=== PATIENT | male | born 1965 | race Caucasian/White ===

== ENCOUNTER 2023-11-19 07:23 | Outpatient (OUT) | payer OTHER, SELFPAY ==
[2023-11-19 07:52] LABS: Bilirubin Urine NEGATIVE (NEGATIVE); Blood Urine NEGATIVE (NEGATIVE); Clarity Urine CLEAR (CLEAR); Color Urine LT. YELLOW (YELLOW); Glucose Urine UA NEGATIVE (NEGATIVE); Ketones Urine NEGATIVE (NEGATIVE); Leukocyte Esterase Urine NEGATIVE (NEGATIVE); Nitrite Urine NEGATIVE (NEGATIVE); Protein Urine 100 mg/dL (NEG/TRACE); Urobilinogen Urine 0.2 EU/dL (0.2-1.0); pH Urine 7.5 (5.0-9.0)
[2023-11-19 07:58] LABS: Anion Gap 12.5; Calcium 8.5 mg/dL (8.5-10.1); Carbon Dioxide 28.6 mmol/L (21.0-32.0); Chloride 104 mmol/L (98-107); Estimated GFR (African America >60 (>=60); Estimated GFR (Non-African Ame 54 (>=60); Glucose 140 mg/dL (74-106); Potassium 3.1 mmol/L (3.5-5.1); Sodium 142 mmol/L (136-145)
[2023-11-19 07:58] LABS: Creatinine Urine Random 72.95 mg/dL (20.00-300.00); Protein Creatinine Ratio Urine 1.28; Total Protein Urine Random 93.3 mg/dL (<=11.9)
[2023-11-19 08:12] LABS: Bacteria Urine NONE SEEN #/HPF (NONE SEEN); Cast Seen? NONE SEEN #/LPF (NONE SEEN); Crystals Seen? None Seen #/HPF (None Seen); Mucus Urine NONE SEEN (NONE SEEN); RBC Urine NONE SEEN #/HPF (0-2); Squamous Epithelial Cell Urine RARE #/LPF (NONE/RARE); WBC Urine NONE SEEN #/HPF (NONE SEEN)
[2023-11-20 15:08] LABS: Cortisol - AM 13.3 ug/dL (6.2-19.4)
== END 2023-11-19 07:24 | disposition home or self-care (01) ==
LOC: LAB 07:27
PROVIDERS: PCP Internal Medicine; Visit Provider Internal Medicine
DX: I87.2 Venous insufficiency (chronic) (peripheral) (principal); I1A.0 Resistant hypertension
CPT/HCPCS: 36415; 80048; 81001; 82088; 82533; 82570; 84156; 84244

== ENCOUNTER 2023-12-12 15:31 | Outpatient (OUT) | payer OTHER, SELFPAY ==
[2023-12-12 16:17] LABS: Anion Gap 10.9; BUN Creatinine Ratio 15.2; Calcium 9.3 mg/dL (8.5-10.1); Chloride 105 mmol/L (98-107); Estimated GFR (African America 58 (>=60); Estimated GFR (Non-African Ame 48 (>=60); Glucose 130 mg/dL (74-106); Potassium 3.9 mmol/L (3.5-5.1); Sodium 140 mmol/L (136-145)
== END 2023-12-12 15:32 | disposition home or self-care (01) ==
LOC: LAB 15:33
PROVIDERS: PCP Internal Medicine; Visit Provider Internal Medicine
DX: I10 Essential (primary) hypertension (principal)
CPT/HCPCS: 36415; 80048

== ENCOUNTER 2024-03-08 15:20 | Outpatient (OUT) | payer OTHER, SELFPAY ==
--- NOTE | 2024-03-08 15:27 | US_ITS ---
The [address] [address] Patient Name: YANNI MAR MRN: [id number] date: 1965 Sex: M Assigned Patient Location: US Current Patient Location: Accession/Order Number: [id number] Exam Date: 03/08/2024 16:06 Report Date: 03/09/2024 07:46 At the request of: CARITO GRIMALDO Procedure: US renal BI EXAMINATION: US renal BI HISTORY: Chronic kidney disease N18.9, wellness exam Z00.00 COMPARISON: No relevant comparison available. TECHNIQUE: Ultrasound examination was performed of the kidneys and urinary bladder. FINDINGS: RIGHT KIDNEY: Contains several anechoic areas suspected represent benign cysts, largest is 3.2 cm. Several nonobstructing calcifications/stones, largest is 1.2 x 0.5 x 0.9 cm. No significant cortical thinning. Kidney: 12.2 x 6.3 x 8.0 cm LEFT KIDNEY: Contains a 1.5 cm benign-appearing cyst and several nonobstructing stones, largest is 0.4 cm. No significant cortical thinning. Kidney: 11.8 x 5.8 x 7.0 cm BLADDER: Lobular soft tissue structure within base of bladder 2.0 x 1.6 x 2.4 cm. US/US renal BI IMPRESSION: 1. Within base of urinary bladder is a 2.4 cm mass versus lobular protrusion of prostate into bladder. Consider CT abdomen pelvis without and with IV contrast for further evaluation or direct visualization via cystoscopy. 2. Bilateral nonobstructing nephrolithiasis. 3. Multiple renal cysts bilaterally; nonspecific but favoring benign etiology. 4. No significant cortical thinning of the kidneys bilaterally. Electronically authenticated by: MEGAN MCCOY Date: 03/09/2024 07:46
== END 2024-03-08 15:21 | disposition home or self-care (01) ==
LOC: US 15:21
PROVIDERS: PCP Internal Medicine; Visit Provider Internal Medicine
DX: Z00.00 Encounter for general adult medical examination without abnormal findings (principal); N18.9 Chronic kidney disease, unspecified; N20.0 Calculus of kidney; N28.1 Cyst of kidney, acquired
CPT/HCPCS: 76775

== ENCOUNTER 2024-03-16 10:17 | Outpatient (OUT) | payer OTHER, SELFPAY ==
--- OUTSIDE RECORDS SUMMARY | 2024-03-16 10:39 | XMS_ITS | CCD ---
Author Organization [facility] Care Team Providers Care Information Systems Security Manager Name Role Phone Albaro John Unavailable MARKER ., DR DODGE Admitting Unavailable MARKER ., DR DODGE Consulting Unavailable MARKER ., DR DODGE Attending Unavailable BALL, DR ARZATE Primary Care Unavailable IRIS, MARCELINA Consulting Unavailable BALL, DR ARZATE Consulting Unavailable ALVARO, DR ARZATE Attending Unavailable BALL, DR ARZATE Admitting Unavailable BALL, DR ARZATE Primary Care Unavailable BALL, DR ARZATE Consulting Unavailable BALL, DR ARZATE Attending Unavailable BALL, DR ARZATE Admitting Unavailable BALL, DR ARZATE Primary Care Unavailable NADINE, DR MEGAN Mendoza Consulting Unavailable MAYNOR CHENG Attending Unavailable Allergies Allergy Classification Reported Allergen(s) Allergy Type Date of Onset Reaction(s) Facility (15 sources) Penicillin Drug Allergy Unknown [facility] Other (10 sources) Penicillin V Drug Allergy 4 Unknown, Unknown Reaction [facility] (1 source) Penicillins Allergy to substance 4 Unknown Reaction [facility] Medications Current Medications Medication Drug Class(es) Dates Sig (Normalized) Sig (Original) amLODIPine 10 mg oral tablet (18 sources) Dihydropyridine Calcium Channel Alejandro Start: 12-28-2023 take 5 mg by mouth once daily Amlodipine Active 5 MG PO Daily December 28, 2023 9:08pm Start: 12-28-2023 End: 12-28-2023 take 10 mg by mouth once daily Amlodipine Discontinued 10 MG PO Daily December 28, 2023 1:00am December 28, 2023 9:09pm Start: 12-23-2023 End: 12-28-2023 take 5 mg by mouth once daily Amlodipine Discontinued 5 MG PO Daily December 23, 2023 1:00am December 28, 2023 5:00pm take 1 tablet by vivian th every twenty-four hours amLODIPine Besylate 5 MG 1 tablet Oral Once a day Active take 1 tablet by vivian th every twenty-four hours amLODIPine Besylate 10 MG 1 tablet Oral Once a day Active benazepril hydrochloride 40 mg oral tablet (16 sources) Angiotensin Converting Enzyme Inhibitor Start: 12-23-2023 take 40 mg by mouth once daily Benazepril Active 40 MG PO Daily December 23, 2023 1:00am take 1 tablet by vivian th every twenty-four hours Benazepril HCl 40 MG 1 tablet Orally Onc e a day Active carvedilol 12.5 mg oral tablet (9 sources) alpha-Adrenergic Alejandro, beta-Adrenergic Alejandro Start: 11-16-2023 take 1 tablet by mouth every twelve hours Carvedilol 12.5 MG 1 tablet with food Orally Twice a day for 90 days Oct, Active Start: 11-16-2023 take 1 tablet by vivian th every twelve hours Carvedilol 6.25 MG 1 tablet with food Orally Twice a day for 30 days Oct, Active take 1 tablet by vivian th twice daily at mealtime Carvedilol 6.25 TAKE 1 TABLET BY MOUTH TWICE DAILY WITH FOOD for 90 Active citalopram 20 mg oral tablet (16 sources) Serotonin Reuptake Inhibitor Start: 12-23-2023 take 20 mg by mouth once daily at bedtime Citalopram Active 20 MG PO Daily at bedtime December 23, 2023 1:00am take 1 tablet by mouth at bedtim e Citalopram Hydrobromide 20 MG TAKE 1 TABLET BY MOUTH AT BEDTIME Active cloNIDine hydrochloride 0.1 mg oral tablet (15 sources) Central alpha-2 Adrenergic Agonist Start: 12-23-2023 End: 12-28-2023 take 0.1 mg by mouth twice daily Clonidine Hcl Active 0.1 MG PO Twice daily 60 December 28, 2023 9:07pm take 0.5 tablet by m outh every twelve hours cloNIDine HCl 0.1 MG 1/2 tablet Orally every 12 hours for 30 days Active take 1 tablet by mouth twice marybeth ly cloNIDine HCl 0.1 MG TAKE 1 TABLET BY MOUTH TWICE DAILY Active halobetasol propionate 0.0005 mg/mg topical ointment (7 sources) Corticosteroid Halobetasol Propionate 0.05 % APPLY TO AFFECTED RASH AREA(S) TWO TIMES A DAY NEEDED for 30 Active hyoscyamine sulfate 0.125 mg sublingual tablet (16 sources) Start: 12-23-2023 take 0.125 mg under the tongue three times daily Hyoscyamine Sulfate Active 0.125 MG SUBLINGUAL Three times daily December 23, 2023 1:00am Hyoscyamine Sulf ate 0.125 MG DISSOLVE 1 TABLET UNDER THE TONGUE THREE TIMES DAILY NEEDED for 90 Active meloxicam 15 mg oral tablet (2 sources) Nonsteroidal Anti-inflammatory Drug Start: 01-31-2023 take 1 tablet by mouth every twenty-four hours Meloxicam 15 MG 1 tablet Orally Once a day for 15 days Jan, Active spironolactone 25 mg oral tablet (5 sources) Aldosterone Antagonist Start: 12-28-2023 take 25 mg by mouth once daily Spironolactone Active 25 MG PO Daily December 28, 2023 1:00am Start: 11-29-2023 take 1 tablet by vivian th every twenty-four hours Spironolactone 25 MG 1 tablet Orally Once a day for 30 days Oct, Active tadalafil 10 mg oral tablet (16 sources) Phosphodiesterase 5 Inhibitor Start: 12-23-2023 take 10 mg by mouth once daily Tadalafil Active 10 MG PO Daily December 23, 2023 1:00am Tadalafil 10 MG TAKE ONE TABLET BY MOUTH NEEDED FOR ERECTILE DYSFUNCTION. TO LAST 90-DAYS for 90 Active Tadalafil 20 MG TAKE 1 TABLET BY MOUTH EVERY DAY NEEDED Orally Once a day as needed for ED for 90 days Active Completed/Discontinued Medications Medication Drug Class(es) Dates Sig (Normalized) Sig (Original) citric acid 75 mg/ml / magnesium oxide 21.9 mg/ml / picosulfate sodium 0.0625 mg/ml oral solution (15 sources) Calculi Dissolution Agent, Anti-coagulant Start: 1 take 160 mL by mouth in the evening, then take 160 mL by mouth twice daily in the evening Clenpiq 10-3.5-12 MG-GM -GM/160ML 160 ML AT 3:00 PM AND 160 ML AT 9:00 PM Orally TWICE A DAY for 1 days PLEASE CHECK ALLERGIES Dec, Not-Taking/PRN hydrALAZINE hydrochloride 10 mg oral tablet (2 sources) Arteriolar Vasodilator Start: 4 End: 4 take 10 mg by mouth three times daily Hydralazine Discontinued 10 MG PO Three times daily 90 December 14, 2023 2:24pm December 23, 2023 3:46pm hydroCHLOROthiazide 25 mg oral tablet (12 sources) Thiazide Diuretic Start: End: 4 take 25 mg by mouth once daily Hydrochlorothiazide Discontinued 25 MG PO Daily December 23, 2023 1:00am December 28, 2023 9:09pm take 1 tablet by mouth once carri y hydroCHLOROthiazide 25 MG TAKE 1 TABLET BY MOUTH DAILY Active Problems Active Problems Problem Classification Problem Date Documented Da te Episodic/Chronic Chronic kidney disease (3 sources) Chronic kidney disease; Translations: [Chronic kidney disease, unspecified] 12-24-2023 Chronic Disorders of lipid metabolism (20 sources) Hypercholesterolemi a; Translations: [Pure hypercholesterolemi a, unspecified] Chronic Essential hypertension (20 sources) Hypertensive disorder; Translations: [Essential (primary) hypertension] Onset: 05-17-2022 Chronic Genitourinary symptoms and ill-defined conditions (3 sources) Proteinuria; Translations: [Proteinuria, unspecified] 12-28-2023 Episodic Joint disorders and dislocations; trauma-related (10 sources) Derangement of right knee; Translations: [Unspecified internal derangement of right knee] Chronic Miscellaneous mental health disorders (2 sources) Psychogenic headache; 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] Chronic Mood disorders (20 sources) Recurrent major depression in full remission; Translations: [Major depressive disorder, recurrent, in full remission] Chronic Other acquired deformities (15 sources) Acquired spondylolisthesis; Translations: [Spondylolysis, lumbar region] Episodic Other acquired deformities (1 source) Spondylolysis, lumbar region Episodic Other bone disease and musculoskeletal deformities (1 source) Chondromalacia, unspecified site Episodic Other diseases of veins and lymphatics (16 sources) Peripheral venous insufficiency; Translations: [Venous insufficiency (chronic) (peripheral)] 12-23-2023 Episodic Other diseases of veins and lymphatics (5 sources) Venous insufficiency (chronic) (peripheral); Translations: [Venous (peripheral) insufficiency, unspecified] Episodic Other gastrointestinal disorders (15 sources) Irritable bowel syndrome with diarrhea; Translations: [Irritable bowel syndrome with diarrhea] Chronic Other gastrointestinal disorders (1 source) Irritable bowel syndrome with diarrhea Chronic Other inflammatory condition of skin (15 sources) Plaque psoriasis; Translations: [Psoriasis vulgaris] Chronic Other male genital disorders (15 sources) Impotence of organic origin; Translations: [Erectile dysfunction due to arterial insufficiency] Chronic Other male genital disorders (1 source) Erectile dysfunction due to arterial insufficiency Chronic Other nervous system disorders (2 sources) Chronic pain; Translations: [Other chronic pain] Chronic Other nervous system disorders (1 source) Other chronic pain Chronic Other non-traumatic joint disorders (15 sources) Arthralgia of the lower leg; Translations: [Pain in right knee] Episodic Other nutritional; endocrine; and metabolic disorders (13 sources) Obesity; Translations: [Other obesity due to excess calories] Chronic Other nutritional; endocrine; and metabolic disorders (14 sources) Body mass index 30+ - obesity; Translations: [Body mass index (BMI) 34.0-34.9, adult] 12-23-2023 Chronic Other nutritional; endocrine; and metabolic disorders (3 sources) Other obesity due to excess calories Chronic Other nutritional; endocrine; and metabolic disorders (3 sources) Body mass index (BMI) 34.0-34.9, adult Chronic Other nutritional; endocrine; and metabolic disorders (1 source) Obesity caused by energy imbalance; Translations: [Other obesity due to excess calories] 12-23-2023 Chronic Other screening for suspected conditions (not mental disorders or infectious disease) (1 source) Encounter for screening for malignant neoplasm of prostate; Translations: [Screening for malignant neoplasms of prostate] 03-02-2024 Episodic Residual codes; unclassified (16 sources) Obstructive sleep apnea syndrome; Translations: [Obstructive sleep apnea (adult) (pediatric)] 12-23-2023 Chronic Residual codes; unclassified (3 sources) Obstructive sleep apnea (adult) (pediatric) Chronic Past or Other Problems Problem Classification Problem Date Documented Da te Episodic/Chronic Other aftercare (1 source) Other buttermaker continuous churn (current) drug therapy; Translations: [OTH REFERRAL AGENT CURRENT DRUG THERAPY] Onset: 05-17-2022 Episodic Other non-traumatic joint disorders (5 sources) Pain in right knee; Translations: [PAIN IN RIGHT KNEE] Onset: 10-12-2022 Episodic Spondylosis; intervertebral disc disorders; other back problems (6 sources) Low back pain; Translations: [Low back pain] Onset: 05-14-2022 Episodic Unclassified (1 source) Resistant hypertension 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 Decreased range of motion. Technique: Multiplanar multisequence MRI of the knee was performed without contrast. Comparison: Radiographs of the knee 02/10/2023 Findings: Quadriceps and patellar tendons are intact. Small joint effusion. Anterior and posterior cruciate ligaments are intact. The medial collateral ligament, lateral collateral ligament, and popliteus are intact. Complex tear of the body through posterior horn of the medial meniscus including near complete radial tear of the posterior horn. The lateral meniscus is intact 4 mm high-grade partial thickness if not full-thickness cartilage defect of the weightbearing lateral femoral condyle. Tiny partial thickness cartilage defect of the inner weightbearing medial femoral condyle. Small focus of subcortical bone marrow edema of the outer weightbearing medial femoral condyle likely secondary to full-thickness cartilage fissures. 6 mm full-thickness cartilage defect of the lateral femoral trochlea and several full-thickness cartilage fissures of the lateral femoral trochlea and femoral trochlear groove with tiny foci of subcortical bone marrow edema. There are a few tiny foci of subcortical bone marrow edema of the median patellar ridge secondary to full-thickness cartilage fissures. Popliteal fossa structures are intact. No Turk cyst. IMPRESSION: Context tear of the body through posterior horn of the medial meniscus. Mild osteoarthritis. Report reported and signed by Angelo Landeros on 03/01/2023 1125 Normal [facility] [employer] Rep[employer] Technician CBC AUTO DIFFon 02-09-2023 BASO # 0.1 103/ul Normal 0.0-0.1 [facility] Comment on above: Performed By: #### C BC #### [facility] [address], [place] [address] Dr. Ziyad Landry Basophils/100 WBC (Bld) 0.7 % Normal 0.2-2.0 [facility] Comment on above: Performed By: #### C BC #### [facility] [address], [place] [address] Dr. Ziyad Landry EO # 0.2 103/ul Normal 0.0-0.7 [facility] Comment on above: Performed By: #### C BC #### [facility] [address] [place] [address] [address] Ziyad Landry Eosinophils/100 WBC (Bld) 2.7 % Normal 0.9-7.0 [facility] Comment on above: Performed By: #### C BC #### [facility] [address] [place] [address] Dr. Ziyad Landry Erythrocyte distribution width (RBC) [Ratio] 12.7 % Normal 11.0-15.0 [facility] Comment on above: Performed By: #### C BC #### [facility] [address] [place] [address] Dr. Ziyad Landry Hematocrit (Bld) [Volume fraction] 39.7 % Critically low 42.0-54.0 [facility] Comment on above: Performed By: #### C BC #### [facility] [address] [place] [address] Dr. Ziyad Landry Hemoglobin (Bld) [Mass/Vol] 14.6 g/dL Normal 14.0-18.0 [facility] Comment on above: Performed By: #### C BC #### [facility] [address] [place] [address] Dr. Ziyad Landry IG # 0.04 10e3/ul Critically high 0.00-0.03 [facility] Comment on above: Performed By: #### C BC #### [facility] [address] [place] [address] Dr. Ziyad Landry IG % 0.5 % Normal 0.0-0.5 [facility] Comment on above: Performed By: #### C BC #### [facility] [address] [place] [address] Dr. Ziyad Landry LYMPH # 1.7 103/ul Normal 1.2-3.8 [facility] Comment on above: Performed By: #### C BC #### [facility] [address] [place] [address] Dr. Ziyad Landry Lymphocytes/100 WBC (Bld) 22.4 % Normal 20.5-60.0 [facility] Comment on above: Performed By: #### C BC #### [facility] [address] [place] [address] Dr. Ziyad Landry MANUAL DIFF REQ NO Normal [facility] Comment on above: Performed By: #### C BC #### [facility] [address] [place] [address] Dr. Ziyad Landry MCH (RBC) [Entitic mass] 30.7 pg Normal 25.9-34.0 [facility] Comment on above: Performed By: #### C BC #### [facility] [address] [place] [address] Dr. Ziyad Landry MCHC (RBC) [Mass/Vol] 36.8 g/dL Critically high 29.9-35.2 [facility] Comment on above: Performed By: #### C BC #### [facility] [address] [place] [address] Dr. Ziyad Landry MCV (RBC) [Entitic vol] 83.6 fL Normal 80.0-94.0 [facility] Comment on above: Performed By: #### C BC #### [facility] [address] [place] [address] Dr. Ziyad Landry MONO # 0.6 103/ul Normal 0.3-0.8 [facility] Comment on above: Performed By: #### C BC #### [facility] [address] [place] [address] Dr. Ziyad Landry Monocytes/100 WBC (Bld) 8.2 % Normal 1.7-12.0 [facility] Comment on above: Performed By: #### C BC #### [facility] [address] [place] [address] Dr. Ziyad Landry NEUT # 5.0 103/ul Normal 1.4-6.5 [facility] Comment on above: Performed By: #### C BC #### [facility] [address] [place] [address] Dr. Ziyad Landry Neutrophils/100 WBC (Bld) 65.5 % Normal 43.0-75.0 [facility] Comment on above: Performed By: #### C BC #### [facility] [address] [place] [address] Dr. Ziyad Landry Platelet mean volume (Bld) [Entitic vol] 8.6 fL Critically low 9.5-13.5 [facility] Comment on above: Performed By: #### C BC #### [facility] [address] [place] [address] Dr. Ziyad Landry PLT 224 103/ul Normal 150-450 [facility] Comment on above: Performed By: #### C BC #### [facility] [address] [place] [address] [address] Ziyad Landry RBC 4.75 106/ul Normal 4.70-6.10 [facility] Comment on above: Performed By: #### C BC #### [facility] [address] [place] [address] Dr. Ziyad Landry WBC 7.7 103/ul Normal 4.0-11.0 [facility] Comment on above: Performed By: #### C BC #### [facility] [address] [place] [address] Dr. Ziyad Landry DIRECT LDLon 02-09-2023 Cholesterol in LDL [Mass/Vol] 87 mg/dL Normal [facility] Comment on above: Performed By: #### C MP, LIPID, DLDL #### [facility] [address] [place] [address] Dr. Ziyad Landry DLDL NORMAL SEE BELOW Normal [facility] Comment on above: Result Comment: <100 mg/dl OPTIMAL 100 - 129 mg/dl NEAR OR ABOVE OPTIMAL 130 - 159 mg/dl BORDERLINE HIGH 160 - 189 mg/dl HIGH >190 mg/dl VERY HIGH Performed By: #### C MP, LIPID, DLDL #### [facility] [address] [place] [address] Dr. Ziyad Landry LIPID PROFILEon 02-09-2023 CHOL-HDL RATIO NORM SEE BELOW Normal [facility] Comment on above: Result Comment: 3.3 - 4.4 LOW RISK 4.4 - 7.1 AVERAGE RISK 7.1 - 11.0 MODERATE RISK >11.0 HIGH RISK Performed By: #### C MP, LIPID, DLDL #### [facility] [address] [place] [address] Dr. Ziyad Landry Cholesterol [Mass/Vol] 198 mg/dL Normal <=200 [facility] Comment on above: Performed By: #### C MP, LIPID, DLDL #### [facility] [address] [place] [address] [address] Ziyad Landry Cholesterol in HDL [Mass/Vol] 36 mg/dL Critically low 40-60 [facility] Comment on above: Performed By: #### C MP, LIPID, DLDL #### [facility] [address] [place] [address] [address] Ziyad Landry Cholesterol.total/ Cholesterol in HDL [Mass ratio] 5.5 {ratio} Normal [facility] Comment on above: Performed By: #### C MP, LIPID, DLDL #### [facility] [address] [place] [address] Dr. Ziyad Landry HDL NORMAL > or = 60 mg/dl - LOW CARDIOVASCULAR RISK <40 mg/dl - HIGH CARDIOVASCULAR RISK Normal [facility] Comment on above: Performed By: #### C MP, LIPID, DLDL #### [facility] [address] [place] [address] Dr. Ziyad Landry LDL CALC NORMAL SEE BELOW Normal [facility] Comment on above: Result Comment: <100 mg/dl OPTIMAL 100 - 129 mg/dl NEAR OR ABOVE OPTIMAL 130 - 159 mg/dl BORDERLINE HIGH 160 - 189 mg/dl HIGH >190 mg/dl VERY HIGH Performed By: #### C MP, LIPID, DLDL #### [facility] [address] [place] [address] Dr. Ziyad Landry Triglyceride [Mass/Vol] 401 mg/dL Critically high <=150 [facility] Comment on above: Performed By: #### C MP, LIPID, DLDL #### [facility] [address] [place] [address] Dr. Ziyad Landry VLDL CALC 80.2 mg/dL Normal [facility] Comment on above: Performed By: #### C MP, LIPID, DLDL #### [facility] [address] [place] [address] Dr. Ziyad Landry PROF 14(COMP METB)on 023 Albumin [Mass/Vol] 4.1 g/dL Normal 3.4-5.0 [facility] Comment on above: Performed By: #### C MP, LIPID, DLDL #### [facility] [address] [place] [address] [address] Ziyad Landry Albumin/Globulin [Mass ratio] 1.1 {ratio} Normal [facility] Comment on above: Performed By: #### C MP, LIPID, DLDL #### [facility] [address] [address] [address] Ziyad Landry ALP [Catalytic activity/Vol] 77 U/L Normal 46-116 [facility] Comment on above: Performed By: #### C MP, LIPID, DLDL #### [facility] [address] [place] [address] Dr. Ziyad Landry ALT [Catalytic activity/Vol] 52 U/L Normal 16-63 [facility] Comment on above: Performed By: #### C MP, LIPID, DLDL #### [facility] [address] [place] [address] Dr. Ziyad Landry Anion gap [Moles/Vol] 11.4 mmol/L Normal [facility] Comment on above: Performed By: #### C MP, LIPID, DLDL #### [facility] [address] [place] [address] Dr. Ziyad Landry AST [Catalytic activity/Vol] 25 U/L Normal 15-37 [facility] Comment on above: Performed By: #### C MP, LIPID, DLDL #### [facility] [address] [place] [address] Dr. Ziyad Landry Bilirubin [Mass/Vol] 0.6 mg/dL Normal 0.2-1.0 [facility] Comment on above: Performed By: #### C MP, LIPID, DLDL #### [facility] [address] [place] [address] Dr. Ziyad Landry Calcium [Mass/Vol] 9.4 mg/dL Normal 8.5-10.1 [facility] Comment on above: Performed By: #### C MP, LIPID, DLDL #### [facility] [address] [address] [address] Ziyad Landry Chloride [Moles/Vol] 104 mmol/L Normal 98-107 [facility] Comment on above: Performed By: #### C MP, LIPID, DLDL #### [facility] [address] [address] [address] Ziyad Landry CO2 [Moles/Vol] 27.9 mmol/L Normal 21.0-32.0 [facility] Comment on above: Performed By: #### C MP, LIPID, DLDL #### [facility] [address] [address] [address] Ziyad Landry Creatinine [Mass/Vol] 1.58 mg/dL Critically high 0.70-1.30 [facility] Comment on above: Performed By: #### C MP, LIPID, DLDL #### [facility] [address] [address] [address] Ziyad Landry EGFR-AF IRISH 55 mL/min/1.73m2 Critically low >=60 [facility] Comment on above: Performed By: #### C MP, LIPID, DLDL #### [facility] [address] [address] [address] Ziyad Landry EGFR-NON AF IRISH 46 mL/min/1.73m2 Critically low >=60 [facility] Comment on above: Performed By: #### C MP, LIPID, DLDL #### [facility] [address] [place] [address] [address] Ziyad Landry Globulin (S) [Mass/Vol] 3.8 g/dL Normal [facility] Comment on above: Performed By: #### C MP, LIPID, DLDL #### [facility] [address] [address] [address] Ziyad Landry Glucose [Mass/Vol] 116 mg/dL Critically high 74-106 [facility] Comment on above: Performed By: #### C MP, LIPID, DLDL #### [facility] [address] [address] [address] Ziyad Landry Potassium [Moles/Vol] 3.3 mmol/L Critically low 3.5-5.1 [facility] Comment on above: Performed By: #### C MP, LIPID, DLDL #### [facility] [address] [place] [address] Dr. Ziyad Landry Protein [Mass/Vol] 7.9 g/dL Normal 6.4-8.2 [facility] Comment on above: Performed By: #### C MP, LIPID, DLDL #### [facility] [address] [place] [address] Dr. Ziyad Landry Sodium [Moles/Vol] 140 mmol/L Normal 136-145 [facility] Comment on above: Performed By: #### C MP, LIPID, DLDL #### [facility] [address] [place] [address] Dr. Ziyad Landry Urea nitrogen [Mass/Vol] 28.0 mg/dL Critically high 7.0-18.0 [facility] Comment on above: Performed By: #### C MP, LIPID, DLDL #### [facility] [address] [place] [address] Dr. Ziyad Landry Urea nitrogen/Creatinin e [Mass ratio] 17.7 mg/mg Normal [facility] Comment on above: Performed By: #### C MP, LIPID, DLDL #### [facility] [address] [place] [address] LSPINE WO CONon 2 CT LSPINE WO CON EXAM: CT LSPINE WO CON HISTORY: DORSALGIA, UNSPECIFIED COMPARISON: None. TECHNIQUE: Contiguous axial CT images of the lumbar spine were acquired without IV contrast. Sagittal and coronal reformatted images were then obtained and submitted for interpretation. Automated dose lowering techniques and/or adjustment made according to patient size. FINDINGS: There is mild straightening of the normal lumbar lordotic curvature. The vertebral body heights are preserved. There is no evidence for an acute fracture. The posterior elements are intact. The lumbar spine alignment is maintained without evidence for significant spondylolisthesis. There is a chronic bilateral pars defect visualized at L5-S1. Moderate to severe disc height loss visualized at T12-L1. Mild disc height loss visualized at L5-S1. No significant disc herniations/bulges visualized from T12 through L2. L3-L4: Mild disc bulge visualized, the central canal is patent. Mild ligamentum flavum thickening visualized with mild left neuroforaminal narrowing. L4-L5: Small central disc protrusion with superimposed disc bulge visualized, the central canal is patent. There is mild left neuroforaminal narrowing visualized.. L5-S1: Mild disc bulge visualized, the central canal is patent. Mild facet arthropathy visualized with mild right and left neuroforaminal narrowing. 1.6 cm right simple renal cortical cyst visualized along the lower pole. IMPRESSION: 1. No acute fracture or traumatic malalignment of the lumbar spine. 2. Mild disc bulges visualized from L3-L4 through L5-S1 without evidence for central canal narrowing. 3. 1.6 cm simple renal cortical cyst along the lower pole of the right kidney. 4. Chronic bilateral pars defect at L5-S1 with no significant anterolisthesis. Electronically authenticated by: MARCELINA SIMMONS Date: 2022-05-14 03:38 Normal [facility] Vital Signs Date Time Vital Sign Value Performing Clinician Facility 03-02-2024 15:19-0400 Body height 177.8 cm [facility] 03-02-2024 15:19-0400 Body mass index (BMI) [Ratio] 34.6 kg/m2 [facility] 03-02-2024 15:19-0400 Body weight 109.54 kg [facility] 03-02-2024 15:19-0400 Diastolic blood pressure 99 mm[Hg] [facility] 03-02-2024 15:19-0400 Heart rate 74 /min [facility] 03-02-2024 15:19-0400 Respiratory rate 12 /min [facility] 03-02-2024 15:19-0400 Systolic blood pressure 157 mm[Hg] [facility] 12-26-2023 14:53-0500 Body height 177.8 cm [facility] 12-26-2023 14:53-0500 Body mass index (BMI) [Ratio] 34.7 kg/m2 [facility] 12-26-2023 14:53-0500 Body weight 109.93 kg [facility] 12-26-2023 14:53-0500 Diastolic blood pressure 95 mm[Hg] [facility] 12-26-2023 14:53-0500 Heart rate 78 /min [facility] 12-26-2023 14:53-0500 Respiratory rate 12 /min [facility] 12-26-2023 14:53-0500 Systolic blood pressure 150 mm[Hg] [facility] 11-16-2023 15:00-0500 Body height 177.8 cm Albaro Ball Other [facility] Other 11-16-2023 15:00-0500 Body mass index (BMI) [Ratio] 34.63 kg/m2 Albaro Ball Other [facility] Other 11-16-2023 15:00-0500 Body weight 109.5 kg Albaro Ball Other [facility] Other 11-16-2023 15:00-0500 Diastolic blood pressure 119 mm[Hg] Albaro Ball Other [facility] Other 11-16-2023 15:00-0500 Respiratory rate 12 /min Albaro Ball Other [facility] Other 11-16-2023 15:00-0500 Systolic blood pressure 186 mm[Hg] Albaro Ball Other [facility] Other 06-20-2023 15:30-0400 Body height 177.8 cm Albaro Ball Other [facility] Other 06-20-2023 15:30-0400 Body mass index (BMI) [Ratio] 34.89 kg/m2 Albaro Ball Other [facility] Other 06-20-2023 15:30-0400 Body weight 110.32 kg Albaro Ball Other [facility] Other 06-20-2023 15:30-0400 Diastolic blood pressure 110 mm[Hg] Albaro Ball Other [facility] Other 06-20-2023 15:30-0400 Respiratory rate 12 /min Albaro Ball Other [facility] Other 06-20-2023 15:30-0400 Systolic blood pressure 165 mm[Hg] Albaro Ball Other [facility] Other 03-14-2023 16:00-0400 Body height 177.8 cm Albaro Ball Other [facility] Other 03-14-2023 16:00-0400 Body mass index (BMI) [Ratio] 34.49 kg/m2 Albaro Ball Other [facility] Other 03-14-2023 16:00-0400 Body weight 109.05 kg Albaro Ball Other [facility] Other 03-14-2023 16:00-0400 Diastolic blood pressure 104 mm[Hg] Albaro Ball Other [facility] Other 03-14-2023 16:00-0400 Respiratory rate 12 /min Albaro Ball Other [facility] Other 03-14-2023 16:00-0400 Systolic blood pressure 174 mm[Hg] Albaro Ball Other [facility] Other 01-31-2023 16:00-0400 Body height 177.8 cm Albaro Ball Other [facility] Other 01-31-2023 16:00-0400 Body mass index (BMI) [Ratio] 34.29 kg/m2 Albaro Ball Other [facility] Other 01-31-2023 16:00-0400 Body weight 108.41 kg Albaro John Other [facility] Other 01-31-2023 16:00-0400 Diastolic blood pressure 88 mm[Hg] Albaro John Other [facility] Other 01-31-2023 16:00-0400 Respiratory rate 12 /min Albaro John Other [facility] Other 01-31-2023 16:00-0400 Systolic blood pressure 162 mm[Hg] Albaro John Other [facility] Other Encounters Encounter Date Encounter Type Care Provider Facility Start: 03-02-2024 End: 03-02-2024 ambulatory [facility] Work Phone: Start: 03-02-2024 End: 03-02-2024 Encounter for general adult medical examination without abnormal findings [facility] Start: 03-02-2024 End: 03-02-2024 Patient encounter procedure [facility] Physician [facility] Work Phone: Start: 12-28-2023 Non-patient / Non-visit [facility] Physician [facility] [employer] Work Phone: Start: 12-26-2023 End: 12-26-2023 Patient encounter procedure [facility] Physician [facility] Work Phone: Start: 12-09-2023 End: 12-09-2023 ambulatory Albaro John Other [facility] Other Start: 12-09-2023 Telephone encounter Albaro Alvaro [facility] Start: 11-30-2023 End: 11-30-2023 ambulatory Albaro John Other [facility] Other Start: 11-30-2023 Telephone encounter Albaro John [facility] Start: 11-29-2023 End: 11-29-2023 ambulatory Albaro Ball Other [facility] Other Start: 11-29-2023 Telephone encounter Albaro Ball [facility] Start: 11-28-2023 End: 11-28-2023 ambulatory Albaro Ball Other [facility] Other Start: 11-28-2023 Telephone encounter Albaro Ball [facility] Start: 11-22-2023 End: 11-22-2023 ambulatory Albaro Ball Other [facility] Other Start: 11-22-2023 Telephone encounter Albaro Ball [facility] Start: 11-16-2023 End: 11-16-2023 ambulatory Albaro Ball Other [facility] Other Start: 11-16-2023 Office outpatient vi sit 25 minutes Albaro Ball [facility] Start: 11-16-2023 Telephone encounter Albaro Ball [facility] Start: 11-03-2023 End: 11-03-2023 ambulatory MAYNOR CHENG Not Available Start: 07-13-2023 End: 07-13-2023 ambulatory Albaro Ball Other [facility] Other Start: 07-13-2023 Telephone encounter Albaro Ball [facility] Start: 06-20-2023 End: 06-20-2023 ambulatory Albaro Ball Other [facility] Other Start: 06-20-2023 Office outpatient vi sit 25 minutes Albaro Ball [facility] Start: 04-22-2023 End: 04-22-2023 ambulatory Albaro Ball Other [facility] Other Start: 04-22-2023 Telephone encounter Albaro Ball [facility] Start: 04-08-2023 End: 04-08-2023 ambulatory Albaro Ball Other [facility] Other Start: 04-08-2023 Telephone encounter Albaro John [facility] Start: 04-04-2023 End: 04-04-2023 ambulatory Albaro John Other [facility] Other Start: 04-04-2023 Telephone encounter Albaro CYR [facility] Start: 03-14-2023 End: 03-14-2023 ambulatory Albaro John Other [facility] Other Start: 03-14-2023 Office outpatient vi sit 15 minutes Albaro John [facility] Start: 02-09-2023 End: 02-10-[address] ALBARO JOHN Facility:[facility] Start: 02-01-2023 End: 02-01-2023 ambulatory Albaro John Other [facility] Other Start: 02-01-2023 Telephone encounter Albaro John [facility] Start: 01-31-2023 End: 01-31-2023 ambulatory Albaro John Other [facility] Other Start: 01-31-2023 Encounter for genera l adult medical examination without abnormal findings Albaro Alvaro [facility] Start: 01-31-2023 Periodic preventive med est patient 40-64yrs Albaro Alvaro [facility] Start: 10-12-2022 End: 10-13-[address] ALBARO JOHN Facility:[facility] Start: 05-14-2022 End: 05-14-[address] ECHO TRUJILLO . Facility:[facility] Procedures Date Procedure Procedure Detail Performing Clinician Start: 02-09-[address] SLOAN TRUJILLO . Comment on above: Performed By: #### [facility] #### [facility] [address] [place] [address] Dr. Ziyad Landry Plan of Treatment Date Care Activity Detail Author [facility] Immunizations Immunization Date Immunization Notes Care Provider Fa ciligraciela 10-21-2021 COVID-19 Vaccine Pfi zer - Documentation Purposes Only Albaro John Other [facility] 10-20-2015 diphtheria, tetanus toxoids and acellular pertussis vaccine, unspecified formulation Albaro John Other [facility] Payers Date Payer Category Payer Unknown [id number] [id number] [id number] 1965 Unknown [id number] [id number] [id number] 1965 Unknown [id number] [id number] [id number] 1967 Unknown [id number] 1959 Unknown [id number] 1957 Unknown [id number] Unknown [id number] Social History Date Type Detail Facility Unknown if ever smoked [facility] Other Sex Assigned At Sex Assigned At Bir th [facility] Other Start: 12-23-2023 Tobacco smoking status NHIS Unknown if ever smoked [facility] Start: 1965 Sex Assigned At Male F [facility] Clinical Notes 10-12-2022 to 12-09-2023 Note Date & Type Note Facility 12-09-2023 Evaluation note Encounter Date Diagnosis Assessment Notes Dec, Primary hypertension (ICD-10 - I10) [facility] Other 01-31-2024 Evaluation note* Encounter Date Diagnosis Assessment Notes Treatment Notes Treatment Clinical Notes Oct, Primary hypertension (ICD-10 - I10) [facility] Other 01-30-2024 Evaluation note* Encounter Date Diagnosis Assessment Notes Treatment Notes Treatment Clinical Notes Oct, Primary hypertension (ICD-10 - I10) [facility] Other 01-17-2024 Evaluation note* Encounter Date Diagnosis Assessment Notes Treatment Notes Treatment Clinical Notes Oct, Primary hypertension (ICD-10 - I10) Rechecked BP w/o much change He denies headache, pounding heartbeat, blurred vision, loss of vision, flank pain or hematuria. Family hx positive for HTN CKD noted on previous labs. Discussed causes of elevated BP - hx of mild CHERYL and never treated - occasional beer consumption - denies use of sudafed or NSAIDs Instructed to decrease alcohol use and weight. Suggest r/o secondary causes of HTN - r/o primary hyperaldosteronism - pheochromocytoma Oct, Elevated cholesterol (ICD-10 - E78.00) Instructed on diet and exercise with continued statin therapy.Discussed the beneficial effects of lowering cholesterol in reducing the risk for cerebrovascular and cardiovascular disease. Oct, Obstructive sleep apnea (ICD-10 - G47.33) Patient states no treatment recommended Results mild per the patient and he was never initiated on CPAP. Instructed to lose weight. Oct, Chronic venous insufficiency (ICD-10 - I87.2) Avoid salt and elevate lower extremities, support stockings, inspect legs and feet daily for blisters and ulcerations. Oct, Resistant hypertension (ICD-10 - I1A.0) Instructed to lower salt intake, d/c alcohol consumption, consider retitrate sleep study. Exercise w/ weight loss. r/o excessive aldosterone, cortisol r/o glomerulonephrosis Oct, Other obesity due to excess calories (ICD-10 - E66.09) This patient has been instructed on a low-fat, high-fiber diet. They are instructed to reduce calories, portion sizes and snacks. It is recommended that they exercise for 30 minutes, 3-5 times weekly. Oct, Body mass index [BMI] 34.0-34.9, adult (ICD-10 - Z68.34) Oct, Recurrent major depressive disorder, in full remission (ICD-10 - F33.42) Stable mood, instructed to follow a healthy diet and exercise w/ weight loss. [facility] Other 08-21-2023 Evaluation note* Encounter Date Diagnosis Assessment Notes Treatment Notes Treatment Clinical Notes May, Primary hypertension (ICD-10 - I10) This patient is instructed to consume a healthy, low-fat, low-salt diet. They are also encouraged to continue exercise to achieve/maintain a normal BMI. Patient is instructed on home BP measurements: - rest for 5 minutes w/o talking- positioned w/ feet on floor and arm supported- average best 2/3 readings w/ goal < 135-85 May, Elevated cholesterol (ICD-10 - E78.00) Instructed on diet and exercise with continued statin therapy.Discussed the beneficial effects of lowering cholesterol in reducing the risk for cerebrovascular and cardiovascular disease. May, Obstructive sleep apnea (ICD-10 - G47.33) Patient states no treatment recommended This patient is aware of the benefits associated with CHERYL: With continued use, the patient reduces the risk for MN, CVA, HTN, cardiac dysrhythmias and sudden cardiac deaths.The patient is also aware of the association between CHERYL and morning headaches, daytime somnolence, fatigue and obesity May insist on retitration study May, Chronic venous insufficiency (ICD-10 - I87.2) Avoid salt and elevate lower extremities, support stockings, inspect legs and feet daily for blisters and ulcerations. Decreased Amlodipine to 5mg qd May, Other obesity due to excess calories (ICD-10 - E66.09) This patient has been instructed on a low-fat, high-fiber diet. They are instructed to reduce calories, portion sizes and snacks. It is recommended that they exercise for 30 minutes, 3-5 times weekly. May, Body mass index [BMI] 34.0-34.9, adult (ICD-10 - Z68.34) May, Recurrent major depressive disorder, in full remission (ICD-10 - F33.42) May, Internal derangement of right knee (ICD-10 - M23.91) Avoid squatting or kneeling Quad exercises, ice and rest. f/u Orthopedics [facility] Other 05-15-2023 Evaluation note* Encounter Date Diagnosis Assessment Notes Treatment Notes Treatment Clinical Notes February, Primary hypertension (ICD-10 - I10) This patient is instructed to consume a healthy, low-fat, low-salt diet. They are also encouraged to continue exercise to achieve/maintain a normal BMI. February, Other obesity due to excess calories (ICD-10 - E66.09) This patient has been instructed on a low-fat, high-fiber diet. They are instructed to reduce calories, portion sizes and snacks. It is recommended that they exercise for 30 minutes, 3-5 times weekly. February, Body mass index [BMI] 34.0-34.9, adult (ICD-10 - Z68.34) [facility] Other 04-04-2023 Evaluation note* Encounter Date Diagnosis Assessment Notes Treatment Notes Treatment Clinical Notes Jan, Erectile dysfunction due to arterial insufficiency (ICD-10 - N52.01) [facility] Other 04-03-2023 Evaluation note* Encounter Date Diagnosis Assessment Notes Treatment Notes Treatment Clinical Notes Jan, Wellness examination (ICD-10 - Z00.00) Healthy diet and exercise. Reviewed age-appropriate preventive testing recommended. Jan, HTN (hypertension) (ICD-10 - I10) This patient is instructed to consume a healthy, low-fat, low-salt diet. They are also encouraged to continue exercise to achieve/maintain a normal BMI. Jan, Obstructive sleep apnea (ICD-10 - G47.33) This patient is aware of the benefits associated with CHERYL: With continued use, the patient reduces the risk for MN, CVA, HTN, cardiac dysrhythmias and sudden cardiac deaths.The patient is also aware of the association between CHERYL and morning headaches, daytime somnolence, fatigue and obesity, which also has been improved with continued use.The patient is compliant with treatment, wearing the equipment every night for greater than 4 hours.The patient is instructed to continue use of the CPAP for CHERYL treatment. Jan, Chronic venous insufficiency (ICD-10 - I87.2) Avoid salt and elevate lower extremities, support stockings, inspect legs and feet daily for blisters and ulcerations. 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 They are to use intermittent heat and ice as needed. They may schedule a massage or gentle manipulation. They may safely use Tylenol as needed. Jan, Elevated cholesterol (ICD-10 - E78.00) Diet and exercise with continued statin therapy. Jan, Pain in right knee (ICD-10 - M25.561) Quad exercises, ice and short trial of Mobic. Discussed IA injection w/ cortisone, PT and referral to Orthopedics. Weight loss 03 Apr, 2023 Chondromalacia (ICD-10 - M94.20) Jan, Recurrent major depressive disorder, in full remission (ICD-10 - F33.42) Healthy diet, exercise and continue medication. Jan, Irritable bowel syndrome with diarrhea (ICD-10 - K58.0) Jan, Other chronic pain (ICD-10 - G89.29) [facility] Other [id number] NotePROCEDURE: XR KNEE RT 4V or > HISTORY: Pain of right knee joint , acute COMPARISON: None. FINDINGS: BONES:Small degenerative osteophytes along the articular margins of the patella and medial compartment. No fracture, dislocation, bone lesion. SOFT TISSUES:No visible soft tissue swelling. EFFUSION:Small joint effusion. OTHER: Negative. IMPRESSION: 1. Small joint effusion and minimal degenerative joint disease. Electronically authenticated by: MEGAN MCCOY Date: 2022-10-12 15:38[facility] noteNo InformationNort [employer] [facility] Other Evaluation note* Diagnosis Onset Date Resolution Status Chronic kidney disease acute Chronic venous insufficiency acute Elevated cholesterol acute Primary hypertension acute Proteinuria acute Chronic kidney disease acute Chronic venous insufficiency acute Elevated cholesterol acute Primary hypertension acute Proteinuria acute Screening PSA (prostate specific antigen) noneactive Wellness examination noneact [facility] Work Phone: [facility] Narrative - Reported* Type Description Date Medical History HTN (hypertension) Medical History Depression Medical History Acute pain of right knee Medical History Spondylolysis of lumbar region Medical History Stress headache Medical History Major depressive dis order, recurrent, in partial remission Medical History Chronic venous insufficiency Medical History Hyperlipidemia type II Medical History Obstructive sleep apnea Medical History Erectile dysfunction due to lisa rial insufficiency Medical History Low back pain Medical History Plaque psoriasis Surgical History cholecystectomy 2003 Surgical History kidney stone Surgical History COLONOSCOPY 2020 Hospitalization History SEE SURGICAL HX [facility] Other [facility] Narrative - Reported* Type Description Date Medical History HTN (hypertension) Medical History Depression Medical History Acute pain of right knee Medical History Spondylolysis of lumbar region Medical History Stress headache Medical History Major depressive dis order, recurrent, in partial remission Medical History Chronic venous insufficiency Medical History Hyperlipidemia type II Medical History Obstructive sleep apnea Medical History Erectile dysfunction due to lisa rial insufficiency Medical History Low back pain Medical History Plaque psoriasis Surgical History cholecystectomy 2003 Surgical History kidney stone Surgical History COLONOSCOPY 2020 Surgical History Right knee arthroscopy 03/2023 Hospitalization History SEE SURGICAL HX [facility] Other Reason for referral (narrative)* Reason *FU 02/08 Referral for persistent right knee pain w/o swelling, locking or giving out., Right knee strain, medial meniscus injury Chondromalacia Diagnosis 1 Pain in right knee ( M25.561) Referral Organization [facility] Alvaro owen Referring Provider First Name Albaro Referring Provider Last Name Alvaro Referring Provider Specialty Internal Wy dicine Referred Organization [facility] Referred Provider Iris Mandujano Jr Referred Address ,[place], [place],[address] Referred Provider Specialty Orthopedic S urgery Referral Priority Routine General Notes Sudha Hercules 02:06:53 PM >received today Sudha Hercules 02/01/2023 02:07:54 PM >attachments made, notes locked, faxed P2P [facility] Other Summary Purpose Family History Relationship Condition Age at Onset Recorded Date/T enrique father Diabetes mellitus Unknown Hypertension Unknown Not Specified Unknown Advance Directives Advance Directive Response Recorded Date/ Time Advance Directives No November 23, 2023 12:54pm Chief Complaint and Reason for Visit Chief Complaint 1 month Amb Documentation wellness Reason for Visit Chronic kidney disea se Chronic venous insufficiency Elevated cholesterol Primary hypertension Proteinuria Chronic kidney disease Chronic venous insufficiency Elevated cholesterol Primary hypertension Proteinuria Screening PSA (prostate specific antigen) Wellness examination Additional Source Comments REASON FOR VISIT (unrecogniz ed section and content) WELLNESSNo Information6 week follow upBP readingsRefillNo Information3 month Follow upNo Information4 month Follow upNo InformationLabsNo InformationERRORLab resultsRepeat labs (unrecognized sect ion and content) No Status Records FoundNo Status Records FoundNo Status Records Found INFORMATION SOURCE (unrecogn ized section and content) DATE CREATED AUTHOR 02/10/2023 [facility] DATE CREATED AUTHOR AUTHOR'S ORGANIZ ATION 03/02/2023 [facility] dical Specialist DATE CREATED AUTHOR AUTHOR'S ORGANIZ ATION 11/05/2023 [facility] dical Specialists EPIC Care Teams (unrecognized sec tion and content) Team Status: Active Member Role Status Dates Albaro Ball , DO Primary Care Provider Active Team Status: Inactive Member Role Status Dates Albaro John , Primary Care Provide r, Attending Provider Active Start: December 26, 2023 End: December 26, 2023 Team Status: Active Member Role Status Dates Albaro John , Primary Care Provider Active Start: December 28, 2023 CHRISTO Graham Attending Provider Active St art: December 28, 2023 Team Status: Inactive Member Role Status Dates Albaro John , Primary Care Provide r, Attending Provider Active Start: March 02, 2024 End: March 02, 2024 Goals (unrecognized section and content) Goals may be documented in a n alternate section FOR RECORDS PERTAINING TO PATIENTS WHO ARE OR HAVE BEEN ENROLLED IN A CHEMICAL DEPENDENCY/SUBSTANCEABUSE PROGRAM, SOME INFORMATION MAY BE OMITTED. This clinical summary was aggregated from multiple sources. Caution should be exercised in using it in the provision of clinical care. This summary normalizes information from multiple sources, and as a consequence, information in this document may materially change the coding, format and clinical context of patient data. In addition, data may be omitted in some cases. CLINICAL DECISIONS SHOULD BE BASED ON THE PRIMARY CLINICAL RECORDS. [facility]. provides no warranty or guarantee of the accuracy or completeness of information in this document.
[2024-03-16 10:45] LABS: Basophils Percent Auto 0.5 % (0.2-2.0); Eosinophils Absolute Auto 0.1 10^3/uL (0.0-0.7); Eosinophils Percent Auto 1.5 % (0.9-7.0); Hematocrit 41.3 % (42.0-54.0); Hemoglobin 14.4 g/dL (14.0-18.0); Immature Granulocytes Abs Auto 0.03 10^3/uL (0.00-0.03); Immature Granulocytes Pct Auto 0.4 % (0.0-0.5); Lymphocytes Absolute Auto 1.2 10^3/uL (1.2-3.8); Lymphocytes Percent Auto 15.5 % (20.5-60.0); Mean Corpuscular HGB Conc 34.9 g/dL (29.9-35.2); Mean Corpuscular Hemoglobin 30.3 pg (25.9-34.0); Mean Corpuscular Volume 86.9 fL (80.0-94.0); Mean Platelet Volume 9.3 fL (9.5-13.5); Monocytes Absolute Auto 0.6 10^3/uL (0.3-0.8); Monocytes Percent Auto 7.2 % (1.7-12.0); Neutrophils Absolute Auto 5.8 10^3/uL (1.4-6.5); Neutrophils Percent Auto 74.9 % (43.0-75.0); Platelet Count 240 10^3/uL (150-450); Red Blood Count 4.75 10^6/uL (4.70-6.10); Red Cell Distribution Width 12.3 % (11.0-15.0); White Blood Count 7.8 10^3/uL (4.0-11.0)
[2024-03-16 12:18] LABS: Alanine Aminotransferase 38 U/L (16-63); Albumin Globulin Ratio 1.2; Albumin Level 3.9 g/dL (3.4-5.0); Alkaline Phosphatase 91 U/L (46-116); Anion Gap 11.7; Aspartate Amino Transferase 20 U/L (15-37); Bilirubin Total 0.6 mg/dL (0.2-1.0); Calcium 8.4 mg/dL (8.5-10.1); Carbon Dioxide 25.9 mmol/L (21.0-32.0); Chloride 101 mmol/L (98-107); Chol HDL Ratio 4.3; Cholesterol 174 mg/dL (<=200); Estimated GFR (African America >60 (>=60); Estimated GFR (Non-African Ame 58 (>=60); Globulin 3.3 g/dL; Glucose 115 mg/dL (74-106); HDL Cholesterol 40 mg/dL (40-60); Potassium 3.6 mmol/L (3.5-5.1); Sodium 135 mmol/L (136-145); Total Protein 7.2 g/dL (6.4-8.2); Triglycerides 159 mg/dL (<=150); VLDL CHOLESTEROL 31.8 mg/dL
[2024-03-16 13:34] LABS: Prostate Specific Antigen Scrn 1.81 ng/mL (<=4.00)
[2024-03-19 17:02] LABS: Alpha-1-Globulin 0.2 g/dL (0.0-0.4); Alpha-2-Globulin 0.6 g/dL (0.4-1.0); Free Kappa Lt Chains,S 21.2 mg/L (3.3-19.4); Free Lambda Lt Chains,S 19.8 mg/L (5.7-26.3); Immunoglobulin A, Qn, Serum 201 mg/dL (90-386); Immunoglobulin G, Qn, Serum 1036 mg/dL (603-1613); Immunoglobulin M, Qn, Serum 62 mg/dL (20-172); Kappa/Lambda Ratio,S 1.07 (0.26-1.65); Protein, Total 6.7 g/dL (6.0-8.5)
== END 2024-03-16 10:18 | disposition home or self-care (01) ==
LOC: LAB 10:17
PROVIDERS: PCP Internal Medicine; Visit Provider Internal Medicine
DX: Z00.00 Encounter for general adult medical examination without abnormal findings (principal); R80.9 Proteinuria, unspecified; N18.9 Chronic kidney disease, unspecified
CPT/HCPCS: 36415; 80053; 80061; 82784; 83521; 84155; 84165; 85025; G0103

== ENCOUNTER 2024-06-25 15:16 | Emergency (ER) | payer OTHER, SELFPAY ==
[2024-06-25 15:20] VITALS: BP 174/94; PULSE 78; TEMP 36.9; O2SAT 97; BMI 34.4
--- NOTE | 2024-06-25 15:31 | ED_ITS ---
HPI - Skin/Abscess/Foreign Bdy General Chief complaint: Skin/Abscess/Foreign Body Stated complaint: cyst removal Time Seen by Provider: 06/25/24 15:29 Source: patient Mode of arrival: walk-in Limitations: no limitations History of Present Illness HPI narrative: 59 year old male presents to the ED for an erythematous, raised area to his groin. Onset was 2-3 days ago. Denies fever, chills, injury. He attempted to d rain the area at home with a needle. Denies drainage. The pain is worse with palpation, ambulation. Pt requesting I and D. Related Data Home Medications ?Medication ?Instructions ?Recorded ?Confirmed amlodipine 10 mg tablet 10 mg PO DAILY 06/25/24 06/25/24 benazepril 40 mg tablet 40 mg PO DAILY 06/25/24 06/25/24 citalopram 20 mg tablet 20 mg PO BEDTIME 06/25/24 06/25/24 clonidine HCl 0.1 mg tablet 0.1 mg PO BID 06/25/24 06/25/24 Previous Rx's ?Medication ?Instructions ?Recorded cephalexin 500 mg capsule 500 mg PO Q6H 10 days #40 caps 06/25/24 doxycycline monohydrate 100 mg 100 mg PO BID 10 days #20 caps 06/25/24 capsule Allergies Allergy/AdvReac Type Severity Reaction Status Date / Time No Known Drug Allergies Allergy Verified 06/25/24 15:20 Review of Systems ROS Constitutional Denies: fever or chills Gastrointestinal Denies: abdominal pain Musculoskeletal Denies: back pain Integumentary/Breast Reports: redness and skin swelling; Denies: rash Neurological Denies: numbness in extremities or weakness in extremities Exam Constitutional Vital Signs, click to edit/add: Last Vital Signs Temp 98.4 F 06/25/24 15:20 Pulse 78 06/25/24 15:20 Resp 20 06/25/24 15:20 BP 174/94 H 06/25/24 15:20 Pulse Ox 97 06/25/24 15:20 O2 Del Method Room Air 06/25/24 15:20 Common normals: no apparent distress and oriented x3 General appearance: cooperative Eye Common normals: conjunctivae normal and no scleral icterus Neck & C-Spine Common normals: supple Chest Chest: symmetrical chest wall rise Respiratory Common normals: normal respiratory effort Effort & inspection: able to speak in complete sentences Cardio Common normals: regular rate GI Other: Erythematous, raised, tender area to right suprapubic region. There is a firm center. No drainage. Scabbed area noted to center. Course Vital Signs Vital signs: Vital Signs Temperature 98.4 F 06/25/24 15:20 Pulse Rate 78 06/25/24 15:20 Respiratory Rate 20 06/25/24 15:20 Blood Pressure 174/94 H 06/25/24 15:20 Pulse Oximetry 97 06/25/24 15:20 Oxygen Delivery Method Room Air 06/25/24 15:20 Temperature 98.4 F 06/25/24 15:20 Pulse Rate 78 06/25/24 15:20 Respiratory Rate 20 06/25/24 15:20 Blood Pressure 174/94 H 06/25/24 15:20 Pulse Oximetry 97 06/25/24 15:20 Oxygen Delivery Method Room Air 06/25/24 15:20 MDM - Skin/Abscess/Foreign Bdy MDM Narrative Medical decision making narrative: I and D was completed. Pt tolerated the procedure well. A dressing was applied. Prescriptions were provided for doxycycline and keflex. Follow up with pcp for a recheck, further evaluation and treatment. Medical Records Attestation: I reviewed the patient's medical records. Discharge Plan Discharge Stand Alone Forms: Work/School Release, Portal Instructions Chief Complaint: Skin/Abscess/Foreign Body Clinical Impression: Abscess of skin or subcutaneous tissue Patient Disposition: Home, Self-Care Time of Disposition Decision: 15:48 Condition: Good Mode of Transportation: Private Vehicle Prescriptions / Home Meds: New doxycycline monohydrate 100 mg capsule 100 mg PO BID 10 Days Qty: 20 0RF cephalexin 500 mg capsule 500 mg PO Q6H 10 Days Qty: 40 0RF No Action amlodipine 10 mg tablet 10 mg PO DAILY benazepril 40 mg tablet 40 mg PO DAILY citalopram 20 mg tablet 20 mg PO BEDTIME clonidine HCl 0.1 mg tablet 0.1 mg PO BID Print Language: Vincentian Instructions: Abscess (ED) Additional Instructions: Return to the ED for worsening symptoms. Referrals: Albaro John DO [Primary Care Provider] - 1 week Procedures ED ID Incision & Drainage I&D Type: abcess Site: other (Groin/suprapubic region) Side (if applicable): right Sedation/analgesia: none Anesthetic used: lidocaine 1% Technique: incised with #11 blade Amount of fluid (mL): 2 Irrigation: Yes Packing used: none
--- NOTE | 2024-06-25 15:31 | PC.NURSE ---
area red and round, firm area in middle, small scab to center, pt reports trying to use pin to poke this to drain it yesterday but states no draiange. Pt request this area opened to rain if possible.
[2024-06-25] MEDS: LIDOCAINE HCL 1% 100 MG/10 ML MDV INJ (15:38)
== END 2024-06-25 16:14 | disposition home or self-care (01) ==
PROVIDERS: Emergency Provider Emergency Medicine; PCP Internal Medicine
DX: L02.214 Cutaneous abscess of groin (principal)
CPT/HCPCS: 10060; 99284

== ENCOUNTER 2025-03-09 08:34 | Outpatient (OUT) | payer OTHER, SELFPAY ==
--- OUTSIDE RECORDS SUMMARY | 2025-03-09 08:38 | XMS_ITS | CCD ---
Author Organization [facility]Sym[facility] Care Team Providers Care Bed Setter Name Role Phone Albaro John Unavailable MARKER ., DR DODGE Admitting Unavailable MARKER ., DR DODGE Consulting Unavailable MARKER ., DR DODGE Attending Unavailable BALL, DR ARZATE Primary Care Unavailable IRISMARCELINA Consulting Unavailable BALL, DR ARZATE Consulting Unavailable BALL, DR ARZATE Attending Unavailable BALL, DR ARZATE Admitting Unavailable BALL, DR ARZATE Primary Care Unavailable BALL, DR ARZATE Consulting Unavailable BALL, DR ARZATE Attending Unavailable BALL, DR ARZATE Admitting Unavailable BALL, DR ARZATE Primary Care Unavailable ZIEBER, DR MEGAN Mendoza Consulting Unavailable MAYNOR CHENG Attending Unavailable ALBARO JOHN Primary Care Physician [phone] COOK, Dax P Attending Unavailable COOK, Dax P Referring Unavailable COOK, Dax P Admitting Unavailable COOK, Dax P Attending Unavailable BALL, ALBARO Referring Unavailable COOK, Dax P Attending Unavailable COOK, Dax P Referring Unavailable COOK, Dax P Admitting Unavailable COOK, Dax P Attending Unavailable COOK, Dax P Attending Unavailable COOK, Dax P Referring Unavailable COOK, Dax P Admitting Unavailable COOK, Dax P Attending Unavailable COOK, Dax P Attending Unavailable COOK, Dax P Referring Unavailable COOK, Dax P Admitting Unavailable COOK, Dax P Attending Unavailable Allergies Allergy Classification Reported Allergen(s) Allergy Type Date of Onset Reaction(s) Facility (15 sources) Penicillin Drug Allergy Unknown [employer] Other (15 sources) Penicillin V Drug Allergy 4 Unknown, Unknown Reaction [facility] (6 sources) Penicillins Allergy to substance 4 Unknown Reaction [facility] (2 sources) No Known Medication Allergies; Translations: [No Known Medication Allergies] Propensity to adverse reactions (disorder) [facility] Repository Medications Current Medications Medication Drug Class(es) Dates Sig (Normalized) Sig (Original) acetaminophen 325 mg / oxyCODONE hydrochloride 5 mg oral tablet (1 source) Opioid Agonist Start: 06-14-2024 End: 06-16-2024 Percocet 5 mg-325 mg oral tablet 1 tab(s), Oral, q6hr for 2 day(s), 7 tab(s), Refill(s) 0, [id number], 177, cm, 06/14/24 11:35:00 EDT, Height/Length Dosing, 112, kg, 06/14/24 11:35:00 EDT, Weight Dosing Start Date: 06/14/24 Stop Date: 06/16/24 Status: Ordered amLODIPine 5 mg oral tablet (20 sources) Dihydropyridine Calcium Channel Alejandro Start: 02-04-2025 take 1 tablet by mouth once daily Amlodipine 5 mg tablet Active 5 MG PO Daily 90 90 February 04, 2025 4:01pm Start: 03-28-2024 take 1 tablet by vivian th once daily amLODIPine 10 mg Tab 10 mg = 1 tab(s), Oral, Daily, High blood pressure Start Date: 03/28/24 Status: Ordered Start: 12-28-2023 End: 02-04-2025 take 5 mg by mouth once daily Amlodipine 10 mg tablet Discontinued 5 MG PO Daily December 28, 2023 9:08pm February 04, 2025 4:01pm Start: 12-28-2023 take 5 mg by mouth once daily Amlodipine Active 5 MG PO Daily December 28, 2023 9:08pm Start: 12-28-2023 End: 12-28-2023 take 1 tablet by mouth once daily Amlodipine 10 mg tablet Discontinued 10 MG PO Daily December 28, 2023 1:00am December 28, 2023 9:09pm Start: 12-23-2023 End: 12-28-2023 take 1 tablet by mouth once daily Amlodipine 5 mg tablet Discontinued 5 MG PO Daily December 23, 2023 1:00am December 28, 2023 5:00pm take 1 tablet by vivian th every twenty-four hours amLODIPine Besylate 5 MG 1 tablet Oral Once a day Active take 1 tablet by vivian th every twenty-four hours amLODIPine Besylate 10 MG 1 tablet Oral Once a day Active atenolol 50 mg / chlorthalidone 25 mg oral tablet (2 sources) Thiazide-like Diuretic, beta-Adrenergic Alejandro Start: 10-17-2024 take 0.5 tablet by mouth once daily Atenolol-Chlorthalidone 50-25 mg tablet Active 0 PO Daily 45 90 October 17, 2024 1:00am 1/2 orally daily; benazepril hydrochloride 40 mg oral tablet (20 sources) Angiotensin Converting Enzyme Inhibitor Start: 04-01-2024 take 1 tablet by mouth once daily Benazepril 40 mg tablet Active 0 .ROUTE .COMPLEX 90 April 01, 2024 4:06pm TAKE 1 TABLET BY MOUTH EVERY DAY Start: 12-23-2023 End: 04-01-2024 take 1 tablet by mouth once daily Benazepril 40 mg tablet Discontinued 40 MG PO Daily December 23, 2023 1:00am April 01, 2024 4:06pm take 1 tablet by vivian th every twenty-four hours Benazepril HCl 40 MG 1 tablet Orally Once a day Active Blood-Glucose Meter (Onetouc h Ultra2 Meter) mis (4 sources) Start: 01-24-2025 Blood-Glucose Meter (Onetouch Ultra2 Meter) [facility] Active 0 .ROUTE .MEDSUPPLY January 24, 2025 11:02am Use to test home BS Start: 01-24-2025 End: 01-24-2025 Blood-Glucose Meter (Onetouc h Ultra2 Meter) [facility] Discontinued 0 .ROUTE .MEDSUPPLY January 24, 2025 12:00am January 24, 2025 11:03am Use to test home BS carvedilol 12.5 mg oral tablet (14 sources) alpha-Adrenergic Alejandro, beta-Adrenergic Alejandro Start: 03-28-2024 take 1 tablet by mouth twice daily Coreg 12.5 mg Tab 12.5 mg = 1 tab(s), Oral, BID, High blood pressure Start Date: 03/28/24 Status: Ordered Start: 11-16-2023 take 1 tablet by vivian th every twelve hours Carvedilol 12.5 MG 1 [...] TWICE DAILY WITH FOOD for 90 Active ciprofloxacin 500 mg oral tablet (1 source) Quinolone Antimicrobial Start: 06-14-2024 End: 06-17-2024 take 1 tablet by mouth twice daily Cipro 500 mg Tab 500 mg = 1 tab(s), Oral, BID, X 3 day(s), # 6 tab(s), Refills(s) 0, Pharmacy: [id number], 177, cm, 06/14/24 11:35:00 EDT, Height/Length Dosing, 112, kg, 06/14/24 11:35:00 EDT, Weight Dosing Start Date: 06/14/24 Stop Date: 06/17/24 Status: Ordered citalopram 20 mg oral tablet (20 sources) Serotonin Reuptake Inhibitor Start: 03-28-2024 take 1 tablet by mouth once daily citalopram 20 mg Tab 20 mg = 1 tab(s), Oral, Daily, Depression Start Date: 03/28/24 Status: Ordered Start: 03-19-2024 End: 09-25-2024 take 1 tablet by mouth at bedtime Citalopram 20 mg tablet Active 0 .ROUTE .COMPLEX September 25, 2024 10:06pm TAKE 1 TABLET BY MOUTH AT BEDTIME Start: 03-19-2024 take 1 tablet by vivian th at bedtime Citalopram Active 0 .ROUTE .COMPLEX March 19, 2024 1:04pm TAKE 1 TABLET BY MOUTH AT BEDTIME Start: 12-23-2023 End: 03-19-2024 take 1 tablet by mouth once daily at bedtime Citalopram 20 mg tablet Discontinued 20 MG PO Daily at bedtime December 23, 2023 1:00am March 19, 2024 1:04pm take 1 tablet by vivian th at bedtime Citalopram Hydrobromide 20 MG TAKE 1 TABLET BY MOUTH AT BEDTIME Active cloNIDine hydrochloride 0.1 mg oral tablet (20 sources) Central alpha-2 Adrenergic Agonist Start: 06-25-2024 take 1 tablet by mouth twice daily Clonidine Hcl 0.1 mg tablet Active 0 .ROUTE .COMPLEX 60 June 25, 2024 9:26pm TAKE 1 TABLET BY MOUTH TWICE DAILY Start: 06-25-2024 take 1 tablet by vivian th twice daily Clonidine Hcl Active 0 .ROUTE .COMPLEX 60 June 25, 2024 9:26pm TAKE 1 TABLET BY MOUTH TWICE DAILY Start: 12-23-2023 End: 06-25-2024 take 1 tablet by mouth twice daily Clonidine Hcl 0.1 mg tablet Discontinued 0.1 MG PO Twice daily 60 December 28, 2023 9:07pm June 25, 2024 9:26pm take 0.5 tablet by [facility] every twelve hours cloNIDine HCl 0.1 MG 1/2 tablet Orally every 12 hours for 30 days Active take 1 tablet by vivian twice daily cloNIDine HCl 0.1 MG TAKE 1 TABLET BY MOUTH TWICE DAILY Active glyBURIDE 2.5 mg / metFORMIN hydrochloride 500 mg oral tablet (2 sources) Biguanide, Sulfonylurea Start: 01-25-2025 take 1 tablet by mouth once daily 30 minutes before breakfast Glyburide-Metformin 2.5-500 mg tablet Active 0 .ROUTE .COMPLEX 90 January 25, 2025 4:37pm TAKE 1 TABLET BY MOUTH DAILY 30 MINUTES BEFORE BREAKFAST Start: 01-25-2025 End: 01-25-2025 Glyburide-Metformin 2.5-500 mg tablet Discontinued 1 TAB PO Daily 30 January 25, 2025 12:00am January 25, 2025 4:37pm Take 30 minutes prior to bkfst halobetasol propionate 0.0005 mg/mg topical ointment (7 sources) Corticosteroid Halobetasol Prop ionate 0.05 % APPLY TO AFFECTED RASH AREA(S) TWO TIMES A DAY NEEDED for 30 Active hydroCHLOROthiazide 25 mg oral tablet (19 sources) Thiazide Diuretic Start: hydrochlorothiazide 25 mg Tab 25 mg = 1 tab(s) Start Date: 03/28/24 Status: Ordered Start: 12-23-2023 End: 12-28-2023 take 1 tablet by mouth once daily Hydrochlorothiazide 25 mg tablet Discontinued 25 MG PO Daily December 23, 2023 1:00am December 28, 2023 9:09pm take 1 tablet by vivian once daily hydroCHLOROthiazide 25 MG TAKE 1 TABLET BY MOUTH DAILY Active 3 ml insulin glargine 100 unt/ml pen injector (4 sources) Insulin Analog Start: 01-24-2025 End: 03-27-2025 inject 10 [IU] by subcutaneous injection once daily in the evening Insulin Glargine (Lantus Solostar U-100 Insulin) 100 unit/mL (3 mL) insulin pen Active 10 UNIT SUBCUT Every evening 01 27January 24, 2025 11:02am meloxicam 15 mg oral tablet (2 sources) Nonsteroidal Anti-inflammatory Drug Start: 01-31-2023 take 1 tablet by mouth every twenty-four hours Meloxicam 15 MG 1 tablet Orally Once a day for 15 days Jan, Active miconazole nitrate 0.02 mg/mg topical powder (4 sources) Azole Antifungal Start: 05-02-2024 Miconazole Nitrate (Lotrimin Af) 2 % powder Active 1 APPLIC TOPICAL Twice daily 85 May 02, 2024 12:00am sildenafil 100 mg oral tablet (4 sources) Phosphodiesterase 5 Inhibitor Start: 10-17-2024 End: 10-17-2024 Sildenafil 100 mg tablet Active 100 MG PO Daily as needed for sexual activity October 17, 2024 5:04pm administer 30 minutes to 4 hours before activity spironolactone 25 mg oral tablet (19 sources) Aldosterone Antagonist Start: 05-21-2024 take 1 tablet by mouth once daily Spironolactone 25 mg tablet Active 0 .ROUTE .COMPLEX May 21, 2024 7:23am TAKE 1 TABLET BY MOUTH EVERY DAY Start: 05-21-2024 take 1 tablet by vivian th once daily Spironolactone Active 0 .ROUTE .COMPLEX May 21, 2024 7:23am TAKE 1 TABLET BY MOUTH EVERY DAY Start: 12-28-2023 End: 05-21-2024 take 1 tablet by mouth once daily Spironolactone 25 mg tablet Discontinued 25 MG PO Daily December 28, 2023 1:00am May 21, 2024 7:23am Start: 11-29-2023 take 1 tablet by vivian th every twenty-four hours Spironolactone 25 MG 1 tablet Orally Once a day for 30 days Oct, Active tiZANidine 4 mg oral tablet (7 sources) Central alpha-2 Adrenergic Agonist Start: 03-06-2025 take 0.5-1 tablets by mouth twice daily as needed Tizanidine 4 mg tablet Active 0 PO Twice daily as needed for muscle spasticity March 06, 2025 12:00am 1/2 to 1 tablet orally twice daily PRN; Start: 08-07-2024 End: 03-06-2025 take 1 capsule by mouth once daily at bedtime as needed Tizanidine 4 mg capsule Discontinued 4 MG PO Daily at bedtime as needed for muscle spasticity 08 09February 26, 2025 1:12pm March 06, 2025 4:20pm Completed/Discontinued Medications Medication Drug Class(es) Dates Sig (Normalized) Sig (Original) betamethasone 0.5 mg/ml / clotrimazole 10 mg/ml topical cream (4 sources) Azole Antifungal, Corticosteroid Start: 05-02-2024 End: 03-06-2025 Clotrimazole-Beta methasone 1-0.05 % cream Discontinued 1 APPLIC TOPICAL Bedtime 45 May 02, 2024 12:00am March 06, 2025 3:29pm cephalexin 500 mg oral capsule (2 sources) Cephalosporin Antibacterial Start: 03-28-2024 Keflex 500 mg Cap 500 mg = 1 cap(s), Oral, As Directed, Pt to take 1 tab the day before procedure and the 2nd tab the day of procedure once completed., # 2 cap(s), Refills(s) 0, Pharmacy: [facility] #[id number], 179, cm, 03/28/24 15:13:00 EDT, Height/Length Dosing, 110, kg, 03/28/24 15:13:00 EDT, Weight Dosing Start Date: 03/28/24 Status: Ordered citric acid 75 mg/ml / magnesium oxide 21.9 mg/ml / picosulfate sodium 0.0625 mg/ml oral solution (15 sources) Calculi Dissolution Agent, Anti-coagulant Start: 12-18-2020 take 160 mL by mouth in the evening, then take 160 mL by mouth twice daily in the evening Clenpiq 10-3.5-12 MG-GM -GM/160ML 160 ML AT 3:00 PM AND 160 ML AT 9:00 PM Orally TWICE A DAY for 1 days PLEASE CHECK ALLERGIES Dec, Not-Taking/PRN hydrALAZINE hydrochloride 10 mg oral tablet (12 sources) Arteriolar Vasodilator Start: 12-13-2023 End: 12-23-2023 take 1 tablet by mouth three times daily Hydralazine 10 mg tablet Discontinued 10 MG PO Three times daily 90 December 14, 2023 2:24pm December 23, 2023 3:46pm hyoscyamine sulfate 0.125 mg sublingual tablet (20 sources) Start: 12-23-2023 End: 03-06-2025 take 1 tablet under the tongue three times daily Hyoscyamine Sulfate 0.125 mg tablet, sublingual Discontinued 0.125 MG SUBLINGUAL Three times daily December 23, 2023 1:00am March 06, 2025 3:35pm Hyoscyamine Sulf ate 0.125 MG DISSOLVE 1 TABLET UNDER THE TONGUE THREE TIMES DAILY NEEDED for 90 Active linagliptin 2.5 mg / metFORMIN hydrochloride 500 mg oral tablet (4 sources) Biguanide, Dipeptidyl Peptidase 4 Inhibitor Start: 01-24-2025 End: 01-25-2025 take 1 tablet by mouth twice daily Linagliptin-Metformin (Jentadueto) 2.5-500 mg tablet Discontinued 1 TAB PO Twice daily 60 January 24, 2025 11:03am January 25, 2025 3:52pm predniSONE 20 mg oral tablet (5 sources) Start: 08-16-2024 End: 03-06-2025 take 1 tablet by mouth twice daily Prednisone 20 mg tablet Discontinued 20 MG PO Twice daily 08 04August 16, 2024 8:22pm March 06, 2025 3:29pm Start: 08-07-2024 End: 08-16-2024 Prednisone 20 mg tablet Disc ontinued 20 MG PO As Directed 03 04August 07, 2024 12:00am August 16, 2024 8:22pm 1 tab tid w/ food x 3 days, then bid w/ food x 3 days, then qd w/ food x 3 days tadalafil 10 mg oral tablet (20 sources) Phosphodiesterase 5 Inhibitor Start: 12-23-2023 End: 10-17-2024 take 1 tablet by mouth once daily as needed Tadalafil 10 mg tablet Discontinued 10 MG PO Daily as needed December 23, 2023 1:00am October 17, 2024 5:02pm Tadalafil 10 MG TAKE ONE TABLET BY MOUTH NEEDED FOR ERECTILE DYSFUNCTION. TO LAST 90-DAYS for 90 Active Tadalafil 20 MG TAKE 1 TABLET BY MOUTH EVERY DAY NEEDED Orally Once a day as needed for ED for 90 days Active Problems Active Problems Problem Classification Problem Date Documented Da te Episodic/Chronic Calculus of urinary tract (14 sources) Kidney stone; Translations: [Calculus of kidney] Onset: 03-28-2024 Episodic Chronic kidney disease (19 sources) Chronic kidney disease; Translations: [Chronic kidney disease, unspecified] 12-24-2023 Chronic Diabetes mellitus with complications (4 sources) Hyperglycemia due to type 2 diabetes mellitus; Translations: [Type 2 diabetes mellitus with hyperglycemia] 01-24-2025 Chronic Diabetes mellitus without complication (3 sources) Hyperglycemia; Translations: [Hyperglycemia, unspecified] 01-24-2025 Episodic Disorders of lipid metabolism (20 sources) Hypercholesterolemi a; Translations: [Pure hypercholesterolemi a, unspecified] Chronic Essential hypertension (20 sources) Hypertensive disorder; Translations: [Essential (primary) hypertension] Onset: 05-17-2022 Chronic Genitourinary symptoms and ill-defined conditions (5 sources) Urge incontinence; Translations: [Urge incontinence of urine] Onset: 05-11-2024 Chronic Genitourinary symptoms and ill-defined conditions (19 sources) Proteinuria; Translations: [Proteinuria, unspecified] 12-28-2023 Episodic Hyperplasia of prostate (7 sources) Benign prostatic hypertrophy with outflow obstruction; Translations: [Benign prostatic hyperplasia with lower urinary tract symptoms] Onset: 03-28-2024 Chronic Joint disorders and dislocations; trauma-related (10 sources) Derangement of right knee; Translations: [Unspecified internal derangement of right knee] Chronic Miscellaneous mental health disorders (7 sources) Psychogenic headache; 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] 03-28-2024 Chronic Mood disorders (20 sources) Recurrent major depression in full remission; Translations: [Major depressive disorder, recurrent, in full remission] Chronic Mycoses (1 source) Tinea cruris; Translations: [Dermatophytosis of groin and perianal area] 05-02-2024 Episodic Other acquired deformities (15 sources) Acquired spondylolisthesis; Translations: [Spondylolysis, lumbar region] Episodic Other acquired deformities (1 source) Spondylolysis, lumbar region Episodic Other acquired deformities (5 sources) Spondylolysis 03-28-2024 Episodic Other bone disease and musculoskeletal deformities (1 source) Chondromalacia, unspecified site Episodic Other diseases of bladder and urethra (3 sources) Mass of urinary bladder; Translations: [Other specified disorders of bladder] 03-13-2024 Chronic Other diseases of bladder and urethra (1 source) Other specified disorders of bladder; Translations: [Other specified disorders of bladder] 07-09-2024 Chronic Other diseases of kidney and ureters (1 source) Acquired renal cyst without neoplastic change; Translations: [Cyst of kidney, acquired] Onset: 03-28-2024 Episodic Other diseases of kidney and ureters (5 sources) Cyst of kidney 03-28-2024 Episodic Other diseases of veins and lymphatics (20 sources) Peripheral venous insufficiency; Translations: [Venous insufficiency (chronic) (peripheral)] 12-23-2023 Episodic Other diseases of veins and lymphatics (11 sources) Venous insufficiency (chronic) (peripheral); Translations: [Venous [...] dysfunction due to arterial insufficiency Chronic Other male genital disorders (7 sources) Male erectile dysfunction, unspecified; Translations: [Erectile dysfunction] Onset: 03-28-2024 Chronic Other male genital disorders (5 sources) Erectile dysfunction co-occurrent and due to arterial insufficiency 03-28-2024 Chronic Other nervous system disorders (2 sources) Chronic pain; Translations: [Other chronic pain] Chronic Other nervous system disorders (1 source) Other chronic pain Chronic Other non-traumatic joint disorders (15 sources) Arthralgia of the lower leg; Translations: [Pain in right knee] Episodic Other nutritional; endocrine; and metabolic disorders (15 sources) Obesity; Translations: [Other obesity due to excess calories] 01-24-2025 Chronic Other nutritional; endocrine; and metabolic disorders (19 sources) Body mass index 30+ - obesity; Translations: [Body mass index (BMI) 34.0-34.9, adult] 12-23-2023 Chronic Other nutritional; endocrine; and metabolic disorders (3 sources) Other obesity due to excess calories Chronic Other nutritional; endocrine; and metabolic disorders (3 sources) Body mass index (BMI) 34.0-34.9, adult Chronic Other nutritional; endocrine; and metabolic disorders (9 sources) Obesity caused by energy imbalance; Translations: [Other obesity due to excess calories] 12-23-2023 Chronic Other nutritional; endocrine; and metabolic disorders (3 sources) Obesity, unspecified; Translations: [Obesity, unspecified] 01-24-2025 Chronic Other screening for suspected conditions (not mental disorders or infectious disease) (5 sources) Imaging result abnormal; Translations: [Abnormal findings on diagnostic imaging of other specified body structures] Onset: 05-08-2024 Chronic Other screening for suspected conditions (not mental disorders or infectious disease) (6 sources) Encounter for screening for malignant neoplasm of prostate; Translations: [Screening for malignant neoplasms of prostate] Onset: 03-28-2024 03-02-2024 Episodic Comment on above: PSA: 1.81 - 02/2024 Poisoning by nonmedicinal substances (1 source) Toxic effect of unspecified spider venom, accidental (unintentional), initial encounter; Translations: [Toxic effect of venom] 05-02-2024 Episodic Residual codes; unclassified (20 sources) Obstructive sleep apnea syndrome; Translations: [Obstructive sleep apnea (adult) (pediatric)] 12-23-2023 Chronic Residual codes; unclassified (6 sources) Obstructive sleep apnea (adult) (pediatric); Translations: [Obstructive sleep apnea (adult)(pediatric)] Chronic Spondylosis; intervertebral disc disorders; other back problems (2 sources) Lumbar spondylosis; Translations: [Spondylosis without myelopathy or radiculopathy, lumbar region] 08-09-2024 Chronic Spondylosis; intervertebral disc disorders; other back problems (8 sources) Low back pain; Translations: [Low back pain] Onset: 05-14-2022 Episodic Past or Other Problems Problem Classification Problem Date Documented Date Episodic/Chronic Other aftercare (1 source) Other ferry terminal agent (current) drug therapy; Translations: [OTH RESIDENTIAL CURRENT DRUG THERAPY] Onset: 05-17-2022 Episodic Other non-traumatic joint disorders (5 sources) Pain in right knee; Translations: [PAIN IN RIGHT KNEE] Onset: 10-12-2022 Episodic Residual codes; unclassified (3 sources) Past history of procedure; Translations: [Other specified postprocedural states] Onset: 10-31-2023 07-09-2024 Episodic Comment on above: ureteroscopy, ESWL Unclassified (1 source) Resistant hypertension I1A.0 Results Test Name Value Interpretation Reference Range Facility HbA1c HPLC (Bld) [Mass fract ion]on 01-24-2025 HbA1c (Bld) [Mass fraction] Hemoglobin A1c/Hemoglobin.total in Blood by HPLC [facility] CT Abdomen/Pelvis w/o Contra ston 07-17-2024 CT Abdomen/Pelvis w/o Contrast Exam Date/Time: 07/17/2024 07:14 EDT Reason for Exam: Kidney Stone;Other (please specify) Report IMPRESSION: ENLARGED PROSTATE EXTENDING INTO POSTERIOR BASE URINARY BLADDER. NO RENAL/URETERAL CALCULI. NO HYDRONEPHROSIS/HYDROUR ETER. PROBABLE BILATERAL CORTICAL RENAL CYSTS. IF CLINICAL CONCERN WARRANTS, CONFIRMATION MAY BE OBTAINED WITH RENAL SONOGRAPHY. CHOLECYSTECTOMY. CT OF THE ABDOMEN AND PELVIS WITHOUT INTRAVENOUS CONTRAST MEDIUM. History: Kidney Stone. Technical Factors: CT imaging of the abdomen and pelvis were obtained and formatted as 5 mm contiguous axial images from the domes of the diaphragm to the symphysis pubis. Sagittal and coronal reconstructions were also obtained. Oral contrast medium: None. Intravenous contrast medium: None. Comparison: None Findings: Lower chest: Lung bases clear. Heart not imaged. Liver: Normal in size, and shape. 3.2 x 2.3 cm cyst lateral segment left hepatic lobe Bile Ducts: Normal in caliber. Gallbladder: Surgically absent. Pancreas: Normal without masses, cysts, ductal dilatation or calcification. Spleen: Normal in size without masses or calcifications. No splenules. Kidneys: Normal in size. No hydronephrosis, or stones. Areas of low attenuation bilateral kidneys include a 2.3 cm cortical area in the midpole the right kidney and a similar size finding in the lower pole the right kidney. 1.6 cm area of rounded decreased attenuation is found within the lower pole the left kidney. Adrenals: Normal. Small bowel: Normal in caliber. Report Appendix: Normal. Colon: Normal in caliber. Peritoneum: No ascites, free air, or fluid collections. Vessels: Aorta normal in course and caliber. Lymph nodes: Retroperitoneal: No enlarged retroperitoneal lymph nodes. Mesenteric: No enlarged mesenteric lymph nodes. Pelvic: No enlarged pelvic lymph nodes. Ureters: Normal in course and caliber. No calcifications. Bladder: No wall thickening. Prostate: Enlarged with transverse diameter 5.2 cm. Prostate extends cephalad into posterior base of urinary bladder. Abdominal Wall: Fat identified bilateral inguinal canals. No diastasis of rectus musculature. No edema or masses. Bones: No bone lesions. No anterior osteophytes lower thoracic and lumbar spine. No post operative changes. All CT scans at this facility use dose modulation, iterative reconstruction, and/or weight based dosing when appropriate to reduce radiation dose to as low as reasonably achievable. Ordering Provider: Dax DAVIS FINAL REPORT Dictated: 07/17/2024 4:28 pm Albaro Dangelo MD Signed (Electronic Signature): 07/17/2024 4:28 pm Signed by: Albaro Dangelo MD Transcribed by: CATHI Technologist: INGRIS Technical Comments Rectal Contrast Given? No Oral contrast amount in ml's: 0 Normal [facility] XR Abdomen 1 Viewon 06-18-20 XR Abdomen 1 View Exam Date/Time: 06/14/2024 11:48 EDT Reason for Exam: Kidney stone Report IMPRESSION: NONSPECIFIC ABDOMEN. CLINICAL HISTORY: Kidney stone COMPARISON: NONE. FINDINGS: Gas and stool in colon. Gas in small bowel. No focal or diffuse small bowel dilatation. No mass effect. Surgical clips gallbladder fossa. No abnormal calcification. Probable phleboliths in pelvic inlet. Ordering Provider: Dax DAVIS FINAL REPORT Dictated: 06/18/2024 5:33 pm Albaro Dangelo MD Signed (Electronic Signature): 06/18/2024 5:33 pm Signed by: Albaro Dangelo MD Transcribed by: CATHI Technologist: TG Technical Comments Radiation Dose: Ka,r in mGy = na DAP = na [facility] Main OR Intraoperative Recor don 06-15-2024 Main OR Intraoperative Record Main OR Intraoperative Record IntraOp Document Type FT Summary Primary Physician: Dax DAVIS MD Finalized Date/Time: 06/15/24 13:14:31 Pt. Name: HUNG MAR/Sex: 1965 Male Med Rec #: [id number] Physician: Dax DAVIS MD Financial #: [id number] Pt. Type: A Room/Bed: [facility] Admit/Disch: 06/14/24 11:29:08 - 06/14/24 17:05:00 Institution: Case Times FT Entry 1 Patient Times In Room 06/14/24 14:57:00 Out Room 06/14/24 15:31:00 Procedure Times Start 06/14/24 15:07:00 Stop 06/14/24 15:28:00 Anesthesia Times Start 06/14/24 14:57:00 Stop 06/14/24 15:31:00 Last Modified By: Ana MCCLURE, Mayra Daniel 06/14/24 15:31:18 General Comments: CYSTOSCOPY ENDED AT 1522. -Jas CARMONA RN Case Attendance FT Entry 1 Entry 2 Entry 3 Case Attendee RYAN HORNER, Dax Carmona RN, Mayra Rangel CONSUMER LOAN PROCESSOR, Rody Daniel Role Performed Surgeon - Primary Care Administrative Tech - Primary CONSUMER LOAN PROCESSOR Time In 06/14/24 14:57:00 06/14/24 14:57:00 06/14/24 14:57:00 Time Out 06/14/24 15:31:00 06/14/24 15:31:00 06/14/24 15:11:00 Procedure EXTRACORPOREAL SHOCK EXTRACORPOREAL SHOCK EXTRACORPOREAL SHOCK WAVE WAVE WAVE LITHOTRIPSY(Right), LITHOTRIPSY(Right), LITHOTRIPSY(Right), CYSTOSCOPY STENT CYSTOSCOPY STENT CYSTOSCOPY STENT INSERTION(Right) INSERTION(Right) INSERTION(Right) Comments Last Modified By: Delmy MORTGAGE FIELD INSPECTOR, Erica Brock MORTGAGE FIELD INSPECTOR, Erica Brock MORTGAGE FIELD INSPECTOR, Erica Mittal 06/15/24 13:12:17 06/15/24 13:12:17 06/15/24 13:12:17 Entry 4 Entry 5 Entry 6 Case Attendee Lisa GARNETT, Leland Miller MORTGAGE FIELD INSPECTOR, Jaki Serna RN, CNOR, Prachi Role Performed Anesthesiologist Scrub - Primary Care Administrative Tech - Primary Sander And Buffer Time In 06/14/24 15:09:00 06/14/24 14:57:00 06/14/24 14:57:00 Time Out 06/14/24 15:31:00 06/14/24 15:31:00 06/14/24 15:05:00 Procedure EXTRACORPOREAL SHOCK EXTRACORPOREAL SHOCK EXTRACORPOREAL SHOCK WAVE LITHOTRIPSY(Right) WAVE WAVE LITHOTRIPSY(Right), LITHOTRIPSY(Right), CYSTOSCOPY STENT CYSTOSCOPY STENT INSERTION(Right) INSERTION(Right) Comments Last Modified By: Delmy STEWART, Erica Brock CST, Erica Brock CST, Erica Mittal 06/15/24 13:12:17 06/15/24 13:12:17 06/15/24 13:12:17 General Comments: Elda SILVA SCRUBBED IN FOR CASE; CELE ANTONIO PRESENT FOR CASE -V REN FONTANAmolded goods controls operator Protocols FT Pre-Care Text: Implements protective measures prior to operative or invasive procedure, confirms identity before the operative or invasive procedure, verifies operative procedure, surgical site, and laterality Entry 1 Procedure(s) EXTRACORPOREAL SHOCK Patient Identity Birthday, ID Band WAVE Verified (select at Check, Patient LITHOTRIPSY(Right), least 2): Participation CYSTOSCOPY STENT INSERTION(Right) Consents / H and P Anesthesia Consent, Operative Site Present Verified H&P, Surgery/Procedure Marking Verified Consent Surgical Site Yes Laterality Verified Yes Verified Procedure Verified Yes Correct Patient Yes Position Verified Availability Equipment, Implant, Prep Dry n/a Verified (If Medication, X-ray Applicable) PreOp Antibiotic Yes Time Out RYAN HORNER, Dax Daniel, Given Participants Rody Rangel CRNA, McClain CST, Ana Easton RN, Mayra Daniel Time Out Complete 06/14/24 15:07:00 Outcomes Met? Yes Last Modified By: Mayra Carmona RN 06/14/24 15:18:35 Post-Care Text: The patient is free from signs and symptoms of injury caused by extraneous objects Allergy Information FT Pre-Care Text: Verifies allergies Entry 1 Allergies Reviewed? Yes Allergies Reviewed Self/Patient With Outcomes Met? Yes Last Modified By: Mayra Carmona RN 06/14/24 15:18:41 Post-Care Text: The patient received appropriate medication(s) safely administered during the perioperative period Surgical Procedures FT Entry 1 Entry 2 Procedure Description Procedure EXTRACORPOREAL SHOCK CYSTOSCOPY STENT WAVE LITHOTRIPSY INSERTION Modifiers Right Right Surgeon Description CYSTOSCOPY WITH RIGHT CYSTOSCOPY WITH RIGHT ESWL, RIGHT STENT ESWL, RIGHT STENT INSERTION INSERTION Primary Procedure Yes No Primary Surgeon Dax DAVIS MD, MD, Dax Daniel Start 06/14/24 15:07:00 06/14/24 15:07:00 Stop 06/14/24 15:28:00 06/14/24 15:28:00 Anesthesia Type General General Surgical Service Urology Urology Wound Class 1 - Clean 2 - Clean-Contaminated Last Modified By: Ana MCCLURE, Mayra Carmona RN, Mayra Daniel 06/14/24 Dahlia Daniel 06/14/24 15:28:31 15:28:31 General Case Data FT Pre-Care Text: Classifies surgical wound, implements aseptic technique, initiates traffic control Entry 1 Case Information OR OR 5 FT Case Level Level 3 Wound Class 2 - Clean-Contaminated Specialty Urology ASA Class 3 Preop Diagnosis KIDNEY STONE Postop Same As Preop Yes Postop Diagnosis KIDNEY STONE Outcomes Met? Yes Last Modified By: Ana MCCLURE, Mayra Daniel 06/14/24 15:19:12 Post-Care Text: The tam (more content not included)... Normal [facility] Discharge Instructionson Discharge Instructions Discharge Instruc tions HUNG MAR :1965 Visit Date:06/14/2024 Inpatient Discharge Instructions Your Care Team Admitting Physician - Dax DAVIS MD Referring Physician - Dax DAVIS MD Reason for Your Visit KIDNEY STONE Tests Performed XR Abdomen 1 View -- Results Pending -- Please visit your patient portal for your results or contact your primary care physician. This Is Your Medications List acetaminophen-oxycodon e (Percocet 5 mg-325 mg oral tablet) amlodipine (amLODIPine 10 mg Tab) benazepril (benazepril 40 mg oral tablet) carvedilol (Coreg 12.5 mg Tab) ciprofloxacin (Cipro 500 mg Tab) citalopram (citalopram 20 mg Tab) clonidine (cloNIDine 0.1 mg tab) spironolactone (spironolactone 25 mg Tab) Procedure History Flexible cystoscopy (05/11/2024), Arthroscopy, Cholecystectomy, Colonoscope, ESWL (extracorporeal shockwave lithotripsy) of ureteric calculus, Vasectomy. What to do next Instructions From Your Doctor Event Name Event Result Discharge Activity Arrange for a responsible adult supervision for 24 hours, Expect mild pain, Expect minimal amount of drainage and/or bleeding Discharge Restrictions No driving, Do not operate machinery or tools, Do not make important decisions for 24 hours, Do not drink alcoholic beverages for 24 hours Discharge Diet(s) Regular Call Your Doctor For Persistent or heavy bleeding, Temperature above 101.5 degrees Discharge Instructions Discharge Instructions New Follow Up Appointments after Discharge Follow Up with Dax DAVIS When: Comments: Please call my office to make arrangements for a CT scan without contrast. Once the order is sent, the hospital contacts you for the CT appointment time. Depending on the results, this will determine the next step. I did provide some discharge instructions and I did send some pain medication and antibiotics to your pharmacy. Where: [facility] [address] [place] [address] [employer] [address] [place], [place] [id number] Business (1) Medications What How Much When Instructions Next Dose New acetaminophen-oxycodon e (Percocet 5 mg-325 mg oral tablet) 1 Tablets By Mouth Every 6 hours Duration: 2 Days Pickup at [facility] #[id number] New ciprofloxacin (Cipro 500 mg Tab) 1 Tablets By Mouth 2 times a day Duration: 3 Days Pickup at [facility] #[id number] Unchanged amlodipine (amLODIPine 10 mg Tab) 1 Tablets By Mouth Every day Unchanged benazepril (benazepril 40 mg oral tablet) 1 Tablets By Mouth Every day Unchanged carvedilol (Coreg 12.5 mg Tab) 1 Tablets By Mouth 2 times a day Unchanged citalopram (citalopram 20 mg Tab) 1 Tablets By Mouth Every day Unchanged clonidine (cloNIDine 0.1 mg tab) 1 Tablets By Mouth 2 times a day Unchanged spironolactone (spironolactone 25 mg Tab) 1 Tablets By Mouth Every day Pharmacy Information [facility] #[id number]: [address], [place] [phone] Allergies No Known Medication Allergies Problems Ongoing - Any problem that you are currently receiving treatment for. Abnormal ultrasound BPH with urinary obstruction Chronic kidney disease Erectile dysfunction Erectile dysfunction due to arterial insufficiency History of kidney stones Hyperlipemia Kidney stones Major depressive disorder, recurrent, in remission Obstructive sleep apnea Other obesity due to excess calories Primary hypertension Proteinuria Renal cyst Spondylolysis of lumbar region Stress headache Urge incontinence Devices Implanted/Removed This Visit Notice: You have devices implanted this visit that may not be MRI compatible. Implanted CYSTOSCOPY STENT INSERTION Ureter R RUBIO URETERAL STENT CASCADE 4.9FR VARIABLE 06/14/2024 Education Materials Lithotripsy, Care After This sheet gives you information about how to care for yourself after your procedure. Your health care provider may also give you more specific instructions. If you have problems or questions, contact your health care provider. What can I expect after the procedure? After the procedure, it is common to have: ? Some blood in your urine. This should only last for a few days. ? Soreness in your back, sides, or upper abdomen for a few days. ? Blotches or bruises on the area where the shock wave entered the skin. ? Pain, discomfort, or nausea when pieces (fragments) of the kidney stone move through the tube that carries urine from the kidney to the bladder (ureter). Stone fragments may pass soon after the procedure, but they may continue to pass for up to 4?8 weeks. ? If you have severe pain or nausea, contact your health care provider. This may be caused by a large stone that was not broken up, and this may mean that you need more treatment. ? Some pain or discomfort during urination. ? Some pain or discomfort in the lower abdomen or (in men) at the base of the penis. (more content not included)... [facility] Comment on above: Result Comment: Elec tronically Signed By: Yony MCCLURE, Cynthia Dawkins\.br\Date and Time Signed: 06/14/24 16:37 EDT Inpatient Patient Summaryon 06-14-2024 Inpatient Patient Summary Inpatient Patient Summary [address] [address] [facility] Clinical Discharge Instructions PERSON INFORMATION Name: HUNG MAR PHYSICIANS Admitting Physician: Dax DAVIS MD Attending Physician: Dax DVAIS MD PCP: ALBARO JOHN DO Discharge Diagnosis: Comment: PATIENT EDUCATION INFORMATION Instructions: Lithotripsy, Care After Medication Leaflets: Follow up: With: Address: When: Dax DAVIS [address] [place] [address], [address], [place] [phone] Business (1) Comments: Please call my office to make arrangements for a CT scan without contrast. Once the order is sent, the hospital contacts you for the CT appointment time. Depending on the results, this will determine the next step. I did provide some discharge instructions and I did send some pain medication and antibiotics to your pharmacy. MEDICATION LIST New Medications [facility] #[id number], [address] [place], [place] [id number], [phone] acetaminophen-oxycodon e (Percocet 5 mg-325 mg oral tablet) 1 Tablets By Mouth every 6 hours for 2 Days. Refills: 0. ciprofloxacin (Cipro 500 mg Tab) 1 Tablets By Mouth 2 times a day for 3 Days. Refills: 0. Medications to Continue with No Changes Other Medications amlodipine (amLODIPine 10 mg Tab) 1 Tablets By Mouth every day. benazepril (benazepril 40 mg oral tablet) 1 Tablets By Mouth every day. carvedilol (Coreg 12.5 mg Tab) 1 Tablets By Mouth 2 times a day. citalopram (citalopram 20 mg Tab) 1 Tablets By Mouth every day. clonidine (cloNIDine 0.1 mg tab) 1 Tablets By Mouth 2 times a day. spironolactone (spironolactone 25 mg Tab) 1 Tablets By Mouth every day. Comment: Normal [facility] Main OR PACU I Recordon 05-31 Main OR PACU I Record Main OR PACU I Rec ord PACU Phase I Document Type FT Summary Primary Physician: Dax DAVIS MD Finalized Date/Time: 06/14/24 16:07:29 Pt. Name: HUNG MAR/Sex: 1965 Male Med Rec #: [id number] Physician: Dax DAVIS MD Financial #: [id number] Pt. Type: A Room/Bed: Admit/Disch: 06/14/24 11:29:08 - Institution: Case Times PACU I FT Pre-Care Text: Identifies barriers to communication and implements measures to provide psychological support Develops individualized plan of care, and ensures continuity of care Maintains patient's dignity and privacy, and maintains patient confidentiality Identifies and reports philosophical, cultural, and spiritual beliefs and values Identifies individual values and wishes concerning care Implements aseptic technique, and administers prescribed antibiotic therapy and immunizing agents as ordered Evaluates postoperative tissue perfusion Implements thermoregulation measures, and monitors body temperature Evaluates postoperative respiratory status Evaluates postoperative cardiac status Evaluates postoperative neurological status Assesses pain control, collaborated in initiating patient-controlled analgesia and implements alternative methods of pain control Verifies allergies, administers prescribed medications and solutions, evaluates response to medications Entry 1 In PACU I 06/14/24 15:33:00 Discharge from PACU 06/14/24 16:03:00 I Outcomes Met? Yes Last Modified By: Lachelle Canada RN 06/14/24 16:07:14 Post-Care Text: The patient demonstrates knowledge of the expected response to the operative or invasive procedure The patient's care is consistent with the individualized perioperative plan of care The patient's right to privacy is maintained The patient's value system, lifestyle, ethnicity, and culture are considered, respected, and incorporated into the perioperative plan of care The patient participates in decisions affecting his or her perioperative plan of care The patient is free from signs and symptoms of infection The patient has wound/tissue perfusion consistent with or improved from baseline levels established preoperatively The patient is at or returning to normothermia at the conclusion of the immediate postoperative period The patient's respiratory function is consistent with or improved from baseline levels established preoperatively The patient's cardiovascular status is consistent with or improved from baseline levels established preoperatively The patient's cardiovascular status is consistent with or improved from baseline levels established preoperatively The patient demonstrates and/or reports adequate pain control throughout the perioperative period The patient received appropriate medication(s), safely administered during the perioperative period Acuity Level PACU I FT Entry 1 Start Time 06/14/24 15:33:00 Stop Time 06/14/24 16:03:00 Acuity Level Acuity Level I Last Modified By: Lachelle Canada RN 06/14/24 16:07:24 Finalized By: Lachelle Canada RN Document Signatures Signed By: Lachelle Canada RN 06/14/24 16:07 Normal [facility] Main OR PACU II Recordon Main OR PACU II Record Main OR PACU II R ecord PACU Phase II Document Type FT Summary Primary Physician: Dax DAVIS MD Finalized Date/Time: 06/14/24 17:41:52 Pt. Name: ZAIDHUNG/Sex: 1965 Male Med Rec #: [id number] Physician: Dax DAVIS MD Financial #: [id number] Pt. Type: A Room/Bed: Admit/Disch: 06/14/24 11:29:08 - Institution: Case Times PACU II FT Pre-Care Text: Identifies barriers to communication and implements measures to provide psychological support and determines knowledge level Develops individualized plan of care, and ensures continuity of care Maintains patient's dignity and privacy, and maintains patient confidentiality Identifies and reports philosophical, cultural, and spiritual beliefs and values Identifies individual values and wishes concerning care administers prescribed antibiotic therapy and immunizing agents as ordered, Evaluates postoperative tissue perfusion Implements thermoregulation measures, and monitors body temperature Evaluates postoperative respiratory status Evaluates postoperative cardiac status Evaluates postoperative neurological status Assesses pain control, collaborated in initiating patient-controlled analgesia and implements alternative methods of pain control Verifies allergies, administers prescribed medications and solutions, evaluates response to medications Entry 1 In PACU II 06/14/24 16:05:00 Discharge from PACU 06/14/24 17:05:00 II Outcomes Met? Yes Last Modified By: Cynthia Bhakta RN 06/14/24 17:41:50 Post-Care Text: The patient demonstrates knowledge of the expected response to the operative or invasive procedure The patient's care is consistent with the individualized perioperative plan of care The patient's right to privacy is maintained The patient's value system, lifestyle, ethnicity, and culture are considered, respected, and incorporated into the perioperative plan of care The patient participates in decisions affecting his or her perioperative plan of care. The patient is free from signs and symptoms of infection The patient has wound/tissue perfusion consistent with or improved from baseline levels established preoperatively The patient is at or returning to normothermia at the conclusion of the immediate postoperative period The patient's respiratory function is consistent with or improved from baseline levels established preoperatively The patient's cardiovascular status is consistent with or improved from baseline levels established preoperatively The patient's neurological status is consistent with or improved from baseline levels established preoperatively The patient demonstrates and/or reports adequate pain control throughout the perioperative period The patient received appropriate medication(s), safely administered during the perioperative period Finalized By: Cynthia Bhakta RN Document Signatures Signed By: Cynthia Bhakta RN 06/14/24 17:41 Normal [facility] Main OR Preoperative Recordo n 06-14-2024 Main OR Preoperative Record Main OR Preoperative Record PreOp Document Type FT Summary Primary Physician: Dax DAVIS MD Finalized Date/Time: 06/14/24 15:25:35 Pt. Name: HUNG MAR /Sex: 1965 Male Med Rec #: [id number] Physician: Dax DAVIS MD Financial #: [id number] Pt. Type: A Room/Bed: Admit/Disch: 06/14/24 11:29:08 - Institution: Case Times PreOp FT Pre-Care Text: Verifies consent for planned procedure, identifies individual values and wishes concerning care, includes family members in perioperative teaching Entry 1 Patient Times. In Pre Surgery 06/14/24 11:35:00 Out Pre Surgery 06/14/24 14:55:00 Outcomes Met? Yes Last Modified By: Mayra Carmona RN 06/14/24 15:25:34 Post-Care Text: The patient participates in decisions affecting his or her perioperative plan of care Finalized By: Mayra Carmona RN Document Signatures Signed By: Mayra Carmona RN 06/14/24 15:25 Normal [facility] Operative Reporton Operative Report Operative Report Patient: HUNG MAR Age: 59 years Sex: Male : 1965 Associated Diagnoses: None Author: Dax DAVIS MD Postoperative Information Date/ Time: 06/14/2024 15:56:00 Postoperative Diagnosis: Right renal calculi, up to 1.2 cm. Performed by: Dax Davis MD. Findings: Procedure: Cystoscopy Right retrograde pyelogram ESWL right renal calculus Anesthesia: General, LMA, 2% Xylocaine jelly per urethra Indications: This is a 59-year-old white male who was found to have by renal ultrasound a 1.2 cm calculus as well as perhaps smaller 4 mm calculi. He presents today for cystoscopy, ESWL, possible stent. He understands risk benefits and details of the procedure including risk of bleeding, infection, heart and lung problems under anesthesia, need for additional procedural intervention, irritation from the stent, bleeding around the kidney, among others. He wishes to proceed. He did receive preoperative antibiotics and does have sequential compression devices in place and functional bilateral lower extremities throughout the case. Procedure: The patient was brought back to the operating room and a timeout was performed. All are in agreement with the operative plan and he is identified appropriately. After the successful induction of general anesthesia he is placed in the modified dorsolithotomy position and prepped in usual fashion Betadine solution. He is draped appropriately. 2% Xylocaine jelly is placed per urethra and a well-lubricated 22 Burmese is urethroscope with 30 degree lens then passed into the bladder. Anterior urethra was within normal limits. Prostatic urethra demonstrates lateral lobe hypertrophy, positive median lobe extending into the bladder. He has moderate trabeculation. Minimal retained urine. Orifices are normal. Minimal difficulty finding these orifices secondary to the median lobe. I placed a 0.035 guidewire up the right orifice up into the kidney under fluoroscopic guidance. We felt that we saw a calcification overlying the proposed area of the right renal pelvis. This was unclear however I decided to proceed with a retrograde pyelogram given the previous findings on the renal ultrasound. 6 Burmese open-ended ureteral catheter was passed up over the wire into the ureter up to the level of the UPJ and a retrograde pyelogram was performed. No distinct filling defect was noted causing any obstruction. There was an area of haziness in the right midpole with a question of a 6 tiny infundibulum raising the possibility that this was a stone within this area. Lithotripsy was initiated per protocol. A total of 2000 shocks were given but there did not appear to be any change. I felt this raise a possibility that the stone may not be within the urinary collecting system and further shocks were aborted. Retrograde was repeated several times. At this point I decided no further lithotripsy was indicated. The ureteral catheter was removed. Bladder emptied scope removed and I decided not to place a stent. He tolerates it well. Transferred to the [facility] and then back to PACU in satisfactory condition, stable vital signs. Will be discharged home with prescription sent for some antibiotics consisting of Cipro and Percocet for pain on a as needed basis. Discussed all this with his postop. I feel that follow-up within the next couple weeks would be indicated and that a CT scan without contrast would be the best test. They can call my office to get this scheduled. She was in agreement with the plan.. Estimated Blood Loss: 2 ml. Complications: None. Anesthesia type: General. [facility] Comment on above: Result Comment: Elec tronically Signed By: Dax DAVIS MD\.br\Date and Time Signed: 06/14/24 16:00 EDT Outpatient Surgery Discharge Instructionon 06-14-2024 Outpatient Surgery Discharge Instruction Outpatient Surgery Discharge Instruction [place] [id number] Patient Discharge Instructions PERSON INFORMATION Name: HUNG MAR Date of : 1965 Current Date: 06/14/2024 15:55:22 PHYSICIANS Admitting Physician: Dax DAVIS MD Discharge Diagnosis: HUNG MAR has been given the following list of follow-up instructions, prescriptions, and patient education materials: PATIENT FOLLOW-UP INFORMATION Diet: Regular Discharge Activity: Arrange for a responsible adult supervision for 24 hours, Expect mild pain, Expect minimal amount of drainage and/or bleeding Discharge Restrictions: No driving, Do not operate machinery or tools, Do not make important decisions for 24 hours, Do not drink alcoholic beverages for 24 hours Call Your Doctor For: Persistent or heavy bleeding, Temperature above 101.5 degrees IF UNABLE TO CONTACT YOUR PHYSICIAN AND YOU FEEL IT IS AN EMERGENCY, GO TO THE NEAREST EMERGENCY ROOM OR CALL 911 IZAID SCOTT, have received the attached patient education materials/instructions and have verbalized understanding: May we do a follow up call? Yes No I was present when discharge instructions were given Patient Signature Date Clinican/Nurse Signature ___ Date Follow up: With: Address: When: Dax Patel IKE BAILEY, [address], [address] [address] Business (1) Comments: Please call my office to make arrangements for a CT scan without contrast. Once the order is sent, the hospital contacts you for the CT appointment time. Depending on the results, this will determine the next step. I did provide some discharge instructions and I did send some pain medication and antibiotics to your pharmacy. Pharmacy Information: You may receive a survey from [employer] asking you to rate your care experience. Your feedback is important and will help us understand what we do well and how we can improve the quality of care we provide to you, your loved ones and our community. It?s an honor to serve you. Thank you for choosing [facility] HERE ARE THE MEDICATION CHANGES THAT OCCURRED DURING YOUR HOSPITAL STAY New Medications [id number], [address], [place] [id number], [phone] acetaminophen-oxycodon e (Percocet 5 mg-325 mg oral tablet) 1 Tablets By Mouth every 6 hours for 2 Days. Refills: 0. ciprofloxacin (Cipro 500 mg Tab) 1 Tablets By Mouth 2 times a day for 3 Days. Refills: 0. Medications to Continue with No Changes Other Medications amlodipine (amLODIPine 10 mg Tab) 1 Tablets By Mouth every day. benazepril (benazepril 40 mg oral tablet) 1 Tablets By Mouth every day. carvedilol (Coreg 12.5 mg Tab) 1 Tablets By Mouth 2 times a day. citalopram (citalopram 20 mg Tab) 1 Tablets By Mouth every day. clonidine (cloNIDine 0.1 mg tab) 1 Tablets By Mouth 2 times a day. spironolactone (spironolactone 25 mg Tab) 1 Tablets By Mouth every day. PATIENT EDUCATION INFORMATION Instructions: Lithotripsy, Care After This sheet gives you information about how to care for yourself after your procedure. Your health care provider may also give you more specific instructions. If you have problems or questions, contact your health care provider. What can I expect after the procedure? After the procedure, it is common to have: ? Some blood in your urine. This should only last for a few days. ? Soreness in your back, sides, or upper abdomen for a few days. ? Blotches or bruises on the area where the shock wave entered the skin. ? Pain, discomfort, or nausea when pieces (fragments) of the kidney stone move through the tube that carries urine from the kidney to the bladder (ureter). Stone fragments may pass soon after the procedure, but they may continue to pass for up to 4?8 weeks. ? If you have severe pain or nausea, contact your health care provider. This may be caused by a large stone that was not broken up, and this may mean that you need more treatment. ? Some pain or discomfort during urination. ? Some pain or discomfort in the lower abdomen or (in men) at the base of the penis. Follow these instructions at home: Medicines ? Take lbzd-yok-yoishrl and prescription medicines only as told by your health care provider. ? If you were prescribed an antibiotic medicine, take it as told by your health care provider. Do not stop taking the antibiotic even if you start to feel better. ? Ask your health care provider if the medicine prescribed to you requires you to avoid driving or using machinery. Eating and drinking (more content not included)... Normal [facility] XR Chest 2 Viewson XR Chest 2 Views Exam Date/Time: 06/06/2024 10:15 EDT Reason for Exam: P.A.T. Report IMPRESSION: NO EVIDENCE OF ACTIVE CHEST DISEASE. CLINICAL HISTORY: P.A.T.. COMMENT: The heart is normal in size. The mediastinum is unremarkable. The lungs appear clear. No infiltration nor pleural effusion is evident. Of incidental note, there are hypertrophic arthritic changes at the left acromioclavicular joint. Ordering Provider: Edmundo Roth FINAL REPORT Dictated: 06/07/2024 3:53 pm Fidel Hammonds M.D. Signed (Electronic Signature): 06/07/2024 3:53 pm Signed by: Fidel Hammonds M.D. Transcribed by: CATHI Technologist: JEWELS Technical Comments Radiation Dose: Ka,r in mGy = na DAP = na Normal [facility] BMPon 06-06-2024 Anion gap [Moles/Vol] 11 mmol/L Normal 6-16 [facility] Comment on above: Performed By: #### 2 [id number] #### [facility] [address] [place] [address] Calcium [Mass/Vol] 9.3 mg/dL Normal 8.9-11.1 [facility] Comment on above: Performed By: #### 2 [id number] #### [facility] [address] [place] [address] Chloride [Moles/Vol] 105 mmol/L Normal 101-111 [facility] Comment on above: Performed By: #### 2 [id number] #### [facility] [address] [place] [address] CO2 [Moles/Vol] 24 mmol/L Normal 21-31 [facility] Comment on above: Performed By: #### 2 [id number] #### [facility] [address] [place] [address] Creatinine [Mass/Vol] 1.2 mg/dL Normal 0.5-1.3 [facility] Comment on above: Performed By: #### 2 [id number] #### [facility] [address] [place] [address] Glucose [Mass/Vol] 130 mg/dL Normal 55-199 [facility] Comment on above: Performed By: #### 2 [id number] #### [facility] [address] [place] [address] Potassium [Moles/Vol] 4.1 mmol/L Normal 3.5-5.3 [facility] Comment on above: Performed By: #### 2 [id number] #### [facility] [address] [place] [address] Sodium [Moles/Vol] 136 mmol/L Normal 135-145 [facility] Comment on above: Performed By: #### 2 [id number] #### [facility] [address] [place] [address] Urea nitrogen [Mass/Vol] 23 mg/dL High 5-21 [facility] Comment on above: Performed By: #### 2 [id number] #### [facility] [address] [place] [address] Urea nitrogen/Creatinine [Mass ratio] 19 No Units Normal 10-20 [facility] Comment on above: Performed By: #### 2 [id number] #### [facility] [address] [place] [address] CBC w/ Auto Diffon 4 Basophils/100 WBC (Bld) 0.6 % Normal 0.0-2.0 [facility] Comment on above: Performed By: #### 2 [id number] #### [facility] [address] [place] [address] Basophils/Leukocytes Auto (Bld) [Pure # fraction] 0.0 E9/L Normal 0.0-0.2 [facility] Comment on above: Performed By: #### 2 [id number] #### [facility] [address] [place] [address] Eosinophils (Bld) [#/Vol] 0.2 E9/L Normal 0.0-0.5 [facility] Comment on above: Performed By: #### 2 [id number] #### [facility] [address] [place] [address] Eosinophils/100 WBC (Bld) 2.6 % Normal 0.0-8.0 [facility] Comment on above: Performed By: #### 2 [id number] #### [facility] [address] [place] [address] Erythrocyte distribution width (RBC) [Ratio] 13.3 % Normal 10.9-14.2 [facility] Comment on above: Performed By: #### 2 [id number] #### [facility] [address] [place] [address] Hematocrit (Bld) [Volume fraction] 40.2 % Normal 37.7-49.0 [facility] Comment on above: Performed By: #### 2 [id number] #### [facility] [address] [place] [address] Hemoglobin (Bld) [Mass/Vol] 13.9 g/dL Normal 13.5-17.5 [facility] Comment on above: Performed By: #### 2 [id number] #### [facility] [address] [place] [address] Lymphocytes (Bld) [#/Vol] 1.1 E9/L Normal 1.0-4.0 [facility] Comment on above: Performed By: #### 2 [id number] #### [facility] [address] [place] [address] Lymphocytes/100 WBC (Bld) 15.9 % Normal 14.0-50.0 [facility] Comment on above: Performed By: #### 2 [id number] #### [facility] [address] [place] [address] MCH (RBC) [Entitic mass] 30.1 pg Normal 27.0-34.0 [facility] Comment on above: Performed By: #### 2 [id number] #### [facility] [address] [place] [address] MCHC (RBC) [Mass/Vol] 34.5 g/dL Normal 31.4-36.0 [facility] Comment on above: Performed By: #### 2 [id number] #### [facility] [address] [place] [address] MCV (RBC) [Entitic vol] 87.0 fL Normal 80.0-100.0 [facility] Comment on above: Performed By: #### 2 [id number] #### [facility] [address] [place] [address] Monocytes (Bld) [#/Vol] 0.6 E9/L Normal 0.2-1.0 [facility] Comment on above: Performed By: #### 2 [id number] #### [facility] [address] [place] [address] Neutrophils (Bld) [#/Vol] 5.2 E9/L Normal 2.0-7.5 [facility] Comment on above: Performed By: #### 2 [id number] #### [facility] [address] [place] [address] Neutrophils/100 WBC (Bld) 72.5 % Normal 36.0-75.0 [facility] Comment on above: Performed By: #### 2 [id number] #### [facility] [address] [place] [address] Platelet mean volume (Bld) [Entitic vol] 7.7 fL Normal 6.4-10.8 [facility] Comment on above: Performed By: #### 2 [id number] #### [facility] [address] [place] [address] Platelets (Bld) [#/Vol] 195.0 E9/L Normal 150.0-500.0 [facility] Comment on above: Performed By: #### 2 [id number] #### [facility] [address] [place] [address] RBC (Bld) [#/Vol] 4.6 E12/L Normal 4.3-5.9 [facility] Comment on above: Performed By: #### 2 [id number] #### [facility] [address] [place] [address] WBC corrected for nucl RBC Auto (Bld) [#/Vol] 7.1 E9/L Normal 4.0-11.0 [facility] Comment on above: Performed By: #### 2 [id number] #### [facility] [address] [place] [address] CHEMISTRYOrdered By: SYSTEM SYSTEM on 06-06-2024 Anion gap [Moles/Vol] 11 mmol/L Normal 6 - 16 mEq/L [facility] Calcium [Mass/Vol] 9.3 mg/dL Normal 8.9 - 11. 1 mg/dL [facility] Chloride [Moles/Vol] 105 mmol/L Normal 101 - 1 11 mmol/L [facility] CO2 [Moles/Vol] 24 mmol/L Normal 21 - 31 mmol/L [facility] Creatinine [Mass/Vol] 1.2 mg/dL Normal 0.5 - 1.3 mg/dL [facility] eGFR 70 mL/min/1.73 m2 Normal >=59mL/min / 1.73 m2 [facility] Glucose [Mass/Vol] 130 mg/dL Normal 55 - 199 mg/dL [facility] Potassium [Moles/Vol] 4.1 mmol/L Normal 3.5 - 5.3 mmol/L [facility] Sodium [Moles/Vol] 136 mmol/L Normal 135 - 145 mmol/L [facility] Urea nitrogen [Mass/Vol] 23 mg/dL High 5 - 21 mg/dL [facility] Urea nitrogen/Creatinine [Mass ratio] 19 mg/mg Normal 10 - 20 [facility] COAGULATIONOrdered By: Seble Wilburn on 06-06-2024 aPTT Coag (PPP) [Time] 34.3 s Normal 25.1 - 36.5 second(s) [facility] Auto Coag Comment on above: Interpretive Data: P arameter 15 days - 4 weeks 1 - 5 months 6 - 11 months 1 - 5 years 6 - 10 years 11 - 17 years PTT Mean: 35.4 (27.6-45.6) Mean: 33.5 (24.8-40.7) Mean: 32.4 (25.1-40.7) Mean: 31.6 (24.0-39.2) Mean: 31.6 (26.9-38.7) Mean: 31.0 (24.6-38.4) Pediatric Reference ranges were obtained from a study by Ki Lockett et al. prepared from 1437 samples obtained at 7 different centers using the same coagulation reagent and instrumentation as [facility]. Currently there are no coagulation studies available worldwide for children to 14 days, and no normal ranges. Heparin therapeutic range (represented by Anti-Factor Xa activity of 0.2 - 0.4 U/mL) corresponds to PTT of 56.6 - 109.0 sec. INR Coag (PPP) [Relative time] 0.96 {INR} Invalid Interpretation Code [facility] Comment on above: Interpretive Data: I NR results are specifically intended to assess patients stabilized on long-term Anticoagulation therapy suggested INR s Less Intensive Anticoagulation 2.0 3.0 Conventional Range 3.0 4.5 PT Coag (PPP) [Time] 10.8 s Normal 9.4 - 1 2.5 second(s) [facility] Coag Comment on above: Interpretive Data: 1 5 days - 4 weeks 1 - 5 months 6 -11 months 1-5 years 6-10 years 11 -17 years Mean: 11.2 (9.5-12.6) Mean: 11.0 (9.7-12.8) Mean: 11.0 (9.8-13.0) Mean: 11.3 (9.9-13.4) Mean: 11.7 (10.0-14.6) Mean: 11.8 (10.0 - 14.1) Pediatric Reference ranges were obtained from a study by Ki Lockett et al. prepared from 1437 samples obtained at 7 different centers using the same coagulation reagent and instrumentation as [facility]. Currently there are no coagulation studies available worldwide for children to 14 days, and no normal ranges. HEMATOLOGYOrdered By: SYSTEM SYSTEM on 06-06-2024 Basophils/100 WBC (Bld) 0.6 % Normal 0.0 - 2.0 % [facility] Basophils/Leukocytes Auto (Bld) [Pure # fraction] 0.0 E9/L Normal 0.0 - 0.2 E9/L [facility] Eosinophils (Bld) [#/Vol] 0.2 E9/L Normal 0.0 - 0.5 E9/L [facility] Eosinophils/100 WBC (Bld) 2.6 % Normal 0.0 - 8.0 % [facility] Erythrocyte distribution width (RBC) [Ratio] 13.3 % Normal 10.9 - 14.2 % [facility] Hematocrit (Bld) [Volume fraction] 40.2 % Normal 37.7 - 49.0 % [facility] Hemoglobin (Bld) [Mass/Vol] 13.9 g/dL Normal 13.5 - 17.5 gm/dL [facility] Lymphocytes (Bld) [#/Vol] 1.1 E9/L Normal 1.0 - 4.0 E9/L [facility] Lymphocytes/100 WBC (Bld) 15.9 % Normal 14.0 - 50.0 % [facility] MCH (RBC) [Entitic mass] 30.1 pg Normal 27. 0 - 34.0 pg [facility] MCHC (RBC) [Mass/Vol] 34.5 g/dL Normal 31.4 - 36.0 gm/dL [facility] MCV (RBC) [Entitic vol] 87.0 fL Normal 80.0 - 100.0 fL [facility] Monocytes (Bld) [#/Vol] 0.6 E9/L Normal 0.2 - 1.0 E9/L [facility] Monocytes/100 WBC (Bld) 8.4 % Normal 4.0 - 14.0 % [facility] Neutrophils (Bld) [#/Vol] 5.2 E9/L Normal 2.0 - 7.5 E9/L [facility] Neutrophils/100 WBC (Bld) 72.5 % Normal 36.0 - 75.0 % [facility] Platelet mean volume (Bld) [Entitic vol] 7.7 fL Normal 6.4 - 10.8 fL [facility] Platelets (Bld) [#/Vol] 195.0 E9/L Normal 150. 0 - 500.0 E9/L [facility] RBC (Bld) [#/Vol] 4.6 E12/L Normal 4.3 - 5.9 E12/L [facility] WBC corrected for nucl RBC Auto (Bld) [#/Vol] 7.1 E9/L Normal 4.0 - 11.0 E9/L [facility] PT & PTTon 06-06-2024 aPTT Coag (PPP) [Time] 34.3 second(s) Normal 25.1-36.5 [facility] Comment on above: Result Comment: Para meter 15 days - 4 weeks 1 - 5 months 6 - 11 months 1 - 5 years 6 - 10 years 11 - 17 years PTT Mean: 35.4 (27.6-45.6) Mean: 33.5 (24.8-40.7) Mean: 32.4 (25.1-40.7) Mean: 31.6 (24.0-39.2) Mean: 31.6 (26.9-38.7) Mean: 31.0 (24.6-38.4) Pediatric Reference ranges were obtained from a study by irwin Good prepared from 1437 samples obtained at 7 different centers using the same coagulation reagent and instrumentation as [facility]. Currently there are no coagulation studies available worldwide for children to 14 days, and no normal ranges. Heparin therapeutic range (represented by Anti-Factor Xa activity of 0.2 - 0.4 U/mL) corresponds to PTT of 56.6 - 109.0 sec. Performed By: #### 1 [id number] #### [facility] [address] [place] [address] INR Coag (PPP) [Relative time] 0.96 {INR} Invalid Interpretation Code [facility] Comment on above: Result Comment: INR results are specifically intended to assess patients stabilized on long-term Anticoagulation therapy suggested INR?s ?Less Intensive Anticoagulation? 2.0 ? 3.0 Conventional Range 3.0 ? 4.5 Performed By: #### 1 [id number] #### [facility] [address] [place] [address] PT Coag (PPP) [Time] 10.8 second(s) Normal 9.4-12.5 [facility] Comment on above: Result Comment: 15 d ays - 4 weeks 1 - 5 months 6 -11 months 1-5 years 6-10 years 11 -17 years Mean: 11.2 (9.5-12.6) Mean: 11.0 (9.7-12.8) Mean: 11.0 (9.8-13.0) Mean: 11.3 (9.9-13.4) Mean: 11.7 (10.0-14.6) Mean: 11.8 (10.0 - 14.1) Pediatric Reference ranges were obtained from a study by irwin Good prepared from 1437 samples obtained at 7 different centers using the same coagulation reagent and instrumentation as [facility]. Currently there are no coagulation studies available worldwide for children to 14 days, and no normal ranges. Performed By: #### 1 [id number] #### [facility] [address] [place] [address] UA with Cult Rflxon 06-06-20 24 Bilirubin Ql (U) Negative Normal Negative [facility] Comment on above: Performed By: #### 4 [id number] #### [facility] [address] [place] [address] Clarity (U) Clear Normal Clear [facility] Comment on above: Performed By: #### 4 [id number] #### [facility] [address] [place] [address] Color (U) Light-Yellow Normal Yellow [facility] Comment on above: Result Comment: Micr oscopic readings are only performed on those samples that meet specific criteria set forth by [facility]. Performed By: #### 4 [id number] #### [facility] [address] [place] [address] Glucose Ql (U) Negative Normal Negative [facility] Comment on above: Performed By: #### 4 [id number] #### [facility] [address] [place] [address] Hemoglobin Auto test strip (U) [Mass/Vol] Negative Normal Negative [facility] Comment on above: Performed By: #### 4 [id number] #### [facility] [address] [place] [address] Ketones Auto test strip Ql (U) Negative Normal Negative [facility] Comment on above: Performed By: #### 4 [id number] #### [facility] [address] [place] [address] Leukocyte esterase Auto test strip Ql (U) Negative Normal Negative [facility] Comment on above: Performed By: #### 4 [id number] #### [facility] [address] [place] [address] Mucus Auto Ql (U) Trace Normal Negative [facility] Comment on above: Performed By: #### 4 [id number] #### [facility] [address] [place] [address] Nitrite Auto test strip Ql (U) Negative Normal Negative [facility] Comment on above: Performed By: #### 4 [id number] #### [facility] [address] [place], [place] [id number] pH (U) 5.5 [pH] Invalid Interpretation Code 5.0-9.0 [facility] Comment on above: Performed By: #### 4 [id number] #### [facility] [address] [place], [place] [id number] Protein Ql (U) 1+ mg/dL Abnormal Negative [facility] Comment on above: Performed By: #### 4 [id number] #### [facility] [address] [place], [place] [address] RBC Ql (U) 0-3 Normal 0-3 [facility] Comment on above: Performed By: #### 4 [id number] #### [facility] [address] [place], [place] [address] Specific gravity (U) [Rel density] 1.020 Invalid Interpretation Code 1.005-1.030 [facility] Comment on above: Performed By: #### 4 [id number] #### [facility] [address] [place], [place] [address] Urobilinogen (U) [Mass/Vol] Negative Normal Negative [facility] Comment on above: Performed By: #### 4 [id number] #### [facility] [address] [place] [address] WBC Auto (Urine sed) [#/Area] 0-5 Normal 0-5 [facility] Comment on above: Performed By: #### 4 [id number] #### [facility] [address] [place] [address] Type of Urine collection method Clean Catch Normal [facility] Comment on above: Performed By: #### 4 [id number] #### [facility] [address] [place] [address] URINALYSISOrdered By: SYSTEM SYSTEM on 06-06-2024 Bilirubin Ql (U) Negative Normal Negativemg/ dL [facility] UA Auto SS Clarity (U) Clear (06/06/24 9:50 AM) Normal Clear [facility] UA Auto SS Color (U) Light-Yellow 1 (06/06/24 9:50 AM) Normal Yellow [facility]A Auto SS Comment on above: Interpretive Data: M icroscopic readings are only performed on those samples that meet specific criteria set forth by [facility]. Glucose Ql (U) Negative Normal Negativemg/ dL [facility] UA Auto SS Hemoglobin Auto test strip (U) [Mass/Vol] Negative Normal Negativemg/ dL [facility] UA Auto SS Ketones Auto test strip Ql (U) Negative Normal Negativemg/ dL [facility] UA Auto SS Leukocyte esterase Auto test strip Ql (U) Negative Normal NegativeLeu /uL [facility] UA Auto SS Mucus Auto Ql (U) Trace graded/LPF Normal Negati vegra ded/LPF [facility] UA Auto SS Nitrite Auto test strip Ql (U) Negative Normal Negativemg/ dL [facility] UA Auto SS pH (U) 5.5 *NA* (06/06/24 9:50 AM) Invalid Interpretation Code 5.0 - 9.0 [facility] UA Auto SS Protein Ql (U) 1+ mg/dL Invalid Interpretation Code Negativemg/ dL [facility] UA Auto SS RBC Ql (U) 0-3 graded/HPF Normal 0-3graded/H PF [facility] UA Auto SS Specific gravity (U) [Rel density] 1.020 *NA* (06/06/24 9:50 AM) Invalid Interpretation Code 1.005 - 1.030 [facility] UA Auto SS Urobilinogen (U) [Mass/Vol] Negative Normal Negativemg/ dL [facility]A Auto SS WBC Auto (Urine sed) [#/Area] 0-5 graded/HPF Normal 0-5graded/H PF [facility] UA Auto SS URINALYSISOrdered By: Sandy Anderson on 06-06-2024 UA Spec Desc Clean Catch (06/06/24 9:50 AM) Normal [facility] UA Auto SS eGFRon 06-06-2024 eGFR 70 mL/min/1.73 m2 Normal >=59 [facility] Comment on above: Order Comment: Order added by Discern Expert. Performed By: #### 1 [id number] #### [facility] [address] [place] [address] Ambulatory Visit Summaryon 0 05-11-2024 Ambulatory Visit Summary Ambulatory Visi t Summary HUNG MAR :1965 Visit Date:05/11/2024 Ambulatory Visit Instructions Your Diagnosis Abnormal ultrasound Kidney stones BPH with urinary obstruction Erectile dysfunction Urge incontinence Your Care Team Attending Physician - Dax DAVIS MD Primary Care Physician - ALBARO JOHN DO This Is Your Medications List cephalexin (Keflex 500 mg Cap) Contact prescribing physician if questions or concerns amlodipine (amLODIPine 10 mg Tab) benazepril (benazepril 40 mg oral tablet) carvedilol (Coreg 12.5 mg Tab) citalopram (citalopram 20 mg Tab) clonidine (cloNIDine 0.1 mg tab) hydrochlorothiazide (hydrochlorothiazide 25 mg Tab) spironolactone (spironolactone 25 mg Tab) tadalafil (tadalafil 10 mg Tab) Procedures Performed Flexible cystoscopy (05/11/2024), Arthroscopy, Cholecystectomy, Colonoscope, Vasectomy. Discharge Vitals Heart Rate (Peripheral) 70 Respiratory Rate 16 Blood Pressure 138/90 Height 179 cm Height 70 in Weight 110 kg Weight 242 lb BMI 34.33 What to do next You Need to Schedule the Following Appointments Follow Up with Dax DAVIS MD, VALENTINE When: [facility] [address] [facility] [address] [facility] [address] [place] [address]- Medications What How Much When Instructions Unchanged cephalexin (Keflex 500 mg Cap) 1 Capsules By Mouth As Directed Pt to take 1 tab the day before procedure and the 2nd tab the day of procedure once completed. Unchanged amlodipine (amLODIPine 10 mg Tab) 1 Tablets Every day Contact prescribing physician if questions or concerns Unchanged benazepril (benazepril 40 mg oral tablet) 1 Tablets Every day Contact prescribing physician if questions or concerns Unchanged carvedilol (Coreg 12.5 mg Tab) 1 Tablets By Mouth 2 times a day Contact prescribing physician if questions or concerns Unchanged citalopram (citalopram 20 mg Tab) 1 Tablets Contact prescribing physician if questions or concerns Unchanged clonidine (cloNIDine 0.1 mg tab) 1 Tablets 2 times a day Contact prescribing physician if questions or concerns Unchanged hydrochlorothiazide (hydrochlorothiazide 25 mg Tab) 1 Tablets Contact prescribing physician if questions or concerns Unchanged spironolactone (spironolactone 25 mg Tab) 1 Tablets Contact prescribing physician if questions or concerns Unchanged tadalafil (tadalafil 10 mg Tab) 1 Tablets Contact prescribing physician if questions or concerns Medications and Immunizations Administered Given lidocaine Top 2% Gel w/Appl 11 mL, 11 mL, Topical. For: Abnormal ultrasound, Kidney stones, BPH with urinary obstruction, Erectile dysfunction Allergies No Known Medication Allergies Problems Ongoing - Any problem that you are currently receiving treatment for. Abnormal ultrasound BPH with urinary obstruction Chronic kidney disease Erectile dysfunction Erectile dysfunction due to arterial insufficiency History of kidney stones Hyperlipemia Kidney stones Major depressive disorder, recurrent, in remission Obstructive sleep apnea Other obesity due to excess calories Primary hypertension Proteinuria Renal cyst Spondylolysis of lumbar region Stress headache Urge incontinence Patient Survey You may receive a survey via text or e-mail asking about your office visit. Please share your experience with us by completing your survey. We appreciate your feedback and thank you for choosing us for your care. Education Materials Lithotripsy, Care After This sheet gives you information about how to care for yourself after your procedure. Your health care provider may also give you more specific instructions. If you have problems or questions, contact your health care provider. What can I expect after the procedure? After the procedure, it is common to have: ? Some blood in your urine. This should only last for a few days. ? Soreness in your back, sides, or upper abdomen for a few days. ? Blotches or bruises on the area where the shock wave entered the skin. ? Pain, discomfort, or nausea when pieces (fragments) of the kidney stone move through the tube that carries urine from the kidney to the bladder (ureter). Stone fragments may pass soon after the procedure, but they may continue to pass for up to 4?8 weeks. ? If you have severe pain or nausea, contact your health care provider. This may be caused by a large stone that was not broken up, and this may mean that you need more treatment. ? Some pain or discomfort during urination. ? Some pain or discomfort in the lower abdomen or (in men) at the base of the penis. Follow these instructions at home: Medicines ? Take oico-uel-hrcxdcg and prescription medicines only as told by your health care provider. ? If you were prescribed an antibiotic medicine, take it as told by your health care provider. Do not stop taking the antibiotic even if you start to feel sarahi (more content not included)... Normal [facility] Urology Office/Clinic Noteon 05-11-2024 Urology Office/Clinic Note Urology Office/Clinic Note Chief Complaint Cysto HPI Staff Cystoscopy. Abx taken History of Present Illness Tests reviewed: reviewed US, UA I have reviewed the previous health record information and history for this patient from Dr. Davis. I have reviewed and verified the staff HPI to be accurate for this encounter. There have been no associated fever, chills, flank pain, or blood in the urine. Denies any urinary infections since last encounter. Review of Systems PHQ Score Initial Depression Screen Score: 0 SCORE ROS - Provider Constitutional: denies weight loss, denies hot flashes. Eyes: denies eye problems. Gastrointestinal: denies nausea, denies vomiting. Cardiovascular: denies chest pain or angina. Integumentary: no dryness Musculoskeletal: denies musculoskeletal symptoms. ENMT: denies otolaryngeal symptoms. Respiratory: no shortness of breath. Heme/Lymph: denies easy bleeding tendency, denies easy bruising tendency. Psychiatric: no confusion, no anxiety. Genitourinary: See HPI. Physical Exam Vitals & Measurements HR: 70(Peripheral) RR: 16 BP: 138/90 HT: 70 in HT: 179 cm WT: 110 kg WT: 242 lb BMI: 34.33 General Appearance: alert, no distress, well nourished, well developed male. Genitourinary: normal scrotum, normal testes, normal urethra, normal epididymis, normal vas deferens/spermatic cord. Flank Pain: none. Bladder: nonpalpable. Procedure Operative Information Anesthesia Type: Local Procedure: Local Cystoscopy Complications: None Surgical risks, benefits, details of the procedure have been explained to the patient. Full informed consent has been obtained. Intraoperative Information Prepped: Patient is brought back to the endoscopy suite. Patient is placed in supine position. Patient prepped in the usual fashion with Betadine solution. 2% Xylocaine Jelly is placed per Urethra. After waiting several minutes, the Cystoscope is introduced. The Urethra is: Normal The Prostatic Urethra is: _ 4 cm long, lobular structure seen on US was middle lobe. 2 cm middle lobe. The Bladder: _No tumors or stones, Trabeculated: Moderate (2) The Ureteral orifices: Show efflux of clear urine Specimens Removed: None Removal: Cystoscope is removed. The patient tolerated it well. Postoperative Information Patient is discharged home with antibiotic coverage. Follow up arranged. Assessment/Plan 1. Abnormal ultrasound (R93.89: Abnormal findings on diagnostic imaging of other specified body structures) [facility] 03/08/24 TBH - Lobular soft tissue structure within base of bladder 2.0 x 1.6 x 2.4 cm. Pt had IO cysto today due to abnormal US wo complications. Abnormal lobular structure seen on CT was pt's middle lobe of his prostate. 2. Kidney stones (N20.0: Calculus of kidney) Hx of lithotripsy [address] Jarvis. [1] [facility] 03/08/24 TB - right: several nonobstructing calcifications/stones, largest is 1.2 cm. Left: several nonobstructing stones, largest 0.4 cm. Discussed surgical intervention options including ESWL if visible on x-ray (less invasive, lower stone free rate) and ureteroscopy/laser litho with possible stent placement (more invasive, higher stone free rate). Risks and benefits of each discussed. -Will schedule R ESWL, possible stent. The procedure risks, benefits, details and treatment alternatives have been discussed with the patient. These include blood in the urine, infection, bleeding around the kidney, kidney bruising, inability to break up the stone, need for blood transfusion, blockage from stone fragments, and need for additional procedures, among others. Full informed consent has been obtained. Will order General anesthesia. 3. BPH with urinary obstruction (N40.1: Benign prostatic hyperplasia with lower urinary tract symptoms) PSA (PCP manages PSA [1]): 01/07/22 - 1.98 02/09/23 - 2.12 03/16/24 - 1.81 UA today negative for blood and infection. Not taking any BPH meds. No urinary complaints. -Cont PSA monitoring with PCP. 4. Erectile dysfunction (N52.9: Male erectile dysfunction, unspecified) Cialis 10 mg prn. Managed by PCP. 5. Urge incontinence (N39.41: Urge incontinence) Mild episode after cysto today. Overall the patient tolerates cystoscopy well. The abnormality demonstrated on ultrasound of the bladder was actually the middle lobe of his prostate. He does have moderate prostatic hypertrophy otherwise with lateral lobe intrusion but is not having many difficulties with voiding. We then extensively discussed the possibilities for his 1.2 cm renal calculus and he wants to proceed with the intervention before this has a chance to come down and block him up emergently. Due to the size of the calculus I recommended a cystoscopy and a stent. He has had this in the past and did not tolerate the stent well. The other option is to consider a percutaneous approach and/or endoscopic retrograde approach. He agrees with the former. He is aware of the heart and lung problem (more content not included)... [facility] Comment on above: Result Comment: Elec tronically Signed By: Dax DAVIS MD\.br\Date and Time Signed: 05/11/24 08:42 EDT\.br\Electronically Co-Signed By: Shari Hartman\.br\Date and Time Co-Signed: 05/11/24 08:39 EDT Lab Reportson 04-02-2024 Lab Reports [id number]#1. 00[facility] RAD - Ultrasound Reporton RAD - Ultrasound Report [id number]#1.00 [facility] Formson 03-29-2024 Forms [id number]#1.0 0[facility] Physician Referralon 024 Physician Referral [id number]#1.00 [facility] Screenson 03-29-2024 Screens [id number]#1. 00[facility] Screens [id number]#1. 00[facility] Ambulatory Visit Summaryon 0 03-28-2024 Ambulatory Visit Summary HUNG MAR :1965 Visit Date:03/28/2024 Ambulatory Visit Instructions Your Diagnosis Abnormal renal ultrasound Kidney stones BPH with urinary obstruction Renal cyst Erectile dysfunction Your Care Team Attending Physician - Dax ADVIS MD Primary Care Physician - ALBARO JOHN DO Referring Physician - ALBAOR JOHN DO This Is Your Medications List cephalexin (Keflex 500 mg Cap) Contact prescribing physician if questions or concerns amlodipine (amLODIPine 10 mg Tab) benazepril (benazepril 40 mg oral tablet) carvedilol (Coreg 12.5 mg Tab) citalopram (citalopram 20 mg Tab) clonidine (cloNIDine 0.1 mg tab) hydrochlorothiazide (hydrochlorothiazide 25 mg Tab) spironolactone (spironolactone 25 mg Tab) tadalafil (tadalafil 10 mg Tab) Procedures Performed Arthroscopy, Cholecystectomy, Colonoscope, Vasectomy. Discharge Vitals Heart Rate (Peripheral) 71 Respiratory Rate 19 Blood Pressure 173/104 Height 179 cm Height 70 in Weight 110 kg Weight 242 lb BMI 34.33 What to do next Scheduled Follow-Up Appointments Tuesday 7:45 AM EDT With: Dax DAVIS MD Where: [facility] Ambulatory Visit Summary HUNG MAR :1965 Visit Date:03/28/2024 Ambulatory Visit Instructions Your Diagnosis Abnormal renal ultrasound Kidney stones BPH with urinary obstruction Renal cyst Erectile dysfunction Your Care Team Attending Physician - Dax DAVIS MD Primary Care Physician - ALBARO JOHN DO Referring Physician - ALBARO JOHN DO This Is Your Medications List cephalexin (Keflex 500 mg Cap) Contact prescribing physician if questions or concerns amlodipine (amLODIPine 10 mg Tab) benazepril (benazepril 40 mg oral tablet) carvedilol (Coreg 12.5 mg Tab) citalopram (citalopram 20 mg Tab) clonidine (cloNIDine 0.1 mg tab) hydrochlorothiazide (hydrochlorothiazide 25 mg Tab) spironolactone (spironolactone 25 mg Tab) tadalafil (tadalafil 10 mg Tab) Procedures Performed Arthroscopy, Cholecystectomy, Colonoscope, Vasectomy. Discharge Vitals Heart Rate (Peripheral) 71 Respiratory Rate 19 Blood Pressure 173/104 Height 179 cm Height 70 in Weight 110 kg Weight 242 lb BMI 34.33 What to do next Scheduled Follow-Up Appointments Tuesday 7:45 AM EDT With: RYAN HORNER, Dax Daniel Where: [facility] [place] Normal [facility] Albumin [Mass/volume] in Ser um or Plasmaon 03-16-2024 Albumin [Mass/Vol] 4.0 g/dL 2.9-4.4 [facility] Basophils Auto (Bld) [#/Vol] on 03-16-2024 Basophils (Bld) [#/Vol] 0.0 10 3/uL 0.0-0.1 [facility] Basophils/100 WBC Auto (Bld) on 03-16-2024 Basophils/100 WBC (Bld) 0.5 % 0.2-2.0 [facility] Cholesterol in LDL Calc [Mas s/Vol]on 03-16-2024 Cholesterol in LDL [Mass/Vol] 103.0 mg/dL [facility] Comment on above: <100 mg/dl [id number] 0-129 mg/dl NEAR OR ABOVE [id number] mg/dl BORDERLINE [id number] mg/dl HIGH>190 mg/dl VERY HIGH Cholesterol in VLDL Calc [Ma ss/Vol]on 03-16-2024 Cholesterol in VLDL [Mass/Vol] 31.8 mg/dL [facility] Eosinophils/100 WBC Auto (Bl d)on 03-16-2024 Eosinophils/100 WBC (Bld) 1.5 % 0.9-7.0 [facility] Erythrocyte distribution wid th Auto (RBC) [Ratio]on 03-16-2024 Erythrocyte distribution width (RBC) [Ratio] 12.3 % 11.0-15.0 [facility] Estimated glomerular filtrat ion rate (GFR) non- Americanon 03-16-2024 GFR/1.73 sq M.predicted among non-blacks MDRD (S/P/Bld) [Vol rate/Area] 58 mL/min/{1.73_m2} Low >=60 [facility] Globulin Calc (S) [Mass/Vol] on 03-16-2024 Globulin (S) [Mass/Vol] 3.3 g/dL [facility] Hematocrit Auto (Bld) [Volum e fraction]on 03-16-2024 Hematocrit (Bld) [Volume fraction] 41.3 % Low 42.0-54.0 [facility] Hemoglobin [Mass/volume] in Bloodon 03-16-2024 Hemoglobin (Bld) [Mass/Vol] 14.4 g/dL 14.0-18.0 [facility] IgA [Mass/volume] in Serum o r Plasmaon 03-16-2024 IgA [Mass/Vol] 201 mg/dL 90-386 [facility] IgG [Mass/volume] in Serum o r Plasmaon 03-16-2024 IgG [Mass/Vol] 1036 mg/dL 603-1613 [facility] IgM [Mass/volume] in Serum o r Plasmaon 03-16-2024 IgM [Mass/Vol] 62 mg/dL 20-172 [facility] Immunoglobulin light chains. kappa.free [Mass/volume] in Serumon 03-16-2024 Immunoglobulin light chains.kappa.free (S) [Mass/Vol] 21.2 mg/L Abnormal 3.3-19.4 [facility] Immunoglobulin light chains. kappa.free/Immunoglobulin light chains.lambda.free [Teodoro 03-16-2024 Immunoglobulin light chains.kappa.free/Immuno globulin light chains.lambda.free (S) [Mass ratio] 1.07 0.26-1.65 [facility] Comment on above: Performed at: [place] [id number] Director: Joselo Maya PhD, Phone: [phone] Immunoglobulin light chains. lambda.free [Mass/volume] in Serum or Plasmaon 03-16-2024 Immunoglobulin light chains.lambda.free [Mass/Vol] 19.8 mg/L 5.7-26.3 [facility] Laboratory - Chemistry and C hemistry - challengeon 03-16-2024 Albumin [Mass/Vol] 3.9 g/dL 3.4-5.0 [facility] ALP [Catalytic activity/Vol] 91 U/L 46-116 [facility] ALT [Catalytic activity/Vol] 38 U/L 16-63 [facility] AST [Catalytic activity/Vol] 20 U/L 15-37 [facility] Bilirubin [Mass/Vol] 0.6 mg/dL 0.2-1.0 [facility] Calcium [Mass/Vol] 8.4 mg/dL Low 8.5-10.1 [facility] Chloride [Moles/Vol] 101 mmol/L 98-107 [facility] Cholesterol [Mass/Vol] 174 mg/dL <=200 [facility] Cholesterol in HDL [Mass/Vol] 40 mg/dL 40-60 [facility] Comment on above: > or =60 mg/dl - LOW CARDIOVASCULAR RISK<40 mg/dl - HIGH CARDIOVASCULAR RISK CO2 [Moles/Vol] 25.9 mmol/L 21.0-32.0 [facility] Creatinine [Mass/Vol] 1.29 mg/dL 0.70-1.[address] [facility] GFR/1.73 sq M.predicted MDRD (S/P/Bld) [Vol rate/Area] mL/min/{1.73_m2} >=60 [facility] Glucose [Mass/Vol] 115 mg/dL High 74-106 [facility] Potassium [Moles/Vol] 3.6 mmol/L 3.5-5.[address] [facility] Protein [Mass/Vol] 7.2 g/dL 6.4-8.2 [facility] Sodium [Moles/Vol] 135 mmol/L Low 136-145 [facility] Triglyceride [Mass/Vol] 159 mg/dL High <=150 [facility] Urea nitrogen [Mass/Vol] 18.0 mg/dL 7.0-18.0 [facility] Urea nitrogen/Creatinine [Mass ratio] 14.0 mg/mg [facility] Laboratory - Hematology and Cell countson 03-16-2024 Immature granulocytes/100 WBC (Bld) 0.4 % 0.0-0.5 [facility] Leukocytes [#/volume] correc mitch for nucleated erythrocytes in Blood by Automated counon 03-16-2024 WBC corrected for nucl RBC Auto (Bld) [#/Vol] 7.8 10 3/uL 4.0-11.0 [facility] Lymphocytes Auto (Bld) [#/Vo l]on 03-16-2024 Lymphocytes (Bld) [#/Vol] 1.2 10 3/uL 1.2-3.8 [facility] Lymphocytes/100 WBC Auto (Bl d)on 03-16-2024 Lymphocytes/100 WBC (Bld) 15.5 % Low 20.5-60.0 [facility] MCH Auto (RBC) [Entitic mass ]on 03-16-2024 MCH (RBC) [Entitic mass] 30.3 pg 25.9-34.0 [facility] MCHC Auto (RBC) [Mass/Vol]on 03-16-2024 MCHC (RBC) [Mass/Vol] 34.9 g/dL 29.9-35.[address] [facility] MCV Auto (RBC) [Entitic vol] on 03-16-2024 MCV (RBC) [Entitic vol] 86.9 fL 80.0-94.0 [facility] Monocytes Auto (Bld) [#/Vol] on 03-16-2024 Monocytes (Bld) [#/Vol] 0.6 10 3/uL 0.3-0.8 [facility] Monocytes/100 WBC Auto (Bld) on 03-16-2024 Monocytes/100 WBC (Bld) 7.2 % 1.7-12.0 [facility] Neutrophils Auto (Bld) [#/Vo l]on 03-16-2024 Neutrophils (Bld) [#/Vol] 5.8 10 3/uL 1.4-6.5 [facility] Neutrophils/100 WBC Auto (Bl d)on 03-16-2024 Neutrophils/100 WBC (Bld) 74.9 % 43.0-75.0 [facility] No Panel Informationon 03-16 Eosinophils # (Auto) 0.1 10 3/uL 0.0-0.[address] [facility] Immature Granulocyte # (Auto) 0.03 10 3/uL 0.00-0.03 [facility] Prostate Specific Antigen Screen 1.81 ng/mL <=4.00 [facility] Protein Electrophoresis M-Agustín Not Observed g/dL Not Observed [facility] Protein Electrophoresis Note Comment . [facility] Comment on above: Protein electrophore sis scan will follow via computer,mail, or power generation plant operator delivery. Platelet mean volume Auto (B ld) [Entitic vol]on 03-16-2024 Platelet mean volume (Bld) [Entitic vol] 9.3 fL Low 9.5-13.5 [facility] Platelets Auto (Bld) [#/Vol] on 03-16-2024 Platelets (Bld) [#/Vol] 240 10 3/uL 150-450 [facility] Protein [Mass/volume] in Ser um or Plasmaon 03-16-2024 Protein [Mass/Vol] 6.7 g/dL 6.0-8.5 [facility] RBC Auto (Bld) [#/Vol]on RBC (Bld) [#/Vol] 4.75 10 6/uL 4.70-6.10 [facility] Serum globulin measurement ( mass/volume)on 03-16-2024 Globulin (S) [Mass/Vol] 2.7 g/dL 2.2-3.9 [facility] Serum or plasma albumin/glob ulin mass ratioon 03-16-2024 Albumin/Globulin [Mass ratio] 1.2 {ratio} [facility] Albumin/Globulin [Mass ratio] 1.5 {ratio} 0.7-1.7 [facility] Serum or plasma alpha 1 glob ulin measurement by electrophoresis (mass/volume)on 03-16-2024 Alpha 1 globulin Elph [Mass/Vol] 0.2 g/dL 0.0-0.4 [facility] Serum or plasma alpha 2 glob ulin measurement by electrophoresis (mass/volume)on 03-16-2024 Alpha 2 globulin Elph [Mass/Vol] 0.6 g/dL 0.4-1.0 [facility] Serum or plasma anion gap de terminationon 03-16-2024 Anion gap [Moles/Vol] 11.7 mmol/L [facility] Serum or plasma beta globuli n measurement by electrophoresis (mass/volume)on 03-16-2024 Beta globulin Elph [Mass/Vol] 0.9 g/dL 0.7-1.3 [facility] Serum or plasma gamma globul in measurement by electrophoresis (mass/volume)on 03-16-2024 Gamma globulin Elph [Mass/Vol] 1.0 g/dL 0.4-1.8 [facility] Serum or plasma immunoelectr ophoresis interpretationon 03-16-2024 Interpretation IEP [Interp] Comment . [facility] Comment on above: No monoclonality det ected. Serum or plasma total choles terol/high density lipoprotein (HDL) cholesterol mass sabina 03-16-2024 Cholesterol.total/Choles terol in HDL [Mass ratio] 4.3 {ratio} [facility] Comment on above: 3.3 - 4.4 LOW RISK4. 4 - 7.1 AVERAGE RISK7.1 - 11.0 MODERATE RISK>11.0 HIGH RISK MRI Knee w/o Righton 023 MRI Knee [...] by Angelo Landeros on 03/01/2023 1125 Normal [facility] Specialist CBC AUTO DIFFon 02-09-2023 BASO # 0.1 103/ul Normal 0.0-0.1 [facility] Comment on above: Performed By: #### C BC #### [facility] [address] [place] [address] [address] Ziyad Landry Basophils/100 WBC (Bld) 0.7 % Normal 0.2-2.0 [facility] Comment on above: Performed By: #### C BC #### [facility] [address] [place] [address] [address] Ziyad Landry EO # 0.2 103/ul Normal 0.0-0.7 [facility] Comment on above: Performed By: #### C BC #### [facility] [address] [place] [address] [address] Ziyad Landry Eosinophils/100 WBC (Bld) 2.7 % Normal 0.9-7.0 [facility] Comment on above: Performed By: #### C BC #### [facility] [address] [place] [address] Dr. Ziyad Landry Erythrocyte distribution width (RBC) [Ratio] 12.7 % Normal 11.0-15.0 [facility] Comment on above: Performed By: #### C BC #### [facility] [address] [place] [address] Dr. Ziyad Landry Hematocrit (Bld) [Volume fraction] 39.7 % Critically low 42.0-54.0 [facility] Comment on above: Performed By: #### C BC #### [facility] [address] [place] [address] Dr. Ziyad Landry Hemoglobin (Bld) [Mass/Vol] 14.6 g/dL Normal 14.0-18.0 [facility] Comment on above: Performed By: #### C BC #### [facility] [address] [place] [address] Dr. Ziyad Landry IG # 0.04 10e3/ul Critically high 0.00-0.03 [facility] Comment on above: Performed By: #### C BC #### [facility] [address] [place] [address] [address] Ziyad Landry IG % 0.5 % Normal 0.0-0.5 [facility] Comment on above: Performed By: #### C BC #### [facility] [address] [place] [address] [address] Ziyad Landry LYMPH # 1.7 103/ul Normal 1.2-3.8 [facility] Comment on above: Performed By: #### C BC #### [facility] [address] [place] [address] Dr. Ziyad Landry Lymphocytes/100 WBC (Bld) 22.4 % Normal 20.5-60.0 [facility] Comment on above: Performed By: #### C BC #### [facility] [address] [place] [address] Dr. Ziyad Landry MANUAL DIFF REQ NO Normal [facility] Comment on above: Performed By: #### C BC #### [facility] [address] [place] [address] Dr. Ziyad Landry MCH (RBC) [Entitic mass] 30.7 pg Normal 25.9-34.0 [facility] Comment on above: Performed By: #### C BC #### [facility] [address] [place] [address] Dr. Ziyad Landry MCHC (RBC) [Mass/Vol] 36.8 g/dL Critically high 29.9-35.2 [facility] Comment on above: Performed By: #### C BC #### [facility] [address] [place] [address] Dr. Ziyad Landry MCV (RBC) [Entitic vol] 83.6 fL Normal 80.0-94.0 [facility] Comment on above: Performed By: #### C BC #### [facility] [address] [place] [address] Dr. Ziyad Landry MONO # 0.6 103/ul Normal 0.3-0.8 [facility] Comment on above: Performed By: #### C BC #### [facility] [address] [place] [address] Dr. Ziyad Landry Monocytes/100 WBC (Bld) 8.2 % Normal 1.7-12.0 [facility] Comment on above: Performed By: #### C BC #### [facility] [address] [place] [address] [address] Ziyad Landry NEUT # 5.0 103/ul Normal 1.4-6.5 [facility] Comment on above: Performed By: #### C BC #### [facility] [address] [place] [address] [address] Ziyad Landry Neutrophils/100 WBC (Bld) 65.5 % Normal 43.0-75.0 [facility] Comment on above: Performed By: #### C BC #### [facility] [address] [place] [address] [address] Ziyad Landry Platelet mean volume (Bld) [Entitic vol] 8.6 fL Critically low 9.5-13.5 [facility] Comment on above: Performed By: #### C BC #### [facility] [address] [place] [address] [address] Ziyad Landry PLT 224 103/ul Normal 150-450 [facility] Comment on above: Performed By: #### C BC #### [facility] [address] [place] [address] Dr. Ziyad Landry RBC 4.75 106/ul Normal 4.70-6.10 [facility] Comment on above: Performed By: #### C BC #### [facility] [address] [place] [address] [address] Ziyad Landry WBC 7.7 103/ul Normal 4.0-11.0 [facility] Comment on above: Performed By: #### C [place] #### [facility] [address] [place] [address] Dr. Ziyad Landry DIRECT LDLon 02-09-2023 Cholesterol in LDL [Mass/Vol] 87 mg/dL Normal [facility] Comment on above: Performed By: #### C MP, LIPID, DLDL #### [facility] [address] [address] [address] Ziyad Landry DLDL NORMAL SEE BELOW Normal [facility] Comment on above: Result Comment: <100 mg/dl OPTIMAL 100 - 129 mg/dl NEAR OR ABOVE OPTIMAL 130 - 159 mg/dl BORDERLINE HIGH 160 - 189 mg/dl HIGH >190 mg/dl VERY HIGH Performed By: #### C MP, LIPID, DLDL #### [facility] [address] [place] [address] Dr. Ziyad Landry LIPID PROFILEon 02-09-2023 CHOL-HDL RATIO NORM SEE BELOW Normal [facility] Comment on above: Result Comment: 3.3 - 4.4 LOW RISK 4.4 - 7.1 AVERAGE RISK 7.1 - 11.0 MODERATE RISK >11.0 HIGH RISK Performed By: #### C MP, LIPID, DLDL #### [facility] [address] [address] [address] Ziyad Landry Cholesterol [Mass/Vol] 198 mg/dL Normal <=200 [facility] Comment on above: Performed By: #### C MP, LIPID, DLDL #### [facility] [address] [place] [address] Dr. Ziyad Landry Cholesterol in HDL [Mass/Vol] 36 mg/dL Critically low 40-60 [facility] Comment on above: Performed By: #### C MP, LIPID, DLDL #### [facility] [address] [address] [address] Ziyad Landry Cholesterol.total/Choles terol in HDL [Mass ratio] 5.5 {ratio} Normal [facility] Comment on above: Performed By: #### C MP, LIPID, DLDL #### [facility] [address] [place] [address] Dr. Ziyad Landry HDL NORMAL > or = 60 mg/dl - LO W CARDIOVASCULAR RISK <40 mg/dl - HIGH CARDIOVASCULAR RISK Normal [facility] Comment on above: Performed By: #### C MP, LIPID, DLDL #### [facility] [address] [place], [place] [id number] Dr. Ziyad Landry LDL CALC NORMAL SEE BELOW Normal [facility] Comment on above: Result Comment: <100 mg/dl OPTIMAL 100 - 129 mg/dl NEAR OR ABOVE OPTIMAL 130 - 159 mg/dl BORDERLINE HIGH 160 - 189 mg/dl HIGH >190 mg/dl VERY HIGH Performed By: #### C MP, LIPID, DLDL #### [facility] [address] [address] [address] Ziyad Landry Triglyceride [Mass/Vol] 401 mg/dL Critically high <=150 [facility] Comment on above: Performed By: #### C MP, LIPID, DLDL #### [facility] [address] [address] [address] Ziyad Landry VLDL CALC 80.2 mg/dL Normal [facility] Comment on above: Performed By: #### C MP, LIPID, DLDL #### [facility] [address] [address] [address] Ziyad Landry PROF 14(COMP METB)on 023 Albumin [Mass/Vol] 4.1 g/dL Normal 3.4-5.0 [facility] Comment on above: Performed By: #### C MP, LIPID, DLDL #### [facility] [address] [address] [address] Ziyad Landry Albumin/Globulin [Mass ratio] 1.1 {ratio} Normal [facility] Comment on above: Performed By: #### C MP, LIPID, DLDL #### [facility] [address] [address] [address] Ziyad Landry ALP [Catalytic activity/Vol] 77 U/L Normal 46-116 [facility] Comment on above: Performed By: #### C MP, LIPID, DLDL #### [facility] [address] [address] [address] Ziyad Landry ALT [Catalytic activity/Vol] 52 U/L Normal 16-63 [facility] Comment on above: Performed By: #### C MP, LIPID, DLDL #### [facility] [address] [address] [address] Ziyad Landry Anion gap [Moles/Vol] 11.4 mmol/L Normal [facility] Comment on above: Performed By: #### C MP, LIPID, DLDL #### [facility] [address] [address] [address] Ziyad Landry AST [Catalytic activity/Vol] 25 U/L Normal 15-37 [facility] Comment on above: Performed By: #### C MP, LIPID, DLDL #### [facility] [address] [address] [address] Ziyad Landry Bilirubin [Mass/Vol] 0.6 mg/dL Normal 0.2-1.0 [facility] Comment on above: Performed By: #### C MP, LIPID, DLDL #### [facility] [address] [address] [address] Ziyad Landry Calcium [Mass/Vol] 9.4 mg/dL Normal 8.5-10.1 [facility] Comment on above: Performed By: #### C MP, LIPID, DLDL #### [facility] [address] [place] [address] Dr. Ziyad Landry Chloride [Moles/Vol] 104 mmol/L Normal 98-107 [facility] Comment on above: Performed By: #### C MP, LIPID, DLDL #### [facility] [address] [place] [address] Dr. Ziyad Landry CO2 [Moles/Vol] 27.9 mmol/L Normal 21.0-32.[address] [facility] Comment on above: Performed By: #### C MP, LIPID, DLDL #### [facility] [address] [place] [address] Dr. Ziyad Landry Creatinine [Mass/Vol] 1.58 mg/dL Critically high 0.70-1.30 [facility] Comment on above: Performed By: #### C MP, LIPID, DLDL #### [facility] [address] [place] [address] Dr. Ziyad Landry EGFR-AF GERMAN 55 mL/min/1.73m2 Critically low >=60 [facility] Comment on above: Performed By: #### C MP, LIPID, DLDL #### [facility] [address] [place] [address] Dr. Ziyad Landry EGFR-NON AF GERMAN 46 mL/min/1.73m2 Critically low >=60 [facility] Comment on above: Performed By: #### C MP, LIPID, DLDL #### [facility] [address] [address] [address] Ziyad Landry Globulin (S) [Mass/Vol] 3.8 g/dL Normal [facility] Comment on above: Performed By: #### C MP, LIPID, DLDL #### [facility] [address] [address] [address] Ziyad Landry Glucose [Mass/Vol] 116 mg/dL Critically high 74-106 [facility] Comment on above: Performed By: #### C MP, LIPID, DLDL #### [facility] [address] [address] [address] Ziyad Landry Potassium [Moles/Vol] 3.3 mmol/L Critically low 3.5-5.1 [facility] Comment on above: Performed By: #### C MP, LIPID, DLDL #### [facility] [address] [address] [address] Ziyad Landry Protein [Mass/Vol] 7.9 g/dL Normal 6.4-8.2 [facility] Comment on above: Performed By: #### C MP, LIPID, DLDL #### [facility] [address] [address] [address] Ziyad Landry Sodium [Moles/Vol] 140 mmol/L Normal 136-145 [facility] Comment on above: Performed By: #### C MP, LIPID, DLDL #### [facility] [address] [address] [address] Ziyad Landry Urea nitrogen [Mass/Vol] 28.0 mg/dL Critically high 7.0-18 .0 [facility] Comment on above: Performed By: #### C MP, LIPID, DLDL #### [facility] [address] [address] [address] Ziyad Landry Urea nitrogen/Creatinine [Mass ratio] 17.7 mg/mg Normal [facility] Comment on above: Performed By: #### C MP, LIPID, DLDL #### [facility] [address] [address] LSPINE WO CONon 2 CT LSPINE WO CON EXAM: CT LSPINE WO C ON HISTORY: DORSALGIA, UNSPECIFIED COMPARISON: None. TECHNIQUE: Contiguous [...] by: MARCELINA SIMMONS Date: 2022-05-14 03:38 Normal [facility] Vital Signs Date Time Vital Sign Value Performing Clinician Facility 03-06-2025 15:36040 Body height 177.8 cm [facility] 03-06-2025 15:36040 Body mass index (BMI) [Ratio] 33.5 kg/m2 [facility] 03-06-2025 15:36040 Body weight 106.14 kg [facility] 03-06-2025 15:36-0400 Diastolic blood pressure 95 mm[Hg] [facility] 03-06-2025 15:36-0400 Heart rate 83 /min [facility] 03-06-2025 15:36-0400 Respiratory rate 12 /min [facility] 03-06-2025 15:36-0400 Systolic blood pressure 163 mm[Hg] [facility] 01-24-2025 10:00-0400 Body height 177.8 cm [facility] 01-24-2025 10:00-0400 Body mass index (BMI) [Ratio] 33.5 kg/m2 [facility] 01-24-2025 10:00-0400 Body weight 105.85 kg [facility] 01-24-2025 10:00-0400 Diastolic blood pressure 96 mm[Hg] [facility] 01-24-2025 10:00-0400 Heart rate 71 /min [facility] 01-24-2025 10:00-0400 Respiratory rate 12 /min [facility] 01-24-2025 10:00-0400 Systolic blood pressure 166 mm[Hg] [facility] 08-09-2024 08:29-0400 Body height 177.8 cm [facility] 08-09-2024 08:29-0400 Body mass index (BMI) [Ratio] 35.3 kg/m2 [facility] 08-09-2024 08:29-0400 Body weight 111.64 kg [facility] 08-09-2024 08:29-0400 Diastolic blood pressure 120 mm[Hg] [facility] 08-09-2024 08:29-0400 Heart rate 80 /min [facility] 08-09-2024 08:29-0400 Respiratory rate 12 /min [facility] 08-09-2024 08:29-0400 Systolic blood pressure 186 mm[Hg] [facility] 07-09-2024 15:34-0400 Body height 177.8 cm [facility] 07-09-2024 15:34-0400 Body mass index (BMI) [Ratio] 35.2 kg/m2 [facility] 07-09-2024 15:34-0400 Body weight 111.3 kg [facility] 07-09-2024 15:34-0400 Diastolic blood pressure 113 mm[Hg] [facility] 07-09-2024 15:34-0400 Heart rate 89 /min [facility] 07-09-2024 15:34-0400 Respiratory rate 12 /min [facility] 07-09-2024 15:34-0400 Systolic blood pressure 171 mm[Hg] [facility] 06-14-2024 16:08-0400 Diastolic blood pressure 102 mm[Hg] Dax DAVIS [facility] 06-14-2024 16:08-0400 Heart rate 68 /min Dax DAVIS [facility] 06-14-2024 16:08-0400 SaO2% (BldA) [Mass fraction] 97 % Dax COOK [facility] 06-14-2024 16:08-0400 Systolic blood pressure 157 mm[Hg] Dax DAVIS [facility] 06-14-2024 16:03-0400 Heart rate 61 /min Dax COOK [facility] 06-14-2024 16:03-0400 SaO2% (BldA) [Mass fraction] 97 % Dax COOK [facility] 06-14-2024 16:03-0400 Respiratory rate 15 /min Dax DAVIS [facility] 06-14-2024 16:03-0400 Diastolic blood pressure 104 mm[Hg] Dax COOK [facility] 06-14-2024 16:03-0400 Mean blood pressure 124 mm[Hg] Dax COOK [facility] 06-14-2024 16:03-0400 Systolic blood pressure 164 mm[Hg] Dax COOK [facility] 06-14-2024 16:03-0400 Body temperature 97.52 [degF] Dax DAVIS [facility] 06-14-2024 16:03-0400 Mean blood pressure 124 mm[Hg] Dax COOK [facility] 06-14-2024 16:03-0400 Respiratory rate 10 /min Dax DAVIS [facility] 06-14-2024 15:45-0400 Diastolic blood pressure 111 mm[Hg] Dax DAVIS [facility] 06-14-2024 15:45-0400 Heart rate 65 /min Dax DAVIS [facility] 06-14-2024 15:45-0400 Mean blood pressure 123 mm[Hg] Dax DAVIS [facility] 06-14-2024 15:45-0400 Respiratory rate 16 /min Dax DAVIS [facility] 06-14-2024 15:45-0400 SaO2% (BldA) [Mass fraction] 98 % Dax DAVIS [facility] 06-14-2024 15:45-0400 Systolic blood pressure 147 mm[Hg] Dax DAVIS [facility] 06-14-2024 15:40-0400 Mean blood pressure 110 mm[Hg] Dax DAVIS [facility] 06-14-2024 15:40-0400 Respiratory rate 12 /min Dax DAVIS [facility] 06-14-2024 15:33-0400 Blood Pressure Location Dax DAVIS [facility] 06-14-2024 15:33-0400 Body temperature 97.88 [degF] Dax DAVIS [facility] 06-14-2024 15:25-0400 Respiratory rate 10 /min Dax COOK [facility] 06-14-2024 15:20-0400 Respiratory rate 16 /min Dax COOK [facility] 06-14-2024 11:58-0400 Blood Pressure Location Dax COOK [facility] 06-14-2024 11:58-0400 BP/Pulse Patient Position Dax COOK [facility] 06-14-2024 11:58-0400 Mean blood pressure 118 mm[Hg] Dax COOK [facility] 06-14-2024 11:57-0400 Blood Pressure Location Dax DAVIS [facility] 06-14-2024 11:57-0400 BP/Pulse Patient Position Dax COOK [facility] 06-14-2024 11:57-0400 Mean blood pressure 114 mm[Hg] Dax COOK [facility] 06-14-2024 11:56-0400 Body temperature 97.7 [degF] Dax COOK [facility] 06-06-2024 09:45-0400 Diastolic blood pressure 102 mm[Hg] Dax COOK [facility] 06-06-2024 09:45-0400 Heart rate 63 /min Dax COOK [facility] 06-06-2024 09:45-0400 Mean blood pressure 123 mm[Hg] Dax COOK [facility] 06-06-2024 09:45-0400 Systolic blood pressure 165 mm[Hg] Dax COOK [facility] 06-06-2024 09:44-0400 Heart rate 62 /min Dax COOK [facility] 06-06-2024 09:44-0400 SaO2% (BldA) [Mass fraction] 96 % Dax COOK [facility] 06-06-2024 09:43-0400 Diastolic blood pressure 107 mm[Hg] Dax COOK [facility] 06-06-2024 09:43-0400 Mean blood pressure 131 mm[Hg] Dax COOK [facility] 06-06-2024 09:43-0400 Systolic blood pressure 178 mm[Hg] Dax COOK [facility] 06-06-2024 09:42-0400 Respiratory rate 16 /min Dax COOK [facility] 05-11-2024 07:55-0400 Blood Pressure Location Dax COOK [facility] 05-11-2024 07:55-0400 Diastolic blood pressure 90 mm[Hg] Dax COOK [facility] 05-11-2024 07:55-0400 Heart rate 70 /min Dax COOK [facility] 05-11-2024 07:55-0400 Respiratory rate 16 /min Dax COOK [facility] 05-11-2024 07:55-0400 Systolic blood pressure 138 mm[Hg] Dax COOK [facility] 05-02-2024 09:32-0400 Body height 177.8 cm [facility] 05-02-2024 09:32-0400 Body mass index (BMI) [Ratio] 34 kg/m2 [facility] 05-02-2024 09:32-0400 Body weight 107.72 kg [facility] 05-02-2024 09:32-0400 Diastolic blood pressure 98 mm[Hg] [facility] 05-02-2024 09:32-0400 Heart rate 76 /min [facility] 05-02-2024 09:32-0400 Respiratory rate 12 /min [facility] 05-02-2024 09:32-0400 Systolic blood pressure 134 mm[Hg] [facility] 03-28-2024 14:55-0400 Blood Pressure Location [employer] [facility] 03-28-2024 14:55-0400 Diastolic blood pressure 104 mm[Hg] [employer] [facility] 03-28-2024 14:55-0400 Heart rate 71 /min [employer] [facility] 03-28-2024 14:55-0400 Respiratory rate 19 /min Dax [employer] [facility] 03-28-2024 14:55-0400 Systolic blood pressure 173 mm[Hg] Dax [employer]av[employer] [facility] 03-02-2024 15:19-0400 Body height 177.8 cm [facility] 03-02-2024 15:19-0400 Body mass index (BMI) [Ratio] 34.6 kg/m2 [facility] 03-02-2024 15:19-0400 Body weight 109.54 kg [facility] 03-02-2024 15:19-0400 Diastolic blood pressure 99 mm[Hg] [facility] 03-02-2024 15:19-0400 Heart rate 74 /min [facility] 03-02-2024 15:19-0400 Respiratory rate 12 /min [facility] 03-02-2024 15:19-0400 Systolic blood pressure 157 mm[Hg] [facility] 12-26-2023 14:53-0500 Body height 177.8 cm [facility] 12-26-2023 14:53-0500 Body mass index (BMI) [Ratio] 34.7 kg/m2 [facility] 12-26-2023 14:53-0500 Body weight 109.93 kg [facility] 12-26-2023 14:53-0500 Diastolic blood pressure 95 mm[Hg] [facility] 12-26-2023 14:53-0500 Heart rate 78 /min [facility] 12-26-2023 14:53-0500 Respiratory rate 12 /min [facility] 12-26-2023 14:53-0500 Systolic blood pressure 150 mm[Hg] [facility] 11-16-2023 15:00-0500 Body height 177.8 cm Albaro Ball Other [facility] [employer] Other 11-16-2023 15:00-0500 Body mass index (BMI) [Ratio] 34.63 kg/m2 Albaro Ball Other [facility] [employer] Other 11-16-2023 15:00-0500 Body weight 109.5 kg Albaro Ball Other [employer] [facility] [employer] Other 11-16-2023 15:00-0500 Diastolic blood pressure 119 mm[Hg] Albaro Ball Other [facility] [employer] Other 11-16-2023 15:00-0500 Respiratory rate 12 /min Albaro Ball Other [employer] [facility] [employer] Other 11-16-2023 15:00-0500 Systolic blood pressure 186 mm[Hg] Albaro Ball Other [employer] [facility] [employer] Other 06-20-2023 15:30-0400 Body height 177.8 cm Albaro Ball Other [employer] Other 06-20-2023 15:30-0400 Body mass index (BMI) [Ratio] 34.89 kg/m2 Albaro Ball Other [employer] Other 06-20-2023 15:30-0400 Body weight 110.32 kg Albaro Ball Other [employer] Other 06-20-2023 15:30-0400 Diastolic blood pressure 110 mm[Hg] Albaro Ball Other [employer] Other 06-20-2023 15:30-0400 Respiratory rate 12 /min Albaro Ball Other [employer] Other 06-20-2023 15:30-0400 Systolic blood pressure 165 mm[Hg] Albaro Ball Other [employer] Other 03-14-2023 16:00-0400 Body height 177.8 cm Albaro Ball Other [employer] Other 03-14-2023 16:00-0400 Body mass index (BMI) [Ratio] 34.49 kg/m2 Albaro Ball Other [employer] Other 03-14-2023 16:00-0400 Body weight 109.05 kg Albaro Ball Other [employer] Other 03-14-2023 16:00-0400 Diastolic blood pressure 104 mm[Hg] Albaro Ball Other [employer] Other 03-14-2023 16:00-0400 Respiratory rate 12 /min Albaro Ball Other [employer] Other 03-14-2023 16:00-0400 Systolic blood pressure 174 mm[Hg] Albaro Ball Other [employer] Other 01-31-2023 16:00-0400 Body height 177.8 cm Albaro Ball Other [employer] Other 01-31-2023 16:00-0400 Body mass index (BMI) [Ratio] 34.29 kg/m2 Albaro Ball Other [employer] Other 01-31-2023 16:00-0400 Body weight 108.41 kg Albaro John Other [employer] Other 01-31-2023 16:00-0400 Diastolic blood pressure 88 mm[Hg] [employer]bar[employer] Other [employer] Other 01-31-2023 16:00-0400 Respiratory rate 12 /min Albaro Alvaro Other [employer] Other 01-31-2023 16:00-0400 Systolic blood pressure 162 mm[Hg] [employer] Other [employer] Other Encounters Encounter Date Encounter Type Care Provider Facility Start: 04-16-2025 ambulatory Dax DAVIS Facility : [facility] Start: 03-06-2025 End: 03-06-2025 ambulatory [facility] Work Phone: Start: 03-06-2025 End: 03-06-2025 Encounter for general adult medical examination without abnormal findings [facility] Start: 03-06-2025 End: 03-06-2025 Patient encounter procedure [facility] Work Phone: Start: 01-24-2025 End: 01-24-2025 ambulatory [facility] Work Phone: Start: 01-24-2025 End: 01-24-2025 Patient encounter procedure [facility] Work Phone: Start: 01-09-2025 ambulatory Dax DAVIS Facility : [facility] Start: 08-09-2024 End: 08-09-2024 ambulatory [facility] Work Phone: Start: 08-09-2024 End: 08-09-2024 Patient encounter procedure [facility] Work Phone: Start: 07-17-2024 End: 07-17-2024 ambulatory Dax DAVIS Facility:[facility] Start: 07-17-2024 End: 07-17-2024 Patient encounter procedure Dax DAVIS [facility] Start: 07-09-2024 End: 07-09-2024 ambulatory [facility] Work Phone: Start: 07-09-2024 End: 07-09-2024 Patient encounter procedure [facility] Work Phone: Start: 06-14-2024 End: 06-14-2024 Admission to same day surgery center Dax DAVIS [facility] Start: 06-14-2024 End: 06-14-2024 ambulatory Dax DAVIS Facility:[facility] Start: 06-06-2024 End: 06-06-2024 ambulatory Dax DAVIS Facility:[facility] Start: 06-06-2024 End: 06-06-2024 Patient encounter procedure Dax DAVIS [facility] Start: 05-11-2024 End: 05-11-2024 ambulatory Dax DAVIS Facility:[facility] Start: 05-11-2024 End: 05-11-2024 Patient encounter procedure Dax DAVIS [facility] Start: 05-02-2024 End: 05-02-2024 ambulatory [facility] Work Phone: Start: 05-02-2024 End: 05-02-2024 Patient encounter procedure [facility] Work Phone: Start: 03-28-2024 End: 03-28-2024 ambulatory ALBARO JOHN Facility:[facility] Start: 03-28-2024 End: 03-28-2024 Patient encounter procedure Dax DAVIS [facility] Start: 03-16-2024 Non-patient / Non-visit [facility] Work Phone: Start: 03-15-2024 ambulatory Dax DAVIS Facility:[facility] Start: 03-02-2024 End: 03-02-2024 ambulatory [facility] Work Phone: Start: 03-02-2024 End: 03-02-2024 Encounter for general adult medical examination without abnormal findings [facility] Start: 03-02-2024 End: 03-02-2024 Patient encounter procedure [facility] Work Phone: Start: 12-28-2023 Non-patient / Non-visit [facility] Work Phone: Start: 12-26-2023 End: 12-26-2023 Patient encounter procedure [facility] Work Phone: Start: 12-09-2023 End: 12-09-2023 ambulatory Albaro John Other [employer] Other Start: 12-09-2023 Telephone encounter Albaro John [facility] Start: 11-30-2023 End: 11-30-2023 ambulatory Albaro John Other [employer] Other Start: 11-30-2023 Telephone encounter Albaro Ball [facility] Start: 11-29-2023 End: 11-29-2023 ambulatory Albaro Ball Other [employer] Other Start: 11-29-2023 Telephone encounter Albaro Ball [facility] Start: 11-28-2023 End: 11-28-2023 ambulatory Albaro Ball Other [employer] Other Start: 11-28-2023 Telephone encounter Albaro Ball [facility] Start: 11-22-2023 End: 11-22-2023 ambulatory Albaro Ball Other [employer] Other Start: 11-22-2023 Telephone encounter Albaro Ball [facility] Start: 11-16-2023 End: 11-16-2023 ambulatory Albaro Ball Other [employer] Other Start: 11-16-2023 Office outpatient vi sit 25 minutes Albaro Ball [facility] Start: 11-16-2023 Telephone encounter Albaro Ball [facility] Start: 11-03-2023 End: 11-03-2023 ambulatory MAYNOR Mitchel CHENG Not Available Start: 07-13-2023 End: 07-13-2023 ambulatory Albaro Ball Other [employer] Other Start: 07-13-2023 Telephone encounter Albaro Ball [facility] Start: 06-20-2023 End: 06-20-2023 ambulatory Albaro Ball Other [employer] Other Start: 06-20-2023 Office outpatient vi sit 25 minutes Albaro Ball [facility] Start: 04-22-2023 End: 04-22-2023 ambulatory Albaro Ball Other [employer] Other Start: 04-22-2023 Telephone encounter Albaro Ball [facility] Start: 04-08-2023 End: 04-08-2023 ambulatory Albaro Ball Other [employer] Other Start: 04-08-2023 Telephone encounter Albaro CYR Count Includes [facility] Start: 04-04-2023 End: 04-04-2023 ambulatory Albaro John Other [employer] Other Start: 04-04-2023 Telephone encounter Albaro CYR Count Includes [facility] Start: 03-14-2023 End: 03-14-2023 ambulatory Albaro John Other [employer] Other Start: 03-14-2023 Office outpatient vi sit 15 minutes Albaro Alvaro [facility] Start: 02-09-2023 End: 02-10-[address] ALBARO JOHN Facility:[facility] Start: 02-01-2023 End: 02-01-2023 ambulatory Albaro John Other [employer] Other Start: 02-01-2023 Telephone encounter Albaro CYR Count Includes [facility] Start: 01-31-2023 End: 01-31-2023 ambulatory Albaro John Other [employer] Other Start: 01-31-2023 Encounter for genera l adult medical examination without abnormal findings Albaro John [facility] Start: 01-31-2023 Periodic preventive med est patient 40-64yrs Albaro John [facility] Start: 10-12-2022 End: 10-13-[address] ALBARO JOHN Facility:[facility] Start: 05-14-2022 End: 05-14-[address] ECHO TRUJILLO . Facility:[facility] Procedures Date Procedure Procedure Detail Performing Clinician Start: 06-14-2024 Extracorporeal shock wave lithotripsy of calculus of kidney Dax DAVIS Start: 05-11-2024 Flexible cystoscopy Gre karishma DAVIS Start: 02-09-[address] SLOAN TRUJILLO . Comment on above: Performed By: #### P [facility] #### [facility] [address] [place] [address] Dr. Ziyad Landry Arthroscopy Dax DAVIS Cholecystectomy Dax DAVIS Colonoscope, device (physical object) Dax DAVIS Extracorporeal shock wave lithotripsy of ureter Dax DAVIS Vasectomy Dax DAVIS Plan of Treatment Date Care Activity Detail Author Comprehensive metabo lic 1999 panel - Serum or Plasma [facility] enter Comprehensive metabo lic 1999 panel - Serum or Plasma [facility] enter US Kidney - bilateral [facility] Immunizations Immunization Date Immunization Notes Care Provider Fa richard 10-21-2021 COVID-19 Vaccine Pfi zer - Documentation Purposes Only Albaro John Other [facility] 10-20-2015 diphtheria, tetanus toxoids and acellular pertussis vaccine, unspecified formulation Albaro John Other [facility] Payers Date Payer Category Payer Unknown [id number] 2.16.84 [id number] 1965 Unknown [id number] 2.16.84 [id number] 1965 Unknown [id number] 2.16.84 [id number] 1965 Unknown [id number] [id number] 1965 Unknown [id number] 2.16.8 [id number] 1965 Unknown [id number] 2.16.8 [id number] 1967 Unknown [id number] 2.16.8 [id number] 1967 Unknown [id number] 2.16.8 [id number] 1967 Unknown [id number] 2.16.8 [id number] 1967 Unknown [id number] 2.16.8 [id number] 1967 Unknown [id number] 2.16.8 [id number] 1967 Unknown [id number] 2.16.8 [id number] 1959 Unknown [id number] 1957 Unknown [id number] Unknown [id number] Social History Date Type Detail Facility Unknown if ever smoked [employer] Other Sex Assigned At [facility] Start: 12-23-2023 Tobacco smoking stat [facility] Unknown if ever smoked [facility] Start: 1965 Sex Assigned At Male F [facility] Tobacco smoking status No Smokin g Status Entered [facility] Start: 05-11-2024 End: 03-06-2025 Tobacco smoking status Never smoked tobacco (finding) [facility] Tobacco smoking status Never [facility] Start: 01-24-2025 End: 03-06-2025 Sex Male (finding) [facility] Medical Equipment Procedure Code Equipment Code Equipment Origin al Text Equipment Identifier Dates CYSTOSCOPY STENT INSERTION Dax DAVIS MD 06/14/24 Unknown Ureter R FDA Start: 06-14-2024 CYSTOSCOPY STENT INSERTION Dax DAVIS MD 06/14/24 Unknown Ureter R FDA Start: 06-14-2024 Blood Sugar Diagnostic (Onetouch Ultra Test) strip Start: 01-24-2025 Lancets (Onetouc h Ultrasoft 2 Lancet) 30 gauge misc Start: 01-24-2025 Pen Needle, Diab etic (Comfort Ez Pen [place]) 31 gauge x 1/4 needle Start: 01-24-2025 Blood Sugar Diagnostic ([employer]etouch Ultra Test) strip Start: 01-24-2025 End: 01-24-2025 Lancets (Onetouc h Ultrasoft 2 Lancet) 30 gauge misc Start: 01-24-2025 End: 01-24-2025 Pen Needle, Diab etic (Comfort Ez Pen [place]) 31 gauge x 1/4 needle Start: 01-24-2025 End: 01-24-2025 Blood Sugar Diagnostic (Onetouch Ultra Test) strip Start: 01-24-2025 Lancets (Onetouc h Ultrasoft 2 Lancet) 30 gauge misc Start: 01-24-2025 Pen Needle, Diab etic (Comfort Ez Pen [place]) 31 gauge x 1/4 needle Start: 01-29-2025 Blood Sugar Diagnostic (Onetouch Ultra Test) strip Start: 01-24-2025 End: 01-24-2025 Lancets (Onetouc h Ultrasoft 2 Lancet) 30 gauge misc Start: 01-24-2025 End: 01-24-2025 Pen Needle, Diab etic (Comfort Ez Pen [place]) 31 gauge x 1/4 needle Start: 01-29-2025 End: 01-29-2025 Pen Needle, Diab etic (Comfort Ez Pen [place]) 31 gauge x 1/4 needle Start: 01-24-2025 End: 01-24-2025 Pen Needle, Diab etic (Comfort Ez Pen [place]) 31 gauge x 1/4 needle Start: 01-24-2025 End: 01-29-2025 Functional Status Date Assessment Result Facility 06-06-2024 Functional Status No [facility] 05-11-2024 Functional Status N/A [facility] [place] 03-28-2024 Functional Status Yes [facility] [place] Clinical Notes 10-12-2022 to 01-24-2025 Note Date & Type Note Facility 01-24-2025 Evaluation note Diagnosis Onset Date Resolution Chronic kidney disease acute Ma rch 2024 9:33am Chronic venous insufficiency acute January 24, 2025 9:33am Elevated cholesterol acute Anirudh h 2024 9:33am Obesity acute January 24 9:33am Obstructive sleep apnea acute M arch 2024 9:33am Primary hypertension acute Anirudh h 2024 9:33am Proteinuria acute January 24, 025 9:33am Type 2 diabetes mellitus with hyperglycemia acute January 24, 2 025 9:33am Chronic kidney disease acute Ma y 2024 3:24pm Chronic venous insufficiency acute March 06, 2025 3: 24pm Elevated cholesterol acute March 06, 2025 3:24pm Obesity acute March 06, 2025 3:24pm Obstructive sleep apnea acute M ay 2024 3:24pm Primary hypertension acute March 06, 2025 3:24pm Proteinuria acute March 06, 2025 3:24pm Screening PSA (prostate specific antigen) acute March 06, 2025 3:24pm Type 2 diabetes mellitus with hyperglycemia acute March 06, 2025 3:24pm Wellness examination noneactive March 06, 2025 3:24pm [facility] Work Phone: 1(800) 241-901908-15-2024 Hospital Discharge instructions Patient Education 06/14/2024 16:36:36 Post Op Patient Instructions - FT (Custom) (CUSTOM) 06/14/2024 14:54:19 Lithotripsy, Care After Lithotripsy, Care After This sheet gives you information about how to care for yourself after your procedure. Your health care provider may also give you more specific instructions. If you have problems or questions, contact your health care provider. What can I expect after the procedure? After the procedure, it is common to have: Some blood in your urine. This should only last for a few days. Soreness in your back, sides, or upper abdomen for a few days. Blotches or bruises on the area where the shock wave entered the skin. Pain, discomfort, or nausea when pieces (fragments) of the kidney stone move through the tube that carries urine from the kidney to the bladder (ureter). Stone fragments may pass soon after the procedure, but they may continue to pass for up to 4 8 weeks. ?If you have severe pain or nausea, contact your health care provider. This may be caused by a large stone that was not broken up, and this may mean that you need more treatment. Some pain or discomfort during urination. Some pain or discomfort in the lower abdomen or (in men) at the base of the penis. Follow these instructions at home: Medicines Take yquo-ezx-tdwjwre and prescription medicines only as told by your health care provider. If you were prescribed an antibiotic medicine, take it as told by your health care provider. Do notstop taking the antibiotic even if you start to feel better. Ask your health care provider if the medicine prescribed to you requires you to avoid driving or using machinery. Eating and drinking Drink enough fluid to keep your urine pale yellow. This helps any remaining pieces of the stone to pass. It can also help prevent new stones from forming. Eat plenty of fresh fruits and vegetables. Follow instructions from your health care provider about eating or drinking restrictions. You may be instructed to: ?Reduce how much salt (sodium) you eat or drink. Check ingredients and nutrition facts on packaged foods and beverages to see how much sodium they contain. ?Reduce how much meat you eat. Eat the recommended amount of calcium for your age and gender. Ask your health care provider how much calcium you should have. General instructions Get plenty of rest. Return to your normal activities as told by your health care provider. Ask your health care provider what activities are safe for you. Most people can resume normal activities 1 2 days after the procedure. If you were given a sedative during the procedure, it can affect you for several hours. Do not drive or operate machinery until your health care provider says that it is safe. Your health care provider may direct you to lie in a certain position (postural drainage) and tap firmly (percuss) over your kidney area to help stone fragments pass. Follow instructions as told by your health care provider. If directed, strain all urine through the strainer that was provided by your health care provider. ?Keep all fragments for your health care provider to see. Any stones that are found may be sent to a medical lab for examination. The stone may be as small as a grain of salt. Keep all follow-up visits as told by your health care provider. This is important. Contact a health care provider if: You have a fever or chills. You have nausea that is severe or does not go away. You have any of these urinary symptoms: ?Blood in your urine for longer than your health care provider told you to expect. ?Urine that smells bad or unusual. ?Feeling a strong urge to urinate after emptying your bladder. ?Pain or burning with urination that does not go away. ?Urinating more often than usual and this does not go away. You have a stent and it comes out. Get help right away if: You have severe pain in your back, sides, or upper abdomen. You have any of these urinary symptoms: ?Severe pain while urinating. ?More blood in your urine or having blood in your urine when you did not before. ?Passing blood clots in your urine. ?Passing only a small amount of urine or being unable to pass any urine at all. You have severe nausea that leads to persistent vomiting. You faint. Summary After this procedure, it is common to have some pain, discomfort, or nausea when pieces (fragments)of the kidney stone move through the tube that carries urine from the kidney to the bladder (ureter). If this pain or nausea is severe, however, you should contact your health care provider. Return to your normal activities as told by your health care provider. Ask your health care provider what activities are safe for you. Drink enough fluid to keep your urine pale yellow. This helps any remaining pieces of the stone to pass, and it can help prevent new stones from forming. If directed, strain your urine and keep all fragments for your health care provider to see. Fragments or stones may be as small as a grain of salt. Get help right away if you have severe pain in your back, sides, or upper abdomen, or if you have severe pain while urinating. This information is not intended to replace advice given to you by your health care provider. Make sure you discuss any questions you have with your health care provider. Document Revised: 09/13/2022 Document Reviewed: 06/21/2022 [employer] Patient Education 2022 [place]. Follow Up Care 05/17/2024 13:04:04 With:Dax DAVIS Address: [address] [place], [place] [id number]- Business (1) When: Unknown Comments:Please call my office to make arrangements for a CT scan without contrast. Once the order is sent, the hospital contacts you for the CT appointment time. Depending on the results, this will determinethe next step.I did provide some discharge instructions and I did send some pain medication and antibiotics to your pharmacy. [facility] 08-15-2024 NoteProgress Note-Physician Patient: HUNG MAR Age: 59 years Sex: Male : 1965 Associated Diagnoses: None Author: Ike Vasques Jr., DO Postoperative Information Postoperative disposition: Postoperative disposition: Home. Optimetrix number: Optimetrix number [id number]. Anesthetic utilized: General. Physical Examination Vital Signs 06/14/2024 16:08 EDT Heart Rate Monitored 68 bpm Systolic Blood Pressure 157 mmHg HI Diastolic Blood Pressure 102 mmHg HI SpO2 97 % 06/14/2024 16:03 EDT Heart Rate Monitored 61 bpm SpO2 97 % 06/14/2024 16:03 EDT Respiratory Rate 15 br/min 06/14/2024 16:03 EDT Systolic Blood Pressure 164 mmHg HI (Modified) Diastolic Blood Pressure 104 mmHg HI (Modified) Mean Arterial Pressure, Monitered 124 mmHg 06/14/2024 16:03 EDT Temperature Temporal Artery 36.4 DegC Respiratory Rate Monitored 10 br/min Mean Arterial Pressure, Cuff 124 mmHg 06/14/2024 15:45 EDT Heart Rate Monitored 65 bpm Respiratory Rate Monitored 16 br/min Systolic Blood Pressure 147 mmHg HI Diastolic Blood Pressure 111 mmHg HI Mean Arterial Pressure, Cuff 123 mmHg SpO2 98 % 06/14/2024 15:40 EDT Heart Rate Monitored 61 bpm Respiratory Rate Monitored 12 br/min Systolic Blood Pressure 139 mmHg Diastolic Blood Pressure 95 mmHg HI Mean Arterial Pressure, Cuff 110 mmHg SpO2 98 % 06/14/2024 15:35 EDT Heart Rate Monitored 60 bpm Respiratory Rate Monitored 8 br/min Systolic Blood Pressure 143 mmHg HI Diastolic Blood Pressure 94 mmHg HI Mean Arterial Pressure, Cuff 110 mmHg SpO2 97 % 06/14/2024 15:33 EDT Temperature Temporal Artery 36.6 DegC Heart Rate Monitored 60 bpm Respiratory Rate Monitored 10 br/min Systolic Blood Pressure 143 mmHg HI Diastolic Blood Pressure 94 mmHg HI Blood Pressure Location Left arm Mean Arterial Pressure, Cuff 110 mmHg SpO2 96 % Pain Assessment: Controlled. General: Awake, Alert, Appropriate. Respiratory: Adequate air exchange, Non-labored. Cardiovascular: Stable, Normal peripheral perfusion. Neurological: Neurologic exam at baseline. No changes.. Assessment Anesthetic outcome No anesthetic complications noted. No nausea/vomiting. Review / Management Condition: Stable. Plan Transfer/Discharge: Transfer/Discharge Discharge when meets criteria ( From PACU to Ambulatory Surgery Unit, and To home ).[facility]Result Comment: Electronically Signed By: Ike Vasques Jr., DO.chun\Date and Time Signed: 06/14/24 17:05 [id number] NotePatient Education - Text Nephrology Lithotripsy, Care After This sheet gives you information about how to care for yourself after your procedure. Your health care provider may also give you more specific instructions. If you have problems or questions, contact your health care provider. What can I expect after the procedure? After the procedure, it is common to have: ? Some blood in your urine. This should only last for a few days. ? Soreness in your back, sides, or upper abdomen for a few days. ? Blotches or bruises on the area where the shock wave entered the skin. ? Pain, discomfort, or nausea when pieces (fragments) of the kidney stone move through the tube that carries urine from the kidney to the bladder (ureter). Stone fragments may pass soon after the procedure, but they may continue to pass for up to 4?8 weeks. ? If you have severe pain or nausea, contact your health care provider. This may be caused by a large stone that was not broken up, and this may mean that you need more treatment. ? Some pain or discomfort during urination. ? Some pain or discomfort in the lower abdomen or (in men) at the base of the penis. Follow these instructions at home: Medicines ? Take jgch-jyx-cnjsfhz and prescription medicines only as told by your health care provider. ? If you were prescribed an antibiotic medicine, take it as told by your health care provider. Do not stop taking the antibiotic even if you start to feel better. ? Ask your health care provider if the medicine prescribed to you requires you to avoid driving or using machinery. Eating and drinking ? Drink enough fluid to keep your urine pale yellow. This helps any remaining pieces of the stone to pass. It can also help prevent new stones from forming. ? Eat plenty of fresh fruits and vegetables. ? Follow instructions from your health care provider about eating or drinking restrictions. You maybe instructed to: ? Reduce how much salt (sodium) you eat or drink. Check ingredients and nutrition facts on packagedfoods and beverages to see how much sodium they contain. ? Reduce how much meat you eat. ? Eat the recommended amount of calcium for your age and gender. Ask your health care provider how much calcium you should have. General instructions ? Get plenty of rest. ? Return to your normal activities as told by your health care provider. Ask your health care provider what activities are safe for you. Most people can resume normal activities 1?2 days after the procedure. ? If you were given a sedative during the procedure, it can affect you for several hours. Do not drive or operate machinery until your health care provider says that it is safe. ? Your health care provider may direct you to lie in a certain position (postural drainage) and tapfirmly (percuss) over your kidney area to help stone fragments pass. Follow instructions as told byyour health care provider. ? If directed, strain all urine through the strainer that was provided by your health care provider. ? Keep all fragments for your health care provider to see. Any stones that are found may be sent toa medical lab for examination. The stone may be as small as a grain of salt. ? Keep all follow-up visits as told by your health care provider. This is important. Contact a health care provider if: ? You have a fever or chills. ? You have nausea that is severe or does not go away. ? You have any of these urinary symptoms: ? Blood in your urine for longer than your health care provider told you to expect. ? Urine that smells bad or unusual. ? Feeling a strong urge to urinate after emptying your bladder. ? Pain or burning with urination that does not go away. ? Urinating more often than usual and this does not go away. ? You have a stent and it comes out. Get help right away if: ? You have severe pain in your back, sides, or upper abdomen. ? You have any of these urinary symptoms: ? Severe pain while urinating. ? More blood in your urine or having blood in your urine when you did not before. ? Passing blood clots in your urine. ? Passing only a small amount of urine or being unable to pass any urine at all. ? You have severe nausea that leads to persistent vomiting. ? You faint. Summary ? After this procedure, it is common to have some pain, discomfort, or nausea when pieces (fragments) of the kidney stone move through the tube that carries urine from the kidney to the bladder (ureter). If this pain or nausea is severe, however, you should contact your health care provider. ? Return to your normal activities as told by your health care provider. Ask your health care provider what activities are safe for you. ? Drink enough fluid to keep your urine pale yellow. This helps any remaining pieces of the stone to pass, and it can help prevent ne (more content not included)...[facility] + Plan note Extracted from: Title:ANES Post-operative Note - General Author: Ike Vasques Jr., DO Date:06/14/24 Plan Transfer/Discharge: Transfer/Discharge Discharge when meets criteria ( From PACU to Ambulatory Surgery Unit, and To home ). Extracted from: Title:ANES Pre-operative Note - Adult Author:Ike Barth Jr., DO Date:06/14/24 Plan [place] [employer]esthesi[employer] (ASA) physical status classification: Class III. Anesthetic Preoperative Plan: Anesthesia General. [facility] [id number] NoteProgress Note-Physician Patient: HUNG MAR Age: 59 years Sex: Male : 1965 Associated Diagnoses: None Author: Ike Vasques Jr., DO Preoperative Information Anesthesia Preop Info NPO since midnight Anesthesia history: Patient history: No prior anesthetic problems. Informed consent: Signed by patient. Re-evaluation prior to induction: Initial evaluation reviewed: No significant change. Health Status Allergies: Allergic Reactions (Selected) No Known Medication Allergies, Allergies (1) Active Severity Reaction No Known Medication Allergies None Documented Current medications: (Selected) Inpatient Medications Ordered HYDROmorphone 1 mg/mL injectable solution: 0.4 mg = 0.4 mL, Injection, IV Push, q4min PRN Pain for 5 dose(s), Stop date Limited # of times, Routine, Start date 06/14/24 12:40:00 EDT, 06/14/24 12:40:00 EDT Lactated Ringers IV Chery 1000 mL 1,000 mL: 1,000 mL, IV, 100 mL/hr, Routine, Start date 06/14/24 12:40:00 EDT, 10 hour(s), Total volume (mL): 1,000, 112 kg, 2.35, m2 Lactated Ringers IV Chery 1000 mL 1,000 mL: 1,000 mL, IV, 150 mL/hr, Routine, Start date 06/14/24 11:45:00 EDT, 6.7 hour(s), Total volume (mL): 1,000, 112 kg, 2.35, m2 cefazolin additive + Sodium Chloride 0.9% intravenous solution 50 mL: 2 gram = 1 EA, Powder-Inj, IVPiggyback, PREOP, Routine, Start date 06/14/24 11:45:00 EDT, 100 mL/hr, Infuse over 30 minute(s) promethazine additive 12.5 mg + Sodium Chloride 0.9% IV Chery 50 mL (INT) 50 mL: IV Piggyback, Once PRN Nausea/Vomiting, Routine, Start date 06/14/24 12:40:00 EDT, 151.5 mL/hr, Infuse over 20 minute(s), 06/14/24 12:40:00 EDT Documented Medications Documented Coreg 12.5 mg Tab: 12.5 mg = 1 tab(s), Oral, BID, High blood pressure amLODIPine 10 mg Tab: 10 mg = 1 tab(s), Oral, Daily, High blood pressure benazepril 40 mg oral tablet: 40 mg = 1 tab(s), Oral, Daily, High blood pressure citalopram 20 mg Tab: 20 mg = 1 tab(s), Oral, Daily, Depression cloNIDine 0.1 mg tab: 0.1 mg = 1 tab(s), Oral, BID, High blood pressure spironolactone 25 mg Tab: 25 mg = 1 tab(s), Oral, Daily, High blood pressure, Home Medications (6) Active amLODIPine 10 mg Tab 10 mg = 1 tab(s), Oral, Daily benazepril 40 mg oral tablet 40 mg = 1 tab(s), Oral, Daily citalopram 20 mg Tab 20 mg = 1 tab(s), Oral, Daily cloNIDine 0.1 mg tab 0.1 mg = 1 tab(s), Oral, BID Coreg 12.5 mg Tab 12.5 mg = 1 tab(s), Oral, BID spironolactone 25 mg Tab 25 mg = 1 tab(s), Oral, Daily , Medications (5) Active Scheduled: (1) ceFAZolin + Sodium Chloride 0.9% Minibag 50 mL 2 gram 1 EA, IV Piggyback, PREOP Continuous: (2) Lactated Ringers 1,000 mL 1,000 mL, IV, 150 mL/hr Lactated Ringers 1,000 mL 1,000 mL, IV, 100 mL/hr PRN: (2) HYDROmorphone 1 mg/mL SOLN [F] 0.4 mg 0.4 mL, IV Push, q4min promethazine 12.5 mg + Sodium Chloride 0.9% 50 mL 12.5 mg 0.5 mL, IV Piggyback, Once Problem list: All Problems Abnormal ultrasound / SNOMED CT [id number] / Confirmed BPH with urinary obstruction / SNOMED CT 0736113521 / Confirmed Chronic kidney disease / SNOMED CT 1634306063 / Confirmed Erectile dysfunction / SNOMED CT 4883071077 / Confirmed Erectile dysfunction due to arterial insufficiency / SNOMED CT 0695082207 / Confirmed History of kidney stones / SNOMED CT 9796019339 / Confirmed Hyperlipemia / SNOMED CT 04466978 / Confirmed Kidney stones / SNOMED CT 105957414 / Confirmed Major depressive disorder, recurrent, in remission / SNOMED CT 408710126 / Confirmed Obstructive sleep apnea / SNOMED CT 643680185 / Confirmed Other obesity due to excess calories / SNOMED CT 4146371144 / Confirmed Primary hypertension / SNOMED CT 90851071 / Confirmed Proteinuria / SNOMED CT 71392129 / Confirmed Renal cyst / SNOMED CT 2657123976 / Confirmed Spondylolysis of lumbar region / SNOMED CT 180309750 / Confirmed Stress headache / SNOMED CT 579072793 / Confirmed Urge incontinence / SNOMED CT 303314410 / Confirmed Canceled: Abnormal renal ultrasound / SNOMED CT 9110298747 Histories Past Medical History: No active or resolved past medical history items have been selected or recorded. Procedure history: Flexible cystoscopy ([id number]) on 05/11/2024 at 59 Years. Arthroscopy (76326605). Cholecystectomy (17328499). Colonoscope (741773494). Vasectomy (88411307). ESWL (extracorporeal shockwave lithotripsy) of ureteric calculus (5322189198). Social History Social & Psychosocial Habits Alcohol 06/14/2024 Use: Current Type: Beer Frequency: Daily Comment: maybe 2/day - 06/06/2024 09:33 - Justin MCCLURE, Isaura Dawkins 06/14/2024 Risk Assessment: Medium Risk Substance Abuse 06/14/2024 Risk Assessment: Denies Substance Abuse Tobacco 06/14/2024 Tobacco Use: Never (less than 100 in l Smokeless tobacco use: Never 06/14/2024 Risk Assessment: Denies Tobacco Use . Physical Examination Vital Signs 06/14/2024 11:58 EDT Heart Rate Monitored 70 bpm Systolic Blood (more content not included)...[facility]Result Comment: Electronically Signed By: Ike Vasques Jr., DO.chun\Date and Time Signed: 06/14/24 12:41 [id number] Hospital Discharge instructions Patient Education 05/11/2024 08:38:21 Lithotripsy, Care After Lithotripsy, Care After This sheet gives you information about how to care for yourself after your procedure. Your health care provider may also give you more specific instructions. If you have problems or questions, contact your health care provider. What can I expect after the procedure? After the procedure, it is common to have: Some blood in your urine. This should only last for a few days. Soreness in your back, sides, or upper abdomen for a few days. Blotches or bruises on the area where the shock wave entered the skin. Pain, discomfort, or nausea when pieces (fragments) of the kidney stone move through the tube that carries urine from the kidney to the bladder (ureter). Stone fragments may pass soon after the procedure, but they may continue to pass for up to 4 8 weeks. ?If you have severe pain or nausea, contact your health care provider. This may be caused by a large stone that was not broken up, and this may mean that you need more treatment. Some pain or discomfort during urination. Some pain or discomfort in the lower abdomen or (in men) at the base of the penis. Follow these instructions at home: Medicines Take qngp-ual-fbktyga and prescription medicines only as told by your health care provider. If you were prescribed an antibiotic medicine, take it as told by your health care provider. Do notstop taking the antibiotic even if you start to feel better. Ask your health care provider if the medicine prescribed to you requires you to avoid driving or using machinery. Eating and drinking Drink enough fluid to keep your urine pale yellow. This helps any remaining pieces of the stone to pass. It can also help prevent new stones from forming. Eat plenty of fresh fruits and vegetables. Follow instructions from your health care provider about eating or drinking restrictions. You may be instructed to: ?Reduce how much salt (sodium) you eat or drink. Check ingredients and nutrition facts on packaged foods and beverages to see how much sodium they contain. ?Reduce how much meat you eat. Eat the recommended amount of calcium for your age and gender. Ask your health care provider how much calcium you should have. General instructions Get plenty of rest. Return to your normal activities as told by your health care provider. Ask your health care provider what activities are safe for you. Most people can resume normal activities 1 2 days after the procedure. If you were given a sedative during the procedure, it can affect you for several hours. Do not drive or operate machinery until your health care provider says that it is safe. Your health care provider may direct you to lie in a certain position (postural drainage) and tap firmly (percuss) over your kidney area to help stone fragments pass. Follow instructions as told by your health care provider. If directed, strain all urine through the strainer that was provided by your health care provider. ?Keep all fragments for your health care provider to see. Any stones that are found may be sent to a medical lab for examination. The stone may be as small as a grain of salt. Keep all follow-up visits as told by your health care provider. This is important. Contact a health care provider if: You have a fever or chills. You have nausea that is severe or does not go away. You have any of these urinary symptoms: ?Blood in your urine for longer than your health care provider told you to expect. ?Urine that smells bad or unusual. ?Feeling a strong urge to urinate after emptying your bladder. ?Pain or burning with urination that does not go away. ?Urinating more often than usual and this does not go away. You have a stent and it comes out. Get help right away if: You have severe pain in your back, sides, or upper abdomen. You have any of these urinary symptoms: ?Severe pain while urinating. ?More blood in your urine or having blood in your urine when you did not before. ?Passing blood clots in your urine. ?Passing only a small amount of urine or being unable to pass any urine at all. You have severe nausea that leads to persistent vomiting. You faint. Summary After this procedure, it is common to have some pain, discomfort, or nausea when pieces (fragments)of the kidney stone move through the tube that carries urine from the kidney to the bladder (ureter). If this pain or nausea is severe, however, you should contact your health care provider. Return to your normal activities as told by your health care provider. Ask your health care provider what activities are safe for you. Drink enough fluid to keep your urine pale yellow. This helps any remaining pieces of the stone to pass, and it can help prevent new stones from forming. If directed, strain your urine and keep all fragments for your health care provider to see. Fragments or stones may be as small as a grain of salt. Get help right away if you have severe pain in your back, sides, or upper abdomen, or if you have severe pain while urinating. This information is not intended to replace advice given to you by your health care provider. Make sure you discuss any questions you have with your health care provider. Document Revised: 09/13/2022 Document Reviewed: 06/21/2022 [employer] Patient Education 2022 [employer] 05/11/2024 08:38:21 Lithotripsy Lithotripsy Lithotripsy is a treatment that can help break up kidney stones that are too large to pass on theirown. This is a nonsurgical procedure that crushes a kidney stone with shock waves. These shock waves pass through your body and focus on the kidney stone. They cause the kidney stone to break up intosmaller pieces while it is still in the urinary tract. The smaller pieces of stone can pass more easily out of your body in the urine. Tell a health care provider about: Any allergies you have. All medicines you are taking, including vitamins, herbs, eye drops, creams, and mikz-wfo-igbbcvl medicines. Any problems you or family members have had with anesthetic medicines. Any blood disorders you have. Any surgeries you have had. Any medical conditions you have. Whether you are or may be . What are the risks? Generally, this is a safe procedure. However, problems may occur, including: Infection. Bleeding from the kidney. Bruising of the kidney or skin. Scarring of the kidney, which can lead to: ?Increased blood pressure. ?Poor kidney function. ?Return (recurrence) of kidney stones. Damage to other structures or organs, such as the liver, colon, spleen, or pancreas. Blockage (obstruction) of the tube that carries urine from the kidney to the bladder (ureter). Failure of the kidney stone to break into pieces (fragments). What happens before the procedure? Staying hydrated Follow instructions from your health care provider about hydration, which may include: Up to 2 hours before the procedure you may continue to drink clear liquids, such as water, clear fruit juice, black coffee, and plain tea. Eating and drinking restrictions Follow instructions from your health care provider about eating and drinking, which may include: 8 hours before the procedure stop eating heavy meals or foods, such as meat, fried foods, or fatty foods. 6 hours before the procedure stop eating light meals or foods, such as toast or cereal. 6 hours before the procedure stop drinking milk or drinks that contain milk. 2 hours before the procedure stop drinking clear liquids. Medicines Ask your health care provider about: Changing or stopping your regular medicines. This is especially important if you are taking diabetes medicines or blood thinners. Taking medicines such as aspirin and ibuprofen. These medicines can thin your blood. Do not take these medicines unless your health care provider tells you to take them. Taking sygy-gmb-twtmmin medicines, vitamins, herbs, and supplements. Tests You may have tests, such as: Blood tests. Urine tests. Imaging tests, such as a CT scan. General instructions Plan to have someone take you home from the hospital or clinic. If you will be going home right after the procedure, plan to have someone with you for 24 hours. Ask your health care provider what steps will be taken to help prevent infection. These may includewashing skin with a germ-killing soap. What happens during the procedure? An IV will be inserted into one of your veins. You will be given one or more of the following: ?A medicine to help you relax (sedative). ?A medicine to make you fall asleep (general anesthetic). A water-filled cushion may be placed behind your kidney or on your abdomen. In some cases, you may be placed in a tub of lukewarm water. Your body will be positioned in a way that makes it easy to target the kidney stone. An X-ray or ultrasound exam will be done to locate your stone. Shock waves will be aimed at the stone. If you are awake, you may feel a tapping sensation as the shock waves pass through your body. A flexible tube with holes in it (stent) may be placed in the ureter. This will help keep urine flowing from the kidney if the fragments of the stone have been blocking the ureter. The procedure may vary among health care providers and hospitals. What happens after the procedure? You may have an X-ray to see whether the procedure was able to break up the kidney stone and how much of the stone has passed. If large stone fragments remain after treatment, you may need to have a second procedure at a later time. Your blood pressure, heart rate, breathing rate, and blood oxygen level will be monitored until youleave the hospital or clinic. You may be given antibiotics or pain medicine as needed. If a stent was placed in your ureter during surgery, it may stay in place for a few weeks. You may need to strain your urine to collect pieces of the kidney stone for testing. You will need to drink plenty of water. If you were given a sedative during the procedure, it can affect you for several hours. Do not drive or operate machinery until your health care provider says that it is safe. Summary Lithotripsy is a treatment that can help break up kidney stones that are too large to pass on theirown. Lithotripsy is a nonsurgical procedure that crushes a kidney stone with shock waves. Generally, this is a safe procedure. However, problems may occur, including damage to the kidney orother organs, infection, or obstruction of the tube that carries urine from the kidney to the bladder (ureter). You may have a stent placed in your ureter to help drain your urine. This stent may stay in place for a few weeks. After the procedure, you will need to drink plenty of water. You may be asked to strain your urine to collect pieces of the kidney stone for testing. This information is not intended to replace advice given to you by your health care provider. Make sure you discuss any questions you have with your health care provider. Document Revised: 09/13/2022 Document Reviewed: 06/21/2022 [employer] Patient Education 2022 [employer]. Follow Up Care 03/28/2024 15:43:47 With:RYAN HORNER, Dax Daniel, URL Address: [facility] [address] [place], [place] [id number]- When: Unknown [facility] 07-12-2024 NotePatient Education Nephrology Lithotripsy, Care After This sheet gives you information about how to care for yourself after your procedure. Your health care provider may also give you more specific instructions. If you have problems or questions, contact your health care provider. What can I expect after the procedure? After the procedure, it is common to have: ? Some blood in your urine. This should only last for a few days. ? Soreness in your back, sides, or upper abdomen for a few days. ? Blotches or bruises on the area where the shock wave entered the skin. ? Pain, discomfort, or nausea when pieces (fragments) of the kidney stone move through the tube that carries urine from the kidney to the bladder (ureter). Stone fragments may pass soon after the procedure, but they may continue to pass for up to 4?8 weeks. ? If you have severe pain or nausea, contact your health care provider. This may be caused by a large stone that was not broken up, and this may mean that you need more treatment. ? Some pain or discomfort during urination. ? Some pain or discomfort in the lower abdomen or (in men) at the base of the penis. Follow these instructions at home: Medicines ? Take gbvm-vpo-msxihho and prescription medicines only as told by your health care provider. ? If you were prescribed an antibiotic medicine, take it as told by your health care provider. Do not stop taking the antibiotic even if you start to feel better. ? Ask your health care provider if the medicine prescribed to you requires you to avoid driving or using machinery. Eating and drinking ? Drink enough fluid to keep your urine pale yellow. This helps any remaining pieces of the stone to pass. It can also help prevent new stones from forming. ? Eat plenty of fresh fruits and vegetables. ? Follow instructions from your health care provider about eating or drinking restrictions. You maybe instructed to: ? Reduce how much salt (sodium) you eat or drink. Check ingredients and nutrition facts on packagedfoods and beverages to see how much sodium they contain. ? Reduce how much meat you eat. ? Eat the recommended amount of calcium for your age and gender. Ask your health care provider how much calcium you should have. General instructions ? Get plenty of rest. ? Return to your normal activities as told by your health care provider. Ask your health care provider what activities are safe for you. Most people can resume normal activities 1?2 days after the procedure. ? If you were given a sedative during the procedure, it can affect you for several hours. Do not drive or operate machinery until your health care provider says that it is safe. ? Your health care provider may direct you to lie in a certain position (postural drainage) and tapfirmly (percuss) over your kidney area to help stone fragments pass. Follow instructions as told byyour health care provider. ? If directed, strain all urine through the strainer that was provided by your health care provider. ? Keep all fragments for your health care provider to see. Any stones that are found may be sent toa medical lab for examination. The stone may be as small as a grain of salt. ? Keep all follow-up visits as told by your health care provider. This is important. Contact a health care provider if: ? You have a fever or chills. ? You have nausea that is severe or does not go away. ? You have any of these urinary symptoms: ? Blood in your urine for longer than your health care provider told you to expect. ? Urine that smells bad or unusual. ? Feeling a strong urge to urinate after emptying your bladder. ? Pain or burning with urination that does not go away. ? Urinating more often than usual and this does not go away. ? You have a stent and it comes out. Get help right away if: ? You have severe pain in your back, sides, or upper abdomen. ? You have any of these urinary symptoms: ? Severe pain while urinating. ? More blood in your urine or having blood in your urine when you did not before. ? Passing blood clots in your urine. ? Passing only a small amount of urine or being unable to pass any urine at all. ? You have severe nausea that leads to persistent vomiting. ? You faint. Summary ? After this procedure, it is common to have some pain, discomfort, or nausea when pieces (fragments) of the kidney stone move through the tube that carries urine from the kidney to the bladder (ureter). If this pain or nausea is severe, however, you should contact your health care provider. ? Return to your normal activities as told by your health care provider. Ask your health care provider what activities are safe for you. ? Drink enough fluid to keep your urine pale yellow. This helps any remaining pieces of the stone to pass, and it can help prevent new stones from forming. ? If directed, strain your urine and keep all fragments fo (more content not included)...[facility] Hospital Discharge instructions Patient Education 03/28/2024 15:24:30 Cystoscopy Cystoscopy Cystoscopy is a procedure that is used to help diagnose and sometimes treat conditions that affect the lower urinary tract. The lower urinary tract includes the bladder and the urethra. The urethra is the tube that drains urine from the bladder. Cystoscopy is done using a thin, tube-shaped instrument with a light and camera at the end (cystoscope). The cystoscope may be hard or flexible, depending on the goal of the procedure. The cystoscope is inserted through the urethra, into the bladder. Cystoscopy may be recommended if you have: Urinary tract infections that keep coming back. Blood in the urine (hematuria). An inability to control when you urinate (urinary incontinence) or an overactive bladder. Unusual cells found in a urine sample. A blockage in the urethra, such as a urinary stone. Painful urination. An abnormality in the bladder found during an intravenous pyelogram (IVP) or CT scan. Cystoscopy may also be done to remove a sample of tissue to be examined under a microscope (biopsy). Tell a health care provider about: Any allergies you have. All medicines you are taking, including vitamins, herbs, eye drops, creams, and ocpt-mwt-byqdouv medicines. Any problems you or family members have had with anesthetic medicines. Any blood disorders you have. Any surgeries you have had. Any medical conditions you have. Whether you are or may be . What are the risks? Generally, this is a safe procedure. However, problems may occur, including: Infection. Bleeding. Allergic reactions to medicines. Damage to other structures or organs. What happens before the procedure? Medicines Ask your health care provider about: Changing or stopping your regular medicines. This is especially important if you are taking diabetes medicines or blood thinners. Taking medicines such as aspirin and ibuprofen. These medicines can thin your blood. Do not take these medicines unless your health care provider tells you to take them. Taking crip-dqc-ygjrizm medicines, vitamins, herbs, and supplements. Tests You may have an exam or testing, such as: X-rays of the bladder, urethra, or kidneys. CT scan of the abdomen or pelvis. Urine tests to check for signs of infection. General instructions Follow instructions from your health care provider about eating or drinking restrictions. Ask your health care provider what steps will be taken to help prevent infection. These steps may include: ?Washing skin with a germ-killing soap. ?Taking antibiotic medicine. Plan to have a responsible adult take you home from the hospital or clinic. What happens during the procedure? You will be given one or more of the following: ?A medicine to help you relax (sedative). ?A medicine to numb the area (local anesthetic). The area around the opening of your urethra will be cleaned. The cystoscope will be passed through your urethra into your bladder. Germ-free (sterile) fluid will flow through the cystoscope to fill your bladder. The fluid will stretch your bladder so that your health care provider can clearly examine your bladder youngblood. Your doctor will look at the urethra and bladder. Your doctor may take a biopsy or remove stones. The cystoscope will be removed, and your bladder will be emptied. The procedure may vary among health care providers and hospitals. What can I expect after the procedure? After the procedure, it is common to have: Some soreness or pain in your abdomen and urethra. Urinary symptoms. These include: ?Mild pain or burning when you urinate. Pain should stop within a few minutes after you urinate. This may last for up to 1 week. ?A small amount of blood in your urine for several days. ?Feeling like you need to urinate but producing only a small amount of urine. Follow these instructions at home: Medicines Take jvyk-lqr-entqjfj and prescription medicines only as told by your health care provider. If you were prescribed an antibiotic medicine, take it as told by your health care provider. Do notstop taking the antibiotic even if you start to feel better. General instructions Return to your normal activities as told by your health care provider. Ask your health care provider what activities are safe for you. If you were given a sedative during the procedure, it can affect you for several hours. Do not drive or operate machinery until your health care provider says that it is safe. Watch for any blood in your urine. If the amount of blood in your urine increases, call your healthcare provider. Follow instructions from your health care provider about eating or drinking restrictions. If a tissue sample was removed for testing (biopsy) during your procedure, it is up to you to get your test results. Ask your health care provider, or the department that is doing the test, when yourresults will be ready. Drink enough fluid to keep your urine pale yellow. Keep all follow-up visits. This is important. Contact a health care provider if: You have pain that gets worse or does not get better with medicine, especially pain when you urinate. You have trouble urinating. You have more blood in your urine. Get help right away if: You have blood clots in your urine. You have abdominal pain. You have a fever or chills. You are unable to urinate. Summary Cystoscopy is a procedure that is used to help diagnose and sometimes treat conditions that affect the lower urinary tract. Cystoscopy is done using a thin, tube-shaped instrument with a light and camera at the end. After the procedure, it is common to have some soreness or pain in your abdomen and urethra. Watch for any blood in your urine. If the amount of blood in your urine increases, call your healthcare provider. If you were prescribed an antibiotic medicine, take it as told by your health care provider. Do notstop taking the antibiotic even if you start to feel better. This information is not intended to replace advice given to you by your health care provider. Make sure you discuss any questions you have with your health care provider. Document Revised: 06/30/2022 Document Reviewed: 05/29/2021 [employer] Patient [employer] 2022 [employer] Follow Up Care 03/16/2024 15:26:34 With:RYAN HORNER, Dax Daniel, URL Address: [facility] [employer] [address] [place] [id number] When: Unknown [facility] 05-29-[address] John referral HPI Staff 58 year old male referred by Dr. John for possible bladder mass. Renal US done 03/08/24. Pt. has a H/O kidney stones. Pt. seen Dr. Jarvis about 20 years ago. Pt. has had litho about 20 years ago. Dysuria: no Incomplete bladder emptying: no Hematuria: no Frequency: 4x's a day, maybe more when drinking beer or tea Urgency: yes Nocturia: 2-3x's Stream: good stream Post void dripping: mild Wearing pads/ Depends: no Urge incontinence: occasionally Stress incontinence: no Incontinence without Sensory Awareness: no Abdominal pain: no Flank pain: RT. flank pain, Pt. states if he drinks water pain will go away. History of Present Illness Tests reviewed: reviewed UA and external records. I have reviewed the previous health record information and history for this patient from external provider. I have reviewed and verified the staff HPI to be accurate for this encounter. There have been no associated fever, chills, flank pain, or blood in the urine. Denies any urinary infections since last encounter. Review of Systems PHQ Score Initial Depression Screen Score: 0 SCORE ROS - Provider Constitutional: denies weight loss, denies hot flashes. Eyes: denies eye problems. Gastrointestinal: denies nausea, denies vomiting. Cardiovascular: denies chest pain or angina. Integumentary: no dryness Musculoskeletal: denies musculoskeletal symptoms. ENMT: denies otolaryngeal symptoms. Respiratory: no shortness of breath. Heme/Lymph: denies easy bleeding tendency, denies easy bruising tendency. Psychiatric: no confusion, no anxiety. Genitourinary: See HPI. Physical Exam Vitals & Measurements HR: 71(Peripheral) RR: 19 BP: 173/104 HT: 70 in HT: 179 cm WT: 110 kg WT: 242 lb BMI: 34.33 General Appearance: alert, no distress, well nourished, well developed male. Genitourinary: normal scrotum, normal testes, normal urethra, normal epididymis, normal vas deferens/spermatic cord. Penis: normal shaft, normal glans. Assessment/Plan Hung is a 58 [address] male referred by Dr[address] John for possible bladder mass. Prior PRW pt >15 years ago. Portions of this record may have been created with voice recognition artificial intelligence software, specifically [employer], [employer] and or [employer]. Substitutions may have occurred due to the inherent limitations of voice recognition and artificial intelligence software. 1. Abnormal renal ultrasound (R93.429: Abnormal radiologic findings on diagnostic imaging of unspecified kidney) Renal US 03/08/24 [facility] - Lobular soft tissue structure within base of bladder 2.0 x 1.6 x 2.4 cm. UA today neg. Denies gross hematuria. Non-smoker. Given renal US findings, will schedule cysto. Prophy abx sent. The risks and benefits for cystoscopy have been discussed. The risks include bleeding, infection, and irritation of the bladder and urinary channel, among others. The patient, after being informed of procedural details and after questions have been answered, wishes to proceed. Full informed consent has been obtained. Will order Local anesthesia. 2. Kidney stones (N20.0: Calculus of kidney) Hx of lithotripsy [address] Jarvis. Renal US 03/08/24 [facility] - right: several nonobstructing calcifications/stones, largest is 1.2 cm. Left: several nonobstructing stones, largest 0.4 cm. Discussed stone measurements with pt. Likely will require surgical intervention. Discussed metabolic workup. Briefly discussed dietary modifications. 3. BPH with urinary obstruction (N40.1: Benign prostatic hyperplasia with lower urinary tract symptoms) PSA: 01/07/22 - 1.98 02/09/23 - 2.12 03/16/24 - 1.81 PCP manages PSA. Levels WNL to my interpretation. UA today neg. IPSS 9. No urinary concerns. 4. Renal cyst (N28.1: Cyst of kidney, acquired) Renal US 03/08/24 [facility] - Contains several right anechoic areas suspected represent benign cysts, largest is 3.2 cm. Left kidney reveals a 1.5 cm benign- appearing cyst. -Simple cysts do not require follow up 5. Erectile dysfunction (N52.9: Male erectile dysfunction, unspecified) ROVERTO 13. Taking Cialis 10mg prn. Managed by PCP. Patient is here with his today. He had a renal ultrasound secondary to some kidney issues. He does have a known history of kidney stones and this demonstrates a 1.2 cm stone and also the largest4 mm stone in the contralateral kidney. He does have a history of kidney stones about 20 years ago treated with lithotripsy and he did have a stent at that time. I did let him know that the 1.2 cm stone most likely will need lithotripsy at some point. Currently however we will need to rule out the presence of either prostatic hypertrophy with a possible median lobe versus a bladder neoplasm. He agrees to proceed with cystoscopic evaluation under local anesthesia. Antibiotic prophylaxis sent. They agree with the plan. Follow-up With When Contact Information Dax DAVIS MD, URL [address] (more content not included)...[facility] HospitalComment on above:Result Comment: Electronically Signed By: Dax DAVIS MD\.br\Date and Time Signed: 03/28/24 15:36 EDT\.br\Electronically Co-Signed By: Soco Ruano\.br\Date and Time Co-Signed: 03/28/24 15:25 [id number] NoteUrology Cystoscopy Cystoscopy is a procedure that is used to help diagnose and sometimes treat conditions that affect the lower urinary tract. The lower urinary tract includes the bladder and the urethra. The urethra is the tube that drains urine from the bladder. Cystoscopy is done using a thin, tube-shaped instrument with a light and camera at the end (cystoscope). The cystoscope may be hard or flexible, depending on the goal of the procedure. The cystoscope is inserted through the urethra, into the bladder. Cystoscopy may be recommended if you have: ? Urinary tract infections that keep coming back. ? Blood in the urine (hematuria). ? An inability to control when you urinate (urinary incontinence) or an overactive bladder. ? Unusual cells found in a urine sample. ? A blockage in the urethra, such as a urinary stone. ? Painful urination. ? An abnormality in the bladder found during an intravenous pyelogram (IVP) or CT scan. Cystoscopy may also be done to remove a sample of tissue to be examined under a microscope (biopsy). Tell a health care provider about: ? Any allergies you have. ? All medicines you are taking, including vitamins, herbs, eye drops, creams, and kpbk-bds-saekktc medicines. ? Any problems you or family members have had with anesthetic medicines. ? Any blood disorders you have. ? Any surgeries you have had. ? Any medical conditions you have. ? Whether you are or may be . What are the risks? Generally, this is a safe procedure. However, problems may occur, including: ? Infection. ? Bleeding. ? Allergic reactions to medicines. ? Damage to other structures or organs. What happens before the procedure? Medicines Ask your health care provider about: ? Changing or stopping your regular medicines. This is especially important if you are taking diabetes medicines or blood thinners. ? Taking medicines such as aspirin and ibuprofen. These medicines can thin your blood. Do not take these medicines unless your health care provider tells you to take them. ? Taking ohhc-alz-gfunmsq medicines, vitamins, herbs, and supplements. Tests You may have an exam or testing, such as: ? X-rays of the bladder, urethra, or kidneys. ? CT scan of the abdomen or pelvis. ? Urine tests to check for signs of infection. General instructions ? Follow instructions from your health care provider about eating or drinking restrictions. ? Ask your health care provider what steps will be taken to help prevent infection. These steps mayinclude: ? Washing skin with a germ-killing soap. ? Taking antibiotic medicine. ? Plan to have a responsible adult take you home from the hospital or clinic. What happens during the procedure? ? You will be given one or more of the following: ? A medicine to help you relax (sedative). ? A medicine to numb the area (local anesthetic). ? The area around the opening of your urethra will be cleaned. ? The cystoscope will be passed through your urethra into your bladder. ? Germ-free (sterile) fluid will flow through the cystoscope to fill your bladder. The fluid will stretch your bladder so that your health care provider can clearly examine your bladder youngblood. ? Your doctor will look at the urethra and bladder. Your doctor may take a biopsy or remove stones. ? The cystoscope will be removed, and your bladder will be emptied. The procedure may vary among health care providers and hospitals. What can I expect after the procedure? After the procedure, it is common to have: ? Some soreness or pain in your abdomen and urethra. ? Urinary symptoms. These include: ? Mild pain or burning when you urinate. Pain should stop within a few minutes after you urinate. This may last for up to 1 week. ? A small amount of blood in your urine for several days. ? Feeling like you need to urinate but producing only a small amount of urine. Follow these instructions at home: Medicines ? Take szqq-xvq-mwpaimy and prescription medicines only as told by your health care provider. ? If you were prescribed an antibiotic medicine, take it as told by your health care provider. Do not stop taking the antibiotic even if you start to feel better. General instructions ? Return to your normal activities as told by your health care provider. Ask your health care provider what activities are safe for you. ? If you were given a sedative during the procedure, it can affect you for several hours. Do not drive or operate machinery until your health care provider says that it is safe. ? Watch for any blood in your urine. If the amount of blood in your urine increases, call your health care provider. ? Follow instructions from your health care provider about eating or drinking restrictions. ? If a tissue sample was removed for testing (biopsy) during your procedure, it is up to you to getyour test results. Ask your health care provider, or the department th (more content not included)...[facility] 12-09-[facility] Evaluation note* Encounter Date Diagnosis Assessment Notes Treatment Notes Treatment Clinical Notes Dec, Primary hypertension (ICD-10 - I10) [employer] Other 01-31-2024 Evaluation note* Encounter Date Diagnosis Assessment Notes Treatment Notes Treatment Clinical Notes Oct, Primary hypertension (ICD-10 - I10) [employer] Other 01-30-2024 Evaluation note* Encounter Date Diagnosis Assessment Notes Treatment Notes Treatment Clinical Notes Oct, Primary hypertension (ICD-10 - I10) [employer] Other 01-17-2024 Evaluation note* Encounter Date Diagnosis [...] healthy diet and exercise w/ weight loss. [employer] Other 08-21-2023 Evaluation note* Encounter Date Diagnosis [...] use, the patient reduces the risk for SD, CVA, HTN, cardiac dysrhythmias and sudden cardiac [...] Quad exercises, ice and rest. f/u Orthopedics [employer] Other 05-15-2023 Evaluation note* Encounter Date Diagnosis [...] index [BMI] 34.0-34.9, adult (ICD-10 - Z68.34) [employer] Other 04-04-2023 Evaluation note* Encounter Date Diagnosis Assessment Notes Treatment Notes Treatment Clinical Notes Jan, Erectile dysfunction due to arterial insufficiency (ICD-10 - N52.01) [employer] Other 04-03-2023 Evaluation note* Encounter Date Diagnosis [...] use, the patient reduces the risk for SD, CVA, HTN, cardiac dysrhythmias and sudden cardiac [...] PT and referral to Orthopedics. Weight loss Jan, Chondromalacia (ICD-10 - M94.20) Jan, Recurrent major depressive disorder, in full remission (ICD-10 - F33.42) Healthy diet, exercise and continue medication. Jan, Irritable bowel syndrome with diarrhea (ICD-10 - K58.0) Jan, Other chronic pain (ICD-10 - G89.29) [employer] Other [id number] NotePROCEDURE: XR KNEE RT 4V or > [...] Electronically authenticated by: MEGAN MCCOY Date: 2022-10-12 15:38[facility] Future Appointments Appointment Date:05/11/2024 07:45:00 AM Scheduled Provider:RYAN HORNER, Dax Daniel Location:[facility] Appointment Type:URO Procedure 15 min [facility] Evaluation + Plan note Future Appointments Appointment Date:06/14/2024 01:45:00 PM Scheduled Provider: Location:[facility] Appointment Type:Surgery FT [facility] Evalugygsd noteNo InformationNocit[facility] [employer] Other Evaluation note* Diagnosis Onset Date Resolution Status Chronic kidney disease acute Chronic venous insufficiency acute Elevated cholesterol acute Primary hypertension acute Proteinuria acute Chronic kidney disease acute Chronic venous insufficiency acute Elevated cholesterol acute Primary hypertension acute Proteinuria acute Screening PSA (prostate specific antigen) noneactive Wellness examination noneact [facility] Work Phone: Evaluation note* Diagnosis Onset Date Resolution Status Chronic kidney disease acute Chronic venous insufficiency acute Elevated cholesterol acute Primary hypertension acute Proteinuria acute Screening PSA (prostate specific antigen) noneactive Wellness examination noneact [facility] Work Phone: Evaluation note* Diagnosis Onset Date Resolution Status Primary hypertension acute Spider bite allergy, current reaction noneactive Tinea cruris noneactive Chronic kidney disease acute Chronic venous insufficiency acute Elevated cholesterol acute Primary hypertension acute Proteinuria acute [facility] Work Phone: Evaluation note* Diagnosis Onset Date Resolution Status Bladder mass acute Chronic kidney disease acute Chronic venous insufficiency acute Elevated cholesterol acute Primary hypertension acute Proteinuria acute Ureteral stone acute [facility] Work Phone: Evaluation note* Diagnosis Onset Date Resolution Status Admit Date Chronic kidney disease acute Ma rch 2024 9:33am Chronic venous insufficiency acute January 24, 2025 9:33am Elevated cholesterol acute Anirudh h 2024 9:33am Hyperglycemia acute January 24, 2025 9:33am Obesity acute January 24, 20 25 9:33am Obstructive sleep apnea acute M arch 2024 9:33am Primary hypertension acute Anirudh h 2024 9:33am Proteinuria acute January 24, 2 025 9:33am [facility] Work Phone: History general Narrative - Reported* Type Description Date [...] COLONOSCOPY 2020 Hospitalization History SEE SURGICAL HX [employer] Other [facility] general Narrative - Reported* Type Description Date [...] arthroscopy 03/2023 Hospitalization History SEE SURGICAL HX [employer] Other Hospital course Narrative No data available for this section [facility] Hospital Discharge instructions No data available for this section [facility] Progress note No data available for this section [facility] Reason for referral (narrative)* Reason *FU 02/08 Referral for persistent right knee pain w/o swelling, locking or giving out., Right knee strain, medial meniscus injury Chondromalacia Diagnosis 1 Pain in right knee ( M25.561) Referral Organization [facility] Jose Alberto owen Referring Provider First Name Albaro Referring Provider Last Name Alvaro Referring Provider Specialty Internal Me vipul Referred Organization [facility] Referred Provider Iris Mandujano Jr Referred Address ,[place], [place],[address] Referred Provider Specialty Orthopedic S urgery Referral Priority Routine General Notes Sudha Hercules 02:06:53 PM >received today Sudha Hercules 02/01/2023 02:07:54 PM >attachments made, notes locked, faxed [employer] Other Summary Purpose Family History Relationship Condition Age at Onset Recorded Date/T enrique father Diabetes mellitus Unknown Hypertension Unknown Not Specified Unknown Relationship Condition Age at Onset Recorded Date/T enrique father Diabetes mellitus Unknown Hypertension Unknown mother Unknown Advance Directives Advance Directive Response Recorded Date/ Time Advance Directives No November 23, 2023 12:54pm Chief Complaint and Reason for Visit Chief Complaint 1 month Amb Documentation wellness Reason for Visit Chronic kidney disea se Chronic venous insufficiency Elevated cholesterol Primary hypertension Proteinuria Chronic kidney disease Chronic venous insufficiency Elevated cholesterol Primary hypertension Proteinuria Screening PSA (prostate specific antigen) Wellness examination Chief Complaint wellness bug bites infected Reason for Visit Chronic kidney disea se Chronic venous insufficiency Elevated cholesterol Primary hypertension Proteinuria Screening PSA (prostate specific antigen) Wellness examination Chief Complaint bug bites infected 4 MONTH FOLLOW UP Reason for Visit Primary hypertension Spider bite allergy, current reaction Tinea cruris Chronic kidney disease Chronic venous insufficiency Elevated cholesterol Primary hypertension Proteinuria Chief Complaint 4 MONTH FOLLOW UP back pain Reason for Visit Bladder mass Chronic kidney disease Chronic venous insufficiency Elevated cholesterol Primary hypertension Proteinuria Ureteral stone Chief Complaint Admit Date 3 month f/u January 24, 2025 9:3 3am Reason for Visit Admit Date Chronic kidney disease January 24, 2025 9:33am Chronic venous insufficiency January 24, 2025 9:33am Elevated cholesterol January 24, 2025 9: 33am Hyperglycemia January 24, 2025 9:3 3am Obesity January 24, 2025 9:3 3am Obstructive sleep apnea January 24, 2025 9:33am Primary hypertension January 24, 2025 9: 33am Proteinuria January 24, 2025 9:3 3am Chief Complaint Admit Date 3 month f/u January 24, 2025 9:3 3am wellness March 06, 2025 3:24pm Reason for Visit Admit Date Chronic kidney disease January 24, 2025 9:33am Chronic venous insufficiency January 24, 2025 9:33am Elevated cholesterol January 24, 2025 9: 33am Obesity January 24, 2025 9:3 3am Obstructive sleep apnea January 24, 2025 9:33am Primary hypertension January 24, 2025 9: 33am Proteinuria January 24, 2025 9:3 3am Type 2 diabetes mellitus with hyperglyce kimo January 24, 2025 9:33am Chronic kidney disease March 06, 2025 3:2 4pm Chronic venous insufficiency March 06 3:24pm Elevated cholesterol March 06, 2025 3:24p m Obesity March 06, 2025 3:24pm Obstructive sleep apnea March 06, 2025 3: 24pm Primary hypertension March 06, 2025 3:24p m Proteinuria March 06, 2025 3:24pm Screening PSA (prostate specific antigen ) March 06, 2025 3:24pm Type 2 diabetes mellitus with hyperglyce kimo March 06, 2025 3:24pm Wellness examination March 06, 2025 3:24p m Additional Source Comments REASON FOR VISIT (unrecogniz ed section and content) WELLNESSNo Information6 week follow upBP readingsRefillNo Information3 month Follow upNo Information4 month Follow upNo InformationLabsNo InformationERRORLab resultsRepeat labs (unrecognized sect ion and content) No Status Records FoundNo Status Records FoundNo Status Records FoundNo Status Records FoundNo Status Records FoundNo Status Records FoundNo Status Records FoundNo Status Records FoundNo Status Records Found INFORMATION SOURCE (unrecogn ized section and content) DATE CREATED AUTHOR 02/10/2023 [facility] DATE CREATED AUTHOR AUTHOR'S ORGANIZ ATION 03/02/2023 [facility] DATE CREATED AUTHOR AUTHOR'S ORGANIZ ATION 11/05/2023 [facility] EPIC DATE CREATED AUTHOR AUTHOR'S ORGANIZ ATION 06/08/2024 [facility] DATE CREATED AUTHOR AUTHOR'S ORGANIZ ATION 01/11/2025 [facility] Care Teams (unrecognized sec tion and content) Team Status: Active Member Role Status Dates Albaro John , DO Primary Care Provider Active Team Status: Inactive Member Role Status Dates Albaro John , DO Primary Care Provide r, Attending Provider Active Start: December 26, 2023 End: December 26, 2023 Team Status: Active Member Role Status Dates Albaro John , DO Primary Care Provider Active Start: December 28, 2023 CHRISTO Graham Attending Provider Active St art: December 28, 2023 Team Status: Inactive Member Role Status Dates Albaro John , DO Primary Care Provide r, Attending Provider Active Start: March 02, 2024 End: March 02, 2024 Team Status: Active Member Role Status Dates Albaro John , DO Primary Care Provide r, Attending Provider Active Start: March 16, 2024 Team Status: Inactive Member Role Status Dates Albaro John , DO Primary Care Provide r, Attending Provider Active Start: May 02, 2024 End: May 02, 2024 Team Status: Inactive Member Role Status Dates Albaro John , DO Primary Care Provide r, Attending Provider Active Start: July 09, 2024 End: July 09, 2024 Team Status: Inactive Member Role Status Dates Albaro John , DO Primary Care Provide r, Attending Provider Active Start: August 09, 2024 End: August 09, 2024 Team Status: Inactive Member Role Status Dates Albaro John , DO Primary Care Provide r, Attending Provider Active Start: January 24, 2025 End: January 24, 2025 Team Status: Inactive Member Role Status Dates Albaro John , DO Primary Care Provide r, Attending Provider Active Start: March 06, 2025 End: March 06, 2025 Goals (unrecognized section and content) Goals may [...] BE BASED ON THE PRIMARY CLINICAL RECORDS. [facility]. provides no warranty or guarantee of the accuracy or completeness of information in this document.
[2025-03-09 08:51] LABS: Basophils Percent Auto 0.5 % (0.2-2.0); Eosinophils Absolute Auto 0.2 10^3/uL (0.0-0.7); Eosinophils Percent Auto 2.3 % (0.9-7.0); Hematocrit 41.5 % (42.0-54.0); Hemoglobin 14.6 g/dL (14.0-18.0); Immature Granulocytes Abs Auto 0.01 10^3/uL (0.00-0.03); Immature Granulocytes Pct Auto 0.2 % (0.0-0.5); Lymphocytes Absolute Auto 1.2 10^3/uL (1.2-3.8); Lymphocytes Percent Auto 19.1 % (20.5-60.0); Mean Corpuscular HGB Conc 35.2 g/dL (29.9-35.2); Mean Corpuscular Hemoglobin 30.3 pg (25.9-34.0); Mean Corpuscular Volume 86.1 fL (80.0-94.0); Mean Platelet Volume 8.7 fL (9.5-13.5); Monocytes Absolute Auto 0.6 10^3/uL (0.3-0.8); Monocytes Percent Auto 8.7 % (1.7-12.0); Neutrophils Absolute Auto 4.5 10^3/uL (1.4-6.5); Neutrophils Percent Auto 69.2 % (43.0-75.0); Platelet Count 230 10^3/uL (150-450); Red Blood Count 4.82 10^6/uL (4.70-6.10); Red Cell Distribution Width 12.8 % (11.0-15.0); White Blood Count 6.4 10^3/uL (4.0-11.0)
[2025-03-09 09:00] LABS: Creatinine Urine Random 36.82 mg/dL (20.00-300.00); Microalbum Creatinine Ratio Ur 1023.9 mg/g (0.0-29.9); Microalbumin Urine Random 37.7 mg/dL (<=30.0)
[2025-03-09 09:02] LABS: Estimated Average Glucose 186 mg/dL; Glycohemoglobin A1C 8.1 % (4.5-6.2)
[2025-03-09 09:21] LABS: Alanine Aminotransferase 36 U/L (16-63); Albumin Globulin Ratio 1.1; Albumin Level 3.9 g/dL (3.4-5.0); Alkaline Phosphatase 90 U/L (46-116); Anion Gap 11.7; Aspartate Amino Transferase 18 U/L (15-37); BUN Creatinine Ratio 14.8; Bilirubin Total 0.4 mg/dL (0.2-1.0); Calcium 8.7 mg/dL (8.5-10.1); Carbon Dioxide 27.9 mmol/L (21.0-32.0); Chloride 103 mmol/L (98-107); Chol HDL Ratio 4.7; Cholesterol 169 mg/dL (<=200); Estimated GFR (African America >60 (>=60 mL/min/1.73m^2); Estimated GFR (Non-African Ame >60 (>=60 mL/min/1.73m^2); Globulin 3.5 g/dL; Glucose 133 mg/dL (74-106); HDL Cholesterol 36 mg/dL (40-60); Potassium 3.6 mmol/L (3.5-5.1); Sodium 139 mmol/L (136-145); Total Protein 7.4 g/dL (6.4-8.2); Triglycerides 214 mg/dL (<=150); VLDL CHOLESTEROL 42.8 mg/dL
[2025-03-09 09:48] LABS: Prostate Specific Antigen Scrn 2.12 ng/mL (<=4.00)
== END 2025-03-09 08:35 | disposition home or self-care (01) ==
LOC: LAB 08:36
PROVIDERS: PCP Internal Medicine; Visit Provider Internal Medicine
DX: Z00.00 Encounter for general adult medical examination without abnormal findings (principal); Z12.5 Encounter for screening for malignant neoplasm of prostate
CPT/HCPCS: 36415; 80053; 80061; 82043; 82570; 83036; 85025; G0103

== ENCOUNTER 2025-09-17 07:04 | Inpatient (IN) | payer OTHER, SELFPAY ==
[2025-09-17] VITALS (49 sets, daily range): BP systolic 159–215; BP diastolic 97–134; PULSE 59–85; TEMP 36.5–36.8; O2SAT 94–98; BMI 34.4; BMI 34.8
--- OUTSIDE RECORDS SUMMARY | 2025-09-17 07:20 | XMS_ITS | CCD ---
Author Organization [facility] [employer] Care Team Providers Care Counselor Supervisor Name Role Phone Albaro Grimaldo Unavailable MARKER ., DR DODGE Admitting Unavailable [...] Consulting Unavailable MAYNOR CHENG Attending Unavailable ALBARO GRIMALDO Primary Care Physician Dax MCCORD Attending Unavailable COOK, Dax P Referring Unavailable [...] Admitting Unavailable COOK, Dax P Attending Unavailable Ball Albaro PRICE Primary Care Provider Albaro Grimaldo DO Attending Provider [phone] Allergies Allergy ClassificationReported Allergen(s)Allergy TypeDate of OnsetReaction(s) Facility (15 sources)PenicillinDrug AllergyUnknowStokenevada regional medical center [employer] Other (16 sources)Penicillin VDrug Sjbdtau06-81-4393Oumdezt, Unknown ReactionMartins Ferry Hospital (7 sources)PenicillinsAllergy to [phone] ReactionMartins Ferry Hospital (2 sources)No Known Medication Allergies; Translations: [No Known Medication Allergies]Propensity to adverse reactions (disorder)[facility] Repository Medications Current Medications MedicationDrug Class(es)DatesSig (Normalized)Sig (Original)acetaminophen 325 mg / oxyCODONE hydrochloride 5 mg oral tablet (1 source)Opioid AgonistStart: 06-14-2024 End: 51-91-2719Msswbetx 5 mg-325 mg oral tablet 1 tab(s), Oral, q6hr for 2 day(s), 7 tab(s), Refill(s) 0, [id number], 177, cm, 06/14/24 11:35:00 EDT, Height/Length Dosing, 112, kg, 06/14/24 11:35:00 EDT, Weight Dosing Start Date: 06/14/24 Stop Date: 06/16/24 Status: OrderedamLODIPine 5 mg oral tablet (20 sources)Dihydropyridine Calcium Channel BlockerStart: 77-20-0200bwye 1 tablet by mouth once dailyAmlodipine 5 mg tablet Active 5 MG PO Daily 90 90 February 04, 2025 4:01pm Complies with drug therapyStart: 51-14-8788ysee 1 tablet by mouth once dailyamLODIPine 10 mg Tab 10 mg = 1 tab(s), Oral, Daily, High blood pressure Start Date: 03/28/24 Status:Ordered Repeat number: 1Start: 12-28-2023 End: 69-42-1851drok 5 mg by mouth once dailyAmlodipine 10 mg tablet Discontinued 5 MG PO Daily December 28, 2023 9:08pm February 04, 2025 4:01pmStart: 12-28-2023 take 5 mg by mouth once dailyAmlodipine Active 5 MG PO Daily December 28, 2023 9:08pmStart: 12-28-2023 End: 60-69-5215zpiw 1 tablet by mouth once dailyAmlodipine 10 mg tablet Discontinued 10 MG PO Daily December 28, 2023 1:00am December 28, 2023 9 :09pmStart: 12-23-2023 End: 91-81-9212agye 1 tablet by mouth once dailyAmlodipine 5 mg tablet Discontinued 5 MG PO Daily December 23, 2023 1:00am December 28, 2023 5:00pm take 1 tablet by mouth every twenty-four hoursamLODIPine Besylate 5 MG 1 tablet Oral Once a day Activetake 1 tablet by mouth every twenty-four hoursamLODIPine Besylate 10 MG 1 tablet Oral Once a day Activeatenolol 50 mg / chlorthalidone 25 mg oral tablet (3 sources)Thiazide-like Diuretic, beta-Adrenergic BlockerStart: 45-52-5481zqwj 0.5 tablet by mouth once dailyAtenolol-Chlorthalidone 50-25 mg tablet Active 0 PO Daily 45 90 October 17, 2024 1:00am 1/2 orally daily; Complies with drug therapybenazepril hydrochloride 40 mg oral tablet (20 sources)Angiotensin Converting Enzyme InhibitorStart: 04-01-2024 End: 44-98-0060kvgn 1 tablet by mouth once dailyBenazepril 40 mg tablet Active 0 .ROUTE .COMPLEX 90 May 13, 2025 8:38am TAKE 1 TABLET BY MOUTH EVERY DAY Complies with drug therapyStart: 12-23-2023 End: 90-77-0252fvvt 1 tablet by mouth once dailyBenazepril 40 mg tablet Discontinued 40 MG PO Daily December 23, 2023 1:00am April 01, 2024 4:06pmtake 1 tablet by mouth every twenty-four hoursBenazepril HCl 40 MG 1 tablet Orally Once a day ActiveBlood-Glucose Meter (Onetouch Ultra2 Meter) [facility] (6 sources)Start: 38-21-6195Dotet-Glucose Meter (Onetouch Ultra2 Meter) [facility] Active 0 .ROUTE .MEDSUPPLY January 24, 2025 11:02am Use to test home BSStart: 01-24-2025 End: 99-60-7439Wxpwz-Glucose Meter (Onetouch Ultra2 Meter) [facility] Discontinued 0 .ROUTE .MEDSUPPLY January 24, 2025 12:00am January 24, 2025 11:03am Use to test home BScarvedilol 12.5 mg oral tablet (15 sources)alpha-Adrenergic Alejandro, beta-Adrenergic BlockerStart: 03-28-2024 take 1 tablet by mouth twice dailyCoreg 12.5 mg Tab 12.5 mg = 1 tab(s), Oral, BID, High blood pressure Start Date: 03/28/24 Status: Ordered Repeat number: 1 Start: 34-21-9761ohoq 1 tablet by mouth every twelve hoursCarvedilol 12.5 MG 1 tablet with food Orally Twice a day for 90 days Oct, ActiveStart: 57-79-6798egiy 1 tablet by mouth every twelve hoursCarvedilol 6.25 MG 1 tablet with food Orally Twice a day for 30 days Oct, Activetake 1 tablet by mouth twice daily at mealtimeCarvedilol 6.25 TAKE 1 TABLET BY MOUTH TWICE DAILY WITH FOOD for 90 Activeciprofloxacin 500 mg oral tablet (1 source)Quinolone AntimicrobialStart: 06-14-2024 End: 99-41-9533zagj 1 tablet by mouth twice dailyCipro 500 mg Tab 500 mg = 1 tab(s), Oral, BID, X 3 day(s), # 6 tab(s), Refills(s) 0, Pharmacy: [id number], 177, cm, 06/14/24 11:35:00 EDT, Height/Length Dosing, 112, kg, 06/14/24 11:35:00 EDT, Weight Dosing Start Date: 06/14/24 Stop Date: 06/17/24 Status: Orderedcitalopram 20 mg oral tablet (20 sources)Serotonin Reuptake InhibitorStart: 71-20-6533uluh 1 tablet by mouth once dailycitalopram 20 mg Tab 20 mg = 1 tab(s), Oral, Daily, Depression Start Date: 03/28/24 Status: Ordered Repeat number: 1Start: 03-19-2024 End: 96-52-4874sgyu 1 tablet by mouth at bedtimeCitalopram 20 mg tablet Active 0 .ROUTE .COMPLEX March 28, 2025 7:23am TAKE 1 TABLET BY MOUTH ATBEDTIME Complies with drug therapyStart: 30-52-7529lzrp 1 tablet by mouth at bedtime Citalopram Active 0 .ROUTE .COMPLEX March 19, 2024 1:04pm TAKE 1 TABLET BY MOUTH AT BEDTIMEStart: 12-23-2023 End: 23-75-8686dail 1 tablet by mouth once daily at bedtimeCitalopram 20 mg tablet Discontinued 20 MG PO Daily at bedtime December 23, 2023 1:00am February 1:04pmtake 1 tablet by mouth at bedtimeCitalopram Hydrobromide 20 MG TAKE 1 TABLET BY MOUTH AT BEDTIME ActivecloNIDine hydrochloride 0.1 mg oral tablet (20 sources)Central alpha-2 Adrenergic AgonistStart: 28-12-7801arau 1 tablet by mouth twice dailyClonidine Hcl 0.1 mg tablet Active 0 .ROUTE .COMPLEX 60 June 25, 2024 9:26pm TAKE 1 TABLET BY MOUTH TWICE DAILY Complies with drug therapy Start: 08-51-0621fpvx 1 tablet by mouth twice dailyClonidine Hcl Active 0 .ROUTE .COMPLEX 60 June 25, 2024 9:26pm TAKE 1 TABLET BY MOUTH TWICE DAILYStart: 12-23-2023 End: 21-93-9228bcaq 1 tablet by mouth twice dailyClonidine Hcl 0.1 mg tablet Discontinued 0.1 MG PO Twice daily 60 December 28, 2023 9:07pm June 25, 2024 9:26pmtake 0.5 tablet by mouth every twelve hourscloNIDine HCl 0.1 MG 1/2 tablet Orally every 12 hours for 30 days Activetake 1 tablet by mouth twice dailycloNIDine HCl 0.1 MG TAKE 1 TABLET BY MOUTH TWICE DAILY ActiveglyBURIDE 2.5 mg / metFORMIN hydrochloride 500 mg oral tablet (5 sources)Biguanide, SulfonylureaStart: 01-25-2025 End: 57-17-7727kmrx 1 tablet by mouth once daily 30 minutes before breakfast Glyburide-Metformin 2.5-500 mg tablet Active 0 .ROUTE .COMPLEX April 24, 2025 6:54am TAKE 1 TABLET BY MOUTH DAILY 30 MINUTES BEFORE BREAKFAST Complies with drug therapyStart: 01-25-2025 End: 50-71-7422Tjplebfak-Metformin 2.5-500 mg tablet Discontinued 1 TAB PO Daily January 25, 2025 12:00am January 25, 2025 4:37pm Take 30 minutes prior to bkfsthalobetasol propionate 0.0005 mg/mg topical ointment (7 sources)CorticosteroidHalobetasol Propionate 0.05 % APPLY TO AFFECTED RASH AREA(S) TWO TIMES A DAY NEEDED for 30 ActivehydroCHLOROthiazide 25 mg oral tablet (20 sources)Thiazide DiureticStart: 86-27-5554gbgmxnmtwfwqdcxyblm 25 mg Tab 25 mg = 1 tab(s) Start Date: 03/28/24 Status: OrderedStart: 12-23-2023 End: 46-88-4788hznc 1 tablet by mouth once dailyHydrochlorothiazide 25 mg tablet Discontinued 25 MG PO Daily December 23, 2023 1:00am December 28, 2023 9:09pmtake 1 tablet by mouth once dailyhydroCHLOROthiazide 25 MG TAKE 1 TABLET BY MOUTH DAILY Active3 ml insulin glargine 100 unt/ml pen injector (7 sources)Insulin AnalogStart: 64-14-2244Wbadbzq Glargine (Lantus Solostar U- 100 Insulin) 100 unit/mL (3 mL) insulin pen Active 12 UNIT SUBCUT Every evening July 03, 2025 3:56pm Complies with drug therapyStart: 01-24-2025 End: 91-48-7954rmwpjw 10 [IU] by subcutaneous injection once daily in the eveningInsulin Glargine (Lantus Solostar U-100 Insulin) 100 unit/mL (3 mL) insulin pen Discontinued 10 UNIT SUBCUT Every evening 01 27January 24, 2025 11:02am July 03, 2025 3:57pmmeloxicam 15 mg oral tablet (2 sources)Nonsteroidal Anti-inflammatory DrugStart: 26-61-7171ljtx 1 tablet by mouth every twenty-four hoursMeloxicam 15 MG 1 tablet Orally Once a day for 15 days Jan, Activemiconazole nitrate 0.02 mg/mg topical powder (5 sources)Azole AntifungalStart: 31-10-7306Oorzenltvx Nitrate (Lotrimin Af) 2 % powder Active 1 APPLIC TOPICAL Twice daily 85 May 02, 2024 12:00am Complies with drug therapypredniSONE 20 mg oral tablet (8 sources)Start: 28-68-4783Jdvwlyvyyf 20 mg tablet Active 20 MG PO As Directed 10 06June 28, 2025 12:00am 1 tab tid w/ food x 1 days, then bid w/ food x 3 days, then qd w/ food x 3 days Complies with drug therapyStart: 08-16-2024 End: 86-99-3719yzaz 1 tablet by mouth twice dailyPrednisone 20 mg tablet Discontinued 20 MG PO Twice daily 08 04August 16, 2024 8:22pm March 06, 2025 3:29pmStart: 08-07-2024 End: 26-48-5320Frxkvymvxc 20 mg tablet Discontinued 20 MG PO As Directed 03 04August 07, 2024 12:00am August 16, 2024 8:22pm 1 tab tid w/ food x 3 days, then bid w/ food x 3 days, then qd w/ food x 3 dayssildenafil 100 mg oral tablet (6 sources)Phosphodiesterase 5 InhibitorStart: 10-17-2024 End: 50-73-7201Rdauhotunf 100 mg tablet Active 100 MG PO Daily as needed for sexual activity October 17, 2024 5:04pm administer 30 minutes to 4 hours before activity Complies with drug therapyspironolactone 25 mg oral tablet (20 sources)Aldosterone AntagonistStart: 09-94-4568ispu 1 tablet by mouth once dailySpironolactone 25 mg tablet Active 0 .ROUTE .COMPLEX May 21, 2024 7:23am TAKE 1 TABLET BY MOUTH EVERY DAY Complies with drug therapyStart: 03-93-2036fnfk 1 tablet by mouth once dailySpironolactone Active 0 .ROUTE .COMPLEX May 21, 2024 7:23am TAKE 1 TABLET BY MOUTH EVERY DAYStart: 12-28-2023 End: 01-17-9697ijzy 1 tablet by mouth once dailySpironolactone 25 mg tablet Discontinued 25 MG PO Daily December 28, 2023 1:00am May 21, 2024 7:23am Start: 64-75-5784jvgd 1 tablet by mouth every twenty-four hoursSpironolactone 25 MG 1 tablet Orally Once a day for 30 days Oct, ActivetiZANidine 4 mg oral tablet (12 sources)Central alpha-2 Adrenergic AgonistStart: 56-79-0916nuuq 0.5-1 tablets by mouth twice daily as needed for muscle spasmsTizanidine 4 mg tablet Active 0 .ROUTE .COMPLEX June 07, 2025 7:43am TAKE 1/2 TO 1 TABLET BY M OUTH TWICE DAILY FOR 14 DAYS NEEDED FOR MUSCLE SPASMS Complies with drug therapyStart: 03-06-2025 End: 63-96-1934gizy 0.5-1 tablets by mouth twice daily as neededTizanidine 4 mg tablet Discontinued 0 PO Twice daily as needed for muscle spasticity February 12:00am June 07, 2025 7:44am 1/2 to 1 tablet orally twice daily PRN; Start: 08-07-2024 End: 00-56-3070shvw 1 capsule by mouth once daily at bedtime as neededTizanidine 4 mg capsule Discontinued 4 MG PO Daily at bedtime as needed for muscle spasticity 10 10Apr2024 1:12pm March 06, 2025 4:20pm Completed/Discontinued Medications MedicationDrug Class(es)DatesSig (Normalized)Sig (Original)betamethasone 0.5 mg/ml / clotrimazole 10 mg/ml topical cream (5 sources)Azole Antifungal, CorticosteroidStart: 05-02-2024 End: 71-39-8531Ibfesizdnnos-Betamethasone 1-0.05 % cream Discontinued 1 APPLIC TOPICAL Bedtime 45 May 02, 2024 12:00am March 06, 2025 3:29pmcephalexin 500 mg oral capsule (2 sources)Cephalosporin AntibacterialStart: 96-98-7171Dfbtjy 500 mg Cap 500 mg = 1 cap(s), Oral, As Directed, Pt to take 1 tab the day before procedure and the 2nd tab the day of procedure once completed., # 2 cap(s), Refills(s) 0, Pharmacy: [facility] #[id number], 179, cm, 03/28/24 15:13:00 EDT, Height/Length Dosing, 110, kg, 03/28/24 15:13:00 EDT, Weight Dosing Start Date: 03/28/24 Status: Orderedcitric acid 75 mg/ml / magnesium oxide 21.9 mg/ml / picosulfate sodium 0.0625 mg/ml oral solution (15 sources)Calculi Dissolution Agent, Anti-coagulantStart: 88-02-8484vqvy 160 mL by mouth in the evening, then take 160 mL by mouth twice daily in the evening Clenpiq 10-3.5-12 MG-GM -GM/160ML 160 ML AT 3:00 PM AND 160 ML AT 9:00 PM Orally TWICE A DAY for 1 days PLEASE CHECK ALLERGIES Dec, Not-Taking/PRN hydrALAZINE hydrochloride 10 mg oral tablet (14 sources)Arteriolar VasodilatorStart: 12-13-2023 End: 22-83-1449leoi 1 tablet by mouth three times dailyHydralazine 10 mg tablet Discontinued 10 MG PO Three times daily 90 December 14, 2023 2:24pm December 23, 2023 3:46pmhyoscyamine sulfate 0.125 mg sublingual tablet (20 sources)Start: 12-23-2023 End: 87-93-9313iehi 1 tablet under the tongue three times dailyHyoscyamine Sulfate 0.125 mg tablet, sublingual Discontinued 0.125 MG SUBLINGUAL Three times daily December 23, 2023 1:00am March 06, 2025 3:35pmHyoscyamine Sulfate 0.125 MG DISSOLVE 1 TABLET UNDER THE TONGUE THREE TIMES DAILY NEEDED for 90 Active linagliptin 2.5 mg / metFORMIN hydrochloride 500 mg oral tablet (6 sources)Biguanide, Dipeptidyl Peptidase 4 InhibitorStart: 01-24-2025 End: 42-76-1284fcny 1 tablet by mouth twice dailyLinagliptin-Metformin ([facility]) 2.5-500 mg tablet Discontinued 1 TAB PO Twice daily 60 December 302024 11:03am January 25, 2025 3:52pmtadalafil 10 mg oral tablet (20 sources)Phosphodiesterase 5 InhibitorStart: 12-23-2023 End: 44-17-1506mcoy 1 tablet by mouth once daily as neededTadalafil 10 mg tablet Discontinued 10 MG PO Daily as needed December 23, 2023 1:00am October 17, 2024 5:02pmTadalafil 10 MG TAKE ONE TABLET BY MOUTH NEEDED FOR ERECTILE DYSFUNCTION. TO LAST 90-DAYS for 90ActiveTadalafil 20 MG TAKE 1 TABLET BY MOUTH EVERY DAY NEEDED Orally Once a day as needed for ED for 90 days Active Problems Active Problems Problem ClassificationProblemDateDocumented DateEpisodic/ChronicCalculus of urinary tract (16 sources)Kidney stone; Translations: [Calculus of kidney]Onset: 03-28-2024 EpisodicChronic kidney disease (20 sources)Chronic kidney disease; Translations: [Chronic kidney disease, unspecified]93-19-4931HnnktndVaknehsu mellitus with complications (6 sources)Hyperglycemia due to type 2 diabetes mellitus; Translations: [Type 2 diabetes mellitus with hyperglycemia]61-61-3397RptvfkvGtkkkpsy mellitus without complication (4 sources)Hyperglycemia; Translations: [Hyperglycemia, unspecified]01-24-2025 EpisodicDisorders of lipid metabolism (20 sources)Hypercholesterolemia; Translations: [Pure hypercholesterolemia, unspecified]ChronicEssential hypertension (20 sources)Hypertensive disorder; Translations: [Essential (primary) hypertension]Onset: 97-92-3274TyvbghqFblrffwjosqfn symptoms and ill-defined conditions (6 sources)Urge incontinence; Translations: [Urge incontinence of urine]Onset: 99-82-3598YfjvjjzIlonxvtenjvcx symptoms and ill-defined conditions (20 sources)Proteinuria; Translations: [Proteinuria, unspecified]12-28-2023 EpisodicHyperplasia of prostate (8 sources)Benign prostatic hypertrophy with outflow obstruction; Translations: [Benign prostatic hyperplasia with lower urinary tract symptoms]Onset: 22-72-6869ExdwzztUvdbv disorders and dislocations; trauma-related (10 sources)Derangement of right knee; Translations: [Unspecified internal derangement of right knee]ChronicMiscellaneous mental health disorders (8 sources)Psychogenic headache; 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]99-04-3457PpgcqwpEmka disorders (20 sources)Recurrent major depression in full remission; Translations: [Major depressive disorder, recurrent, in full remission]ChronicMycoses (1 source)Tinea cruris; Translations: [Dermatophytosis of groin and perianal area]52-02-7798FfltzoobXiuer acquired deformities (15 sources)Acquired spondylolisthesis; Translations: [Spondylolysis, lumbar region]EpisodicOther acquired deformities (1 source)Spondylolysis, lumbar regionEpisodicOther acquired deformities (6 sources)Hnrwwohefnsjz75-98-2033AfvakhekRvcdl bone disease and musculoskeletal deformities (1 source)Chondromalacia, unspecified siteEpisodicOther diseases of bladder and urethra (3 sources)Mass of urinary bladder; Translations: [Other specified disorders of bladder]86-93-8084XvakplgQhbpm diseases of bladder and urethra (1 source)Other specified disorders of bladder; Translations: [Other specified disorders of bladder]21-53-7945HmynumsOtcsv diseases of kidney and ureters (1 source)Acquired renal cyst without neoplastic change; Translations: [Cyst of kidney, acquired]Onset: 16-09-7247NbfkcwqcOrybp diseases of kidney and ureters (6 sources)Cyst of ndwyxa46-22-7757YeqsewrlOxbsg diseases of veins and lymphatics (20 sources)Peripheral venous insufficiency; Translations: [Venous insufficiency (chronic) (peripheral)]02-63-8757KrsiwivtJdhlw diseases of veins and lymphatics (11 sources)Venous insufficiency (chronic) (peripheral); Translations: [Venous (peripheral) insufficiency, unspecified]EpisodicOther gastrointestinal disorders (15 sources)Irritable bowel syndrome with diarrhea; Translations: [Irritable bowel syndrome with diarrhea]ChronicOther gastrointestinal disorders (1 source)Irritable bowel syndrome with diarrheaChronicOther inflammatory condition of skin (15 sources)Plaque psoriasis; Translations: [Psoriasis vulgaris]ChronicOther male genital disorders (15 sources)Impotence of organic origin; Translations: [Erectile dysfunction due to arterial insufficiency]ChronicOther male genital disorders (1 source)Erectile dysfunction due to arterial insufficiencyChronicOther male genital disorders (8 sources)Male erectile dysfunction, unspecified; Translations: [Erectile dysfunction]Onset: 69-49-2504UfukolsYktng male genital disorders (6 sources)Erectile dysfunction co-occurrent and due to arterial insufficiency 11-23-0546DwpyrvkXgcbq nervous system disorders (2 sources)Chronic pain; Translations: [Other chronic pain]ChronicOther nervous system disorders (1 source)Other chronic painChronicOther non-traumatic joint disorders (15 sources)Arthralgia of the lower leg; Translations: [Pain in right knee] EpisodicOther nutritional; endocrine; and metabolic disorders (17 sources)Obesity; Translations: [Other obesity due to excess calories] 50-32-2111KixwayrUwsvg nutritional; endocrine; and metabolic disorders (20 sources)Body mass index 30+ - obesity; Translations: [Body mass index (BMI) 34.0-34.9, adult]71-07-6273ArtwtxmBddie nutritional; endocrine; and metabolic disorders (3 sources)Other obesity due to excess caloriesChronicOther nutritional; endocrine; and metabolic disorders (3 sources)Body mass index (BMI) 34.0-34.9, adultChronicOther nutritional; endocrine; and metabolic disorders (10 sources)Obesity caused by energy imbalance; Translations: [Other obesity due to excess calories]90-05-3770JbofbbcVuqbu nutritional; endocrine; and metabolic disorders (3 sources)Obesity, unspecified; Translations: [Obesity, unspecified]01-24-2025 ChronicOther screening for suspected conditions (not mental disorders or infectious disease) (6 sources)Imaging result abnormal; Translations: [Abnormal findings on diagnostic imaging of other specified body structures]Onset: 59-94-3547Ucudkah Other screening for suspected conditions (not mental disorders or infectious disease) (7 sources)Encounter for screening for malignant neoplasm of prostate; Translations: [Screening for malignant neoplasms of prostate]Onset: 03-28-2024 88-03-4142AvphtndpUdmsbmj on above:PSA: 1.81 - SA: 1.81 - 02/2024, 2.12 - 02/2025Poisoning by nonmedicinal substances (1 source)Toxic effect of unspecified spider venom, accidental (unintentional), initial encounter; Translations: [Toxic effect of venom]86-30-8712Kkibzvnv Residual codes; unclassified (20 sources)Obstructive sleep apnea syndrome; Translations: [Obstructive sleep apnea (adult) (pediatric)]74-33-3472WfeugupWvhppvuo codes; unclassified (6 sources)Obstructive sleep apnea (adult) (pediatric); Translations: [Obstructive sleep apnea (adult)(pediatric)]ChronicSpondylosis; intervertebral disc disorders; other back problems (3 sources)Lumbar spondylosis; Translations: [Spondylosis without myelopathy or radiculopathy, lumbar region]00-82-0138CxievrkXwreirfxrmd; intervertebral disc disorders; other back problems (9 sources)Low back pain; Translations: [Low back pain]Onset: 57-99-8079Isnimhih Past or Other Problems Problem ClassificationProblemDateDocumented DateEpisodic/ChronicOther aftercare (1 source)Other chcf (current) drug therapy; Translations: [OTH SISAL OPERATOR CURRENT DRUG THERAPY]Onset: 69-60-2155EklrtnfaPhbcp non-traumatic joint disorders (5 sources)Pain in right knee; Translations: [PAIN IN RIGHT KNEE]Onset: 11-93-9487GibmbumlReejdfmb codes; unclassified (4 sources)Past history of procedure; Translations: [Other specified postprocedural states]Onset: 227266-97-4826JyvzjjgpHfzybpd on above: ureteroscopy, ESWLUnclassified (1 source)Resistant hypertension I1A.0 Results Test NameValueInterpretationReference RangeFacilityPatient Letter FTMCon 28-72-2745Ccxjmik Letter FTMCPatient Letter FT April 16, 2025 [address] [place] [address] : 1965 Dear Yanni , You missed your scheduled appointment on: 04/16/2025. Please note this is the second time you have no showed for an appointment with our office. Once you no show for a third time you could potentially be discharged from our practice. When you fail to cancel or reschedule an appointment the office is unable to fill the appointment slot that was reserved for you. In the future, we ask that you call24 hours in advance to cancel your appointment. Our current reminder system gives you the opportunity to cancel by responding to our reminder text, phone call or email. You can also call the office to reschedule during normal business hours or use our on-line scheduling portal at your convenience. Our goal is to provide convenient and quality care to all of our patients. We appreciate your consideration regarding any future cancellations. Sincerely, [facility] [address] [place] [address] GrdwvhJgqihuLutheran HospitalHbA1c HPLC (Bld) [Mass fraction]on 30-60-5737BpT5k (Bld) [Mass fraction]Hemoglobin A1c/Hemoglobin.total in Blood by HPLCMartins Ferry HospitalCT Abdomen/Pelvis w/o Contrast on 00-38-1564BP Abdomen/Pelvis w/o ContrastExam Date/Time: 07/17/2024 07:14 EDT Reason for Exam: Kidney Stone;Other (please specify) Report IMPRESSION: ENLARGED PROSTATE EXTENDING INTO POSTERIOR BASE URINARY BLADDER. NO RENAL/URETERAL CALCULI. NO HYDRONEPHROSIS/HYDROURETER. PROBABLE BILATERAL CORTICAL RENAL CYSTS. IF CLINICAL [...] low as reasonably achievable. Ordering Provider: Dax MCCORD FINAL REPORT Dictated: 07/17/2024 4:28 pm Albaro Dangelo MD Signed (Electronic Signature): 07/17/2024 4:28 pm Signed by: Albaro Dangelo MD Transcribed by: CATHI Technologist: INGRIS Technical Comments Rectal Contrast Given? No Oral contrast amount in ml's: 0NormalFisher Upmc Western MarylandXR Abdomen 1 Viewon [id number] Abdomen 1 ViewExam Date/Time: 06/14/2024 11:48 EDT Reason for Exam: Kidney stone Report IMPRESSION: NONSPECIFIC ABDOMEN. CLINICAL HISTORY: Kidney stone COMPARISON: NONE. FINDINGS: Gas and stool in colon. Gas in small bowel. No focal or diffuse small bowel dilatation. No mass effect. Surgical clips gallbladder fossa. No abnormal calcification. Probable phleboliths in pelvic inlet. Ordering Provider: Dax MCCORD FINAL REPORT Dictated: 06/18/2024 5:33 pm Albaro Dangelo MD Signed (Electronic Signature): 06/18/2024 5:33 pm Signed by: Albaro Dangelo MD Transcribed by: CATHI Technologist: CC Technical Comments Radiation Dose: Kar in mGy = na DAP = naNormalFisher [facility] CenterMain OR Intraoperative Recordon [id number] OR Intraoperative RecordMain OR Intraoperative Record IntraOp Document Type FT Summary Primary Physician: Dax MCCORD MD Finalized Date/Time: 06/15/24 13:14:31 Pt. Name: YANNI MAR/Sex: 1965 Male Med Rec #: [id number] Physician: Dax MCCORD MD Financial #: [id number] Pt. Type: A Room/Bed: [place] [address] Admit/Disch: 06/14/24 11:29:08 - 06/14/24 17:05:00 Institution: Case Times FT Entry 1 Patient Times In Room 06/14/24 14:57:00 Out Room 06/14/24 15:31:00 Procedure Times Start 06/14/24 15:07:00 Stop 06/14/24 15:28:00 Anesthesia Times Start 06/14/24 14:57:00 Stop 06/14/24 15:31:00 Last Modified By: Ana MCCLURE, Mayra Daniel 06/14/24 15:31:18 General Comments: CYSTOSCOPY ENDED AT 1522. 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 Time In 06/14/24 14:57:00 06/14/24 14:57:00 06/14/24 14:57:00 Time Out 06/14/24 15:31:00 06/14/24 15:31:00 06/14/24 15:11:00 Procedure EXTRACORPOREAL SHOCK EXTRACORPOREAL SHOCK EXTRACORPOREAL SHOCK WAVE WAVE WAVE LITHOTRIPSY(Right), LITHOTRIPSY(Right), LITHOTRIPSY(Right), CYSTOSCOPY STENT CYSTOSCOPY STENT CYSTOSCOPY STENT INSERTION(Right) INSERTION(Right) INSERTION(Right) Comments Last Modified By: Brock CREDIT SPECIALIST, Liane E Brock CREDIT SPECIALIST, Liane E Brock CREDIT SPECIALIST, Liane E 06/15/24 13:12:17 06/15/24 13:12:17 06/15/24 13:12:17 Entry 4 Entry 5 Entry 6 Case Attendee Lisa GARNETT, Leland Miller CREDIT SPECIALIST, Jaki Serna RN, CNOR, Pam Carranza Role Performed Anesthesiologist Scrub - 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 Time In 06/14/24 15:09:00 06/14/24 14:57:00 06/14/24 14:57:00 Time Out 06/14/24 15:31:00 06/14/24 15:31:00 06/14/24 15:05:00 Procedure EXTRACORPOREAL SHOCK EXTRACORPOREAL SHOCK EXTRACORPOREAL SHOCK WAVE LITHOTRIPSY(Right) WAVE WAVE LITHOTRIPSY(Right), LITHOTRIPSY(Right), CYSTOSCOPY STENT CYSTOSCOPY STENT INSERTION(Right) INSERTION(Right) Comments Last Modified By: Brock CREDIT SPECIALIST, Liane E Brock CREDIT SPECIALIST, Liane E Brock CREDIT SPECIALIST, Liane E 06/15/24 13:12:17 06/15/24 13:12:17 06/15/24 13:12:17 General Comments: Elda SILVA SCRUBBED IN FOR CASE; CELE ANTONIO PRESENT FOR CASE -Ian FONTANA RNpunchboard stuffer Protocols FT Pre-Care Text: Implements protective measures [...] Dax Daniel, Given Participants Rody Rangel CRNA, Angela STEWART, Ana Easton RN, Mayra Daniel Time Out [...] INSERTION Primary Procedure Yes No Primary Surgeon RYAN HORNER, Dax MCCORD MD, Dax Daniel Start 06/14/24 15:07:00 06/14/24 15:07:00 Stop 06/14/24 15:28:00 06/14/24 15:28:00 Anesthesia Type General General Surgical Service Urology Urology Wound Class 1 - Clean 2 - Clean-Contaminated Last Modified By: Mayra Carmona RN, RN, Maria Veronica P 06/14/24 Dahlia Daniel 06/14/24 15:28:31 15:28:31 General Case Data FT Pre-Care Text: Classifies surgical wound, implements aseptic technique, initiates traffic control Entry 1 Case Information OR OR 5 FT Case Level Level 3 Wound Class 2 - Clean-Contaminated Specialty Urology ASA Class 3 Preop Diagnosis KIDNEY STONE Postop Same As Preop Yes Postop Diagnosis KIDNEY STONE Outcomes Met? Yes Last Modified By: Mayra Carmona RN 06/14/24 15:19:12 Post-Care Text: The tam (more content not included)...[facility] Discharge Instructionson [id number] InstructionsDischarge Instructions YANNI MAR :1965 Visit Date:06/14/2024 Inpatient Discharge Instructions Your Care Team Admitting Physician - Dax MCCORD MD Referring Physician - Dax MCCORD MD Reason for Your Visit KIDNEY STONE Tests Performed XR Abdomen 1 View -- Results Pending -- Please visit your patient portal for your results or contact your primary care physician. This Is Your Medications List acetaminophen-oxycodone (Percocet 5 mg-325 mg oral tablet) amlodipine [...] make important decisions for 24 hours, Do notdrink alcoholic beverages for 24 hours Discharge Diet(s) Regular Call Your Doctor For Persistent or heavy bleeding, Temperature above 101.5 degrees Discharge Instructions Discharge Instructions New Follow Up Appointments after Discharge Follow Up with Dax MCCORD When: Comments: Please call my office to make arrangements for a CT scan without contrast. Once the order is sent, the hospital contacts you for the CT appointment time. Depending on the results, this will determine the next step. I did provide some discharge instructions and I did send some pain medication and antibiotics to your pharmacy. Where: [facility] [address]- Business (1) Medications What How Much When Instructions Next Dose New acetaminophen-oxycodone (Percocet 5 mg-325 mg oral tablet) 1 Tablets By Mouth Every 6 hours Duration: 2 Days Pickup at [id number] New ciprofloxacin (Cipro 500 mg Tab) 1 Tablets By Mouth 2 times a day Duration: 3 Days Pickup at [facility] #[id number] Unchanged amlodipine (amLODIPine 10 mg Tab) 1 [...] Tablets By Mouth Every day Pharmacy Information [facility] #[id number]: [address] [place], [place] [phone] Allergies No Known Medication Allergies Problems Ongoing [...] provider. This may be caused by a largestone that was not broken up, and this may mean that you need more treatment. ? Some pain or discomfort during urination. ? Some pain or discomfort in the lower abdomen or (in men) at the base of the penis. (more content not included)...[facility] HospitalComment on above: Result Comment: Electronically Signed By: Yony MCCLURE, Cynthia Dawkins\.br\Date and Time Signed: 06/14/24 16:37 EDTInpatient Patient Summaryon [id number] Patient SummaryInpatient Patient Summary [address] [address] [facility] Clinical Discharge Instructions PERSON INFORMATION Name: YANNI MAR PHYSICIANS Admitting Physician: Dax MCCORD MD Attending Physician: Dax MCCORD MD PCP: ALBARO GRIMALDO DO Discharge Diagnosis: Comment: PATIENT EDUCATION INFORMATION Instructions: Lithotripsy, Care After Medication Leaflets: Follow up: With: Address: When: Dax MCCORD [address] [place] [address], [address], [place] [phone] Business (1) Comments: Please call my office to make arrangements for a CT scan without contrast. Once the order is sent, the hospital contacts you for the CT appointment time. Depending on the results, this will determine the next step. I did provide some discharge instructions and I did send some pain medication and antibiotics to your pharmacy. MEDICATION LIST New Medications [id number], [address] [place], [place] [id number], [phone] acetaminophen-oxycodone (Percocet 5 mg-325 mg oral tablet) 1 [...] Tab) 1 Tablets By Mouth every day. Comment:[facility] Hospital[facility] OR PACU I Recordon [id number] OR PACU I RecordMain OR PACU I Record PACU Phase I Document Type FT Summary Primary Physician: Dax MCCORD MD Finalized Date/Time: 06/14/24 16:07:29 Pt. Name: YANNI MAR/Sex: 1965 Male Med Rec #: [id number] Physician: Dax MCCORD MD Financial #: [id number] Pt. Type: A Room/Bed: [place] [address] Admit/Disch: 06/14/24 11:29:08 - Institution: Case Times [...] individualized perioperative plan of care The patient's rightto privacy is maintained The patient's value system, [...] with or improved from baseline levels established preoperativelyThe patient's cardiovascular status is consistent with or improved from baseline levels established preoperatively The patient's cardiovascular status is consistent with or improved from baseline levels established preoperatively The patient demonstrates and/or reports adequate pain control throughout the perioperative period The patient received appropriate medication(s), safely administered during the perioperativeperiod Acuity Level PACU I FT Entry 1 Start Time 06/14/24 15:33:00 Stop Time 06/14/24 16:03:00 Acuity Level Acuity Level I Last Modified By: Lachelle Canada RN 06/14/24 16:07:24 Finalized By: Lachelle Canada RN Document Signatures Signed By: Lachelle Canada RN 06/14/24 16:07[facility] OR PACU II Recordon [id number] OR PACU II RecordMain OR PACU II Record PACU Phase II Document Type FT Summary Primary Physician: Dax MCCORD MD Finalized Date/Time: 06/14/24 17:41:52 Pt. Name: YANNI MAR/Sex: 1965 Male Med Rec #: [id number] Physician: Dax MCCORD MD Financial #: [id number] Pt. Type: A Room/Bed: [facility] Admit/Disch: 06/14/24 11:29:08 - Institution: Case Times [...] and monitors body temperature Evaluates postoperative respiratory statusEvaluates postoperative cardiac status Evaluates postoperative neurological status [...] individualized perioperative plan of care The patient's rightto privacy is maintained The patient's value system, [...] with or improved from baseline levels established preoperativelyThe patient's cardiovascular status is consistent with or improved from baseline levels established preoperatively The patient's neurological status is consistent with or improved from baseline levels established preoperatively The patient demonstrates and/or reports adequate pain control throughout the perioperative period The patient received appropriate medication(s), safely administered during the perioperativeperiod Finalized By: Cynthia Bhakta RN Document Signatures Signed By: Cynthia Bhakta RN 06/14/24 17:41[facility]Main OR Preoperative Recordon [id number] OR Preoperative RecordMain OR Preoperative Record PreOp Document Type FT Summary Primary Physician: Dax MCCORD MD Finalized Date/Time: 06/14/24 15:25:35 Pt. Name: YANNI MAR/Sex: 1965 Male Med Rec #: [id number] Physician: Dax MCCORD MD Financial #: [id number] Pt. Type: A Room/Bed: Admit/Disch: 06/14/24 11:29:08 [...] Signatures Signed By: Mayra Carmona RN 06/14/24 15:25[facility] Operative Reporton [id number] ReportOperative Report Patient: YANNI MAR Age: 59 years Sex: Male : 1965 Associated Diagnoses: None Author: Dax MCCORD MD Postoperative Information Date/ Time: 06/14/2024 15:56:00 Postoperative Diagnosis: Right renal calculi, up to 1.2 cm. Performed by: Dax Mccord MD. Findings: Procedure: Cystoscopy Right retrograde pyelogram [...] placed per urethra and a well-lubricated 22 Martiniquais is urethroscope with 30 degree lens then [...] previous findings on the renal ultrasound. 6 Martiniquais open-ended ureteral catheter was passed up over [...] there did not appear to be any change.I felt this raise a possibility that the stone may not be within the urinary collecting system and further shocks were aborted. Retrograde was repeated several times. At this point I decided no further lithotripsy was indicated. The ureteral catheter was removed. Bladder emptied scope removed and I decided not to place a stent. He tolerates it well. Transferred to the rirvine and then back to PACU in satisfactory condition, s table vital signs. Will be discharged home with [...] Loss: 2 ml. Complications: None. Anesthesia type: General.[facility] HospitalComment on above: Result Comment: Electronically Signed By: Dax MCCORD MD\Date and Time Signed: 06/14/24 16:00 EDTOutpatient Surgery Discharge Instructionon 06-14-2024 Outpatient Surgery Discharge InstructionOutpatient Surgery Discharge Instruction [place] [id number] Patient Discharge Instructions PERSON INFORMATION Name: YANNI MAR Date of : 1965 Current Date: 06/14/2024 15:55:22 PHYSICIANS Admitting Physician: Dax MCCORD MD Discharge Diagnosis: YANNI MAR has been given the following list [...] THE NEAREST EMERGENCY ROOM OR CALL 911 I, YANNI MAR, have received the attached patient education materials/instructions and have verbalized understanding: May we do a follow up call? Yes No I was present when discharge instructions were given Patient Signature Date Clinican/Nurse Signature Date Follow up: With: Address: When: Dax MCCORD [address] [place] [address], [address] [phone] [facility] (1) Comments: Please call my office to [...] Information: You may receive a survey from [employer] asking you to rate your care experience. Your feedback is important and will help us understand what we do well and how we can improve the quality of care we provide to you, your loved ones and our community. It?s an honor to serve you. Thank you for choosing [facility] HERE ARE THE MEDICATION CHANGES THAT OCCURRED DURING YOUR HOSPITAL STAY New Medications [id number], [address] [place], [place] [id number], [phone] acetaminophen-oxycodone (Percocet 5 mg-325 mg oral tablet) 1 [...] these instructions at home: Medicines ? Take iwfl-gra-rkgnxmk and prescription medicines only as told by [...] machinery. Eating and drinking (more content not included)...[facility] HospitalXR Chest 2 Viewson 29-27-2814MM Chest 2 ViewsExam Date/Time: 06/06/2024 10:15 EDT Reason for Exam: [...] Signature): 06/07/2024 3:53 pm Signed by: Fidel Hammonsd M.D. Transcribed by: CATHI Technologist: JEWELS Technical Comments Radiation Dose: Ka,r in mGy = na DAP = naNorAdena Pike Medical CenterBMPon 34-27-7048Qdjvd gap [Moles/Vol]11 mmol/LNormal6-16[facility] CenterComment on above:Performed By: #### [id number] #### [facility] [address] [place], [place] [address]Ppfzsci [Mass/Vol]9.3 mg/dLNormal8.9-11.1FProMedica Defiance Regional HospitalComment on above:Performed By: #### [id number] #### [facility] [address], [place] [address]Ezctzlnr [Moles/Vol]105 mmol/ZWkiovw829-461TktxbcTrumbull Regional Medical CenterComment on above:Performed By: #### [id number] #### [facility] [address], [place] [address]EH0 [Moles/Vol]24 mmol/EIhoguj20-62UewxbvTrumbull Regional Medical Center Comment on above:Performed By: #### [id number] #### [facility] [address], [place] [address]Gfaqrzuiqv [Mass/Vol]1.2 mg/dLNormal0.5-1.3FProMedica Defiance Regional HospitalComment on above:Performed By: #### [id number] #### [facility] [address], [place] [address]Axcosew [Mass/Vol]130 mg/xMNiohre30-665PzablzTrumbull Regional Medical CenterComment on above:Performed By: #### [id number] #### [facility] [address], [place] [address]Xtiyzdwem [Moles/Vol]4.1 mmol/LNormal3.5-5.3FProMedica Defiance Regional HospitalComment on above:Performed By: #### [id number] #### [facility] [address], [place] [address]Jqnvbn [Moles/Vol]136 mmol/UWsawik735-909HsxodfTrumbull Regional Medical CenterComment on above:Performed By: #### [id number] #### [facility] [address], [place] [address]Mrxw nitrogen [Mass/Vol]23 mg/dLHigh5-21[facility] Medical CenterComment on above:Performed By: #### [id number] #### [facility] [address], [place] [address]Htfu nitrogen/Creatinine [Mass ratio]19 No SneacUfsipj81-78 [facility] CenterComment on above:Performed By: #### [id number] #### [facility] [address] [place] [address]NFX w/ Auto Diffon 21-43-5877Bfnqndhld/100 WBC (Bld)0.6 %Normal 0.0-2.0[facility] Medical CenterComment on above:Performed By: #### [id number] #### [facility] [address] [place] [address]Nhsvfsejk/Leukocytes Auto (Bld) [Pure # fraction]0.0 E9/LNormal 0.0-0.2FProMedica Defiance Regional HospitalComment on above:Performed By: #### [id number] #### [facility] [address] [place] [address]Igaxsfhnghy (Bld) [#/Vol]0.2 E9/LNormal0.0-0.5FProMedica Defiance Regional HospitalComment on above:Performed By: #### [id number] #### [facility] [address] [place] [address]Dwqwsscsnle/100 WBC (Bld)2.6 %Normal0.0-8.0[facility] Medical CenterComment on above:Performed By: #### [id number] #### [facility] [address] [place] [address]Vbhodgoejzj distribution width (RBC) [Ratio]13.3 %Normal 10.9-14.2FProMedica Defiance Regional HospitalComment on above:Performed By: #### [id number] #### [facility] [address] [place] [address]Ikxsbhcktp (Bld) [Volume fraction]40.2 %Lqmdix24.7-49.0[facility] Medical CenterComment on above:Performed By: #### [id number] #### [facility] [address] [place] [address]Nuexxfjwgg (Bld) [Mass/Vol]13.9 g/fFPuinmq11.5-17.5FProMedica Defiance Regional HospitalComment on above:Performed By: #### [id number] #### [facility] [address] [place] [address]Sptqhsggbjf (Bld) [#/Vol]1.1 E9/LNormal1.0-4.0[facility] CenterComment on above:Performed By: #### [id number] #### [facility] [address] [place] [address]Wocyssrcbfx/100 WBC (Bld)15.9 %Ciqgsm05.0-50.0[facility] CenterComment on above:Performed By: #### [id number] #### [facility] [address] [place] [address]DKC (RBC) [Entitic mass]30.1 gmGhbdwa16.0-34.0[facility] CenterComment on above:Performed By: #### [id number] #### [facility] [address] [place] [address]SENW (RBC) [Mass/Vol]34.5 g/lBGaeosw88.4-36.0[facility] CenterComment on above:Performed By: #### [id number] #### [facility] [address] [place] [address]VKI (RBC) [Entitic vol]87.0 nXNxemyb64.0-100.0[facility] CenterComment on above:Performed By: #### [id number] #### [facility] [address] [place] [address]Dyxdmfvky (Bld) [#/Vol]0.6 E9/LNormal0.2-1.0[facility] CenterComment on above:Performed By: #### [id number] #### [facility] [address] [place] [address]Zsdomkhqdhw (Bld) [#/Vol]5.2 E9/LNormal2.0-7.5FProMedica Defiance Regional HospitalComment on above:Performed By: #### [id number] #### [facility] [address] [place] [address]Bzeqmkulbbr/100 WBC (Bld)72.5 %Jwkfjk81.0-75.0[facility] Medical CenterComment on above:Performed By: #### [id number] #### [facility] [address] [place] [address]Vkeisobf mean volume (Bld) [Entitic vol]7.7 fLNormal6.4-10.8 [facility] CenterComment on above:Performed By: #### [id number] #### [facility] [address] [place] [address]Afnfgqskj (Bld) [#/Vol]195.0 E9/ZWuebny587.0-500.0[facility] CenterComment on above:Performed By: #### [id number] #### [facility] [address] [place] [address]YQE (Bld) [#/Vol]4.6 E12/LNormal4.3-5.9[facility] Medical CenterComment on above:Performed By: #### [id number] #### [facility] [address] [place] [address]WNG corrected for nucl RBC Auto (Bld) [#/Vol]7.1 E9/LNormal 4.0-11.0[facility] CenterComment on above:Performed By: #### [id number] #### [facility] [address] [place] [address]NSBKHYOXICoillpq By: SYSTEM SYSTEM on 61-49-3457Uickj gap [Moles/Vol]11 mmol/LNormal6 - 16 mEq/LRemisol ChemCalcium [Mass/Vol]9.3 mg/dL Normal8.9 - 11.1 mg/dLRemisol ChemChloride [Moles/Vol]105 mmol/UDlhpjb140 - 111 mmol/LRemisol ChemCO2 [Moles/Vol]24 mmol/NAajbxf01 - 31 mmol/LRemisol Chem Creatinine [Mass/Vol]1.2 mg/dLNormal0.5 - 1.3 mg/dLRemisol AibuyWVP71 mL/min/1.73 c7Gxeroy>=59mL/min/1.73 t8Eoaehel ChemGlucose [Mass/Vol]130 mg/dL Fpbfxj12 - 199 mg/dLRemisol ChemPotassium [Moles/Vol]4.1 mmol/LNormal3.5 - 5.3 mmol/LRemisol ChemSodium [Moles/Vol]136 mmol/XKcfiec868 - 145 mmol/LRemisol Chem Urea nitrogen [Mass/Vol]23 mg/dLHigh5 - 21 mg/dLRemisol ChemUrea nitrogen/Creatinine [Mass ratio]19 mg/bcBtnhdh61 - 20Remisol ChemCOAGULATION Ordered By: Kaelyn Wilburn on 93-11-6304bNAC Coag (PPP) [Time]34.3 cJnklbr52.1 - 36.5 second(s)[facility] Auto CoagComment on above:Interpretive Data: Parameter 15 days - 4 weeks 1 - [...] the same coagulation reagent and instrumentation as [facility]. Currently there are no coagulation studies available worldwide for children to 14 days, andno normal ranges. Heparin therapeutic range (represented by Anti-Factor Xa activity of 0.2 - 0.4 U/mL) corresponds to PTT of 56.6 - 109.0 sec.INR Coag (PPP) [Relative time]0.96 {INR}Invalid Interpretation CodeST. ANTHONY [facility]OSPITAL [facility] [place] Auto CoagComment on above:Interpretive Data: INR results are specifically intended to assess patients stabilized on long-term Anticoagulation therapy suggested INR s Less Intensive Anticoagulation 2.0 3.0 Conventional Range 3.0 4.5PT Coag (PPP) [Time]10.8 sNormal9.4 - 12.5 second(s) [facility] Auto CoagComment on above:Interpretive Data: 15 days - 4 weeks 1 - 5 months 6 -11 months 1-5 years 6-10 years 11 -17 years Mean: 11.2 (9.5-12.6) Mean: 11.0 (9.7-12.8) Mean: 11.0 (9.8-13.0) Mean: 11.3 (9.9-13.4) Mean: 11.7 (10.0-14.6) Mean: 11.8 (10.0 - 14.1) Pediatric Reference ranges were obtained from a study by jude Good al. prepared from 1437 samples obtained at 7 different centers using the same coagulation reagent and instrumentation as [facility]. Currently there are no coagulation studies available worldwide for children to 14 days, andno normal ranges.HEMATOLOGYOrdered By: SYSTEM SYSTEM on 44-52-1502Uvcjabgiu/100 WBC (Bld)0.6 %Normal0.0 - 2.0 %Remisol HemeBasophils/Leukocytes Auto (Bld) [Pure # fraction]0.0 E9/LNormal0.0 - 0.2 E9/LRemisol HemeEosinophils (Bld) [#/Vol]0.2 E9/LNormal0.0 - 0.5 E9/LRemisol HemeEosinophils/100 WBC (Bld)2.6 %Normal0.0 - 8.0 %Remisol HemeErythrocyte distribution width (RBC) [Ratio]13.3 %Oernjk10.9 - 14.2 %Remisol HemeHematocrit (Bld) [Volume fraction]40.2 %Qmpgjp98.7 - 49.0 % Remisol HemeHemoglobin (Bld) [Mass/Vol]13.9 g/nCNoxuxt33.5 - 17.5 gm/dLRemisol HemeLymphocytes (Bld) [#/Vol]1.1 E9/LNormal1.0 - 4.0 E9/LRemisol Heme Lymphocytes/100 WBC (Bld)15.9 %Sstrww48.0 - 50.0 %Remisol HemeMCH (RBC) [Entitic mass]30.1 afFgcmnt76.0 - 34.0 pgRemisol HemeMCHC (RBC) [Mass/Vol]34.5 g/dL Gwgmjf59.4 - 36.0 gm/dLRemisol HemeMCV (RBC) [Entitic vol]87.0 sVDphvlt71.0 - 100.0 fLRemisol HemeMonocytes (Bld) [#/Vol]0.6 E9/LNormal0.2 - 1.0 E9/LRemisol HemeMonocytes/100 WBC (Bld)8.4 %Normal4.0 - 14.0 %Remisol HemeNeutrophils (Bld) [#/Vol]5.2 E9/LNormal2.0 - 7.5 E9/LRemisol HemeNeutrophils/100 WBC (Bld)72.5 % Pwavoa66.0 - 75.0 %Remisol HemePlatelet mean volume (Bld) [Entitic vol]7.7 fL Normal6.4 - 10.8 fLRemisol HemePlatelets (Bld) [#/Vol]195.0 E9/AZxvddm433.0 - 500.0 E9/LRemisol HemeRBC (Bld) [#/Vol]4.6 E12/LNormal4.3 - 5.9 E12/LRemisol HemeWBC corrected for nucl RBC Auto (Bld) [#/Vol]7.1 E9/LNormal4.0 - 11.0 E9/L Remisol HemePT & PTTon 77-35-7630eBMD Coag (PPP) [Time]34.3 second(s)Normal 25.1-36.5[facility] MarylandComment on above:Result Comment: Parameter 15 days - 4 weeks 1 - [...] the same coagulation reagent and instrumentation as [facility]. Currently there are no coagulation studies available worldwide for children to 14 days, andno normal ranges. Heparin therapeutic range (represented by Anti-Factor Xa activity of 0.2 - 0.4 U/mL) corresponds to PTT of 56.6 - 109.0 sec.Performed By: #### [id number] #### [facility] [address], [place] [address]LHL Coag (PPP) [Relative time]0.96 {INR}Invalid Interpretation CodeTrumbull Regional Medical CenterComment on above:Result Comment: INR results are specifically intended to assess patients stabilized on long-term Anticoagulation therapy suggested INR?s ?Less Intensive Anticoagulation? 2.0 ? 3.0 Conventional Range 3.0 ? 4.5Performed By: #### [id number] #### [facility] [address] [place], [place] [address]DG Coag (PPP) [Time]10.8 second(s)Normal9.4-12.5[facility]pmc Western MarylandComment on above:Result Comment: 15 days - 4 weeks 1 - [...] the same coagulation reagent and instrumentation as [facility]. Currently there are no coagulation studies available worldwide for children to 14 days, andno normal ranges.Performed By: #### [id number] #### [facility] [address] [place], [place] [address]WS with Cult Rflxon 44-13-9832Fmnzceohi Ql (U)NegativeNormal NegativeTrumbull Regional Medical CenterComment on above:Performed By: #### [id number] #### [facility] [address] [place], [place] [address]Kokcjzq (U)ClearNormalClearTrumbull Regional Medical CenterComment on above:Performed By: #### [id number] #### [facility] [address] [place], [place] [address]Xtwum (U)Light-YellowNormalYellowTrumbull Regional Medical Center Comment on above:Result Comment: Microscopic readings are only performed on those samples that meet specific criteria set forth by [facility].Performed By: #### [id number] #### [facility] [address] [place], [place] [address]Ijmfjxe Ql (U)NegativeNormalNegDoctors Hospital Comment on above:Performed By: #### [id number] #### [facility] [address] [place], [place] [address]Tioarxgvaq Auto test strip (U) [Mass/Vol]NegativeNormalNegative [facility] Medical CenterComment on above:Performed By: #### [id number] #### [facility] [address] [place], [place] [address]Wapdcsv Auto test strip Ql (U)NegativeNormalNegativeTrumbull Regional Medical CenterComment on above:Performed By: #### [id number] #### [facility] [address] [place], [place] [address]Flrltqcnp esterase Auto test strip Ql (U)NegativeNormalNegative [facility] Medical CenterComment on above:Performed By: #### [id number] #### [facility] [address] [place], [place] [address]Blqrn Auto Ql (U)TraceNormalNegativeTrumbull Regional Medical Center Comment on above:Performed By: #### [id number] #### [facility] [address] [place], [place] [address]Hhdgwgu Auto test strip Ql (U)NegativeNormalNegativeTrumbull Regional Medical CenterComment on above:Performed By: #### [id number] #### [facility] [address] [place] [address]wU (U)5.5 [pH]Invalid Interpretation Code5.0-9.0Tr[facility] Regional Medical CenterComment on above:Performed By: #### [id number] #### [facility] [address] [place] [address]Aokcfmx Ql (U)1+ mg/dLAbnormalNegativeTrumbull Regional Medical CenterComment on above:Performed By: #### [id number] #### [facility] [address] [place] [address]BLT Ql (U)4-0Jeleab8-7WbllrzProMedica Defiance Regional HospitalComment on above:Performed By: #### [id number] #### [facility] [address] [place] [address]Qcyeoyad gravity (U) [Rel density]1.020Invalid Interpretation Code1.005-1.030Tr[facility]ull Regional Medical CenterComment on above:Performed By: #### [id number] #### [facility] [address] [place] [address]Yxdhfuqypeyy (U) [Mass/Vol]NegativeNormalNegativeTrumbull Regional Medical CenterComment on above:Performed By: #### [id number] #### [facility] [address] [place] [address]AFF Auto (Urine sed) [#/Area]2-0Fzhcfh1-6UervudProMedica Defiance Regional HospitalComment on above:Performed By: #### [id number] #### [facility] [address] [place] [address]Dgad of Urine collection methodClean CatchNormalTrumbull Regional Medical CenterComment on above:Performed By: #### [id number] #### [facility] [address] [place] [address]PVVDAOGSINOrsxkay By: SYSTEM SYSTEM on 61-06-7145Fryyasyyw Ql (U)NegativeNormalNegativemg/dLFTMC UA Auto SSClarity (U)Clear (06/06/24 9:50 AM)NormalClearFTM UA Auto SSColor (U)Light-Yellow 1 (06/06/24 9:50 AM)NormalYellowST. [facility]A Auto SSComment on above:Interpretive Data: Microscopic readings are only performed on those samples that meet specific criteria set forth by [facility].Glucose Ql (U) NegativeNormalNegativemg/dLFT UA Auto SSHemoglobin Auto test strip (U) [Mass/Vol]NegativeNormalNegativemg/dLFT UA Auto SSKetones Auto test strip Ql (U)NegativeNormalNegativemg/dLFT UA Auto SSLeukocyte esterase Auto test strip Ql (U)NegativeNormalNegativeLeu/uLFT UA Auto SSMucus Auto Ql (U)Trace graded/LPFNormalNegativegraded/LPFFTMC UA Auto SSNitrite Auto test strip Ql (U) NegativeNormalNegativemg/dLFT UA Auto SSpH (U)5.5 *NA* (06/06/24 9:50 AM)Invalid Interpretation Code5.0 - 9.0[facility]A Auto SSProtein Ql (U)1+ mg/dLInvalid Interpretation CodeNegativemg/dLFT UA Auto SSRBC Ql (U)0-3 graded/HPFNormal0-3graded/HPFST. [facility]A Auto SSSpecific gravity (U) [Rel density] 1.020 *NA* (06/06/24 9:50 AM)Invalid Interpretation Code1.005 - 1.030[facility]A Auto SS Urobilinogen (U) [Mass/Vol]NegativeNormalNegativemg/dLFT UA Auto SSWBC Auto (Urine sed) [#/Area]0-5 graded/HPFNormal0-5graded/HPFFT UA Auto SSURINALYSIS Ordered By: Isaura Anderson on 25-85-1103FU Spec DescClean Catch (06/06/24 9:50 AM)NormalST. [facility]A Auto SSeGFRon 87-63-6251sOPT63 mL/min/1.73 m2 Normal>=59Fisher [facility]pmc Western MarylandComment on above:Order Comment: Order added by Discern Expert.Performed By: #### [id number] #### [facility] [address] [place], [place] [address]Lznxkkpmhs Visit Summaryon 66-57-7915Csmpbnften Visit Summary Ambulatory Visit Summary YANNI MAR :1965 Visit Date:05/11/2024 Ambulatory Visit Instructions Your Diagnosis Abnormal ultrasound Kidney stones BPH with urinary obstruction Erectile dysfunction Urge incontinence Your Care Team Attending Physician - Dax MCCORD MD Primary Care Physician - ALBARO GRIMALDO DO This Is Your Medications List cephalexin [...] Schedule the Following Appointments Follow Up with RYAN HORNER, Dax Daniel, URL When: Where: [address] [facility] [address] [place] [id number]- Medications What How Much When Instructions Unchanged [...] 1 Tablets Contact prescribing physician if questions orconcerns Unchanged clonidine (cloNIDine 0.1 mg tab) 1 Tablets 2 times a day Contact prescribing physician ifquestions or concerns Unchanged hydrochlorothiazide (hydrochlorothiazide 25 mg [...] provider. This may be caused by a largestone that was not broken up, and this may mean that you need more treatment. ? Some pain or discomfort during urination. ? Some pain or discomfort in the lower abdomen or (in men) at the base of the penis. Follow these instructions at home: Medicines ? Take ztdd-flv-aajytax and prescription medicines only as told by your health care provider. ? If you were prescribed an antibiotic medicine, take it as told by your health care provider. Do notstop taking the antibiotic even if you start to feel sarahi (more content not included)...DominicTrumbull Regional Medical CenterUrology Office/Clinic Noteon 22-96-5307Qeffeqj Office/Clinic NoteUrology Office/Clinic Note Chief Complaint Cysto HPI Staff Cystoscopy. Abx taken History of Present Illness Tests reviewed: reviewed US, UA I have reviewed the previous health record information and history for this patient from Dr. Mccord. I have reviewed and verified the staff [...] diagnostic imaging of other specified body structures) [facility] 03/08/24 [facility] - Lobular soft tissue structure within base of bladder 2.0 x 1.6 x 2.4 cm. Pt had IO cysto today due to abnormal US wo complications. Abnormal lobular structure seen on CT was pt's middle lobe of his prostate. 2. Kidney stones (N20.0: Calculus of kidney) Hx of lithotripsy [address] Jarvis. [1] [facility] 03/08/24 [facility] - right: several nonobstructing calcifications/stones, largest is [...] stent. He has had this in the pastand did not tolerate the stent well. The other option is to consider a percutaneous approach and/orendoscopic retrograde approach. He agrees with the former. He is aware of the heart and lung problem (more content not included)...[facility]utheran HospitalComment on above:Result Comment: Electronically Signed By: Dax MCCORD MD\.br\Date and Time Signed: 05/11/24 08:42 EDT\.br\Electronically Co-Signed By: Shari Hartman\.br\Date and Time Co-Signed: 05/11/24 08:39 EDTLab Reportson 31-99-2943Qgu Reports [id number]#1.00TIFUniversity Hospitals Conneaut Medical CenterRAD - Ultrasound Reporton 50-38-3506SSW - Ultrasound Report [id number]#1.00TIFFLutheran HospitalFormson [id number]#1.00TIFF Lutheran HospitalPhysician Referralon 83-36-1753Qsxkytvzs [id number]#1.00TIFVeterans Health Administrationcreenson 39-42-0572Aknvgzc [id number]#1.00TIFVeterans Health [id number]#1.00TIFUniversity Hospitals Conneaut Medical CenterAmbulatory Visit Summaryon 03-92-1686Jrgkkorcza Visit Summary YANNI MAR :1965 Visit Date:03/28/2024 Ambulatory Visit Instructions Your Diagnosis Abnormal renal ultrasound Kidney stones BPH with urinary obstruction Renal cyst Erectile dysfunction Your Care Team Attending Physician - Dax MCCORD MD Primary Care Physician Ekaterina GRIMALOD DO, ALBARO Referring Physician ALBARO TIDWELL DO This Is Your Medications List cephalexin [...] Appointments Tuesday 7:45 AM EDT With: Dax MCCORD MD [facility]Amb[facility] Summary YANNI MAR :1965 Visit Date:03/28/2024 Ambulatory Visit Instructions Your Diagnosis Abnormal renal ultrasound Kidney stones BPH with urinary obstruction Renal cyst Erectile dysfunction Your Care Team Attending Physician - Dax MCCORD MD Primary Care Physician ALBARO TIDWELL DO Referring Physician ALBARO TIDWELL DO This Is Your Medications List cephalexin [...] HORNER, Dax Daniel [facility] HospitalAlbumin [Mass/volume] in Serum or Plasmaon 27-20-6534Jplxhjs [Mass/Vol]4.0 g/dL2.9-4.4FParkwood HospitalBasophils Auto (Bld) [#/Vol]on 93-14-1984Ojcymcxjs (Bld) [#/Vol]0.0 10 3/uL0.0-0.1FParkwood HospitalBasophils/100 WBC Auto (Bld)on 91-06-3180Acurbuefv/100 WBC (Bld) 0.5 %0.2-2.0[facility] HospitalCholesterol in LDL Calc [Mass/Vol] on 50-22-2963Svlxycmcgjt in LDL [Mass/Vol]103.0 mg/dLMartins Ferry HospitalComment on above:<100 mg/dl LQSFWDO758-859 mg/dl NEAR OR ABOVE SHVGFWD979- 159 mg/dl BORDERLINE ZVFC744-930 mg/dl HIGH>190 mg/dl VERY HIGHCholesterol in VLDL Calc [Mass/Vol]on 25-86-1785Tmyajxwdumy in VLDL [Mass/Vol]31.8 mg/dL [facility] HospitalEosinophils/100 WBC Auto (Bld)on 03-16-2024 Eosinophils/100 WBC (Bld)1.5 %0.9-7.0[facility] Erythrocyte distribution width Auto (RBC) [Ratio]on 83-87-3083Mcfmqpxacti distribution width (RBC) [Ratio]12.3 %11.0-15.0[facility] Estimated glomerular filtration rate (GFR) non- Americanon 03-16-2024 GFR/1.73 sq M.predicted among non-blacks MDRD (S/P/Bld) [Vol rate/Area]58 mL/min/{1.73_m2}Low>=60Mart[facility]erry HospitalGlobulin Calc (S) [Mass/Vol]on 86-05-6366Pfinoogq (S) [Mass/Vol]3.3 g/dLMartins Ferry HospitalHematocrit Auto (Bld) [Volume fraction]on 86-31-9915Lojpbcejel (Bld) [Volume fraction]41.3 %Low42.0-54.0[facility] HospitalHemoglobin [Mass/volume] in Bloodon 52-21-6980Ccqxqfezvr (Bld) [Mass/Vol]14.4 g/dL14.0-18.0 [facility] HospitalIgA [Mass/volume] in Serum or Plasmaon 07-16-9866JoY [Mass/Vol]201 mg/kC56-681OewrymikfMartins Ferry HospitalIgG [Mass/volume] in Serum or Plasmaon 68-89-3227WuI [Mass/Vol]1036 mg/iZ089-6582 [facility] HospitalIgM [Mass/volume] in Serum or Plasmaon 47-13-8515NeS [Mass/Vol]62 mg/bU01-091GlqjrkbujMartins Ferry Hospital Immunoglobulin light chains.kappa.free [Mass/volume] in Serumon 03-16-2024 Immunoglobulin light chains.kappa.free (S) [Mass/Vol]21.2 mg/LAbnormal3.3-19.4 [facility] HospitalImmunoglobulin light chains.kappa.free/Immunoglobulin light chains.lambda.free [Teodoro 03-16-2024 Immunoglobulin light chains.kappa.free/Immunoglobulin light chains.lambda.free (S) [Mass ratio]1.070.26-1.65[facility]erry HospitalComment on above: Performed at: [employer] [id number] Director: Joselo Maya PhD, Phone: [phone] light chains.lambda.free [Mass/volume] in Serum or Plasmaon 97-25-9508Bhhqdjjqeqadgh light chains.lambda.free [Mass/Vol]19.8 mg/L5.7-26.3FParkwood HospitalLaboratory - Chemistry and Chemistry - challengeon 72-67-1524Duxzvhl [Mass/Vol]3.9 g/dL3.4-5.0[facility] HospitalALP [Catalytic activity/Vol]91 U/Y61-543UyxybkdytMartins Ferry HospitalALT [Catalytic activity/Vol]38 U/L17-09NwikpocjhMartins Ferry HospitalAST [Catalytic activity/Vol]20 U/B99-32KomuoslenMartins Ferry HospitalBilirubin [Mass/Vol]0.6 mg/dL0.2-1.0[facility] HospitalCalcium [Mass/Vol]8.4 mg/dLLow 8.5-10.1FParkwood HospitalChloride [Moles/Vol]101 mmol/L98-107 [facility] HospitalCholesterol [Mass/Vol]174 mg/dL<=200[facility] HospitalCholesterol in HDL [Mass/Vol]40 mg/uA93-80YqiokatrlMartins Ferry HospitalComment on above:> or =60 mg/dl - LOW CARDIOVASCULAR RISK<40 mg/dl - HIGH CARDIOVASCULAR RISKCO2 [Moles/Vol]25.9 mmol/L21.0-32.0 [facility] HospitalCreatinine [Mass/Vol]1.29 mg/dL0.70-1.30 [facility] HospitalGFR/1.73 sq M.predicted MDRD (S/P/Bld) [Vol rate/Area]mL/min/{1.73_m2}>=60[facility] HospitalGlucose [Mass/Vol]115 mg/pDQnji99-631DcrfvhrheMartins Ferry HospitalPotassium [Moles/Vol]3.6 mmol/L3.5-5.1FParkwood HospitalProtein [Mass/Vol] 7.2 g/dL6.4-8.2FSelect Medical Specialty Hospital - Boardman, Incodium [Moles/Vol]135 mmol/LLow 136-145Mart[facility]erry HospitalTriglyceride [Mass/Vol]159 mg/dLHigh <=150[facility] HospitalUrea nitrogen [Mass/Vol]18.0 mg/dL7.0-18.0 [facility] CenterUrea nitrogen/Creatinine [Mass ratio]14.0 mg/mg [facility] HospitalLaboratory - Hematology and Cell countson 06-92-5995Uoeynnal granulocytes/100 WBC (Bld)0.4 %0.0-0.5FParkwood HospitalLeukocytes [#/volume] corrected for nucleated erythrocytes in Blood by Automated counon 91-88-4417HFE corrected for nucl RBC Auto (Bld) [#/Vol]7.8 10 3/uL4.0-11.0[facility] HospitalLymphocytes Auto (Bld) [#/Vol]on 36-25-0181Ehkiawxljmr (Bld) [#/Vol]1.2 10 3/uL1.2-3.8[facility] HospitalLymphocytes/100 WBC Auto (Bld)on 03-16-2024 Lymphocytes/100 WBC (Bld)15.5 %Low20.5-60.0Newark HospitalH Auto (RBC) [Entitic mass]on 06-24-7799CAV (RBC) [Entitic mass]30.3 pg25.9-34.0 [facility] HospitalMCHC Auto (RBC) [Mass/Vol]on 48-68-4738WOIA (RBC) [Mass/Vol]34.9 g/dL29.9-35.2FParkwood HospitalMCV Auto (RBC) [Entitic vol]on 07-62-6176RTM (RBC) [Entitic vol]86.9 fL80.0-94.0[facility] HospitalMonocytes Auto (Bld) [#/Vol]on 65-33-1906Ojeccqyzp (Bld) [#/Vol]0.6 10 3/uL0.3-0.8[facility] HospitalMonocytes/100 WBC Auto (Bld)on 87-77-4621Jbhijmqas/100 WBC (Bld)7.2 %1.7-12.0[facility] HospitalNeutrophils Auto (Bld) [#/Vol]on 72-55-5306Lctjxxagxmx (Bld) [#/Vol]5.8 10 3/uL1.4-6.5FParkwood HospitalNeutrophils/100 WBC Auto (Bld)on 57-26-7764Htuzlyjmzed/100 WBC (Bld)74.9 %43.0-75.0[facility] HospitalNo Panel Informationon 55-47-0769Tpsnvddomjg # (Auto)0.1 10 3/uL0.0-0.7FParkwood HospitalImmature Granulocyte # (Auto)0.03 10 3/uL0.00-0.03[facility] HospitalProstate Specific Antigen Screen1.81 ng/mL<=4.00[facility] HospitalProtein Electrophoresis M-SpikeNot Observed g/dLNot ObservedMartins Ferry HospitalProtein Electrophoresis NoteComment.[facility] HospitalComment on above: Protein electrophoresis scan will follow via computer,mail, or sales agent financial report service delivery. Platelet mean volume Auto (Bld) [Entitic vol]on 46-52-9618Ejdtusow mean volume (Bld) [Entitic vol]9.3 fLLow9.5-13.5FParkwood HospitalPlatelets Auto (Bld) [#/Vol]on 54-05-2562Oqsgefste (Bld) [#/Vol]240 10 3/zD831-084 [facility] HospitalProtein [Mass/volume] in Serum or Plasmaon 17-94-6404Qhlfman [Mass/Vol]6.7 g/dL6.0-8.5FParkwood HospitalRBC Auto (Bld) [#/Vol]on 00-44-6203DZD (Bld) [#/Vol]4.75 10 6/uL4.70-6.10[facility] Hospitalerum globulin measurement (mass/volume)on 03-16-2024 Globulin (S) [Mass/Vol]2.7 g/dL2.2-3.9[facility] Hospitalerum or plasma albumin/globulin mass ratioon 78-30-8384Mhbnrwc/Globulin [Mass ratio]1.2 {ratio}[facility] HospitalAlbumin/Globulin [Mass ratio]1.5 {ratio} 0.7-1.7FSelect Medical Specialty Hospital - Boardman, Incerum or plasma alpha 1 globulin measurement by electrophoresis (mass/volume)on 18-73-5026Vlkot 1 globulin Elph [Mass/Vol]0.2 g/dL0.0-0.4FSelect Medical Specialty Hospital - Boardman, Incerum or plasma alpha 2 globulin measurement by electrophoresis (mass/volume)on 07-19-6680Xkuce 2 globulin Elph [Mass/Vol]0.6 g/dL0.4-1.0[facility] Hospitalerum or plasma anion gap determinationon 12-02-2917Mvfer gap [Moles/Vol]11.7 mmol/L [facility] Hospitalerum or plasma beta globulin measurement by electrophoresis (mass/volume)on 27-62-1589Lcgz globulin Elph [Mass/Vol]0.9 g/dL 0.7-1.3FSelect Medical Specialty Hospital - Boardman, Incerum or plasma gamma globulin measurement by electrophoresis (mass/volume)on 36-16-6713Fldzn globulin Elph [Mass/Vol]1.0 g/dL0.4-1.8[facility] Hospitalerum or plasma immunoelectrophoresis interpretationon 24-54-9303Umcrojjqyhkfip IEP [Interp] Comment.[facility] HospitalComment on above:No monoclonality detected.Serum or plasma total cholesterol/high density lipoprotein (HDL) cholesterol mass sabina 34-06-2518Pxvuzubdlil.total/Cholesterol in HDL [Mass ratio]4.3 {ratio}[facility] HospitalComment on above:3.3 - 4.4 LOW RISK4.4 - 7.1 AVERAGE RISK7.1 - 11.0 MODERATE RISK>11.0 HIGH RISKMRI Knee w/o Righton 40-54-8436YTV Knee w/o RightHistory: Medial knee pain. Decreased range of motion. [...] and signed by Angelo Landeros on 03/01/2023 1125NormalNorthern Bridgeport HospitalCBC AUTO DIFFon 00-77-3538VEFR #0.1 103/ulNormal0.0-0.1 [facility] HospitalComment on above:Performed By: #### CBC #### [facility] [address] [address] [address] Ziyad LandryBasophils/100 WBC (Bld)0.7 %Normal0.2-2.0[facility] Comment on above:Performed By: #### CBC #### [facility] [address] [address] [address] Ziyad Lindo #0.2 103/ulNormal0.0-0.7The [facility] HospitalComment on above: Performed By: #### CBC #### [facility] [address] [address] [address] Ziyad Valenzuelaosinophils/100 WBC (Bld)2.7 %Normal0.9-7.0[facility] Comment on above:Performed By: #### CBC #### [facility] [address] [address] [address] Ziyad Valenzuelarythrocyte distribution width (RBC) [Ratio]12.7 %Dsszrq98.0-15.0 [facility] HospitalComment on above:Performed By: #### CBC #### [facility] [address] [address] [address] Ziyad LandryHematocrit (Bld) [Volume fraction]39.7 %Critically low42.0-54.0 [facility] HospitalComment on above:Performed By: #### CBC #### [facility] [address] [address] [address] Ziyad LandryHemoglobin (Bld) [Mass/Vol]14.6 g/mIFpdyod69.0-18.0The [facility] [address] HospitalComment on above:Performed By: #### CBC #### [facility] [address] [address] [address] Ziyad Hernandez #0.04 10e3/ulCritically high0.00-0.03The [facility] Comment on above:Performed By: #### CBC #### [facility] [address] [address] [address] Ziyad Hernandez %0.5 %Normal0.0-0.5The [facility] HospitalComment on above: Performed By: #### CBC #### [facility] [address] [address] [address] Ziyad Gonzales #1.7 103/ulNormal1.2-3.8The [facility] [address] HospitalComment on above:Performed By: #### CBC #### [facility] [address] [address] [address] Ziyad Linderhocytes/100 WBC (Bld)22.4 %Djejht62.5-60.0The [facility] Centerment on above:Performed By: #### CBC #### [facility] [address] [address] [address] Ziyad UmanzorUAL DIFF REQNONormalThe Wilson Street HospitalComment on above: Performed By: #### CBC #### [facility] [address] [address] [address] Ziyad Bonilla (RBC) [Entitic mass]30.7 tkTxsnly41.9-34.0[address] [facility] [address] HospitalComment on above:Performed By: #### CBC #### [facility] [address] [address] [address] Ziyad Bonilla (RBC) [Mass/Vol]36.8 g/dLCritically high29.9-35.2The [facility] HospitalComment on above:Performed By: #### CBC #### [facility] [address] [address] [address] Ziyad Malone (RBC) [Entitic vol]83.6 hIHgugpm39.0-94.0[address] [facility] [address] HospitalComment on above:Performed By: #### CBC #### [facility] [address] [address] [address] Ziyad Byers #0.6 103/ulNormal0.3-0.8The [facility] [address] HospitalComment on above:Performed By: #### CBC #### [facility] [address] [place] [address] Dr. Ziyad Tomasocytes/100 WBC (Bld)8.2 %Normal1.7-12.0The [facility] on above:Performed By: #### CBC #### [facility] [address] [place] [address] Dr. Ziyad Rogers #5.0 103/ulNormal1.4-6.5The [facility] [address] HospitalComment on above:Performed By: #### CBC #### [facility] [address] [place] [address] Dr. Ziyad Aguilarutrophils/100 WBC (Bld)65.5 %Ecvdum99.0-75.0[address] [facility] [address] HospitalComment on above:Performed By: #### CBC #### [facility] [address] [place] [address] Dr. Ziyad Koromalet mean volume (Bld) [Entitic vol]8.6 fLCritically low 9.5-13.5The [facility] [address] HospitalComment on above:Performed By: #### CBC #### [facility] [address] [place] [address] Dr. Ziyad LandryPLT224 103/cdLpzruq503-006Gqk [facility] HospitalComment on above: Performed By: #### CBC #### [facility] [address] [place] [address] Dr. Ziyad LandryRBC4.75 106/ulNormal4.70-6.10The [facility] [address] HospitalComment on above:Performed By: #### CBC #### [facility] [address] [address] [address] Ziyad LandryWBC7.7 103/ulNormal4.0-11.0[address] [facility] [address] HospitalComment on above: Performed By: #### CBC #### [facility] [address] [address] [address] Ziyad YoungRECT LDLon 07-45-4992Fehujzysywx in LDL [Mass/Vol]87 mg/dL NormalMagruder Memorial HospitalComsinai-grace hospital on above:Performed By: #### CMP, LIPID, DLDL #### [facility] [address] [place] [address] Dr. Ziyad LandryDLDL NORMALSEE [facility] Orthopedic CenterComment on above: Result Comment: <100 mg/dl OPTIMAL 100 - 129 mg/dl NEAR OR ABOVE OPTIMAL 130 - 159 mg/dl BORDERLINE HIGH 160 - 189 mg/dl HIGH >190 mg/dl VERY HIGHPerformed By: #### CMP, LIPID, DLDL #### [facility] [address] [place] [address] Dr. Ziyad KelleyID PROFILEon 51-91-1102KKKA-HDL RATIO NORMSEE [facility] CenterComsinai-grace hospital on above:Result Comment: 3.3 - 4.4 LOW RISK 4.4 - 7.1 AVERAGE RISK 7.1 - 11.0 MODERATE RISK >11.0 HIGH RISKPerformed By: #### CMP, LIPID, DLDL #### [facility] [address] [place] [address] Dr. Ziyad LandryCholesterol [Mass/Vol]198 mg/dLNormal<=200The [facility] Comment on above:Performed By: #### CMP, LIPID, DLDL #### [facility] [address] [place] [address] Dr. Ziyad LandryCholesterol in HDL [Mass/Vol]36 mg/dLCritically enp44-70Omt [facility] Centerment on above:Performed By: #### CMP, LIPID, DLDL #### [facility] [address] [address] [address] Ziyad LandryCholesterol.total/Cholesterol in HDL [Mass ratio]5.5 {ratio} NormalThe [facility] [facility] on above:Performed By: #### CMP, LIPID, DLDL #### [facility] [address] [address] [address] Ziyad Young NORMAL> or = 60 mg/dl - LOW CARDIOVASCULAR RISK <40 mg/dl - HIGH CARDIOVASCULAR RISKMer[facility] HospitalCom[facility] on above:Performed By: #### CMP, LIPID, DLDL #### [facility] [address] [place] [address] Dr. Ziyad LandryLDL CALC NORMALSEE BELOWMercy Health Allen HospitalComsinai-gr[facility] hospital on above:Result Comment: <100 mg/dl OPTIMAL 100 - 129 mg/dl NEAR OR ABOVE OPTIMAL 130 - 159 mg/dl BORDERLINE HIGH 160 - 189 mg/dl HIGH >190 mg/dl VERY HIGH Performed By: #### CMP, LIPID, DLDL #### [facility] [address] [place] [address] Dr. Ziyad LandryTriglyceride [Mass/Vol]401 mg/dLCritically high<=150The [facility] on above:Performed By: #### CMP, LIPID, DLDL #### [facility] [address] [place] [address] Dr. Ziyad LandryVLDL CALC80.2 mg/dLNoSt. Elizabeth Hospital on above: Performed By: #### CMP, LIPID, DLDL #### [facility] [address] [place] [address] Dr. Ziyad LandryPROF 14(COMP METB)on 87-70-5062Uffnqzn [Mass/Vol]4.1 g/dLNormal 3.4-5.0The [facility] on above:Performed By: #### CMP, LIPID, DLDL #### [facility] [address] [place] [address] Dr. Ziyad LandryAlbumin/Globulin [Mass ratio]1.1 {ratio}NormalThe [facility] on above:Performed By: #### CMP, LIPID, DLDL #### [facility] [address] [address] [address] Ziyad Jerez [Catalytic activity/Vol]77 U/MGftnay04-576Jvk [facility] on above:Performed By: #### CMP, LIPID, DLDL #### [facility] [address] [address] [address] Ziyad Lewis [Catalytic activity/Vol]52 U/ZAtuljh43-62Oeg [facility] HospitalComment on above:Performed By: #### CMP, LIPID, DLDL #### [facility] [address] [address] [address] Ziyad Velazquez gap [Moles/Vol]11.4 mmol/LNormalThe [facility] Comment on above:Performed By: #### CMP, LIPID, DLDL #### [facility] [address] [address] [address] Ziyad LandryAST [Catalytic activity/Vol]25 U/FNkqxpx88-29Upb [facility] HospitalComment on above:Performed By: #### CMP, LIPID, DLDL #### [facility] [address] [address] [address] Ziyad LandryBilirubin [Mass/Vol]0.6 mg/dLNormal0.2-1.0The [facility] Comment on above:Performed By: #### CMP, LIPID, DLDL #### [facility] [address] [address] [address] Ziyad LandryCalcium [Mass/Vol]9.4 mg/dLNormal8.5-10.1The [facility] Comment on above:Performed By: #### CMP, LIPID, DLDL #### [facility] [address] [address] [address] Ziyad LandryChloride [Moles/Vol]104 mmol/CTqhslq79-744Tye [facility] Comment on above:Performed By: #### CMP, LIPID, DLDL #### [facility] [address] [address] [address] Ziyad LandryCO2 [Moles/Vol]27.9 mmol/UYhibnz99.0-32.0The [facility] Comment on above:Performed By: #### CMP, LIPID, DLDL #### [facility] [address] [place] [address] Dr. Ziyad LandryCreatinine [Mass/Vol]1.58 mg/dLCritically high0.70-1.30The [facility] HospitalComment on above:Performed By: #### CMP, LIPID, DLDL #### [facility] [address] [place] [address] Dr. Ziyad ValenzuelaGFR-AF YPHBQCEA07 mL/min/1.75r7Kppqumpelk low>=60[address] HospitalComment on above:Performed By: #### CMP, LIPID, DLDL #### [facility] [address] [place] [address] Dr. Ziyad ValenzuelaGFR-NON AF YWDYOGIE97 mL/min/1.27n4Psnbuigigb low>=60The [address] HospitalComment on above:Performed By: #### CMP, LIPID, DLDL #### [facility] [address] [place] [address] Dr. Ziyad LandryGlobulin (S) [Mass/Vol]3.8 g/dLNormalThe [facility] [address] HospitalComment on above:Performed By: #### CMP, LIPID, DLDL #### [facility] [address] [place] [address] Dr. Ziyad LandryGlucose [Mass/Vol]116 mg/dLCritically czuo74-493Krk [facility] [address] HospitalComment on above:Performed By: #### CMP, LIPID, DLDL #### [facility] [address] [place] [address] Dr. Ziyad LandryPotassium [Moles/Vol]3.3 mmol/LCritically low3.5-5.1The [facility] [address] HospitalComment on above:Performed By: #### CMP, LIPID, DLDL #### [facility] [address] [place] [address] Dr. Ziyad LandryProtein [Mass/Vol]7.9 g/dLNormal6.4-8.2The [facility] Comment on above:Performed By: #### CMP, LIPID, DLDL #### [facility] [address] [place], [place] [address] Dr. Ziyad LandrySodium [Moles/Vol]140 mmol/MUxumxe184-966Dvc [facility] Comment on above:Performed By: #### CMP, LIPID, DLDL #### [facility] [address] [place], [place] [address] Dr. Ziyad LandryUrea nitrogen [Mass/Vol]28.0 mg/dLCritically high7.0-18.0The [facility] [address] HospitalComment on above:Performed By: #### CMP, LIPID, DLDL #### [facility] [address] [place], [place] [address] Dr. Ziyad Waters nitrogen/Creatinine [Mass ratio]17.7 mg/mgNormalThe [facility] [address] HospitalComment on above:Performed By: #### CMP, LIPID, DLDL #### [facility] [address] [address] [address] Ziyad LandryCT LSPINE WO CONon 21-64-7147GW LSPINE WO CONEXAM: CT LSPINE WO CON HISTORY: DORSALGIA, UNSPECIFIED [...] Electronically authenticated by: MARCELINA SIMMONS Date: 2022-05-14 03:38[facility] Vital Signs Date TimeVital SignValuePerforming NcsmjrnazGbdtotnh07-09-4872 15:32-0400Body amzldb474.8 cmBenjamin Ball DO Work Phone: [phone]09-03-2025 15:32-0400 Body mass index (BMI) [Ratio]35.6 kg/v5Cemlewpj Ball DO Work Phone: [phone] [place], [place] 2266309-03-2025 15:32-0400 Body froaqt088.71 kgBenjamin Ball DO Work Phone: [phone]09-03-2025 15:32-0400 Diastolic blood nnkgclop53 mm[Hg]Albaro Ball DO Work Phone: [phone]09-03-2025 15:32-0400 Heart rate76 /minBenjamin Ball DO Work Phone: [phone]09-03-2025 15:32-0400 Respiratory rate12 /minBenjamin Ball DO Work Phone: [phone]09-03-2025 15:32-0400 Systolic blood ujwxeumf518 mm[Hg]Albaro Ball DO Work Phone: [phone]05-07-2025 15:36-0400 Body qfuqkl353.8 cmMart[facility]erry [facility]05-07-2025 15:36-0400Body mass index (BMI) [Ratio]33.5 kg/m0QqtrmktnoMartins Ferry Hospital05-07-2025 15:36-0400Body .14 kgMart[facility]erry [facility]05-07-2025 15:36-0400Diastolic blood lhgaiubm42 mm[Hg][facility] 03-06-2025 15:36-0400Heart rate83 /[facility] [place] [facility] 03-06-2025 15:36-0400Respiratory rate12 /[facility] [place] [facility] 03-06-2025 15:36-0400Systolic blood kgmzabmp341 mm[Hg][facility]03-27-2025 10:00-0400Body xpiclx004.8 cmMart[facility] 01-24-2025 10:00-0400Body mass index (BMI) [Ratio]33.5 kg/e3NwmkpzcbfMartins Ferry Hospital03-27-2025 10:00-0400Body pgmyam168.85 kgMart[facility]erry Hospital03-27-2025 10:00-0400Diastolic blood ewdbponv68 mm[Hg][facility]03-27-2025 10:00-0400Heart rate71 /[facility] [place] [facility]03-27-2025 10:00-0400Respiratory rate12 /[facility] [place] [facility]03-27-2025 10:00-0400Systolic blood mm[Hg][facility]10-10-2024 08:29-0400Body xlepia078.8 cmMart[facility]erry Hospital10-10-2024 08:29-0400Body mass index (BMI) [Ratio]35.3 kg/m3BdcbbmaveMartins Ferry Hospital10-10-2024 08:29-0400Body vkatkf070.64 kg [facility]10-10-2024 08:29-0400Diastolic blood pressure 120 mm[Hg][facility]10-10-2024 08:29-0400Heart rate80 /[facility] [place] [facility]10-10-2024 08:29-0400Respiratory rate12 /[facility] [place] [facility]10-10-2024 08:29-0400Systolic blood eeirsmjv020 mm[Hg][facility]09-09-2024 15:34-0400Body wrpeqh274.8 cmMartins [facility]erry Hospital09-09-2024 15:34-0400Body mass index (BMI) [Ratio]35.2 kg/x9BsmhikybkMartins Ferry Hospital09-09-2024 15:34-0400Body gaazxx266.3 kgMartins Ferry Hospital09-09-2024 15:34-0400Diastolic blood mm[Hg][facility] 07-09-2024 15:34-0400Heart rate89 /[facility] [place] [facility] 07-09-2024 15:34-0400Respiratory rate12 /[facility] [place] [facility] 07-09-2024 15:34-0400Systolic blood mm[Hg][facility]08-15-2024 16:08-0400Diastolic blood pckppimr394 mm[Hg]Dax MCCORD [facility]08-15-2024 16:08-0400Heart rate68 /minDax Swipely [facility]08-15-2024 16:08-3790HmL0% (BldA) [Mass fraction]97 %Dax MCCORD [facility]08-15-2024 16:08-0400 Systolic blood qckodvqu340 mm[Hg]Dax MCCORD [facility]08-15-2024 16:03-0400Heart rate61 /minDax Swipely [facility]08-15-2024 16:03-5093BqZ9% (BldA) [Mass fraction]97 %Dax Swipely [facility]08-15-2024 16:03-0400 Respiratory rate15 /minDax Swipely [facility]08-15-2024 16:03-0400 Diastolic blood bktpwacc970 mm[Hg]Dax Swipely [address] [place], [place] [address]308-15-2024 16:03-0400Mean blood kqkircjr374 mm[Hg]Dax MCCORD [address] [place], [place] 7464308-15-2024 16:03-0400 Systolic blood qkbpsuuw281 mm[Hg]Dax MCCORD [address] [place], [place] 7464308-15-2024 16:03-0400Body ptdfdbetcnd13.52 [degF]Dax MCCORD [address] [place], [place] 7464308-15-2024 16:03-0400Mean blood mm[Hg]Dax MCCORD [address] [place], [place] 7464308-15-2024 16:03-0400 Respiratory rate10 /minDax MCCORD [address] [place], [place] 7464308-15-2024 15:45-0400 Diastolic blood zsogmpmg544 mm[Hg]Dax MCCORD [address] [place], [place] [address]308-15-2024 15:45-0400Heart rate65 /minDax MCCORD [facility]08-15-2024 15:45-0400Mean blood vvmyknrj373 mm[Hg]Dax MCCORD [facility]08-15-2024 15:45-0400 Respiratory rate16 /minDax MCCORD [address] [place], [place] 74[address]308-15-2024 15:45-0457JxM8% (BldA) [Mass fraction]98 %Dax MCCORD [address] [place], [place] 74[address]308-15-2024 15:45-0400 Systolic blood cxlknjii879 mm[Hg]Dax MCCORD [address] [place], [place] 74[address]308-15-2024 15:40-0400Mean blood xievqrpm209 mm[Hg]Dax MCCORD [address] [place], [place] [address]308-15-2024 15:40-0400 Respiratory rate12 /minDax Swipely [facility]08-15-2024 15:33-0400Blood Pressure LocationGreggraciela COOK [facility]08-15-2024 15:33-0400Body vdurseczxqf32.88 [degF]Dax MCCORD [address] [place], [place] [address]308-15-2024 15:25-0400 Respiratory rate10 /minDax COOK [facility]08-15-2024 15:20-0400 Respiratory rate16 /minDax Swipely [address] [place], [place] [address]08-15-2024 11:58-0400Blood Pressure LocationDax Swipely [facility]08-15-2024 11:58-0400 BP/Pulse Patient PositionDax Swipely [facility]08-15-2024 11:58-0400Mean blood pdbxgigi464 mm[Hg]Dax MCCORD [facility]08-15-2024 11:57-0400Blood Pressure LocationDax Swipely [facility]08-15-2024 11:57-0400 BP/Pulse Patient PositionGreggraciela Swipely [address] [place], [place] [address]-15-2024 11:57-0400Mean blood mm[Hg]Dax MCCORD [address] [place], [place] [address]08-15-2024 11:56-0400Body .7 [degF]Dax Swipely [facility]08-07-2024 09:45-0400 Diastolic blood rdihpbcm309 mm[Hg]Dax Swipely [facility]08-07-2024 09:45-0400Heart rate63 /minDax MCCORD [facility]08-07-2024 09:45-0400Mean blood aujfrwbq740 mm[Hg]Dax MCCORD [facility]08-07-2024 09:45-0400 Systolic blood qablzbko036 mm[Hg]Dax MCCORD [facility]08-07-2024 09:44-0400Heart rate62 /minDax MCCORD [facility]08-07-2024 09:44-5744OpU4% (BldA) [Mass fraction]96 %Dax MCCORD [facility]08-07-2024 09:43-0400 Diastolic blood vmcvusga704 mm[Hg]Dax MCCORD [facility]08-07-2024 09:43-0400Mean blood mm[Hg]Dax MCCORD [facility]08-07-2024 09:43-0400 Systolic blood vywityen778 mm[Hg]Dax MCCORD [facility]08-07-2024 09:42-0400 Respiratory rate16 /minDax MCCORD [facility]07-12-2024 07:55-0400Blood Pressure LocationDax MCCORD [facility]07-12-2024 07:55-0400Diastolic blood cvahsgxb32 mm[Hg]Dax MCCORD [facility]07-12-2024 07:55-0400Heart rate70 /minDax Swipely [facility]07-12-2024 07:55-0400Respiratory rate16 /minDax Swipely [facility]07-12-2024 07:55-0400Systolic blood plqiisws490 mm[Hg]Dax MCCORD [facility]07-03-2024 09:32-0400Body yvhwqw149.8 cm[facility]07-03-2024 09:32-0400Body mass index (BMI) [Ratio]34 kg/s7FeoymrknkMartins Ferry Hospital07-03-2024 09:32-0400Body jmhzey472.72 kgMartins Ferry Hospital07-03-2024 09:32-0400Diastolic blood mm[Hg] [facility]07-03-2024 09:32-0400Heart rate76 /[facility] [place] [facility]07-03-2024 09:32-0400Respiratory rate12 /[facility] [place] [facility]07-03-2024 09:32-0400Systolic blood diqltdrt315 mm[Hg] [facility]05-29-2024 14:55-0400Blood Pressure Location Dax MCCORD [facility]05-29-2024 14:55-0400Diastolic blood zdhpbipj723 mm[Hg]Dax MCCORD [facility]05-29-2024 14:55-0400Heart rate71 /minDax Swipely [facility]05-29-2024 14:55-0400Respiratory rate19 /minDax Swipely [facility]05-29-2024 14:55-0400Systolic blood ewbhjnox669 mm[Hg]Dax MCCORD [facility]05-03-2024 15:19-0400Body .8 cm[facility] 03-02-2024 15:19-0400Body mass index (BMI) [Ratio]34.6 kg/z6WswsyapouMartins Ferry Hospital05-03-2024 15:19-0400Body qdehhc453.54 kgMart[facility] Ferry Hospital05-03-2024 15:19-0400Diastolic blood mnzvchyf29 mm[Hg][facility]05-03-2024 15:19-0400Heart rate74 /[facility] [place] [facility]05-03-2024 15:19-0400Respiratory rate12 /[facility] [place] [facility]05-03-2024 15:19-0400Systolic blood mcajsoxl451 mm[Hg][facility]02-26-2024 14:53-0500Body rojvax082.8 cmMart[facility]erry Hospital02-26-2024 14:53-0500Body mass index (BMI) [Ratio]34.7 kg/z8RbtoouwzkMartins Ferry Hospital02-26-2024 14:53-0500Body vhwtja915.93 kg [facility]02-26-2024 14:53-0500Diastolic blood dqluhiks97 mm[Hg][facility]02-26-2024 14:53-0500Heart rate78 /min [facility]02-26-2024 14:53-0500Respiratory rate12 /min [facility]02-26-2024 14:53-0500Systolic blood jkbombcj098 mm[Hg][facility]01-17-2024 15:00-0500Body .8 cm Albaro Ball Other noJukely Other 01-17-2024 15:00-0500Body mass index (BMI) [Ratio] 34.63 kg/u4Zwebdoaj Ball Other [employer] Other 01-17-2024 15:00-0500Body ujdwxs453.5 kgBenjamin Ball Other [employer] Other 01-17-2024 15:00-0500Diastolic blood mm[Hg]Albaro Ball Other [employer] Other 01-17-2024 15:00-0500Respiratory rate12 /minBenjamin Ball Other [employer] Other 01-17-2024 15:00-0500Systolic blood hhgaycie184 mm[Hg] Albaro Ball Other [employer] Other 08-21-2023 15:30-0400Body stxyxg807.8 cmBenjamin Ball Other [employer] Other 08-21-2023 15:30-0400Body mass index (BMI) [Ratio] 34.89 kg/d8Wzrquplp Ball Other [employer] Other 08-21-2023 15:30-0400Body afoesm530.32 kgBenjamin Ball Other [employer] Other 08-21-2023 15:30-0400Diastolic blood mm[Hg]Albaro Ball Other [employer] Other 08-21-2023 15:30-0400Respiratory rate12 /minBenjamin Ball Other [employer] Other 08-21-2023 15:30-0400Systolic blood ltyujasc702 mm[Hg] Albaro Ball Other [employer] Other 05-15-2023 16:00-0400Body uyqyyf968.8 cmBenjamin Ball Other noJukely Other 05-15-2023 16:00-0400Body mass index (BMI) [Ratio] 34.49 kg/n5Ffenouvq Ball Other [employer] Other 05-15-2023 16:00-0400Body ivvcud841.05 kgBenjamin Ball Other [employer] Other 05-15-2023 16:00-0400Diastolic blood nvidfffj139 mm[Hg]Albaro Ball Other [employer] Other 05-15-2023 16:00-0400Respiratory rate12 /minBenjamin Ball Other [employer] Other 05-15-2023 16:00-0400Systolic blood kutwxpke598 mm[Hg] Albaro Ball Other [employer] Other 04-03-2023 16:00-0400Body khnpze159.8 cmBenjamin Ball Other [employer] Other 04-03-2023 16:00-0400Body mass index (BMI) [Ratio] 34.29 kg/g0Nkagpojn Ball Other [employer] Other 04-03-2023 16:00-0400Body bovtfm030.41 kgBenjamin Ball Other [employer] Other 04-03-2023 16:00-0400Diastolic blood cnolefif09 mm[Hg] Albaro Ball Other [employer] Other 04-03-2023 16:00-0400Respiratory rate12 /minBeanthony Grimaldo Other [employer] Other 04-03-2023 16:00-0400Systolic blood rwdrqaje617 mm[Hg] Albaro Grimaldo Other [employer] [facility] [employer] Other Encounters Encounter DateEncounter TypeCare ProviderFacilityStart: 07-03-2025 End: 29-51-4147ytfhmutkggCpujuqcy Ball DO Work Phone: [facility] Work Phone: Start: 07-03-2025 End: 21-03-3524Jptwbji encounter procedureBekwameaniket Grimaldo DO-[facility] Work Phone: Start: 04-16-2025 End: 01-71-4653rizfiuzicqYoqifun P COOKFacility:EU [place]Start: 04-16-2025 End: 18-40-3255Xjmxwkm encounter procedureDax MCCORD [facility] Start: 03-06-2025 End: 27-82-5146yoilkroluvUtkbesgscBluffton Hospital Work Phone: Start: 03-06-2025 End: 76-29-6407Cfmzhhxio for general adult medical examination without abnormal findingsOhioHealth Grove City Methodist Hospitaltart: 03-06-2025 End: 85-26-8864Dfwwbqo encounter [facility] Work Phone: Start: 01-24-2025 End: 38-30-1893rcibvpzbzpOuywgtnwaBluffton Hospital Work Phone: Start: 01-24-2025 End: 73-01-7709Zjdgawr encounter procedureCentral [facility] Work Phone: Start: 66-02-4021izaturvuhfWcofdsw P COOKFacility:EU [place]walkStart: 08-09-2024 End: 43-71-2378zwdbzaeosgLisvjiendTriHealth [facility] Work Phone: Start: 08-09-2024 End: 73-60-0465Lszemdg encounter procedureCentral [facility] GroupGre[facility] Work Phone: Start: 07-17-2024 End: 42-73-2656enhbgawbtsFidqqtn P COOKFacility:FTMCStart: 07-17-2024 End: 05-16-9268Uegrkwh encounter procedureGregory P YRAN [facility] Start: 07-09-2024 End: 72-84-0922ajzditbxkpIjfeqegckTriHealth Good [facility]ar[facility] Hospital Work Phone: Start: 07-09-2024 End: 62-84-3873Ishgmei encounter [facility]Central [facility] Work Phone: Start: 06-14-2024 End: 24-12-3359Ymqpevfin to same day surgery centerGregory P RYAN [facility] Start: 06-14-2024 End: 65-65-2698wdnpzwuixiOkruguj P COOKFacility:FTMCStart: 06-06-2024 End: 82-20-7881vjhbcbvvslJnifyfj P COOKFacility:FTMCStart: 06-06-2024 End: 90-20-0957Iaokvgc encounter procedureGregory P COOK [facility] Start: 05-11-2024 End: 66-14-8975ipgydgrgfqHxkoiuo P COOKFacility:EU [place]Start: 05-11-2024 End: 22-99-3729Jqepnio encounter procedureGregory P COOK [facility] [place] Start: 05-02-2024 End: 03-92-8595hmodufuxjjLnxwyhtsaBluffton Hospital Work Phone: Start: 05-02-2024 End: 91-31-5366Lwjijav encounter procedureFirelands Physician [facility] Work Phone: Start: 03-28-2024 End: 70-97-2123qsqgsitmgiQQDUWFOC BALLFacility:EU Ailynbronxcare health systemkStart: 03-28-2024 End: 22-27-6748Yijawbn encounter procedureGregory María RYAN [facility] [place] Start: 17-47-3814Eni-patient / Non-visitFirelands Physician Group-[place] [employer] Work Phone: Start: 01-55-8730nxvsiqhuavSvfwyee COOKFacility:EU JanisyStart: 03-02-2024 End: 44-96-0389zxbimwntdnGrrhdnwlxBluffton Hospital Work Phone: Start: 03-02-2024 End: 27-02-4732Rjhlajvuu for general adult medical examination without abnormal findingsOhioHealth Grove City Methodist Hospitaltart: 03-02-2024 End: 99-95-1008Qiruxeo encounter procedureFircarilion clinic [facility]ician [facility] Work Phone: Start: 30-15-6199Ded-patient / Non-visitFirelands Physician Group-[place] [employer] Work Phone: Start: 12-26-2023 End: 50-33-9678Mtzyysx encounter procedureFirgrotons Physician Group-[facility] Work Phone: Start: 12-09-2023 End: 33-63-0738cxvnmevdiuQrdpdbhq Alvaro Other [facility] [employer] Other Start: 76-78-8351Yaudslsey encounterBenjamin BallFPG [facility] ClinicStart: 11-30-2023 End: 05-59-4566fpswyakfjjTufxhwna Ball Other [employer] Other Start: 66-54-9813Uvswnfphm encounterBenjamin BallFPG [facility] ClinicStart: 11-29-2023 End: 21-69-8614jgnhsotugvIbkbzvcv Ball Other [facility] [employer] Other Start: 95-73-7251Wszheenzo encounterBenjamin BallFPG [facility] ClinicStart: 11-28-2023 End: 44-70-1745skmyumalnrOkfgquoc Ball Other [employer] Other Start: 25-44-8711Dgyzxavjn encounterBenjamin BallFPG [facility] ClinicStart: 11-22-2023 End: 47-98-8645tvkvsfildgDqancvvk Ball Other [facility] [employer] Other Start: 20-37-6369Odyuqnfde encounterBenjamin BallFPG [facility] ClinicStart: 11-16-2023 End: 55-39-8817cgotybyliaEuskcmkd Ball Other [facility] [employer] Other Start: 97-03-1095Gbmqpn outpatient visit 25 minutes Albaro BallFPG [facility] ClinicStart: 94-50-1935Twddglcqy encounterBenjamin BallFPG [facility] ClinicStart: 11-03-2023 End: 52-74-6288pguetfunsjWVTGD T OLSENNot AvailableStart: 07-13-2023 End: 84-81-0781wnecuctgzjXumfgprt Ball Other [employer] Other Start: 13-93-6751Uqbarhfdx encounterBenjamin BallFPG [facility] ClinicStart: 06-20-2023 End: 02-61-0131nekuwbprjrBptmaptz Ball Other [employer] Other Start: 24-00-8882Vwnijd outpatient visit 25 minutes Albaro BallFPG [facility] ClinicStart: 04-22-2023 End: 45-95-5411ekaxotojssMwaywdfw Ball Other [facility] [employer] Other Start: 44-21-6067Rsvhtuhqk encounterBenjamin BallFPG [facility] ClinicStart: 04-08-2023 End: 62-01-1477bkypuptrjrBkyivekk Ball Other [facility] [employer] Other Start: 85-10-2372Rlcrlnrlt encounterBenjamin BallFPG [facility] ClinicStart: 04-04-2023 End: 57-03-1436rbigdifhkwOoknslwt Ball Other [facility] [employer] Other Start: 82-48-5062Xgyranbrh encounterBenjamin BallFPG [facility] ClinicStart: 03-14-2023 End: 50-33-1032giyocpomfdFgwupuap Ball Other [facility] [employer] Other Start: 36-05-5713Xggskz outpatient visit 15 minutes Albaro BallFPG [facility] ClinicStart: 02-09-2023 End: 82-91-2379hpixsutstnOT ALBARO BALLFacility:I6Yptny: 02-01-2023 End: 54-53-2662nffypvxfcwIoyogfkb Ball Other [employer] Other Start: 61-23-5515Tsphgxweu encounterBenjamin BallFPG [facility] ClinicStart: 01-31-2023 End: 19-74-2473dktwygdnwdSczwdkpp Ball Other [facility] [employer] Other Start: 67-13-4510Jlpzaglth for general adult medical examination without abnormal findingsAlbaro Grimaldo Medical ClinicStart: 29-75-7952Anremiwg preventive med est patient 40-64yrsBenaniket [facility] ClinicStart: 10-12-2022 End: 86-23-7443sppxqnxezmRM ALBARO BALLFacility:L6Hjcue: 05-14-2022 End: 33-63-7211gliszajkhjHZ ECHO MARKER .Facility: Procedures DateProcedureProcedure DetailPerforming ClinicianStart: 02-77-2902Qxbjvccyekibwa shockwave lithotripsy of calculus of kidneyDax MCCORD Start: 80-60-3653Elwrmtoqvlgdao shockwave lithotripsy of calculus of kidneyDax Swipely Start: 44-40-7560Coyakdyi cystoscopyDax Swipely Start: 49-63-7493HES screeningDR ECHO MARKER . Comment on above:Performed By: #### PSASC #### [facility] [address] [place] [address] Dr. Ziyad LandryArthroscopyDax Swipely CholecystectomyDax Swipely Colonoscope, device (physical object)Dax Swipely Extracorporeal shockwave lithotripsy of ureterDax Swipely VasectomyDax Swipely Plan of Treatment DateCare ActivityDetailAuthorComprehensive metabolic 1999 panel - Serum or PlasmaMartins Ferry HospitalComprehensive metabolic 2000 panel - Serum or [facility] Immunizations Immunization DateImmunizationNotesCare [id number]-01 Vaccine Pfizer - Documentation Purposes OnlyBenaniket Alvaro Other [facility]12-21-2015diphtheria, tetanus toxoids and acellular pertussis vaccine, unspecified formulation Albaro Alvaro Other [facility] Payers DatePayer CategoryPayerPolicy [id number] Health Insurance [id number] [id number] 2.840.1.626370.3.57[id number] 2.0.1.680894.3.57[id number] 2.840.1.952138.3.57[id number] 2.840.1.783658.3.57[id number] 2.840.1.469056.3.57[id number] 2..1.163211.3.57[id number] 2.16840.1.444478.3.57[id number] 2.0.1.513472.3.57[id number] 2.16840.1.424416.3.57[id number] 2.840.1.402915.3.57[id number] 2.16.840.1.832243.3.57[id number] [id number] 2.16.840.1.317176.19 Social History DateTypeDetailFacilityUnknown if ever smokedNort [employer] Other [facility]igned At [facility] Start: 71-05-2187Byechwb smoking status NHISUnknown if ever smokedOhioHealth Grove City Methodist Hospitaltart: 28-40-6119Sxd Assigned At [place]ervilleT[place]acco smoking statusExec[facility] Start: 05-11-2024 End: 51-85-0916Fuohsvm smoking statusNever smoked tobacco (finding)[facility] [place] groveyTobacco smoking statusNever [facility] [place]kyStart: 08-25-2017 End: 19-46-7246UlsZhrn (finding)[facility] Medical Equipment Procedure CodeEquipment CodeEquipment Original TextEquipment IdentifierDates CYSTOSCOPY STENT INSERTION Dax MCCORD MD 06/14/24 Unknown Ureter RFDAStart: 90-54-5702JGNWANGRCM STENT INSERTION Dax MCCORD MD 06/14/24 Unknown Ureter R FDAStart: 92-89-0787Mhxrw Sugar Diagnostic (Onetouch Ultra Test) stripStart: 08-99-9831Nywoanj (Onetouch Ultrasoft 2 Lancet) 30 gauge miscStart: 01-24-2025 Pen Needle, Diabetic (Comfort Ez Pen [place]) 31 gauge x 1/4 needleStart: 67-72-5176Xcbob Sugar Diagnostic (Onetouch Ultra Test) stripStart: 01-24-2025 End: 54-85-2830Guejpsn (Onetouch Ultrasoft 2 Lancet) 30 gauge miscStart: 01-24-2025 End: 51-81-9587Knh Needle, Diabetic (Comfort Ez Pen [place]) 31 gauge x 1/4 needleStart: 01-24-2025 End: 52-61-2146Afbyn Sugar Diagnostic (Onetouch Ultra Test) stripStart: 82-76-8748Azrlukk (Onetouch Ultrasoft 2 Lancet) 30 gauge miscStart: 01-24-2025 Pen Needle, Diabetic (Comfort Ez Pen [place]) 31 gauge x 1/4 needleStart: 38-05-7243Twsuz Sugar Diagnostic (Onetouch Ultra Test) stripStart: 01-24-2025 End: 24-37-0138Xozjvok (Onetouch Ultrasoft 2 Lancet) 30 gauge miscStart: 01-24-2025 End: 39-86-9674Xfn Needle, Diabetic (Comfort Ez Pen [place]) 31 gauge x 1/4 needleStart: 01-29-2025 End: 06-07-9254Asq Needle, Diabetic (Comfort Ez Pen [place]) 31 gauge x 1/4 needleStart: 01-24-2025 End: 27-57-9753Zhg Needle, Diabetic (Comfort Ez Pen [place]) 31 gauge x 1/4 needleStart: 01-24-2025 End: 57-74-8327GGKDUTAVSK STENT INSERTION Dax MCCORD MD 06/14/24 Unknown Ureter RFDAStart: 77-99-7555Kupfb Sugar Diagnostic (Onetouch Ultra Test) strip Start: 73-24-2651Ixuohnr (Onetouch Ultrasoft 2 Lancet) 30 gauge miscStart: 50-82-2159Jny Needle, Diabetic (Comfort Ez Pen [place]) 31 gauge x 1/4 needle Start: 85-29-2352Mrcvb Sugar Diagnostic (Onetouch Ultra Test) stripStart: 01-24-2025 End: 92-58-0351Izpqjzf (Onetouch Ultrasoft 2 Lancet) 30 gauge miscStart: 01-24-2025 End: 01-69-0744Gpm Needle, Diabetic (Comfort Ez Pen [place]) 31 gauge x 1/4 needleStart: 01-29-2025 End: 04-60-7081Yof Needle, Diabetic (Comfort Ez Pen [place]) 31 gauge x 1/4 needleStart: 01-24-2025 End: 03-85-5043Igb Needle, Diabetic (Comfort Ez Pen [place]) 31 gauge x 1/4 needleStart: 01-24-2025 End: 01-29-2025 Functional Status FiohZprvgmciwkAuhskwGwqgjbhv30-09-7466Uhuzripwbz StatusNoM[facility]07-12-2024Functional StatusN/AExec[facility]05-29-2024Functional StatusYesExec[facility] Clinical Notes 10-12-2022 to 01-24-2025 Note Date & UodoQzxcUmxcedgy30-22-6248 Evaluation note* Diagnosis Onset Date Resolution Status Admit Date Chronic kidney disease acuteMarch 2024 9:33amChronic venous insufficiencyacuteMarch 2024 9:33amElevated cholesterolacuteMarch 2024 9:33amObesityacuteMarch 2024 9:33amObstructive sleep apneaacuteMarch 2024 9:33amPrimary hypertensionacuteMarch 2024 9:33amProteinuriaacuteMarch 2024 9:33am Type 2 diabetes mellitus with hyperglycemiaacuteMarch 2024 9:33amChronic kidney diseaseacuteMay 2024 3:24pmChronic venous insufficiencyacuteMay 2024 3:24pmElevated cholesterolacuteMay 2024 3:24pmObesityacuteMay 2024 3:24pmObstructive sleep apneaacuteMay 2024 3:24pmPrimary hypertension acuteMay 2024 3:24pmProteinuriaacuteMay 2024 3:24pmScreening PSA (prostate specific antigen)acuteMay 2024 3:24pmType 2 diabetes mellitus with hyperglycemiaacuteMay 2024 3:24pmWellness examinationnoneactiveMay 2024 3:24pm [facility] Work Phone: 1(275) 611-710908-15-2024 Hospital Discharge instructions Patient Education 06/14/2024 16:36:36 [...] Follow these instructions at home: Medicines Take sbnf-rqu-hrwrhfk and prescription medicines only as told by [...] provider. Document Revised: 09/13/2022 Document Reviewed: 06/21/2022 [employer] Patient Education 2022 [employer]. Follow Up Care 05/17/2024 13:04:04 With:Dax RYAN Address: [address] [facility] [address] [place] [phone]- Business (1) When: Unknown Comments:Please call my office to make arrangements for a CT scan without contrast. Once the order is sent, the hospital contacts you for the CT appointment time. Depending on the results, this will determinethe next step.I did provide some discharge instructions and I did send some pain medication and antibiotics to your pharmacy. [facility] 08-15-2024 NoteProgress Note-Physician Patient: YANNI MAR Age: 59 years Sex: Male : 1965 Associated Diagnoses: None Author: Ike Vasques Jr., DO Postoperative Information Postoperative disposition: Postoperative disposition: Home. Optimetrix number: Optimetrix number [id number]. Anesthetic utilized: General. Physical Examination Vital Signs [...] to Ambulatory Surgery Unit, and To home ).[facility] CenterComment on above:Result Comment: Electronically Signed By: Ike Vasques Jr., DO\.br\Date and Time Signed: 06/14/24 17:05 [id number] NotePatient Education - Text Nephrology Lithotripsy, Care [...] these instructions at home: Medicines ? Take hobi-ujh-yeujrqw and prescription medicines only as told by [...] can help prevent ne (more content not included)...[facility]08-15-20[facility] Evaluation + Plan note Extracted from:Title:ANES Post-operative Note - GeneralAuthor:Ike Vasques Jr., DO GDate:06/14/24 Plan Transfer/Discharge: Transfer/Discharge Discharge when meets criteria ( From PACU to Ambulatory Surgery Unit, and To home ). Extracted from:Title:ANES Pre-operative Note - AdultAuthor:Ike Vasques Jr., DOate:06/14/24 Plan [place] [employer] Anesthesiologists (ASA) physical status classification: Class III. Anesthetic Preoperative Plan: Anesthesia General.[facility] [id number] NoteProgress Note-Physician Patient: YANNI MAR Age: 59 years Sex: Male : [...] All Problems Abnormal ultrasound / SNOMED CT 109411021 / Confirmed BPH with urinary obstruction / SNOMED CT 8345464532 / Confirmed Chronic kidney disease / SNOMED CT 0920325491 / Confirmed Erectile dysfunction / SNOMED CT 7905484065 / Confirmed Erectile dysfunction due to arterial insufficiency / SNOMED CT 3447975674 / Confirmed History of kidney stones / SNOMED CT 3094392220 / Confirmed Hyperlipemia / SNOMED CT 84603478 / Confirmed Kidney stones / SNOMED CT 725912566 / Confirmed Major depressive disorder, recurrent, in remission / SNOMED CT 198092463 / Confirmed Obstructive sleep apnea / SNOMED CT 024836232 / Confirmed Other obesity due to excess calories / SNOMED CT 0048270506 / Confirmed Primary hypertension / SNOMED CT 71994421 / Confirmed Proteinuria / SNOMED CT 17086298 / Confirmed Renal cyst / SNOMED CT 7420671948 / Confirmed Spondylolysis of lumbar region / SNOMED CT 063006535 / Confirmed Stress headache / SNOMED CT 825454715 / Confirmed Urge incontinence / SNOMED CT 534882686 / Confirmed Canceled: Abnormal renal ultrasound / SNOMED CT 4985770478 Histories Past Medical History: No active or resolved past medical history items have been selected or recorded. Procedure history: Flexible cystoscopy (726138466) on 05/11/2024 at 59 Years. Arthroscopy (48458827). Cholecystectomy (14104844). Colonoscope (620336740). Vasectomy (71324676). ESWL (extracorporeal shockwave lithotripsy) of ureteric calculus (6959235629). Social History Social & Psychosocial Habits Alcohol 06/14/2024 Use: Current Type: Beer Frequency: Daily Comment: maybe 2/day - 06/06/2024 09:33 - Isaura Anderson RN 06/14/2024 Risk Assessment: Medium Risk Substance Abuse 06/14/2024 Risk Assessment: Denies Substance Abuse Tobacco 06/14/2024 Tobacco Use: Never (less than 100 in l Smokeless tobacco use: Never 06/14/2024 Risk Assessment: Denies Tobacco Use . Physical Examination Vital Signs 06/14/2024 11:58 EDT Heart Rate Monitored 70 bpm Systolic Blood (more content not included)...[facility] CenterComment on above:Result Comment: Electronically Signed By: Ike Vasques Jr., DO.chun\Date and Time Signed: 06/14/24 12:41 [id number] Hospital Discharge instructions Patient Education 05/11/2024 08:38:21 [...] Follow these instructions at home: Medicines Take xctf-kpx-gksbqex and prescription medicines only as told by [...] provider. Document Revised: 09/13/2022 Document Reviewed: 06/21/2022 [employer] Patient Education 2022 [employer]. 05/11/2024 08:38:21 Lithotripsy Lithotripsy Lithotripsy is a [...] including vitamins, herbs, eye drops, creams, and nbdh-yqn-cyjlwnt medicines. Any problems you or family members [...] provider tells you to take them. Taking zgsv-nsu-vhazmsc medicines, vitamins, herbs, and supplements. Tests You [...] provider. Document Revised: 09/13/2022 Document Reviewed: 06/21/2022 [employer] Patient Education 2022 [employer]. Follow Up Care 03/28/2024 15:43:47 With:RYAN HORNER, Dax Daniel, URL Address: [facility] [address] [place], [place] [id number]- When: Unknown [facility] [id number] NotePatient Education Nephrology Lithotripsy, Care After This [...] these instructions at home: Medicines ? Take qtdj-hvo-rpuirhl and prescription medicines only as told by [...] keep all fragments fo (more content not included)...[facility]05-29-[facility] Hospital Discharge instructions Patient Education 03/28/2024 15:24:30 [...] including vitamins, herbs, eye drops, creams, and erxe-zcv-kvzciyd medicines. Any problems you or family members [...] provider tells you to take them. Taking nhmi-wof-fxhtyhn medicines, vitamins, herbs, and supplements. Tests You [...] Follow these instructions at home: Medicines Take zyoz-rme-itfqqga and prescription medicines only as told by [...] provider. Document Revised: 06/30/2022 Document Reviewed: 05/29/2021 [employer] Patient Education 2022 [employer]. Follow Up Care 03/16/2024 15:26:34 With:RYAN HORNER, Dax Daniel, URL Address: [facility] [employer] [address] [place], [place] [phone]- When: Unknown [facility] 05-29-[address] Grimaldo referral HPI Staff 58 year old male referred by Dr. Grimaldo for possible bladder mass. Renal US done [...] cord. Penis: normal shaft, normal glans. Assessment/Plan Yanni is a 58 yo [address] referred by Dr[address] Grimaldo for possible bladder mass. Prior PRW pt >15 years ago. Portions of this record may have been created with voice recognition artificial intelligence software, specifically [employer], [employer] and or [employer]. Substitutions may have occurred due to the [...] hyperplasia with lower urinary tract symptoms) PSA: 03/10/22 - 1.98 02/09/23 - 2.12 03/16/24 - [...] plan. Follow-up With When Contact Information Dax MCCORD MD, URL [address] (more content not included)...[facility] CenterComment on above:Result Comment: Electronically Signed By: Dax MCCORD MD\.br\Date and Time Signed: 03/28/24 15:36 EDT\.br\Electronically Co-Signed By: Soco Ruano\.br\Date and Time Co-Signed: 03/28/24 15:25 [id number] NoteUrology Cystoscopy Cystoscopy is a procedure that [...] including vitamins, herbs, eye drops, creams, and dwkq-zpw-lzcjgdu medicines. ? Any problems you or family [...] tells you to take them. ? Taking dkai-uje-ntdtrwd medicines, vitamins, herbs, and supplements. Tests You [...] these instructions at home: Medicines ? Take xgfk-uyk-dafxyjf and prescription medicines only as told by [...] or the department th (more content not included)...[facility] 12-09-2023 Evaluation note* Encounter Date Diagnosis Assessment Notes Treatment Notes Treatment Clinical Notes Dec, Primary hypertension (ICD-10 - I 10) [facility] Other 01-31-2024 Evaluation note* Encounter Date Diagnosis Assessment Notes Treatment Notes Treatment Clinical Notes Oct, Primary hypertension (ICD-10 - I 10) [facility] Other 01-30-2024 Evaluation note* Encounter Date Diagnosis Assessment Notes Treatment Notes Treatment Clinical Notes Oct, Primary hypertension (ICD-10 - I 10) [facility] Other 01-17-2024 Evaluation note* Encounter Date Diagnosis Assessment Notes Treatment Notes Treatment Clinical Notes Oct, Primary hypertension (ICD-10 - I 10) Rechecked BP w/o much change He denies [...] HTN - r/o primary hyperaldosteronism - pheochromocytoma Oct,Elevated cholesterol (ICD-10 - E78.00)Instructed on diet and exercise with continued statin therapy.Discussed the beneficial effects of lo wering cholesterol in reducing the risk for cerebrovascular and cardiovascular disease. Oct,Obstructive sleep apnea (ICD-10 - G47.33)Patient states no treatment recommendedResults mild per the patient and he was never initiated on CPAP. Instructed to lose weight. Oct,hronic venous insufficiency (ICD-10 - I87.2)Avoid salt and elevate lower extremities, support stockings, inspect legs and feet daily for blisters and ulcerations. 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 Exercise w/ weight loss. r/o excessive aldosterone, cortisol r/o glomerulonephrosis Oct,Other obesity due to excess calories (ICD-10 - E66.09)This patient has been instructed on a low-fat, high-fiber diet. They are instructed to reduce calories, portion sizes and snacks. It is recommended that they exercise for 30 minutes, 3-5 times weekly. Oct,ody mass index [BMI] 34.0-34.9, adult (ICD-10 - Z68.34) Oct,ecurrent major depressive disorder, in full remission (ICD-10 - F33.42)Stable mood, instructed to follow a healthy diet and exercise w/ weight loss. [facility] Other 08-21-2023 Evaluation note* Encounter Date Diagnosis Assessment Notes Treatment Notes Treatment Clinical Notes May, Primary hypertension (ICD-10 - I 10) This patient is instructed to consume a healthy, low-fat, low-salt diet. They are also encouraged to continue exercise to achieve/maintain a normal BMI. Patient is instructed on home BP measurements: - rest for 5 minutes w/o talking- positioned w/ feeton floor and arm supported- average best 2/3 readings w/ goal < 135-85 May,Elevated cholesterol (ICD-10 - E78.00)Instructed on diet and exercise with continued statin therapy.Discussed the beneficial effects of lo wering cholesterol in reducing the risk for cerebrovascular and cardiovascular disease. May,Obstructive sleep apnea (ICD-10 - G47.33)Patient states no treatment recommendedThis patient is aware of the benefits associated with CHERYL: With continued use, the patient reduces the risk for DC, CVA, HTN, cardiac dysrhythmias and sudden cardiac deaths.The patient is also aware of the association between CHERYL and morning headaches, daytime somnolence, fatigue and obesity May insist on retitration study May,hronic venous insufficiency (ICD-10 - I87.2)Avoid salt and elevate lower extremities, support stockings, inspect legs and feet daily for blisters and ulcerations. Decreased Amlodipine to 5mg qd May,Other obesity due to excess calories (ICD-10 - E66.09)This patient has been instructed on a low-fat, high-fiber diet. They are instructed to reduce calories, portion sizes and snacks. It is recommended that they exercise for 30 minutes, 3-5 times weekly. May,ody mass index [BMI] 34.0-34.9, adult (ICD-10 - Z68.34) May,Recurrent major depressive disorder, in full remission (ICD-10 - F33.42) May,Internal derangement of right knee (ICD-10 - M23.91)Avoid squatting or kneeling Quad exercises, ice and rest. f/u Orthopedics [facility] Other 05-15-2023 Evaluation note* Encounter Date Diagnosis Assessment Notes Treatment Notes Treatment Clinical Notes February, Primary hypertension (ICD-10 - I 10) This patient is instructed to consume a healthy, low-fat, low-salt diet. They are also encouraged to continue exercise to achieve/maintain a normal BMI. February,Other obesity due to excess calories (ICD-10 - E66.09)This patient has been instructed on a low-fat, high-fiber diet. They are instructed to reduce calories, portion sizes and snacks. It is recommended that they exercise for 30 minutes, 3-5 times weekly. February,ody mass index [BMI] 34.0-34.9, adult (ICD-10 - Z68.34) [facility] Other 04-04-2023 Evaluation note* Encounter Date Diagnosis Assessment Notes Treatment Notes Treatment Clinical Notes Jan, Erectile dysfunction due to arterial insufficiency (ICD-10 - N52.01) [facility] Other 04-03-2023 Evaluation note* Encounter Date Diagnosis Assessment Notes Treatment Notes Treatment Clinical Notes Jan, Wellness examination (ICD-10 - Z 00.00) Healthy diet and exercise. Reviewed age-appropriate preventive testing recommended. Jan,HTN (hypertension) (ICD-10 - I10)This patient is instructed to consume a healthy, low-fat, low-salt diet. They are also encouraged to continue exercise to achieve/maintain a normal BMI. Jan,Obstructive sleep apnea (ICD-10 - G47.33)This patient is aware of the benefits associated with CHERYL: With continued use, the patient reduces the risk for DC, CVA, HTN, cardiac dysrhythmias and sudden cardiac deaths.The patient is also aware of the association between CHERYL and morning headaches, daytime somnolence, fatigue and obesity, whichalso has been improved with continued use.The patient is compliant with treatment, wearing the equipment every night for greater than 4 hours.The patient is instructed to continue use of the CPAP forOSA treatment. Jan,hronic venous insufficiency (ICD-10 - I87.2)Avoid salt and elevate lower extremities, support stockings, inspect legs and feet daily for blisters and ulcerations. Jan,Spondylolysis of lumbar region (ICD-10 - M43.06)The patient is instructed to avoid bending, twisting or lifting. They are to use intermittent heat and ice as needed. They may schedule a massage or gentle manipulation. They may safely use Tylenol as needed. Jan,Elevated cholesterol (ICD-10 - E78.00)Diet and exercise with continued statin therapy. Jan,ain in right knee (ICD-10 - M25.561)Quad exercises, ice and short trial of Mobic. Discussed IA injection w/ cortisone, PT and referral to Orthopedics. Weight loss Jan,hondromalacia (ICD-10 - M94.20) Jan,Recurrent major depressive disorder, in full remission (ICD-10 - F33.42)Healthy diet, exercise and continue medication. Jan,Irritable bowel syndrome with diarrhea (ICD-10 - K58.0) Jan,Other chronic pain (ICD-10 - G89.29) [facility] Other [id number] NotePROCEDURE: XR KNEE RT 4V or > [...] authenticated by: MEGAN MCCOY Date: 2022-10-12 15:[address] Future Appointments Appointment Date:05/11/2024 07:45:00 AM Scheduled Provider:Dax MCCORD MD Location:[facility] [place] Appointment Type:URO Procedure 15 min [facility] Evaluation + Plan note Future Appointments Appointment Date:06/14/2024 01:45:00 PM Scheduled Provider: Location:[facility] Appointment Type:[facility]gery [facility] Evaluation noteNo [facility] [employer] Other Evaluation note* Diagnosis Onset Date Resolution Status Chronic kidney disease acuteChronic venous insufficiencyacuteElevated cholesterolacutePrimary hypertensionacuteProteinuriaacuteChronic kidney diseaseacuteChronic venous insufficiencyacuteElevated cholesterolacutePrimary hypertensionacuteProteinuria acuteScreening PSA (prostate specific antigen)noneactiveWellness examination noneactive [facility] Work Phone: Evaluation note* Diagnosis Onset Date Resolution Status Chronic kidney disease acuteChronic venous insufficiencyacuteElevated cholesterolacutePrimary hypertensionacuteProteinuriaacuteScreening PSA (prostate specific antigen) noneactiveWellness examinationnoneactive [facility] Work Phone: Evaluation note* Diagnosis Onset Date Resolution Status Primary hypertension acuteSpider bite allergy, current reactionnoneactiveTinea crurisnoneactive Chronic kidney diseaseacuteChronic venous insufficiencyacuteElevated cholesterol acutePrimary hypertensionacuteProteinuriaacute [facility] Work Phone: Evaluation note* Diagnosis Onset Date Resolution Status Bladder mass acuteChronic kidney diseaseacuteChronic venous insufficiencyacuteElevated cholesterolacutePrimary hypertensionacuteProteinuriaacuteUreteral stoneacute [facility] Work Phone: Evaluation note* Diagnosis Onset Date Resolution Status Admit Date Chronic kidney disease acuteMarch 2024 9:33amChronic venous insufficiencyacuteMarch 2024 9:33amElevated cholesterolacuteMar 2024 9:33amHyperglycemiaacuteMarch 2024 9:33amObesityacuteDec 2024 9:33amObstructive sleep apneaacute January 24, 2025 9:33amPrimary hypertensionacuteMarch 2024 9:33am ProteinuriaacuteMar 2024 9:33am [facility] Work Phone: Evaluation note* Diagnosis Onset Date Resolution Status Admit Date Chronic kidney disease acuteSeptember 2024 3:16pmChronic venous insufficiencyacuteSept2024 3:16pmElevated cholesterolacuteSept2024 3:16pmObesityacute Cammie 2024 3:16pmObstructive sleep apneaacuteSept2024 3:16pm Primary hypertensionacuteSept2024 3:16pmProteinuriaacuteSept2024 3:16pmType 2 diabetes mellitus with hyperglycemiaacuteSept2024 3:16pm [facility] Work Phone: History general Narrative - Reported* Type Description Date Medical History HTN (hypertension) Medical HistoryDepressionMedical HistoryAcute pain of right kneeMedical History Spondylolysis of lumbar regionMedical HistoryStress headacheMedical HistoryMajor depressive disorder, recurrent, in partial remissionMedical HistoryChronic venous insufficiencyMedical HistoryHyperlipidemia type IIMedical History Obstructive sleep apneaMedical HistoryErectile dysfunction due to arterial insufficiencyMedical HistoryLow back painMedical HistoryPlaque psoriasisSurgical Uycvtuvauiouinclayxfvz2375Qlbcwobn Historykidney stoneSurgical History [id number], 2020Hospitalization HistorySEE SURGICAL [employer] [facility] Other History general Narrative - Reported* Type Description Date Medical History HTN (hypertension) Medical HistoryDepressionMedical HistoryAcute pain of right kneeMedical History Spondylolysis of lumbar regionMedical HistoryStress headacheMedical HistoryMajor depressive disorder, recurrent, in partial remissionMedical HistoryChronic venous insufficiencyMedical HistoryHyperlipidemia type IIMedical History Obstructive sleep apneaMedical HistoryErectile dysfunction due to arterial insufficiencyMedical HistoryLow back painMedical HistoryPlaque psoriasisSurgical Wsgtgzpomlljhigjisdlyu7774Pphvyipl Historykidney stoneSurgical History [id number], urgical HistoryRight knee arthroscopy03/2023Hospitalization HistorySEE SURGICAL Reframe It Other Hospital course Narrative No data available for this section [facility] Hospital Discharge instructions No data available for this section [facility] Progress note No data available for this section [facility] Reason for referral (narrative)* Reason *FU 02/08 Referral for persistent right knee pain w/o swelling, locking or giving out., Right knee strain, medial meniscus injury Chondromalacia Diagnosis 1 Pain in right knee ( M25.561) Referral Organization [facility] Alvaro owen Referring Provider First Name Albaro Referring Provider Last Name Alvaro Referring Provider Specialty Internal Me dicine Referred Organization [facility] Referred Provider Iris Mandujano Jr Referred Address ,[place], [place],[address] Referred Provider Specialty Orthopedic S urgery Referral Priority Routine General Notes Sudha Hercules 02:06:53 PM >received today Sudha Hercules 02/01/2023 02:07:54 PM >attachments made, notes locked, faxed P [employer] Other Reason for referral (narrative)No reason for referral information available[facility] Work Phone: Summary Purpose Family History Relationship Condition Age at Onset Recorded Date/T enrique father Diabetes mellitus Unknown HypertensionUnknownNot SpecifiedDeceasedUnknown Relationship Condition Age at Onset Recorded Date/T enrique father Diabetes mellitus Unknown HypertensionUnknownmotherDeceasedUnknown Advance Directives Advance Directive Response Recorded Date/ Time Advance Directives No November 23, 2023 12:54pm Chief Complaint and Reason for Visit Chief Complaint 1 month Amb Documentation wellnessReason for VisitChronic kidney disease Chronic venous insufficiency Elevated cholesterol Primary hypertension Proteinuria Chronic kidney disease Chronic venous insufficiency Elevated cholesterol Primary hypertension Proteinuria Screening PSA (prostate specific antigen) Wellness examination Chief Complaint wellness bug bites infectedReason for VisitChronic kidney disease Chronic venous insufficiency Elevated cholesterol Primary hypertension Proteinuria Screening PSA (prostate specific antigen) Wellness examination Chief Complaint bug bites infected 4 MONTH FOLLOW UPReason for VisitPrimary hypertension Spider bite allergy, current reaction Tinea cruris Chronic kidney disease Chronic venous insufficiency Elevated cholesterol Primary hypertension Proteinuria Chief Complaint 4 MONTH FOLLOW UP back painReason for VisitBladder mass Chronic kidney disease Chronic venous insufficiency [...] Wellness examination March 06, 2025 3:24p m Chief Complaint Admit Date 3 mo f/u July 03, 2025 3:16pm Reason for Visit Admit Date Chronic kidney disease July 03 3:16pm Chronic venous insufficiency July 032024 3:16pm Elevated cholesterol July 03, 2025 3:16pm Obesity July 03, 2025 3:16pm Obstructive sleep apnea July 03, 2 025 3:16pm Primary hypertension July 03, 2025 3:16pm Proteinuria July 03, 2025 3:16pm Type 2 diabetes mellitus with hyperglyce kimo July 03, 2025 3:16pm Additional Source Comments REASON FOR VISIT (unrecogniz [...] section and content) DATE CREATED AUTHOR 02/10/2023 [facility] DATE CREATED AUTHOR AUTHOR'S ORGANIZ ATION 03/02/2023 [facility] [employer] Sales Representative DATE CREATED AUTHOR AUTHOR'S ORGANIZ ATION 11/05/2023 [facility] EPIC DATE CREATED AUTHOR AUTHOR'S ORGANIZ ATION 06/08/2024 [facility] DATE CREATED AUTHOR AUTHOR'S ORGANIZ ATION 04/18/2025 [facility] Care Teams (unrecognized sec tion and content) Team Status: Active Member Role Status Dates Albaro Grimaldo DO Primary Care Provider Active Team Status: Inactive Member Role Status Dates Albaro Grimaldo DO Primary Care Provide r, Attending Provider Active Start: December 26, 2023 End: December 26, 2023 Team Status: Active Member Role Status Timmy Grimaldo DO Primary Care Provider Active Start: December 28, 2023 Tsering Graham ProviderActiveStart: December 28, 2023 Team Status: Inactive Member Role Status Timmy Grimaldo DO Primary Care Provide r, Attending Provider Active Start: March 02, 2024 End: March 02, 2024 Team Status: Active Member Role Status Timmy Grimaldo DO Primary Care Provide r, Attending Provider Active Start: March 16, 2024 Team Status: Inactive Member Role Status Timmy Grimaldo DO Primary Care Provide r, Attending Provider Active Start: May 02, 2024 End: May 02, 2024 Team Status: Inactive Member Role Status iTmmy Grimaldo DO Primary Care Provide r, Attending Provider Active Start: July 09, 2024 End: July 09, 2024 Team Status: Inactive Member Role Status Timmy Grimaldo DO Primary Care Provide r, Attending Provider Active Start: August 09, 2024 End: August 09, 2024 Team Status: Inactive Member Role Status Timmy Grimaldo DO Primary Care Provide r, Attending Provider Active Start: January 24, 2025 End: January 24, 2025 Team Status: Inactive Member Role Status Dates Albaro Grimaldo DO Primary Care Provide r, Attending Provider Active Start: March 06, 2025 End: March 06, 2025 Team Status: Inactive Member Role Status Dates Albaro Grimaldo DO Primary Care Provider Active Start: July 03, 2025 End: July 03enjaverona Grimaldo DOAttending ProviderActiveStart: July 03, 2025 End: July 03, 2025 Goals (unrecognized section and content) Goals [...] BE BASED ON THE PRIMARY CLINICAL RECORDS. [employer] provides no warranty or guarantee of the accuracy or completeness of information in this document.
--- OUTSIDE RECORDS SUMMARY | 2025-09-17 07:22 | XMS_ITS | Clinical Summary ---
Author Organization [employer] [facility] tem Address [facility] [address] 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 Name Role Phone No Pcp, No Pcp Primary Care Provider Unavailabl e Medications No known medications Immunizations ImmunizationAdministration DatesNext AdpYthz26/13/2021 Social History Tobacco UseTypesPacks/DayYears UsedDateSmoking Tobacco: NeverSmokeless Tobacco: NeverAlcohol UseStandard Drinks/WeekCommentsYes0 (1 standard drink = 0.6 oz pure alcohol)ChildcareAnswerDate MxjnoldsNcfsvolicErdgfkx46/12/2019EmploymentAnswer Date RbsgyvaqZyqlrenzyiOaldkjl00/12/2019Sex and Gender InformationValueDate RecordedSex Assigned at BirthNot on fileLegal VieZzzv8306/05/2015 11:27 AM EDT Gender IdentityNot on fileSexual OrientationNot on file Last Filed Vital Signs Vital SignReadingTime TakenCommentsBlood Oilymjcw507/9411 1:23 PM EST Genjr369009/12/2021 1:23 PM QHPBhwatavmqgz75.7 ??C (98.1 ??F)09/12/2021 1:23 PM ESTRespiratory Tneu253011/12/2020 1:23 PM ESTOxygen Vpjildkxan65%09/12/2021 1:23 PM ESTInhaled Oxygen Concentration--Ynifra597.3 kg (230 lb)09/12/2021 1:23 PM ZQCIoojxu974.8 cm (5' 10 )09/12/2021 1:23 PM ESTBody Mass Apodi580909/12/2021 1:23 PM EST Plan of Treatment Not on file Medical Devices Not on file Insurance Care Teams Team MemberRelationshipSpecialtyStart DateEnd Date No Pcp, No Pcp JUAN Baltazar [id number] [facility] Tqivdeii68/13/21
--- OUTSIDE RECORDS SUMMARY | 2025-09-17 07:22 | XMS_ITS | Clinical Summary ---
Author Organization [facility] Healthcare Address [address] [place] [address] Care Team Providers Care Ladle Liner Name Role Phone Albaro John DO Primary Care Provider Allergies No known active allergies Medications MedicationSigDispense QuantityRefillsLast FilledStart DateEnd DateStatus amLODIPine (Norvasc) 10 MG tablet TK 1 T PO QD Oral for 30Active hydroCHLOROthiazide (HYDRODiuril) 25 MG tablet Take 25 mg by mouth in the morning.Active terbinafine (LamISIL) 250 MG tablet TK 1 T PO QD Oral for 90Active tadalafil (Cialis) 20 MG tablet 04/11/2023ctive citalopram (CeleXA) 20 MG tablet Take 20 mg by mouth at bedtime.Active carvedilol (Coreg) 6.25 MG tablet Take 6.25 mg by mouth in the morning and 6.25 mg in the evening. Take with meals.02/26/2023ctive benazepril (Lotensin) 40 MG tablet Take 40 mg by mouth in the morning.Active meloxicam (Mobic) 15 MG tablet TAKE 1 TABLET BY MOUTH EVERY DAY FOR 15 DAYS01/31/2023ctive cloNIDine (Catapres) 0.1 MG tablet Take 0.1 mg by mouth in the morning and 0.1 mg before bedtime.04/10/2023ctive hyoscyamine (Levsin) 0.125 MG SL tablet 04/12/2023ctive methylPREDNISolone (Medrol Dospak) 4 MG tablets Indications:Right knee pain, unspecified chronicityFollow schedule on package instructions 21 tablet 06/08/2023ctive Additional Information Patient not taking.Reported on 06/22/2023 Active Problems ProblemNoted DateDiagnosed DateInternal derangement of right knee05/05/2023Other acquired deformities of right foot05/05/2023rimary aorlihuszjqbaa91/06/2023 Immunizations ImmunizationAdministration DatesNext DueInfluenza, injectable, quadrivalent 10/27/2014Influenza, seasonal, /06/2021Pfizer Purple Cap SARS-CoV-2 Heouvoiqkcr10/22/2021,03/15/2021,02/22/2021Tdap111/12/2020Zoster, Recombinant 11/29/2019,09/20/2019 Family History Medical HistoryRelationNameCommentsDiabetesFatherHypertensionFatherBrain cancer MotherCancerMotherRelationNameStatusCommentsFatherMotherDeceased Social History Tobacco UseTypesPacks/DayYears UsedDateSmoking Tobacco: FormerCigarettes Tobacco Cessation:Counseling Given: Not Answered Comments:Quit smoking 5-10 years ago. Alcohol UseStandard Drinks/WeekCommentsYes0 (1 standard drink = 0.6 oz pure alcohol)3-4 drinks, 4 or more times a week. Caffeine intake: 3-4 cups per day. Sex and Gender InformationValueDate RecordedSex Assigned at BirthNot on file Legal UjjVfxz4301/12/2023 9:45 PM EDTGender IdentityNot on fileSexual Orientation Not on file Last Filed Vital Signs Vital SignReadingTime TakenCommentsBlood Pressure--Pulse--Temperature-- Respiratory Rate--Oxygen Saturation--Inhaled Oxygen Concentration--Mzypxa241 kg (240 lb)03/23/2023 3:49 PM HZDTjjiqo946.8 cm (5' 10 )03/23/2023 3:49 PM EDTBody Mass Index34.44003/23/2023 3:49 PM EDT Plan of Treatment Not on file Insurance Care Teams Team MemberRelationshipSpecialtyStart DateEnd Date Albaro John DO PCP - GeneralInternal Medicine03/10/23
--- NOTE | 2025-09-17 07:27 | CT_ITS ---
The [address] [address] Patient Name: YANNI MAR MRN: [id number] date: 1965 Sex: M Assigned Patient Location: ER Current Patient Location: ER Accession/Order Number: [id number] Exam Date: 09/17/2025 07:30 Report Date: 09/17/2025 07:56 At the request of: NEYMAR MEDEIROS MD Procedure: CT stroke head/brain wo con CT BRAIN WITHOUT CONTRAST - stroke alert: CLINICAL HISTORY: Left-sided weakness and facial numbness COMPARISON: None TECHNIQUE: Contiguous axial unenhanced images were obtained through the brain. This CT exam was performed using one or more following dose reduction techniques: Automated exposure control, adjustment of the mA and/or kV according to patient size, or use of iterative reconstruction technique. FINDINGS: The ventricles are normal in size and position. There are no areas of abnormal attenuation. There is no hemorrhage, mass effect or extra-axial collections. The imaged paranasal sinuses and mastoid air cells are clear. CT/CT stroke head/brain wo con IMPRESSION: NO DEFINITE ACUTE INTRACRANIAL ABNORMALITY. FOLLOW-UP IS RECOMMENDED, SYMPTOMS WARRANT. Comment: Findings were discussed with Dr. Medeiros at 0755 hours Impression dictated by: Eliana Malagon M.D. 09/17/2025 7:56 AM Dictation Location: [place] [address] Electronically authenticated by: [id number] Y Date: 09/17/2025 07:56
--- NOTE | 2025-09-17 07:28 | XR_ITS ---
The [place] [id number] Patient Name: YANNI MAR MRN: [id number] date: 1965 Sex: M Assigned Patient Location: ER Current Patient Location: ER Accession/Order Number: [id number] Exam Date: 09/17/2025 07:34 Report Date: 09/17/2025 07:48 At the request of: NEYMAR MEDEIROS MD Procedure: XR chest 1V PORTABLE AP RIGHT CHEST 0718 hours CLINICAL HISTORY: Left facial numbness COMPARISON: None The heart is within normal limits. There is no vascular congestion. The lungs, as visualized, are clear. There is no effusion or pneumothorax. The osseous structures are intact. There is endplate spurring at the spine. XR/XR chest 1V IMPRESSION: NO ACUTE FINDINGS Impression dictated by: Eliana Malagon M.D. 09/17/2025 7:48 AM Dictation Location: [place] [address] Electronically authenticated by: [id number] Y Date: 09/17/2025 07:48
--- NOTE | 2025-09-17 07:28 | ECG_ITS ---
The [facility] Test Date: 2025-09-17 Pat Name: YANNI MAR Department: Room: - Gender: Male [employer] Consultant: : 1965 Requested By: 1030 Order Number: [id number] Reading MD: IRIS ECHEVERRIA M.D. Measurements Intervals [place] Rate: 68 P: 16 KS: 136 QRS: -21 QRSD: 88 T: 106 QT: 388 QTc: 406 Interpretive Statements 1100 Sinus rhythm 4068 Nonspecific Twave abnormality 7202 Moderate left axis deviation 9130 borderline ECG No previous ECG available for comparison Electronically Signed On 09-17-2025 21:32:50 EST by IRIS ECHEVERRIA M.D.
--- NOTE | 2025-09-17 07:28 | ED.GENADUL1 ---
HPI HPI - General Adult General Chief complaint: Neuro Symptoms/Deficit Stated complaint: LEFT SIDE FACIAL NUMBNESS Time Seen by Provider: 09/17/25 07:19 Source: patient and family Mode of arrival: walk-in Limitations: no limitations History of Present Illness HPI narrative: 60-year-old male presented to the emergency department for a chief complaint of left-sided facial numbness. The symptoms began about 3 AM, 4-1/2 hours ago. He developed a headache at midnight, about 7-1/2 hours ago and it was in the back of his head. He does not complain of any weakness or numbness in his arms or legs. His states he was able to walk without difficulty. He is concerned he might have had a mini stroke. Symptom has been continuous. He is supposed to take his blood pressure medicine twice a day but only takes it once a day, in the morning. Related Data Home Medications ?Medication ?Instructions ?Recorded ?Confirmed amlodipine 10 mg tablet 10 mg PO DAILY 06/25/24 09/17/25 benazepril 40 mg tablet 40 mg PO DAILY 06/25/24 09/17/25 citalopram 20 mg tablet 20 mg PO BEDTIME 06/25/24 09/17/25 clonidine HCl 0.1 mg tablet 0.1 mg PO BID 06/25/24 09/17/25 atenolol 50 mg-chlorthalidone 25 See Rx Instructions PO DAILY 09/17/25 09/17/25 mg tablet glyburide 2.5 mg-metformin 500 mg 1 tab PO DAILY 09/17/25 09/17/25 tablet insulin glargine 100 unit/mL (3 10 unit subcut DAILY 09/17/25 09/17/25 mL) subcutaneous pen (Lantus Solostar U-100 Insulin) Allergies Allergy/AdvReac Type Severity Reaction Status Date / Time No Known Drug Allergies Allergy Verified 09/17/25 07:18 Review of Systems ROS Narrative A ten point review of systems is negative except as noted above. PFSH PFSH Social History Little interest or pleasure in doing things: not at all Feeling down, depressed, or hopeless: not at all Exam Narrative Exam Narrative: Nurses note and vital signs reviewed General:The patient appears well and in no apparent distress.Patient is resting comfortably on cart. Skin:Warm, dry, no pallor noted.There is no rash noted. Head:Normocephalic, atraumatic Eye: Normal conjunctiva, no drainage, EOMI. PERRL Ears, Nose, Mouth, and Throat: oral mucosa is moist. Nares patent. Cardiovascular:Regular Rate and Rhythm Respiratory:Patient is in no distress, no accessory muscle use, lungs are clear to auscultation, no wheezing, rales or rhonchi Back:non-tender GI: Soft and nontender Musculoskeletal: The patient has no evidence of calf tenderness, no pitting edema, symmetrical pulses noted bilaterally Neurological:A&O x4, normal speech; he has slight left-sided facial droop. Otherwise, cranial nerves II through XII are intact. Upper and lower extremity strength 5 out of 5 and symmetric. Psychiatric:Cooperative Constitutional Vital Signs, click to edit/add: Last Vital Signs Temp 98.1 F 09/17/25 07:13 Pulse 65 09/17/25 08:51 Resp 12 09/17/25 08:51 BP 186/120 H 09/17/25 08:57 Pulse Ox 96 09/17/25 08:51 O2 Del Method Room Air 09/17/25 07:13 Course Vital Signs Vital signs: Vital Signs Temperature 98.1 F 09/17/25 07:13 Pulse Rate 71 09/17/25 07:13 Respiratory Rate 18 09/17/25 07:13 Blood Pressure 198/116 H 09/17/25 07:13 Pulse Oximetry 97 09/17/25 07:13 Oxygen Delivery Method Room Air 09/17/25 07:13 Temperature 98.1 F 09/17/25 07:13 Pulse Rate 65 09/17/25 08:51 Respiratory Rate 12 09/17/25 08:51 Blood Pressure 186/120 H 09/17/25 08:57 Pulse Oximetry 96 09/17/25 08:51 Oxygen Delivery Method Room Air 09/17/25 07:13 Medical Decision Making MDM Narrative Medical decision making narrative: NIH score upon presentation is 1, one point for facial palsy. CT brain, CTA head, CTA neck are all negative. Case discussed with stroke team from [facility] who recommends admission to the hospital as well as giving aspirin and Plavix and an MRI. The possibility that this is Oropeza's palsy was discussed with the patient. His blood pressure has been elevated and he was given IV labetalol without much change in his blood pressure. Stroke team recommends not being aggressive with his blood pressure and they recommend permissive hypertension up to systolic blood pressure of 220. He is being admitted for observation. Differential Diagnosis Differential Diagnosis: Stroke, Oropeza's palsy Lab Data Lab results reviewed: Yes I reviewed the patient's lab results Labs: Lab Results 09/17/25 Range/Units 06:29 WBC 7.6 (4.0-11.0) 10^3/uL RBC 5.16 (4.70-6.10) 10^6/uL Hgb 15.6 (14.0-18.0) g/dL Hct 43.8 (42.0-54.0) % MCV 84.9 (80.0-94.0) fL MCH 30.2 (25.9-34.0) pg MCHC 35.6 H (29.9-35.2) g/dL RDW 12.4 (11.0-15.0) % Plt Count 227 (150-450) 10^3/uL MPV 8.9 L (9.5-13.5) fL Neut % (Auto) 67.0 (43.0-75.0) % Lymph % (Auto) 20.3 L (20.5-60.0) % Atlantic % (Auto) 8.3 (1.7-12.0) % Eos % (Auto) 3.3 (0.9-7.0) % Baso % (Auto) 0.7 (0.2-2.0) % Neut # (Auto) 5.1 (1.4-6.5) 10^3/uL Lymph # (Auto) 1.6 (1.2-3.8) 10^3/uL Atlantic # (Auto) 0.6 (0.3-0.8) 10^3/uL Eos # (Auto) 0.3 (0.0-0.7) 10^3/uL Baso # (Auto) 0.1 (0.0-0.1) 10^3/uL Abs Immat Gran (auto) 0.03 (0.00-0.03) 10^3/uL Imm/Tot Granulo (auto) 0.4 (0.0-0.5) % PT 10.6 (9.0-11.6) sec INR 1.00 APTT 27.6 (22.3-36.2) sec Sodium 142 (136-145) mmol/L Potassium 3.6 (3.5-5.1) mmol/L Chloride 104 (98-107) mmol/L Carbon Dioxide 28.6 (21.0-32.0) mmol/L Anion Gap 13.0 BUN 21.0 H (7.0-18.0) mg/dL Creatinine 1.69 H (0.70-1.30) mg/dL Est GFR ( Amer) 51 L (>=60 mL/min/1.73m^2) Est GFR (Non-Af Amer) 42 L (>=60 mL/min/1.73m^2) BUN/Creatinine Ratio 12.4 Glucose 153 H (74-106) mg/dL Calcium 9.0 (8.5-10.1) mg/dL Imaging Data CT scan - head: Radiologist's impression: ITS Impressions Brain CT 09/17/25 07:27 IMPRESSION: NO DEFINITE ACUTE INTRACRANIAL ABNORMALITY. FOLLOW-UP IS RECOMMENDED, SYMPTOMS WARRANT. Comment: Findings were discussed with Dr. Maza at 0755 hours Impression dictated by: Eliana Malagon M.D. 09/17/2025 7:56 AM Dictation Location: [facility] Electronically authenticated by: [id number] Y Date: 09/17/2025 07:56 Chest X-Ray 09/17/25 07:28 IMPRESSION: NO ACUTE FINDINGS Impression dictated by: Eliana Malagon M.D. 09/17/2025 7:48 AM Dictation Location: [facility] Electronically authenticated by: [id number] Y Date: 09/17/2025 07:48 Head CTA 09/17/25 07:51 IMPRESSION: NO SIGNIFICANT VASCULAR FINDINGS. Impression dictated by: Eliana Malagon M.D. 09/17/2025 9:29 AM Dictation Location: [facility] Electronically authenticated by: [id number] Y Date: 09/17/2025 09:29 Neck CTA 09/17/25 07:51 IMPRESSION: NO SIGNIFICANT VASCULAR FINDINGS. Impression dictated by: Eliana Malagon M.D. 09/17/2025 9:29 AM Dictation Location: [facility] Electronically authenticated by: [id number] Y Date: 09/17/2025 09:29 ECG Data Attestation: I personally reviewed and interpreted this ECG as follows: (EKG on my interpretation shows sinus rhythm with rate of 68 and no acute change) Discharge Plan Discharge Chief Complaint: Neuro Symptoms/Deficit Clinical Impression: Weakness on left side of face Patient Disposition: Admitted as Observation Time of Disposition Decision: 09:53 Condition: Good
[2025-09-17 07:39] LABS: Hematocrit 43.8 % (42.0-54.0); Hemoglobin 15.6 g/dL (14.0-18.0); Immature Granulocytes Abs Auto 0.03 10^3/uL (0.00-0.03); Immature Granulocytes Pct Auto 0.4 % (0.0-0.5); Lymphocytes Absolute Auto 1.6 10^3/uL (1.2-3.8); Mean Corpuscular HGB Conc 35.6 g/dL (29.9-35.2); Mean Corpuscular Hemoglobin 30.2 pg (25.9-34.0); Mean Corpuscular Volume 84.9 fL (80.0-94.0); Platelet Count 227 10^3/uL (150-450); Red Blood Count 5.16 10^6/uL (4.70-6.10); White Blood Count 7.6 10^3/uL (4.0-11.0)
[2025-09-17 07:46] LABS: Anion Gap 13.0; Blood Urea Nitrogen 21.0 mg/dL (7.0-18.0); Calcium 9.0 mg/dL (8.5-10.1); Carbon Dioxide 28.6 mmol/L (21.0-32.0); Chloride 104 mmol/L (98-107); Estimated GFR (African America 51 (>=60 mL/min/1.73m^2); Estimated GFR (Non-African Ame 42 (>=60 mL/min/1.73m^2); Glucose 153 mg/dL (74-106); Potassium 3.6 mmol/L (3.5-5.1); Sodium 142 mmol/L (136-145)
--- NOTE | 2025-09-17 07:51 | CT_ITS ---
The [address] [address] Patient Name: YANNI MAR MRN: [id number] date: 1965 Sex: M Assigned Patient Location: ED.MAIN Current Patient Location: ED.MAIN Accession/Order Number: [id number] Exam Date: 09/17/2025 08:23 Report Date: 09/17/2025 09:29 At the request of: NEYMAR MEDEIROS MD Procedure: CT angio neck CTA OF THE HEAD AND NECK WITH CONTRAST COMPARISON: None CLINICAL DATA: Left-sided weakness and facial numbness. Spiral images were obtained through the head and neck following 100 mL of Omnipaque 350. Sagittal and coronal MIP as well as 3-D volume rendered reconstructions of carotid arteries and [place] were reviewed. Stenosis is evaluated using NASCET criteria. This CT exam was performed using one or more following dose reduction techniques: Automated exposure control, adjustment of the mA and/or kV according to patient size, or use of iterative reconstruction technique. The aortic arch and proximal great vessels show no significant findings. There are patent vertebral arteries, without stenosis or dissection. No carotid artery plaque or luminal narrowing is seen. There are small shotty cervical lymph nodes. Mild degenerative changes are visualized at the cervical spine. The upper imaged lungs show no contributory findings. The distal vertebral, basilar and posterior cerebral arteries show no significant findings. No carotid siphon plaque or luminal narrowing is identified. The anterior and middle cerebral arteries are patent. No focal stenosis or suspected thrombosis is seen. No definite aneurysms are identified. CT/CT angio head IMPRESSION: NO SIGNIFICANT VASCULAR FINDINGS. Impression dictated by: Eliana Malagon M.D. 09/17/2025 9:29 AM Dictation Location: [place] [address] Electronically authenticated by: [id number] Y Date: 09/17/2025 09:29
--- NOTE | 2025-09-17 07:51 | CT_ITS ---
The [address] [address] Patient Name: YANNI MAR MRN: [id number] date: 1965 Sex: M Assigned Patient Location: ED.MAIN Current Patient Location: ED.MAIN Accession/Order Number: [id number] Exam Date: 09/17/2025 08:23 Report Date: 09/17/2025 09:29 At the request of: NEYMAR MEDEIROS MD Procedure: CT angio neck CTA OF THE HEAD AND NECK WITH CONTRAST COMPARISON: None CLINICAL DATA: Left-sided weakness and facial numbness. Spiral images were obtained through the head and neck following 100 mL of Omnipaque 350. Sagittal and coronal MIP as well as 3-D volume rendered reconstructions of carotid arteries and [place] were reviewed. Stenosis is evaluated using NASCET criteria. This CT exam was performed using one or more following dose reduction techniques: Automated exposure control, adjustment of the mA and/or kV according to patient size, or use of iterative reconstruction technique. The aortic arch and proximal great vessels show no significant findings. There are patent vertebral arteries, without stenosis or dissection. No carotid artery plaque or luminal narrowing is seen. There are small shotty cervical lymph nodes. Mild degenerative changes are visualized at the cervical spine. The upper imaged lungs show no contributory findings. The distal vertebral, basilar and posterior cerebral arteries show no significant findings. No carotid siphon plaque or luminal narrowing is identified. The anterior and middle cerebral arteries are patent. No focal stenosis or suspected thrombosis is seen. No definite aneurysms are identified. CT/CT angio neck IMPRESSION: NO SIGNIFICANT VASCULAR FINDINGS. Impression dictated by: Eliana Malagon M.D. 09/17/2025 9:29 AM Dictation Location: [place] [address] Electronically authenticated by: [id number] Y Date: 09/17/2025 09:29
[2025-09-17 07:55] LABS: INR 1.00; Partial Thromboplastin Time 27.6 sec (22.3-36.2); Prothrombin Time 10.6 sec (9.0-11.6)
[2025-09-17] MEDS: LABETALOL HCL 20 MG/4 ML SYRINGE 10 MG IVP ×2 (08:05→09:03)
[2025-09-17] MEDS: CLOPIDOGREL BISULFATE 75 MG TABLET 300 MG PO (10:04)
[2025-09-17] MEDS: ASPIRIN 81 MG TAB.CHEW 324 MG PO (10:05)
--- OUTSIDE RECORDS SUMMARY | 2025-09-17 11:55 | XMS_ITS | CCD ---
Author Organization [facility] CliniSymt Care Team Providers Care Information Systems Security Developer Name Role Phone Albaro Grimaldo Unavailable MARKER [...] Care Provider Albaro Grimaldo DO Attending Provider Allergies Allergy ClassificationReported Allergen(s)Allergy TypeDate of OnsetReaction(s) Facility (15 sources)PenicillinDrug AllergyUnknowFireEyemissouri baptist [facility] Other (16 sources)Penicillin VDrug Klxfmkl01-43-1280Yzkbwcq, Unknown ReactionAvita Health System [facility] (7 sources)PenicillinsAllergy to -[phone] ReactionAvita Health System [facility] (2 sources)No Known Medication Allergies; Translations: [No Known Medication Allergies]Propensity to adverse reactions (disorder)[facility] Repository Medications Current Medications MedicationDrug Class(es)DatesSig (Normalized)Sig (Original)acetaminophen 325 mg / oxyCODONE hydrochloride 5 mg oral tablet (1 source)Opioid AgonistStart: 06-14-2024 End: 81-11-0452Yuhvzkub 5 mg-325 mg oral tablet 1 tab(s), Oral, q6hr for 2 day(s), 7 tab(s), Refill(s) 0, [id number], 177, cm, 06/14/24 11:35:00 EDT, Height/Length Dosing, 112, kg, 06/14/24 11:35:00 EDT, Weight Dosing Start Date: 06/14/24 Stop Date: 06/16/24 Status: OrderedamLODIPine 5 mg oral tablet (20 sources)Dihydropyridine Calcium Channel BlockerStart: 71-47-8685evax 1 tablet by mouth once dailyAmlodipine 5 mg tablet Active 5 MG PO Daily 90 90 February 04, 2025 4:01pm Complies with drug therapyStart: 25-54-5724kutq 1 tablet by mouth once dailyamLODIPine 10 mg Tab 10 mg = 1 tab(s), Oral, Daily, High blood pressure Start Date: 03/28/24 Status:Ordered Repeat number: 1Start: 12-28-2023 End: 20-91-0245tdcf 5 mg by mouth once dailyAmlodipine 10 mg tablet Discontinued 5 MG PO Daily December 28, 2023 9:08pm February 04, 2025 4:01pmStart: 12-28-2023 take 5 mg by mouth once dailyAmlodipine Active 5 MG PO Daily December 28, 2023 9:08pmStart: 12-28-2023 End: 11-11-5257rlkt 1 tablet by mouth once dailyAmlodipine 10 mg tablet Discontinued 10 MG PO Daily December 28, 2023 1:00am December 28, 2023 9 :09pmStart: 12-23-2023 End: 04-08-4201wizu 1 tablet by mouth once dailyAmlodipine 5 [...] oral tablet (3 sources)Thiazide-like Diuretic, beta-Adrenergic BlockerStart: 30-74-7980cppq 0.5 tablet by mouth once dailyAtenolol-Chlorthalidone 50-25 mg tablet Active 0 PO Daily 45 90 October 17, 2024 1:00am 1/2 orally daily; Complies with drug therapybenazepril hydrochloride 40 mg oral tablet (20 sources)Angiotensin Converting Enzyme InhibitorStart: 04-01-2024 End: 64-32-9926gczt 1 tablet by mouth once dailyBenazepril 40 mg tablet Active 0 .ROUTE .COMPLEX 90 May 13, 2025 8:38am TAKE 1 TABLET BY MOUTH EVERY DAY Complies with drug therapyStart: 12-23-2023 End: 88-87-8253vmch 1 tablet by mouth once dailyBenazepril 40 mg tablet Discontinued 40 MG PO Daily December 23, 2023 1:00am April 01, 2024 4:06pmtake 1 tablet by mouth every twenty-four hoursBenazepril HCl 40 MG 1 tablet Orally Once a day ActiveBlood-Glucose Meter (Onetouch Ultra2 Meter) [facility] [place] (6 sources)Start: 36-80-3313Aymgt-Glucose Meter (Onetouch Ultra2 Meter) [facility] [place] Active 0 .ROUTE .MEDSUPPLY January 24, 2025 11:02am Use to test home BSStart: 01-24-2025 End: 25-74-7873Dzlip-Glucose Meter (Onetouch Ultra2 Meter) [facility] [place] Discontinued 0 .ROUTE .MEDSUPPLY January 24, 2025 12:00am January 24, 2025 11:03am Use to test home BScarvedilol 12.5 mg oral tablet (15 sources)alpha-Adrenergic Alejandro, beta-Adrenergic BlockerStart: 03-28-2024 take 1 tablet by mouth twice dailyCoreg 12.5 mg Tab 12.5 mg = 1 tab(s), Oral, BID, High blood pressure Start Date: 03/28/24 Status: Ordered Repeat number: 1 Start: 82-21-3225ggsx 1 tablet by mouth every twelve hoursCarvedilol 12.5 MG 1 tablet with food Orally Twice a day for 90 days Oct, ActiveStart: 61-91-1095ndri 1 tablet by mouth every twelve hoursCarvedilol 6.25 MG 1 tablet with food Orally Twice a day for 30 days Oct, Activetake 1 tablet by mouth twice daily at mealtimeCarvedilol 6.25 TAKE 1 TABLET BY MOUTH TWICE DAILY WITH FOOD for 90 Activeciprofloxacin 500 mg oral tablet (1 source)Quinolone AntimicrobialStart: 06-14-2024 End: 56-21-7698ecbc 1 tablet by mouth twice dailyCipro 500 mg Tab 500 mg = 1 tab(s), Oral, BID, X 3 day(s), # 6 tab(s), Refills(s) 0, Pharmacy: [facility] #[id number], 177, cm, 06/14/24 11:35:00 EDT, Height/Length Dosing, 112, kg, 06/14/24 11:35:00 EDT, Weight Dosing Start Date: 06/14/24 Stop Date: 06/17/24 Status: Orderedcitalopram 20 mg oral tablet (20 sources)Serotonin Reuptake InhibitorStart: 98-79-1104ppop 1 tablet by mouth once dailycitalopram 20 mg Tab 20 mg = 1 tab(s), Oral, Daily, Depression Start Date: 03/28/24 Status: Ordered Repeat number: 1Start: 03-19-2024 End: 44-86-4078bsgy 1 tablet by mouth at bedtimeCitalopram 20 mg tablet Active 0 .ROUTE .COMPLEX March 28, 2025 7:23am TAKE 1 TABLET BY MOUTH ATBEDTIME Complies with drug therapyStart: 29-60-7353xcxs 1 tablet by mouth at bedtime Citalopram Active 0 .ROUTE .COMPLEX March 19, 2024 1:04pm TAKE 1 TABLET BY MOUTH AT BEDTIMEStart: 12-23-2023 End: 30-00-0193holw 1 tablet by mouth once daily at bedtimeCitalopram 20 mg tablet Discontinued 20 MG PO Daily at bedtime December 23, 2023 1:00am February 1:04pmtake 1 tablet by mouth at bedtimeCitalopram Hydrobromide 20 MG TAKE 1 TABLET BY MOUTH AT BEDTIME ActivecloNIDine hydrochloride 0.1 mg oral tablet (20 sources)Central alpha-2 Adrenergic AgonistStart: 61-57-2606xznm 1 tablet by mouth twice dailyClonidine Hcl 0.1 mg tablet Active 0 .ROUTE .COMPLEX 60 June 25, 2024 9:26pm TAKE 1 TABLET BY MOUTH TWICE DAILY Complies with drug therapy Start: 89-08-4356bmsf 1 tablet by mouth twice dailyClonidine Hcl Active 0 .ROUTE .COMPLEX 60 June 25, 2024 9:26pm TAKE 1 TABLET BY MOUTH TWICE DAILYStart: 12-23-2023 End: 31-28-6980cmil 1 tablet by mouth twice dailyClonidine Hcl [...] oral tablet (5 sources)Biguanide, SulfonylureaStart: 01-25-2025 End: 03-83-9836dzty 1 tablet by mouth once daily 30 minutes before breakfast Glyburide-Metformin 2.5-500 mg tablet Active 0 .ROUTE .COMPLEX April 24, 2025 6:54am TAKE 1 TABLET BY MOUTH DAILY 30 MINUTES BEFORE BREAKFAST Complies with drug therapyStart: 01-25-2025 End: 24-47-3740Pqrimakpw-Metformin 2.5-500 mg tablet Discontinued 1 TAB PO Daily January 25, 2025 12:00am January 25, 2025 4:37pm Take 30 minutes prior to bkfsthalobetasol propionate 0.0005 mg/mg topical ointment (7 sources)CorticosteroidHalobetasol Propionate 0.05 % APPLY TO AFFECTED RASH AREA(S) TWO TIMES A DAY NEEDED for 30 ActivehydroCHLOROthiazide 25 mg oral tablet (20 sources)Thiazide DiureticStart: 51-00-2124dufghtulnyozfellzdq 25 mg Tab 25 mg = 1 tab(s) Start Date: 03/28/24 Status: OrderedStart: 12-23-2023 End: 29-98-9480pqfl 1 tablet by mouth once dailyHydrochlorothiazide 25 mg tablet Discontinued 25 MG PO Daily December 23, 2023 1:00am December 28, 2023 9:09pmtake 1 tablet by mouth once dailyhydroCHLOROthiazide 25 MG TAKE 1 TABLET BY MOUTH DAILY Active3 ml insulin glargine 100 unt/ml pen injector (7 sources)Insulin AnalogStart: 10-61-7605Mhagvmq Glargine (Lantus Solostar U- 100 Insulin) 100 unit/mL (3 mL) insulin pen Active 12 UNIT SUBCUT Every evening July 03, 2025 3:56pm Complies with drug therapyStart: 01-24-2025 End: 31-34-4570hpjfbk 10 [IU] by subcutaneous injection once daily in the eveningInsulin Glargine (Lantus Solostar U-100 Insulin) 100 unit/mL (3 mL) insulin pen Discontinued 10 UNIT SUBCUT Every evening 01 27January 24, 2025 11:02am July 03, 2025 3:57pmmeloxicam 15 mg oral tablet (2 sources)Nonsteroidal Anti-inflammatory DrugStart: 37-23-2657gdnw 1 tablet by mouth every twenty-four hoursMeloxicam 15 MG 1 tablet Orally Once a day for 15 days Jan, Activemiconazole nitrate 0.02 mg/mg topical powder (5 sources)Azole AntifungalStart: 78-48-2051Vzfkveabjd Nitrate (Lotrimin Af) 2 % powder Active 1 APPLIC TOPICAL Twice daily 85 May 02, 2024 12:00am Complies with drug therapypredniSONE 20 mg oral tablet (8 sources)Start: 88-55-9867Uepgwgiuwz 20 mg tablet Active 20 MG PO As Directed 10 06June 28, 2025 12:00am 1 tab tid w/ food x 1 days, then bid w/ food x 3 days, then qd w/ food x 3 days Complies with drug therapyStart: 08-16-2024 End: 23-33-4680sbpg 1 tablet by mouth twice dailyPrednisone 20 mg tablet Discontinued 20 MG PO Twice daily 08 04August 16, 2024 8:22pm March 06, 2025 3:29pmStart: 08-07-2024 End: 65-04-2210Bmxpxxdhhy 20 mg tablet Discontinued 20 MG PO As Directed 03 04August 07, 2024 12:00am August 16, 2024 8:22pm 1 tab tid w/ food x 3 days, then bid w/ food x 3 days, then qd w/ food x 3 dayssildenafil 100 mg oral tablet (6 sources)Phosphodiesterase 5 InhibitorStart: 10-17-2024 End: 72-22-7641Ykivnhjkfm 100 mg tablet Active 100 MG PO Daily as needed for sexual activity October 17, 2024 5:04pm administer 30 minutes to 4 hours before activity Complies with drug therapyspironolactone 25 mg oral tablet (20 sources)Aldosterone AntagonistStart: 93-25-7901mnvz 1 tablet by mouth once dailySpironolactone 25 mg tablet Active 0 .ROUTE .COMPLEX May 21, 2024 7:23am TAKE 1 TABLET BY MOUTH EVERY DAY Complies with drug therapyStart: 46-32-3194fpke 1 tablet by mouth once dailySpironolactone Active 0 .ROUTE .COMPLEX May 21, 2024 7:23am TAKE 1 TABLET BY MOUTH EVERY DAYStart: 12-28-2023 End: 54-60-8308veus 1 tablet by mouth once dailySpironolactone 25 mg tablet Discontinued 25 MG PO Daily December 28, 2023 1:00am May 21, 2024 7:23am Start: 70-31-8834uyzl 1 tablet by mouth every twenty-four hoursSpironolactone 25 MG 1 tablet Orally Once a day for 30 days Oct, ActivetiZANidine 4 mg oral tablet (12 sources)Central alpha-2 Adrenergic AgonistStart: 08-16-8719xuwz 0.5-1 tablets by mouth twice daily as needed for muscle spasmsTizanidine 4 mg tablet Active 0 .ROUTE .COMPLEX June 07, 2025 7:43am TAKE 1/2 TO 1 TABLET BY M OUTH TWICE DAILY FOR 14 DAYS NEEDED FOR MUSCLE SPASMS Complies with drug therapyStart: 03-06-2025 End: 64-19-8109dcpq 0.5-1 tablets by mouth twice daily as neededTizanidine 4 mg tablet Discontinued 0 PO Twice daily as needed for muscle spasticity February 12:00am June 07, 2025 7:44am 1/2 to 1 tablet orally twice daily PRN; Start: 08-07-2024 End: 91-37-8459fgwn 1 capsule by mouth once daily at bedtime as neededTizanidine 4 mg capsule Discontinued 4 MG PO Daily at bedtime as needed for muscle spasticity 10 10Apr2024 1:12pm March 06, 2025 4:20pm Completed/Discontinued Medications MedicationDrug Class(es)DatesSig (Normalized)Sig (Original)betamethasone 0.5 mg/ml / clotrimazole 10 mg/ml topical cream (5 sources)Azole Antifungal, CorticosteroidStart: 05-02-2024 End: 81-77-5370Godpvuzfnojh-Betamethasone 1-0.05 % cream Discontinued 1 APPLIC TOPICAL Bedtime 45 May 02, 2024 12:00am March 06, 2025 3:29pmcephalexin 500 mg oral capsule (2 sources)Cephalosporin AntibacterialStart: 51-75-3536Xmaats 500 mg Cap 500 mg = 1 cap(s), Oral, As Directed, Pt to take 1 tab the day before procedure and the 2nd tab the day of procedure once completed., # 2 cap(s), Refills(s) 0, Pharmacy: [facility] #[id number], 179, cm, 03/28/24 15:13:00 EDT, Height/Length Dosing, 110, kg, 03/28/24 15:13:00 EDT, Weight Dosing Start Date: 03/28/24 Status: Orderedcitric acid 75 mg/ml / magnesium oxide 21.9 mg/ml / picosulfate sodium 0.0625 mg/ml oral solution (15 sources)Calculi Dissolution Agent, Anti-coagulantStart: 09-30-5382xesa 160 mL by mouth in the evening, then take 160 mL by mouth twice daily in the evening Clenpiq 10-3.5-12 MG-GM -GM/160ML 160 ML AT 3:00 PM AND 160 ML AT 9:00 PM Orally TWICE A DAY for 1 days PLEASE CHECK ALLERGIES Dec, Not-Taking/PRN hydrALAZINE hydrochloride 10 mg oral tablet (14 sources)Arteriolar VasodilatorStart: 12-13-2023 End: 80-49-8807aeob 1 tablet by mouth three times dailyHydralazine 10 mg tablet Discontinued 10 MG PO Three times daily 90 December 14, 2023 2:24pm December 23, 2023 3:46pmhyoscyamine sulfate 0.125 mg sublingual tablet (20 sources)Start: 12-23-2023 End: 43-45-8563dddp 1 tablet under the tongue three times dailyHyoscyamine Sulfate 0.125 mg tablet, sublingual Discontinued 0.125 MG SUBLINGUAL Three times daily December 23, 2023 1:00am March 06, 2025 3:35pmHyoscyamine Sulfate 0.125 MG DISSOLVE 1 TABLET UNDER THE TONGUE THREE TIMES DAILY NEEDED for 90 Active linagliptin 2.5 mg / metFORMIN hydrochloride 500 mg oral tablet (6 sources)Biguanide, Dipeptidyl Peptidase 4 InhibitorStart: 01-24-2025 End: 75-48-6381hoeq 1 tablet by mouth twice dailyLinagliptin-Metformin ([facility]) 2.5-500 mg tablet Discontinued 1 TAB PO Twice daily 60 December 302024 11:03am January 25, 2025 3:52pmtadalafil 10 mg oral tablet (20 sources)Phosphodiesterase 5 InhibitorStart: 12-23-2023 End: 98-84-6286ouas 1 tablet by mouth once daily as [...] sources)Chronic kidney disease; Translations: [Chronic kidney disease, unspecified]70-73-7878IjsevhsTxhulfwo mellitus with complications (6 sources)Hyperglycemia due to type 2 diabetes mellitus; Translations: [Type 2 diabetes mellitus with hyperglycemia]99-70-5930EprbrfiGnacqtep mellitus without complication (4 sources)Hyperglycemia; Translations: [Hyperglycemia, unspecified]01-24-2025 EpisodicDisorders of lipid metabolism (20 sources)Hypercholesterolemia; Translations: [Pure hypercholesterolemia, unspecified]ChronicEssential hypertension (20 sources)Hypertensive disorder; Translations: [Essential (primary) hypertension]Onset: 96-58-2908TcgqjehEgkkmtpltefpt symptoms and ill-defined conditions (6 sources)Urge incontinence; Translations: [Urge incontinence of urine]Onset: 99-18-0461BoyvphvZswetnziwfpyk symptoms and ill-defined conditions (20 sources)Proteinuria; Translations: [Proteinuria, unspecified]12-28-2023 EpisodicHyperplasia of prostate (8 sources)Benign prostatic hypertrophy with outflow obstruction; Translations: [Benign prostatic hyperplasia with lower urinary tract symptoms]Onset: 72-29-1151TqevgvkDqniq disorders and dislocations; trauma-related (10 sources)Derangement of right knee; Translations: [Unspecified internal derangement of right knee]ChronicMiscellaneous mental health disorders (8 sources)Psychogenic headache; 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]64-18-7251KywribrGwnj disorders (20 sources)Recurrent major depression in full remission; Translations: [Major depressive disorder, recurrent, in full remission]ChronicMycoses (1 source)Tinea cruris; Translations: [Dermatophytosis of groin and perianal area]03-60-1983JutgpfrfCvtho acquired deformities (15 sources)Acquired spondylolisthesis; Translations: [Spondylolysis, lumbar region]EpisodicOther acquired deformities (1 source)Spondylolysis, lumbar regionEpisodicOther acquired deformities (6 sources)Whvohmqovrpud13-59-3378JctxrawdCzpze bone disease and musculoskeletal deformities (1 source)Chondromalacia, unspecified siteEpisodicOther diseases of bladder and urethra (3 sources)Mass of urinary bladder; Translations: [Other specified disorders of bladder]23-53-2526UfmvykaYevpt diseases of bladder and urethra (1 source)Other specified disorders of bladder; Translations: [Other specified disorders of bladder]41-79-2743FefnwfdOmoss diseases of kidney and ureters (1 source)Acquired renal cyst without neoplastic change; Translations: [Cyst of kidney, acquired]Onset: 11-63-3509PyuudhtgYxwrw diseases of kidney and ureters (6 sources)Cyst of tbxcoh53-40-7341DbmcvhloKntxq diseases of veins and lymphatics (20 sources)Peripheral venous insufficiency; Translations: [Venous insufficiency (chronic) (peripheral)]05-44-9256TuzzprvxZkrxd diseases of veins and lymphatics (11 sources)Venous [...] sources)Male erectile dysfunction, unspecified; Translations: [Erectile dysfunction]Onset: 74-06-5680HvbwoqwAdvak male genital disorders (6 sources)Erectile dysfunction co-occurrent and due to arterial insufficiency 85-49-5969RlrcydrKjkbr nervous system disorders (2 sources)Chronic pain; Translations: [Other chronic pain]ChronicOther nervous system disorders (1 source)Other chronic painChronicOther non-traumatic joint disorders (15 sources)Arthralgia of the lower leg; Translations: [Pain in right knee] EpisodicOther nutritional; endocrine; and metabolic disorders (17 sources)Obesity; Translations: [Other obesity due to excess calories] 79-69-7060EzbwsswLeshy nutritional; endocrine; and metabolic disorders (20 sources)Body mass index 30+ - obesity; Translations: [Body mass index (BMI) 34.0-34.9, adult]93-45-7616SexryatWrpei nutritional; endocrine; and metabolic disorders (3 sources)Other obesity due to excess caloriesChronicOther nutritional; endocrine; and metabolic disorders (3 sources)Body mass index (BMI) 34.0-34.9, adultChronicOther nutritional; endocrine; and metabolic disorders (10 sources)Obesity caused by energy imbalance; Translations: [Other obesity due to excess calories]14-42-3999ObscimbDpong nutritional; endocrine; and metabolic disorders (3 sources)Obesity, unspecified; Translations: [Obesity, unspecified]01-24-2025 ChronicOther screening for suspected conditions (not mental disorders or infectious disease) (6 sources)Imaging result abnormal; Translations: [Abnormal findings on diagnostic imaging of other specified body structures]Onset: 58-50-1791Lllppdf Other screening for suspected conditions (not mental disorders or infectious disease) (7 sources)Encounter for screening for malignant neoplasm of prostate; Translations: [Screening for malignant neoplasms of prostate]Onset: 03-28-2024 93-91-3500EnzugrjvFzfqxkj on above:PSA: 1.81 - SA: 1.81 - 02/2024, 2.12 - 02/2025Poisoning by nonmedicinal substances (1 source)Toxic effect of unspecified spider venom, accidental (unintentional), initial encounter; Translations: [Toxic effect of venom]57-44-0505Vnifvpsx Residual codes; unclassified (20 sources)Obstructive sleep apnea syndrome; Translations: [Obstructive sleep apnea (adult) (pediatric)]77-20-7168JyuilgfDuulneco codes; unclassified (6 sources)Obstructive sleep apnea (adult) (pediatric); Translations: [Obstructive sleep apnea (adult)(pediatric)]ChronicSpondylosis; intervertebral disc disorders; other back problems (3 sources)Lumbar spondylosis; Translations: [Spondylosis without myelopathy or radiculopathy, lumbar region]97-26-4205AidcxypLebssuknzaa; intervertebral disc disorders; other back problems (9 sources)Low back pain; Translations: [Low back pain]Onset: 42-89-3702Nycvxcyr Past or Other Problems Problem ClassificationProblemDateDocumented DateEpisodic/ChronicOther aftercare (1 source)Other chcf (current) drug therapy; Translations: [OTH TELECOM MANAGER CURRENT DRUG THERAPY]Onset: 70-41-7420PhhueklgOiswg non-traumatic joint disorders (5 sources)Pain in right knee; Translations: [PAIN IN RIGHT KNEE]Onset: 58-57-0315YzexvsjpDshprres codes; unclassified (4 sources)Past history of procedure; Translations: [Other specified postprocedural states]Onset: 872462-82-3870NxyerjbtEwymvyy on above: ureteroscopy, ESWLUnclassified (1 source)Resistant hypertension I1A.0 Results Test NameValueInterpretationReference RangeFacilityPatient Letter FTMCon 85-83-4721Xfxjaxe Letter FTMCPatient Letter FT April 16, 2025 YANNI MAR [address] [place] [address] : 1965 Dear Yanni , You missed [...] Sincerely, [facility] [address] [place] [address] YsuodjLfvuayUniversity Hospitals Parma Medical CenterHbA1c HPLC (Bld) [Mass fraction]on 28-52-9697CeF8v (Bld) [Mass fraction]Hemoglobin A1c/Hemoglobin.total in Blood by HPLCAvita Health System Bucyrus HospitalCT Abdomen/Pelvis w/o Contrast on 59-76-5928SK Abdomen/Pelvis w/o ContrastExam Date/Time: 07/17/2024 07:14 EDT [...] No Oral contrast amount in ml's: 0NormalFisher Brook [address] Psychiatric CenterXR Abdomen 1 Viewon [id number] Abdomen 1 ViewExam Date/Time: 06/14/2024 11:48 EDT [...] in mGy = na DAP = naNormalFisher [facility] CenterMain OR Intraoperative Recordon [id number] OR Intraoperative RecordMain OR Intraoperative Record IntraOp Document Type FT Summary Primary Physician: Dax MCCORD MD Finalized Date/Time: 06/15/24 13:14:31 Pt. Name: YANNI MAR/Sex: 1965 Male Med Rec #: [id number] Physician: Dax MCCORD MD Financial #: [id number] Pt. Type: A Room/Bed: [place] [address] Admit/Disch: 06/14/24 11:29:08 - 06/14/24 17:05:00 Institution: [...] Case Attendee Dax MCCORD MD, RN, Mayra Rangel CRNA, Rody Daniel Role Performed Surgeon - Primary Director Of Medical Services - Primary SCALE AGENT Time In 06/14/24 14:57:00 06/14/24 14:57:00 06/14/24 14:57:00 Time Out 06/14/24 15:31:00 06/14/24 15:31:00 06/14/24 15:11:00 Procedure EXTRACORPOREAL SHOCK EXTRACORPOREAL SHOCK EXTRACORPOREAL SHOCK WAVE WAVE WAVE LITHOTRIPSY(Right), LITHOTRIPSY(Right), LITHOTRIPSY(Right), CYSTOSCOPY STENT CYSTOSCOPY STENT CYSTOSCOPY STENT INSERTION(Right) INSERTION(Right) INSERTION(Right) Comments Last Modified By: Brock NEUROPSYCHOLOGY DIRECTOR, Liane E Brock NEUROPSYCHOLOGY DIRECTOR, Liane E Brock NEUROPSYCHOLOGY DIRECTOR, Liane E 06/15/24 13:12:17 06/15/24 13:12:17 06/15/24 13:12:17 Entry 4 Entry 5 Entry 6 Case Attendee Lisa GARNETT, Leland Miller NEUROPSYCHOLOGY DIRECTOR, Jaki Serna RN, CNOR, Pam Carranza Role Performed Anesthesiologist Scrub - Primary Director Of Medical Services - Primary Property Staff Accountant Time In 06/14/24 15:09:00 06/14/24 14:57:00 06/14/24 14:57:00 Time Out 06/14/24 15:31:00 06/14/24 15:31:00 06/14/24 15:05:00 Procedure EXTRACORPOREAL SHOCK EXTRACORPOREAL SHOCK EXTRACORPOREAL SHOCK WAVE LITHOTRIPSY(Right) WAVE WAVE LITHOTRIPSY(Right), LITHOTRIPSY(Right), CYSTOSCOPY STENT CYSTOSCOPY STENT INSERTION(Right) INSERTION(Right) Comments Last Modified By: Brock NEUROPSYCHOLOGY DIRECTOR, Liane E Brock NEUROPSYCHOLOGY DIRECTOR, Liane E Brock NEUROPSYCHOLOGY DIRECTOR, Liane E 06/15/24 13:12:17 06/15/24 13:12:17 06/15/24 13:12:17 General Comments: Elda SILVA SCRUBBED IN FOR CASE; CELE ANTONIO PRESENT FOR CASE -Ian FONTANA RNapplication development consultant Protocols FT Pre-Care Text: Implements protective measures [...] Post-Care Text: The tam (more content not included)...[facility] Discharge Instructionson [id number] InstructionsDischarge Instructions YANNI MAR :1965 Visit Date:06/14/2024 [...] antibiotics to your pharmacy. [facility]: [facility] [address]- Business (1) Medications What How Much When Instructions Next Dose New acetaminophen-oxycodone (Percocet 5 mg-325 mg oral tablet) 1 Tablets By Mouth Every 6 hours Duration: 2 Days Pickup at [facility] #[id number] New ciprofloxacin (Cipro 500 mg Tab) 1 Tablets By Mouth 2 times a day Duration: 3 Days Pickup at [facility] #[id number] Unchanged amlodipine (amLODIPine 10 mg Tab) 1 [...] Tablets By Mouth Every day Pharmacy Information [facility] #[id number]: [address] [place], [place] [phone] Allergies No Known Medication Allergies Problems Ongoing [...] base of the penis. (more content not included)...[facility] Medical CenterComment on above: Result Comment: Electronically Signed By: Yony MCCLURE, Cynthia Dawkins\.br\Date and Time Signed: 06/14/24 16:37 EDTInpatient Patient Summaryon 72-27-4686Ikelzuars Patient SummaryInpatient Patient Summary [address] [address] [facility] Clinical Discharge Instructions PERSON INFORMATION Name: YANNI MAR PHYSICIANS Admitting Physician: Dax MCCORD MD Attending Physician: Dax MCCORD MD PCP: ALBARO GRIMALDO DO Discharge Diagnosis: Comment: PATIENT EDUCATION INFORMATION Instructions: Lithotripsy, Care After Medication Leaflets: Follow up: With: Address: When: Dax MCCORD [address] [place] [address], [address], [place] [phone] Business (1) Comments: Please call my office to make arrangements for a CT scan without contrast. Once the order is sent, the hospital contacts you for the CT appointment time. Depending on the results, this will determine the next step. I did provide some discharge instructions and I did send some pain medication and antibiotics to your pharmacy. MEDICATION LIST New [facility]ations [id number], [address], [place] [id number], [phone] acetaminophen-oxycodone (Percocet 5 mg-325 mg oral tablet) [...] Tab) 1 Tablets By Mouth every day. Comment:[facility] OR PACU I Recordon 11-10-1473Luky OR PACU I RecordMain OR PACU I Record PACU Phase I Document Type FT Summary Primary Physician: Dax MCCORD MD Finalized Date/Time: 06/14/24 16:07:29 Pt. Name: YANNI MAR/Sex: 1965 Male Med Rec #: [id number] Physician: Dax MCCORD MD Financial #: [id number] Pt. Type: A Room/Bed: [place] [address] Admit/Disch: 06/14/24 11:29:08 - Institution: Case Times [...] Signatures Signed By: Lachelle Canada RN 06/14/24 16:07[facility] OR PACU II Recordon 85-75-2090Pwui OR PACU II RecordMain OR PACU II Record PACU Phase II Document Type FT Summary Primary Physician: Dax MCCORD MD Finalized Date/Time: 06/14/24 17:41:52 Pt. Name: YANNI MAR/Sex: 1965 Male Med Rec #: [id number] Physician: Dax MCCORD MD Financial #: [id number] Pt. Type: A Room/Bed: [facility] Admit/Disch: 06/14/24 11:29:08 - Institution: Case Times [...] Signatures Signed By: Cynthia Bhakta RN 06/14/24 17:41[facility] OR Preoperative Recordon [id number] OR Preoperative RecordMain OR Preoperative Record PreOp Document Type FT Summary Primary Physician: Dax MCCORD MD Finalized Date/Time: 06/14/24 15:25:35 Pt. Name: YANNI MAR/Sex: 1965 Male Med Rec #: [id number] Physician: Dax MCCORD MD Financial #: [id number] Pt. Type: A Room/Bed: Admit/Disch: 06/14/24 11:29:08 [...] Signatures Signed By: Mayra Carmona RN 06/14/24 15:25[facility] Operative Reporton [id number] ReportOperative Report Patient: YANNI MAR Age: 59 [...] placed per urethra and a well-lubricated 22 Indian is urethroscope with 30 degree lens then [...] previous findings on the renal ultrasound. 6 Indian open-ended ureteral catheter was passed up over [...] He tolerates it well. [place] and then back to PAC[place] in satisfactory [...] Loss: 2 ml. Complications: None. Anesthesia type: General.[facility] CenterComment on above: Result Comment: Electronically Signed By: Dax MCCORD MD\Date and Time Signed: 06/14/24 16:00 EDTOutpatient Surgery Discharge Instructionon 06-14-2024 Outpatient Surgery Discharge InstructionOutpatient Surgery Discharge Instruction [place] [id number] Patient Discharge Instructions PERSON INFORMATION Name: YANNI [...] Follow up: With: Address: When: Dax MCCORD [address] [place] [address], [address] [id number] [facility] (1) Comments: Please call my [...] Information: You may receive a survey from [employer] asking you to rate your care experience. Your feedback is important and will help us understand what we do well and how we can improve the quality of care we provide to you, your loved ones and our community. It?s an honor to serve you. Thank you for choosing [facility] HERE ARE THE MEDICATION CHANGES THAT OCCURRED DURING YOUR HOSPITAL STAY New Medications [id number], [address] [place], [place] [phone], [phone] acetaminophen-oxycodone (Percocet 5 mg-325 mg oral tablet) [...] these instructions at home: Medicines ? Take eoxd-zsf-xojufuo and prescription medicines only as told by [...] machinery. Eating and drinking (more content not included)...[facility] CenterXR Chest 2 Viewson 27-30-5635KQ Chest 2 ViewsExam Date/Time: 06/06/2024 10:15 EDT [...] na DAP = naNorAdena Pike Medical CenterBMPon 35-81-8404Lzckp gap [Moles/Vol]11 mmol/LNormal6-16[facility] HospitalComment on above:Performed By: #### [id number] #### [facility] [address] [place], [place] [address]Quximwr [Mass/Vol]9.3 mg/dLNormal8.9-11.1FCorey HospitalComment on above:Performed By: #### [id number] #### [facility] [address] [place], [place] [address]Mnxgqszw [Moles/Vol]105 mmol/EIfcjbd398-703GsryauOhiohealth Dublin Methodist HospitalComment on above:Performed By: #### [id number] #### [facility] [address] [place], [place] [address]CB5 [Moles/Vol]24 mmol/MKhkutq51-56CvplvuOhiohealth Dublin Methodist Hospital Comment on above:Performed By: #### [id number] #### [facility] [address] [place], [place] [address]Kvsniihvrh [Mass/Vol]1.2 mg/dLNormal0.5-1.3FCorey HospitalComment on above:Performed By: #### [id number] #### [facility] [address] [place], [place] [address]Foncjxa [Mass/Vol]130 mg/eOUyhbky34-407CpsxfrOhiohealth Dublin Methodist HospitalComment on above:Performed By: #### [id number] #### [facility] [address] [place], [place] [address]Klgotbctp [Moles/Vol]4.1 mmol/LNormal3.5-5.3FCorey HospitalComment on above:Performed By: #### [id number] #### [facility] [address] [place], [place] [address]Rqdgri [Moles/Vol]136 mmol/AKubzej541-437IatdyzOhiohealth Dublin Methodist HospitalComment on above:Performed By: #### [id number] #### [facility] [address] [place], [place] [address]Akhj nitrogen [Mass/Vol]23 mg/dLHigh5-21[facility] Methodist HospitalComment on above:Performed By: #### [id number] #### [facility] [address] [place], [place] [address]Xotw nitrogen/Creatinine [Mass ratio]19 No KyaiaMurvrh60-51 [facility] HospitalComment on above:Performed By: #### [id number] #### [facility] [address] [place] [address]EKB w/ Auto Diffon 89-54-6224Tosjevzsi/100 WBC (Bld)0.6 %Normal 0.0-2.0[facility] Methodist HospitalComment on above:Performed By: #### [id number] #### [facility] [address] [place] [address]Owsgunuas/Leukocytes Auto (Bld) [Pure # fraction]0.0 E9/LNormal 0.0-0.2FCorey HospitalComment on above:Performed By: #### [id number] #### [facility] [address] [place] [address]Ghhoptemzvc (Bld) [#/Vol]0.2 E9/LNormal0.0-0.5FCorey HospitalComment on above:Performed By: #### [id number] #### [facility] [address] [place] [address]Dxkgijbhozf/100 WBC (Bld)2.6 %Normal0.0-8.0[facility] HospitalComment on above:Performed By: #### [id number] #### [facility] [address] [place] [address]Azixnhaagpj distribution width (RBC) [Ratio]13.3 %Normal 10.9-14.2FCorey HospitalComment on above:Performed By: #### [id number] #### [facility] [address] [place] [address]Nfcmjspvwu (Bld) [Volume fraction]40.2 %Lruqod55.7-49.0[facility] HospitalComment on above:Performed By: #### [id number] #### [facility] [address] [place] [address]Pxdeepxcgd (Bld) [Mass/Vol]13.9 g/iGEjqagi17.5-17.5FCorey HospitalComment on above:Performed By: #### [id number] #### [facility] [address] [place] [address]Pvzcjhkehjn (Bld) [#/Vol]1.1 E9/LNormal1.0-4.0[facility] HospitalComment on above:Performed By: #### [id number] #### [facility] [address] [place] [address]Aydmgbdgtdc/100 WBC (Bld)15.9 %Rlweif07.0-50.0[facility] HospitalComment on above:Performed By: #### [id number] #### [facility] [address] [place] [address] 78[address]WII (RBC) [Entitic mass]30.1 kqJgknhj04.0-34.0[facility] HospitalComment on above:Performed By: #### [id number] #### [facility] [address] [place] [address]AIVK (RBC) [Mass/Vol]34.5 g/rFCwhsca67.4-36.0[facility] HospitalComment on above:Performed By: #### [id number] #### [facility] [address] [place] [address]ITA (RBC) [Entitic vol]87.0 qFZdukpe52.0-100.0[facility] HospitalComment on above:Performed By: #### [id number] #### [facility] [address] [place] [address]Ccyofxwyo (Bld) [#/Vol]0.6 E9/LNormal0.2-1.0[facility] HospitalComment on above:Performed By: #### [id number] #### [facility] [address] [place] [address]Zbnrjoesphv (Bld) [#/Vol]5.2 E9/LNormal2.0-7.5FCorey HospitalComment on above:Performed By: #### [id number] #### [facility] [address] [place] [address]Kzsapcofufi/100 WBC (Bld)72.5 %Wblpvu69.0-75.0[facility] HospitalComment on above:Performed By: #### [id number] #### [facility] [address] [place] [address]Bkztzidn mean volume (Bld) [Entitic vol]7.7 fLNormal6.4-10.8 [facility] HospitalComment on above:Performed By: #### [id number] #### [facility] [address] [place] [address]Rncpnestb (Bld) [#/Vol]195.0 E9/PJizynh981.0-500.0[facility] HospitalComment on above:Performed By: #### [id number] #### [facility] [address] [place] [address]MYL (Bld) [#/Vol]4.6 E12/LNormal4.3-5.9[facility] HospitalComment on above:Performed By: #### [id number] #### [facility] [address] [place] [address]CPN corrected for nucl RBC Auto (Bld) [#/Vol]7.1 E9/LNormal 4.0-11.0[facility] HospitalComment on above:Performed By: #### [id number] #### [facility] [address] [place] [address]VYQPTTNSYVzluucg By: SYSTEM SYSTEM on 48-73-9293Wxnwe gap [Moles/Vol]11 mmol/LNormal6 - 16 mEq/LRemisol ChemCalcium [Mass/Vol]9.3 mg/dL Normal8.9 - 11.1 mg/dLRemisol ChemChloride [Moles/Vol]105 mmol/ZTfevte416 - 111 mmol/LRemisol ChemCO2 [Moles/Vol]24 mmol/CMluezi80 - 31 mmol/LRemisol Chem Creatinine [Mass/Vol]1.2 mg/dLNormal0.5 - 1.3 mg/dLRemisol PkfnzLJG40 mL/min/1.73 k3Ttdbrc>=59mL/min/1.73 g7Mqyavkr ChemGlucose [Mass/Vol]130 mg/dL Slckqf79 - 199 mg/dLRemisol ChemPotassium [Moles/Vol]4.1 mmol/LNormal3.5 - 5.3 mmol/LRemisol ChemSodium [Moles/Vol]136 mmol/NYeghxg403 - 145 mmol/LRemisol Chem Urea nitrogen [Mass/Vol]23 mg/dLHigh5 - 21 mg/dLRemisol ChemUrea nitrogen/Creatinine [Mass ratio]19 mg/ffEfunmj44 - 20Remisol ChemCOAGULATION Ordered By: Kaelyn Wilburn on 24-16-6102tWGR Coag (PPP) [Time]34.3 mGtfyfb21.1 - 36.5 second(s)[facility] Auto CoagComment on above:Interpretive Data: Parameter 15 [...] the same coagulation reagent and instrumentation as [facility]. Currently there are no coagulation studies available worldwide for children to 14 days, andno normal ranges. Heparin therapeutic range (represented by Anti-Factor Xa activity of 0.2 - 0.4 U/mL) corresponds to PTT of 56.6 - 109.0 sec.INR Coag (PPP) [Relative time]0.96 {INR}Invalid Interpretation CodeTULSA ER & HOSPITAL – [place] Auto CoagComment on above:Interpretive Data: INR results are specifically intended to assess patients stabilized on long-term Anticoagulation therapy suggested INR s Less Intensive Anticoagulation 2.0 3.0 Conventional Range 3.0 4.5PT Coag (PPP) [Time]10.8 sNormal9.4 - 12.5 second(s) [facility] Auto CoagComment on above:Interpretive Data: 15 days [...] the same coagulation reagent and instrumentation as [facility]. Currently there are no coagulation studies available worldwide for children to 14 days, andno normal ranges.HEMATOLOGYOrdered By: SYSTEM SYSTEM on 46-54-0342Dfdpxtjzn/100 WBC (Bld)0.6 %Normal0.0 - 2.0 %Remisol HemeBasophils/Leukocytes Auto (Bld) [Pure # fraction]0.0 E9/LNormal0.0 - 0.2 E9/LRemisol HemeEosinophils (Bld) [#/Vol]0.2 E9/LNormal0.0 - 0.5 E9/LRemisol HemeEosinophils/100 WBC (Bld)2.6 %Normal0.0 - 8.0 %Remisol HemeErythrocyte distribution width (RBC) [Ratio]13.3 %Ncdrkx87.9 - 14.2 %Remisol HemeHematocrit (Bld) [Volume fraction]40.2 %Kinuxo12.7 - 49.0 % Remisol HemeHemoglobin (Bld) [Mass/Vol]13.9 g/pSAanagz28.5 - 17.5 gm/dLRemisol HemeLymphocytes (Bld) [#/Vol]1.1 E9/LNormal1.0 - 4.0 E9/LRemisol Heme Lymphocytes/100 WBC (Bld)15.9 %Fwbpfe33.0 - 50.0 %Remisol HemeMCH (RBC) [Entitic mass]30.1 kgCqwmku21.0 - 34.0 pgRemisol HemeMCHC (RBC) [Mass/Vol]34.5 g/dL Tdhzyz95.4 - 36.0 gm/dLRemisol HemeMCV (RBC) [Entitic vol]87.0 kIAhmsvv67.0 - 100.0 fLRemisol HemeMonocytes (Bld) [#/Vol]0.6 E9/LNormal0.2 - 1.0 E9/LRemisol HemeMonocytes/100 WBC (Bld)8.4 %Normal4.0 - 14.0 %Remisol HemeNeutrophils (Bld) [#/Vol]5.2 E9/LNormal2.0 - 7.5 E9/LRemisol HemeNeutrophils/100 WBC (Bld)72.5 % Oxzmej68.0 - 75.0 %Remisol HemePlatelet mean volume (Bld) [Entitic vol]7.7 fL Normal6.4 - 10.8 fLRemisol HemePlatelets (Bld) [#/Vol]195.0 E9/XGorrnl607.0 - 500.0 E9/LRemisol HemeRBC (Bld) [#/Vol]4.6 E12/LNormal4.3 - 5.9 E12/LRemisol HemeWBC corrected for nucl RBC Auto (Bld) [#/Vol]7.1 E9/LNormal4.0 - 11.0 E9/L Remisol HemePT & PTTon 05-09-2071yHUM Coag (PPP) [Time]34.3 second(s)Normal 25.1-36.5[facility] CenterComment on above:Result Comment: Parameter 15 days - [...] the same coagulation reagent and instrumentation as [facility]. Currently there are no coagulation studies available worldwide for children to 14 days, andno normal ranges. Heparin therapeutic range (represented by Anti-Factor Xa activity of 0.2 - 0.4 U/mL) corresponds to PTT of 56.6 - 109.0 sec.Performed By: #### [id number] #### [facility] [address] [place], [place] [address]ZXN Coag (PPP) [Relative time]0.96 {INR}Invalid Interpretation CodeOhiohealth Dublin Methodist HospitalComment on above:Result Comment: INR results are specifically intended to assess patients stabilized on long-term Anticoagulation therapy suggested INR?s ?Less Intensive Anticoagulation? 2.0 ? 3.0 Conventional Range 3.0 ? 4.5Performed By: #### [id number] #### [facility] [address] [place], [place] [address]RZ Coag (PPP) [Time]10.8 second(s)Normal9.4-12.5[facility]iatric CenterComment on above:Result Comment: 15 days - 4 [...] the same coagulation reagent and instrumentation as [facility]. Currently there are no coagulation studies available worldwide for children to 14 days, andno normal ranges.Performed By: #### [id number] #### [facility] [address] [place], [place] [address]PF with Cult Rflxon 91-07-5481Yizcdgtur Ql (U)NegativeNormal NegativeOhiohealth Dublin Methodist HospitalComment on above:Performed By: #### [id number] #### [facility] [address], [place] [address]Omuqdwr (U)ClearNormalClearOhiohealth Dublin Methodist HospitalComment on above:Performed By: #### [id number] #### [facility] [address], [place] [address]Lgipg (U)Light-YellowNormalYellowOhiohealth Dublin Methodist Hospital Comment on above:Result Comment: Microscopic readings are only performed on those samples that meet specific criteria set forth by [facility].Performed By: #### [id number] #### [facility] [address], [place] [address]Rixuwob Ql (U)NegativeNormalNegLima City Hospital Comment on above:Performed By: #### [id number] #### [facility] [address] [place], [place] [address]Uvdtuvcnut Auto test strip (U) [Mass/Vol]NegativeNormalNegative [facility] HospitalComment on above:Performed By: #### [id number] #### [facility] [address], [place] [address]Xjlkmku Auto test strip Ql (U)NegativeNormalNegativeOhiohealth Dublin Methodist HospitalComment on above:Performed By: #### [id number] #### [facility] [address], [place] [address]Nscklidol esterase Auto test strip Ql (U)NegativeNormalNegative [facility] HospitalComment on above:Performed By: #### [id number] #### [facility] [address], [place] [address]Tvejw Auto Ql (U)TraceNormalNegativeOhiohealth Dublin Methodist Hospital Comment on above:Performed By: #### [id number] #### [facility] [address], [place] [address]Rlninfe Auto test strip Ql (U)NegativeNormalNegativeOhiohealth Dublin Methodist HospitalComment on above:Performed By: #### [id number] #### [facility] [address] [place] [address]pF (U)5.5 [pH]Invalid Interpretation Code5.0-9.0[facility] HospitalComment on above:Performed By: #### [id number] #### [facility] [address] [place] [address]Ltbioqb Ql (U)1+ mg/dLAbnormalNegativeOhiohealth Dublin Methodist HospitalComment on above:Performed By: #### [id number] #### [facility] [address] [place] [address]WKD Ql (U)1-0Hqmphj9-6OcmchzCorey HospitalComment on above:Performed By: #### [id number] #### [facility] [address] [place] [address]Hqeojjxg gravity (U) [Rel density]1.020Invalid Interpretation Code1.005-1.030[facility] Methodist HospitalComment on above:Performed By: #### [id number] #### [facility] [address] [place] [address]Xjvtgdemqqxg (U) [Mass/Vol]NegativeNormalNegativeOhiohealth Dublin Methodist HospitalComment on above:Performed By: #### [id number] #### [facility] [address] [place] [address]ZVS Auto (Urine sed) [#/Area]7-1Qbrbxl9-9BtqygvCorey HospitalComment on above:Performed By: #### [id number] #### [facility] [address] [place] [address]Ajsl of Urine collection methodClean CatchNormalOhiohealth Dublin Methodist HospitalComment on above:Performed By: #### [id number] #### [facility] [address] [place] [address]CVSUQSLQBPFqawzkt By: SYSTEM SYSTEM on 54-69-3780Bglrcpkvu Ql (U)NegativeNormalNegativemg/dLFTMC UA Auto SSClarity (U)Clear (06/06/24 9:50 AM)NormalClearFTM UA Auto SSColor (U)Light-Yellow 1 (06/06/24 9:50 AM)NormalYellowTULSA ER & HOSPITAL [facility] [place] UA Auto SSComment on above:Interpretive Data: Microscopic readings are only performed on those samples that meet specific criteria set forth by [facility].Glucose Ql (U) NegativeNormalNegativemg/dLFT UA Auto SSHemoglobin Auto test strip (U) [Mass/Vol]NegativeNormalNegativemg/dLFT UA Auto SSKetones Auto test strip Ql (U)NegativeNormalNegativemg/dLFT UA Auto SSLeukocyte esterase Auto test strip Ql (U)NegativeNormalNegativeLeu/uLFT UA Auto SSMucus Auto Ql (U)Trace graded/LPFNormalNegativegraded/LPFFTMC UA Auto SSNitrite Auto test strip Ql (U) NegativeNormalNegativemg/dLFT UA Auto SSpH (U)5.5 *NA* (06/06/24 9:50 AM)Invalid Interpretation Code5.0 - 9.0[facility] UA Auto SSProtein Ql (U)1+ mg/dLInvalid Interpretation CodeNegativemg/dLFT UA Auto SSRBC Ql (U)0-3 graded/HPFNormal0-3graded/HPFTULSA ER & HOSPITAL – TULSA UA Auto SSSpecific gravity (U) [Rel density] 1.020 *NA* (06/06/24 9:50 AM)Invalid Interpretation Code1.005 - 1.030[facility] UA Auto SS Urobilinogen (U) [Mass/Vol]NegativeNormalNegativemg/dLFT UA Auto SSWBC Auto (Urine sed) [#/Area]0-5 graded/HPFNormal0-5graded/HPFFT UA Auto SSURINALYSIS Ordered By: Isaura Anderson on 59-80-3629LT Spec DescClean Catch (06/06/24 9:50 AM)NormalTULSA ER & HOSPITAL – [facility] UA Auto SSeGFRon 01-43-9077zFAT47 mL/min/1.73 m2 Normal>=59[facility] Psychiatric CenterComment on above:Order Comment: Order added by Discern Expert.Performed By: #### [id number] #### [facility] [address] [place], [place] [address]Findkcxwdv Visit Summaryon 71-18-6762Tbqdagidfe Visit Summary Ambulatory Visit Summary YANNI MAR [...] HORNER, Dax Daniel, URL When: Where: [address] [facility] [address] [place] [address]- Medications What How Much When Instructions Unchanged [...] these instructions at home: Medicines ? Take vhfc-kuz-bdyfnqf and prescription medicines only as told by your health care provider. ? If you were prescribed an antibiotic medicine, take it as told by your health care provider. Do notstop taking the antibiotic even if you start to feel sarahi (more content not included)...DominicOhiohealth Dublin Methodist HospitalUrology Office/Clinic Noteon 30-22-3270Pnavzsv Office/Clinic NoteUrology Office/Clinic Note Chief Complaint Cysto [...] diagnostic imaging of other specified body structures) [facility] 03/08/24 [facility] - Lobular soft tissue structure within base of bladder 2.0 x 1.6 x 2.4 cm. Pt had IO cysto today due to abnormal US wo complications. Abnormal lobular structure seen on CT was pt's middle lobe of his prostate. 2. Kidney stones (N20.0: Calculus of kidney) Hx of lithotripsy [address] Jarvis. [1] [facility] 03/08/24 [facility] - right: several nonobstructing calcifications/stones, largest is [...] heart and lung problem (more content not included)...[facility] CenterComment on above:Result Comment: Electronically Signed By: Dax MCCORD MD\.br\Date and Time Signed: 05/11/24 08:42 EDT\.br\Electronically Co-Signed By: Shari Hartman\.br\Date and Time Co-Signed: 05/11/24 08:39 EDTLab Reportson 89-06-0169Pmv Reports [id number]#1.00TIFNationwide Children's HospitalRAD - Ultrasound Reporton 63-86-9552MEX - Ultrasound Report [id number]#1.00TIFFUniversity Hospitals Parma Medical CenterFormson [id number]#1.00TIFF [facility] CenterPhysician Referralon 81-32-0234Olxcynxsu [id number]#1.00TIFSt. Rita's Hospitalcreenson 42-68-5635Qcuvaji [id number]#1.00TIFSt. Rita's [id number]#1.00TIFNationwide Children's HospitalAmbulatory Visit Summaryon 64-54-7371Iemsgpbmzl Visit Summary YANNI MAR :1965 Visit Date:03/28/2024 Ambulatory Visit Instructions Your Diagnosis Abnormal renal ultrasound Kidney stones BPH with urinary obstruction Renal cyst Erectile dysfunction Your Care Team Attending Physician - Dax MCCORD MD Primary Care Physician Ekaterina GRIMALDO DO, ALBARO Referring Physician ALBARO TIDWELL DO [...] Dax MCCORD MD [facility] Summary YANNI MAR :1965 Visit Date:03/28/2024 [...] HORNER, Dax Daniel [facility] HillAlbumin [Mass/volume] in Serum or Plasmaon 93-30-9629Zpoatwe [Mass/Vol]4.0 g/dL2.9-4.4FKeenan Private HospitalBasophils Auto (Bld) [#/Vol]on 81-34-3700Ogezmjpua (Bld) [#/Vol]0.0 10 3/uL0.0-0.1FKeenan Private HospitalBasophils/100 WBC Auto (Bld)on 49-27-3021Wmxonjxcb/100 WBC (Bld) 0.5 %0.2-2.0[facility] HospitalCholesterol in LDL Calc [Mass/Vol] on 35-89-0703Tghwcqfughy in LDL [Mass/Vol]103.0 mg/dLAvita Health System Bucyrus HospitalComment on above:<100 mg/dl BGWVOYT999-181 mg/dl NEAR OR ABOVE YBECNIJ349- 159 mg/dl BORDERLINE RRAT195-845 mg/dl HIGH>190 mg/dl VERY HIGHCholesterol in VLDL Calc [Mass/Vol]on 39-39-8636Tjjdgbbabth in VLDL [Mass/Vol]31.8 mg/dL [facility] HospitalEosinophils/100 WBC Auto (Bld)on 03-16-2024 Eosinophils/100 WBC (Bld)1.5 %0.9-7.0[facility] Erythrocyte distribution width Auto (RBC) [Ratio]on 93-67-5727Nblwaodohsl distribution width (RBC) [Ratio]12.3 %11.0-15.0[facility] Hospital Estimated glomerular filtration rate (GFR) non- Americanon 03-16-2024 GFR/1.73 sq M.predicted among non-blacks MDRD (S/P/Bld) [Vol rate/Area]58 mL/min/{1.73_m2}Low>=60[facility] HospitalGlobulin Calc (S) [Mass/Vol]on 22-94-7508Qasyexqi (S) [Mass/Vol]3.3 g/dLAvita Health System Bucyrus HospitalHematocrit Auto (Bld) [Volume fraction]on 11-71-3658Gslaskvxkx (Bld) [Volume fraction]41.3 %Low42.0-54.0[facility] HospitalHemoglobin [Mass/volume] in Bloodon 47-90-6156Wnyyejkqax (Bld) [Mass/Vol]14.4 g/dL14.0-18.0 [facility] HospitalIgA [Mass/volume] in Serum or Plasmaon 50-65-2618CqA [Mass/Vol]201 mg/tD21-885VmbwcspgiAvita Health System Bucyrus HospitalIgG [Mass/volume] in Serum or Plasmaon 74-64-4808GuY [Mass/Vol]1036 mg/lK049-6134 [facility] HospitalIgM [Mass/volume] in Serum or Plasmaon 97-08-7227EfO [Mass/Vol]62 mg/pJ03-571AqriykbhpAvita Health System Bu[facility] Hospital Immunoglobulin light chains.kappa.free [Mass/volume] in Serumon 03-16-2024 Immunoglobulin light chains.kappa.free (S) [Mass/Vol]21.2 mg/LAbnormal3.3-19.4 [facility] HospitalImmunoglobulin light chains.kappa.free/Immunoglobulin light chains.lambda.free [Teodoro 03-16-2024 Immunoglobulin light chains.kappa.free/Immunoglobulin light chains.lambda.free (S) [Mass ratio]1.070.26-1.65[facility] HospitalComment on above: Performed at: [facility] [id number] Director: Joselo Maya PhD, Phone: [phone] light chains.lambda.free [Mass/volume] in Serum or Plasmaon 73-65-0433Fdnnuugsscihib light chains.lambda.free [Mass/Vol]19.8 mg/L5.7-26.3FKeenan Private HospitalLaboratory - Chemistry and Chemistry - challengeon 24-34-1480Ifqljem [Mass/Vol]3.9 g/dL3.4-5.0[facility] HospitalALP [Catalytic activity/Vol]91 U/Q73-290DqxckctrvAvita Health System Bucyrus HospitalALT [Catalytic activity/Vol]38 U/F89-00YbjjxaxceAvita Health System Bucyrus HospitalAST [Catalytic activity/Vol]20 U/X82-40RgotgbeojAvita Health System Bucyrus HospitalBilirubin [Mass/Vol]0.6 mg/dL0.2-1.0[facility] HospitalCalcium [Mass/Vol]8.4 mg/dLLow 8.5-10.1FKeenan Private HospitalChloride [Moles/Vol]101 mmol/L98-107 [facility] HospitalCholesterol [Mass/Vol]174 mg/dL<=200[facility] HospitalCholesterol in HDL [Mass/Vol]40 mg/qW66-83XedcufcpmAvita Health System Bucyrus HospitalComment on above:> or =60 mg/dl - LOW CARDIOVASCULAR RISK<40 mg/dl - HIGH CARDIOVASCULAR RISKCO2 [Moles/Vol]25.9 mmol/L21.0-32.0 [facility] HospitalCreatinine [Mass/Vol]1.29 mg/dL0.70-1.30 [facility] HospitalGFR/1.73 sq M.predicted MDRD (S/P/Bld) [Vol rate/Area]mL/min/{1.73_m2}>=60[facility] HospitalGlucose [Mass/Vol]115 mg/uPIjho25-920NefsyvrsiAvita Health System Bucyrus HospitalPotassium [Moles/Vol]3.6 mmol/L3.5-5.1FKeenan Private HospitalProtein [Mass/Vol] 7.2 g/dL6.4-8.2FSelect Medical Specialty Hospital - Trumbullodium [Moles/Vol]135 mmol/LLow 136-145[facility] HospitalTriglyceride [Mass/Vol]159 mg/dLHigh <=150[facility] HospitalUrea nitrogen [Mass/Vol]18.0 mg/dL7.0-18.0 [facility] CenterUrea nitrogen/Creatinine [Mass ratio]14.0 mg/mg [facility] HospitalLaboratory - Hematology and Cell countson 96-61-5974Quctmucn granulocytes/100 WBC (Bld)0.4 %0.0-0.5FKeenan Private HospitalLeukocytes [#/volume] corrected for nucleated erythrocytes in Blood by Automated counon 01-92-4969LAG corrected for nucl RBC Auto (Bld) [#/Vol]7.8 10 3/uL4.0-11.0[facility] HospitalLymphocytes Auto (Bld) [#/Vol]on 85-12-2081Zgejitgnuvw (Bld) [#/Vol]1.2 10 3/uL1.2-3.8[facility] HospitalLymphocytes/100 WBC Auto (Bld)on 03-16-2024 Lymphocytes/100 WBC (Bld)15.5 %Low20.5-60.0[facility] CenterH Auto (RBC) [Entitic mass]on 19-88-2661IPL (RBC) [Entitic mass]30.3 pg25.9-34.0 [facility] HospitalMCHC Auto (RBC) [Mass/Vol]on 03-93-1784FEYR (RBC) [Mass/Vol]34.9 g/dL29.9-35.2FKeenan Private HospitalMCV Auto (RBC) [Entitic vol]on 48-98-0033UCU (RBC) [Entitic vol]86.9 fL80.0-94.0[facility] HospitalMonocytes Auto (Bld) [#/Vol]on 67-11-1502Uvnuiylbl (Bld) [#/Vol]0.6 10 3/uL0.3-0.8[facility] HospitalMonocytes/100 WBC Auto (Bld)on 78-80-5712Gvvescxfr/100 WBC (Bld)7.2 %1.7-12.0[facility] HospitalNeutrophils Auto (Bld) [#/Vol]on 11-52-7974Hylpdrtmghj (Bld) [#/Vol]5.8 10 3/uL1.4-6.5FKeenan Private HospitalNeutrophils/100 WBC Auto (Bld)on 61-43-8994Uduvunutayp/100 WBC (Bld)74.9 %43.0-75.0[facility] HospitalNo Panel Informationon 48-54-8227Nehelsedjps # (Auto)0.1 10 3/uL0.0-0.7FKeenan Private HospitalImmature Granulocyte # (Auto)0.03 10 3/uL0.00-0.03[facility] HospitalProstate Specific Antigen Screen1.81 ng/mL<=4.00[facility] HospitalProtein Electrophoresis M-SpikeNot Observed g/dLNot ObservedAvita Health System Bucyrus HospitalProtein Electrophoresis NoteComment.[facility] HospitalComment on above: Protein electrophoresis scan will follow via computer,mail, or greige goods examiner delivery. Platelet mean volume Auto (Bld) [Entitic vol]on 65-86-4309Ofwlzdpx mean volume (Bld) [Entitic vol]9.3 fLLow9.5-13.5FKeenan Private HospitalPlatelets Auto (Bld) [#/Vol]on 27-55-7368Jrbujskln (Bld) [#/Vol]240 10 3/mV892-532 [facility] HospitalProtein [Mass/volume] in Serum or Plasmaon 50-93-4395Ubukpnw [Mass/Vol]6.7 g/dL6.0-8.5FKeenan Private HospitalRBC Auto (Bld) [#/Vol]on 57-27-9393WXK (Bld) [#/Vol]4.75 10 6/uL4.70-6.10[facility] Hospitalerum globulin measurement (mass/volume)on 03-16-2024 Globulin (S) [Mass/Vol]2.7 g/dL2.2-3.9[facility] Hospitalerum or plasma albumin/globulin mass ratioon 29-53-8366Uddemrp/Globulin [Mass ratio]1.2 {ratio}[facility] HospitalAlbumin/Globulin [Mass ratio]1.5 {ratio} 0.7-1.7FSelect Medical Specialty Hospital - Trumbullerum or plasma alpha 1 globulin measurement by electrophoresis (mass/volume)on 80-88-5193Ekbsh 1 globulin Elph [Mass/Vol]0.2 g/dL0.0-0.4FSelect Medical Specialty Hospital - Trumbullerum or plasma alpha 2 globulin measurement by electrophoresis (mass/volume)on 40-42-0857Qfayq 2 globulin Elph [Mass/Vol]0.6 g/dL0.4-1.0[facility] Hospitalerum or plasma anion gap determinationon 17-53-4347Vrczc gap [Moles/Vol]11.7 mmol/L [facility] Hospitalerum or plasma beta globulin measurement by electrophoresis (mass/volume)on 87-10-7101Pbff globulin Elph [Mass/Vol]0.9 g/dL 0.7-1.3FSelect Medical Specialty Hospital - Trumbullerum or plasma gamma globulin measurement by electrophoresis (mass/volume)on 83-77-9062Gzysv globulin Elph [Mass/Vol]1.0 g/dL0.4-1.8[facility] Hospitalerum or plasma immunoelectrophoresis interpretationon 96-98-8345Ythytfiaqlxpue IEP [Interp] Comment.[facility] HospitalComment on above:No monoclonality detected.Serum or plasma total cholesterol/high density lipoprotein (HDL) cholesterol mass sabina 09-37-4906Ngexoxkmnpr.total/Cholesterol in HDL [Mass ratio]4.3 {ratio}[facility] HospitalComment on above:3.3 - 4.4 LOW RISK4.4 - 7.1 AVERAGE RISK7.1 - 11.0 MODERATE RISK>11.0 HIGH RISKMRI Knee w/o Righton 40-99-5603WZZ Knee w/o RightHistory: Medial knee pain. Decreased [...] signed by Angelo Landeros on 03/01/2023 1125NormalNorthern Lawrence+Memorial HospitalCBC AUTO DIFFon 08-73-3004PCTL #0.1 103/ulNormal0.0-0.[address] [facility] HospitalComment on above:Performed By: #### CBC #### [facility] [address] [address] [address] Ziyad LandryBasophils/100 WBC (Bld)0.7 %Normal0.2-2.0[facility] Comment on above:Performed By: #### CBC #### [facility] [address] [address] [address] Ziyad Lindo #0.2 103/ulNormal0.0-0.7The [facility] HospitalComment on above: Performed By: #### CBC #### [facility] [address] [address] [address] Ziyad Valenzuelaosinophils/100 WBC (Bld)2.7 %Normal0.9-7.0[facility] Comment on above:Performed By: #### CBC #### [facility] [address] [address] [address] Ziyad Valenzuelarythrocyte distribution width (RBC) [Ratio]12.7 %Uivfii23.0-15.[address] [facility] HospitalComment on above:Performed By: #### CBC #### [facility] [address] [address] [address] Ziyad LandryHematocrit (Bld) [Volume fraction]39.7 %Critically low42.0-54.[address] [facility] HospitalComment on above:Performed By: #### CBC #### [facility] [address] [address] [address] Ziyad LandryHemoglobin (Bld) [Mass/Vol]14.6 g/sCEaltey96.0-18.0The [facility] HospitalComment on above:Performed By: #### CBC #### [facility] [address] [address] [address] Ziyad Hernandez #0.04 10e3/ulCritically high0.00-0.03The [facility] Comment on above:Performed By: #### CBC #### [facility] [address] [address] [address] Ziyad Hernandez %0.5 %Normal0.0-0.5The [facility] HospitalComment on above: Performed By: #### CBC #### [facility] [address] [address] [address] Ziyad Gonzales #1.7 103/ulNormal1.2-3.8The [facility] HospitalComment on above:Performed By: #### CBC #### [facility] [address] [address] [address] Ziyad Linderhocytes/100 WBC (Bld)22.4 %Jezdss49.5-60.0The [facility]oples Hospitalment on above:Performed By: #### CBC #### [facility] [address] [address] [address] Ziyad UmanzorUAL DIFF REQNONormalThe [facility] HospitalComment on above: Performed By: #### CBC #### [facility] [address] [address] [address] Ziyad Bonilla (RBC) [Entitic mass]30.7 taTxeatf06.9-34.0The [facility] HospitalComment on above:Performed By: #### CBC #### [facility] [address] [address] [address] Ziyad Bonilla (RBC) [Mass/Vol]36.8 g/dLCritically high29.9-35.2The [facility] HospitalComment on above:Performed By: #### CBC #### [facility] [address] [address] [address] Ziyad Malone (RBC) [Entitic vol]83.6 lBDsfqmt06.0-94.0The [facility] HospitalComment on above:Performed By: #### CBC #### [facility] [address] [address] [address] Ziyad Byers #0.6 103/ulNormal0.3-0.8The [facility] HospitalComment on above:Performed By: #### CBC #### [facility] [address] [place] [address] Dr. Ziyad Tomasocytes/100 WBC (Bld)8.2 %Normal1.7-12.0The [facility] on above:Performed By: #### CBC #### [facility] [address] [place] [address] Dr. Ziyad Rogers #5.0 103/ulNormal1.4-6.5The [facility] HospitalComment on above:Performed By: #### CBC #### [facility] [address] [place] [address] Dr. Ziyad Aguilarutrophils/100 WBC (Bld)65.5 %Hyibrq95.0-75.0The [facility] HospitalComment on above:Performed By: #### CBC #### [facility] [address] [place] [address] Dr. Ziyad Koromalet mean volume (Bld) [Entitic vol]8.6 fLCritically low 9.5-13.5The [facility] HospitalComment on above:Performed By: #### CBC #### [facility] [address] [place] [address] Dr. Ziyad LandryPLT224 103/xaOaeqoy489-321Wel [facility] HospitalComment on above: Performed By: #### CBC #### [facility] [address] [place] [address] Dr. Ziyad LandryRBC4.75 106/ulNormal4.70-6.10The [facility] HospitalComment on above:Performed By: #### CBC #### [facility] [address] [address] [address] Ziyad LandryWBC7.7 103/ulNormal4.0-11.0The [facility] HospitalComment on above: Performed By: #### CBC #### [facility] [address] [address] [address] Ziyad YoungRECT LDLon 95-39-1178Wzlcrxqegak in LDL [Mass/Vol]87 mg/dL NormalMercy Health St. [facility] HospitalComup health system on above:Performed By: #### CMP, LIPID, DLDL #### [facility] [address] [place] [address] Dr. Ziyad LandryDLDL NORMALSEE [facility] HospitalComment on above: Result Comment: <100 mg/dl OPTIMAL 100 - 129 mg/dl NEAR OR ABOVE OPTIMAL 130 - 159 mg/dl BORDERLINE HIGH 160 - 189 mg/dl HIGH >190 mg/dl VERY HIGHPerformed By: #### CMP, LIPID, DLDL #### [facility] [address] [place] [address] Dr. Ziyad KelleyID PROFILEon 99-29-9019QRWK-HDL RATIO NORMSEE [facility] HospitalComup health system on above:Result Comment: 3.3 - 4.4 LOW RISK 4.4 - 7.1 AVERAGE RISK 7.1 - 11.0 MODERATE RISK >11.0 HIGH RISKPerformed By: #### CMP, LIPID, DLDL #### [facility] [address] [place] [address] Dr. Ziyad LandryCholesterol [Mass/Vol]198 mg/dLNormal<=200The [facility] Comment on above:Performed By: #### CMP, LIPID, DLDL #### [facility] [address] [place] [address] Dr. Ziyad LandryCholesterol in HDL [Mass/Vol]36 mg/dLCritically kxc91-71Fvh [facility]oples Hospitalment on above:Performed By: #### CMP, LIPID, DLDL #### [facility] [address] [address] [address] Ziyad LandryCholesterol.total/Cholesterol in HDL [Mass ratio]5.5 {ratio} NormalThe [facility] on above:Performed By: #### CMP, LIPID, DLDL #### [facility] [address] [address] [address] Ziyad Young NORMAL> or = 60 mg/dl - LOW CARDIOVASCULAR RISK <40 mg/dl - HIGH CARDIOVASCULAR RISKOhioHealth Doctors HospitalComup health system on above:Performed By: #### CMP, LIPID, DLDL #### [facility] [address] [place] [address] Dr. Ziyad LandryLDL CALC NORMALSEE BELOWOhioHealth Doctors HospitalComup health system on above:Result Comment: <100 mg/dl OPTIMAL 100 - 129 mg/dl NEAR OR ABOVE OPTIMAL 130 - 159 mg/dl BORDERLINE HIGH 160 - 189 mg/dl HIGH >190 mg/dl VERY HIGH Performed By: #### CMP, LIPID, DLDL #### [facility] [address] [place] [address] Dr. Ziyad LandryTriglyceride [Mass/Vol]401 mg/dLCritically high<=150The [facility] on above:Performed By: #### CMP, LIPID, DLDL #### [facility] [address] [place] [address] Dr. Ziyad LandryVLDL CALC80.2 mg/dLNoRegency Hospital Company on above: Performed By: #### CMP, LIPID, DLDL #### [facility] [address] [place] [address] Dr. Ziyad LandryPROF 14(COMP METB)on 79-88-9200Ultjckd [Mass/Vol]4.1 g/dLNormal 3.4-5.0The [facility] on above:Performed By: #### CMP, LIPID, DLDL #### [facility] [address] [place] [address] Dr. Ziyad LandryAlbumin/Globulin [Mass ratio]1.1 {ratio}NormalThe [facility] on above:Performed By: #### CMP, LIPID, DLDL #### [facility] [address] [address] [address] Ziyad Jerez [Catalytic activity/Vol]77 U/JRdxnec35-353Hin Peoples Hospitalment on above:Performed By: #### CMP, LIPID, DLDL #### [facility] [address] [address] [address] Ziyad Lewis [Catalytic activity/Vol]52 U/XTnnbhq66-89Hxo [facility] HospitalComment on above:Performed By: #### CMP, LIPID, DLDL #### [facility] [address] [address] [address] Ziyad Velazquez gap [Moles/Vol]11.4 mmol/LNormalThe [facility] Comment on above:Performed By: #### CMP, LIPID, DLDL #### [facility] [address] [address] [address] Ziyad LanrdyAST [Catalytic activity/Vol]25 U/ZMalzeg28-98Phx [facility] HospitalComment on above:Performed By: #### CMP, LIPID, DLDL #### [facility] [address] [address] [address] Ziyad LandryBilirubin [Mass/Vol]0.6 mg/dLNormal0.2-1.0The [facility] Comment on above:Performed By: #### CMP, LIPID, DLDL #### [facility] [address] [address] [address] Ziyad LandryCalcium [Mass/Vol]9.4 mg/dLNormal8.5-10.1The [facility] Comment on above:Performed By: #### CMP, LIPID, DLDL #### [facility] [address] [address] [address] Ziyad LandryChloride [Moles/Vol]104 mmol/DTsmese94-269Xhl [facility] Comment on above:Performed By: #### CMP, LIPID, DLDL #### [facility] [address] [address] [address] Ziyad LandryCO2 [Moles/Vol]27.9 mmol/PLdjvft65.0-32.0The [facility] Comment on above:Performed By: #### CMP, LIPID, DLDL #### [facility] [address] [place] [address] Dr. Ziyad LandryCreatinine [Mass/Vol]1.58 mg/dLCritically high0.70-1.30The [facility] HospitalComment on above:Performed By: #### CMP, LIPID, DLDL #### [facility] [address] [place] [address] Dr. Ziyad ValenzuelaGFR-AF OGKCAUVL13 mL/min/1.47t0Xaoixjeayd low>=60The [facility] HospitalComment on above:Performed By: #### CMP, LIPID, DLDL #### [facility] [address] [place] [address] Dr. Ziyad ValenzuelaGFR-NON AF PYCZMBOP39 mL/min/1.27v9Eeifjtgvkl low>=60The [facility] HospitalComment on above:Performed By: #### CMP, LIPID, DLDL #### [facility] [address] [place] [address] Dr. Ziyad LandryGlobulin (S) [Mass/Vol]3.8 g/dLNormalThe [facility] HospitalComment on above:Performed By: #### CMP, LIPID, DLDL #### [facility] [address] [place] [address] Dr. Ziyad LandryGlucose [Mass/Vol]116 mg/dLCritically zece06-795Ulp [facility] HospitalComment on above:Performed By: #### CMP, LIPID, DLDL #### [facility] [address] [place] [address] Dr. Ziyad LandryPotassium [Moles/Vol]3.3 mmol/LCritically low3.5-5.1The [facility] HospitalComment on above:Performed By: #### CMP, LIPID, DLDL #### [facility] [address] [place] [address] Dr. Ziyad LandryProtein [Mass/Vol]7.9 g/dLNormal6.4-8.2The [facility] Comment on above:Performed By: #### CMP, LIPID, DLDL #### [facility] [address] [place], [place] [address] Dr. Ziyad LandrySodium [Moles/Vol]140 mmol/IDsdkum538-896Rpi [facility] Comment on above:Performed By: #### CMP, LIPID, DLDL #### [facility] [address] [place], [place] [address] Dr. Ziyad LandryUrea nitrogen [Mass/Vol]28.0 mg/dLCritically high7.0-18.0The [facility] HospitalComment on above:Performed By: #### CMP, LIPID, DLDL #### [facility] [address] [place], [place] [address] Dr. Ziyad Waters nitrogen/Creatinine [Mass ratio]17.7 mg/mgNormalThe [facility] HospitalComment on above:Performed By: #### CMP, LIPID, DLDL #### [facility] [address] [address] [address] Ziyad LandryCT LSPINE WO CONon [id number] LSPINE WO CONEXAM: CT LSPINE WO CON [...] Electronically authenticated by: MARCELINA SIMMONS Date: 2022-05-14 03:38[facility] Vital Signs Date TimeVital SignValuePerforming ZrgtdouwbFeqgqksk27-93-9291 15:32-0400Body clyfdj336.8 cmBenjamin Ball DO Work Phone: [phone]09-03-2025 15:32-0400 Body mass index (BMI) [Ratio]35.6 kg/w1Ipasvfvo Ball DO Work Phone: [phone] [place], [place] [address]09-03-2025 15:32-0400 Body aszxkv420.71 kgBenjamin Ball DO Work Phone: [phone]09-03-2025 15:32-0400 Diastolic blood howxzcns02 mm[Hg]Albaro Ball DO Work Phone: [phone]09-03-2025 15:32-0400 Heart rate76 /minBenjamin Ball DO Work Phone: [phone]09-03-2025 15:32-0400 Respiratory rate12 /minBenjamin Ball DO Work Phone: [phone]09-03-2025 15:32-0400 Systolic blood pitgnwhg874 mm[Hg]Albaro Ball DO Work Phone: [phone]05-07-2025 15:36-0400 Body xylgif825.8 cmAvita Health System [facility] Hospital05-07-2025 15:36-0400Body mass index (BMI) [Ratio]33.5 kg/e8ToucllwzxAvita Health System [facility] Hospital05-07-2025 15:36-0400Body fxpitg351.14 kgAvita Health System Bu[facility]rus Hospital05-07-2025 15:36-0400Diastolic blood szlaaczt64 mm[Hg][facility] 03-06-2025 15:36-0400Heart rate83 /[facility] 03-06-2025 15:36-0400Respiratory rate12 /[facility] 03-06-2025 15:36-0400Systolic blood sfmijnqw074 mm[Hg][facility]03-27-2025 10:00-0400Body oqdsfy663.8 cmAv[facility] 01-24-2025 10:00-0400Body mass index (BMI) [Ratio]33.5 kg/y4PbjgpgfjgAvita Health System [facility] Hospital03-27-2025 10:00-0400Body ywqtbv560.85 kgAvita Health System Bu[facility] Hospital03-27-2025 10:00-0400Diastolic blood fmidnuas68 mm[Hg][facility]03-27-2025 10:00-0400Heart rate71 /[facility]03-27-2025 10:00-0400Respiratory rate12 /[facility]03-27-2025 10:00-0400Systolic blood eielxiip617 mm[Hg][facility]10-10-2024 08:29-0400Body ttuean354.8 cmAvita Health [facility] Hospital10-10-2024 08:29-0400Body mass index (BMI) [Ratio]35.3 kg/h0RdlzmadwcAvita Health System [facility] Hospital10-10-2024 08:29-0400Body .64 kg [facility]10-10-2024 08:29-0400Diastolic blood pressure 120 mm[Hg][facility]10-10-2024 08:29-0400Heart rate80 /[facility]10-10-2024 08:29-0400Respiratory rate12 /[facility]10-10-2024 08:29-0400Systolic blood nhblfesk187 mm[Hg][facility]09-09-2024 15:34-0400Body hdfawl332.8 cmAvita Health System Bu[facility] Hospital09-09-2024 15:34-0400Body mass index (BMI) [Ratio]35.2 kg/l4VbavhnxcpAvita Health System Bucyrus Hospital09-09-2024 15:34-0400Body iblbxs454.3 kgAvita Health System Bu[facility]rus Hospital09-09-2024 15:34-0400Diastolic blood pgkvronk158 mm[Hg][facility] 07-09-2024 15:34-0400Heart rate89 /[facility] 07-09-2024 15:34-0400Respiratory rate12 /[facility] 07-09-2024 15:34-0400Systolic blood toxcmlhb107 mm[Hg][facility]08-15-2024 16:08-0400Diastolic blood kuuwgjey825 mm[Hg]Dax MCCORD [facility]08-15-2024 16:08-0400Heart rate68 /minDax Q Interactive [facility]08-15-2024 16:08-8445QxS9% (BldA) [Mass fraction]97 %Dax MCCORD [facility]08-15-2024 16:08-0400 Systolic blood yxguygnk107 mm[Hg]Dax MCCORD [facility]08-15-2024 16:03-0400Heart rate61 /minDax [employer] [facility]08-15-2024 16:03-9354DsL9% (BldA) [Mass fraction]97 %[employer] [facility]08-15-2024 16:03-0400 Respiratory rate15 /minDax [employer] [facility]08-15-2024 16:03-0400 Diastolic blood sbenxjds234 mm[Hg][employer] [address] [place], [place] 1156008-15-2024 16:03-0400Mean blood gxjjipxv231 mm[Hg]Dax MCCORD [address] [place], [place] 1156008-15-2024 16:03-0400 Systolic blood mm[Hg]Dax MCCORD [address] [place], [place] 1156008-15-2024 16:03-0400Body fcbguicicxl83.52 [degF]Dax MCOCRD [address] [place], [place] 1156008-15-2024 16:03-0400Mean blood hnndywoq427 mm[Hg]Dax MCCORD [address] [place], [place] 1156008-15-2024 16:03-0400 Respiratory rate10 /minDax MCCORD [address] [place], [place] [id number] 15:45-0400 Diastolic blood [id number] mm[Hg]Dax MCCORD [address] [place], [place] [id number] 15:45-0400Heart rate65 /minDax MCCORD [facility]08-15-2024 15:45-0400Mean blood xyhviwus097 mm[Hg]Dax MCCORD [facility]08-15-2024 15:45-0400 Respiratory rate16 /minDax MCCORD [address] [place] [place], [place] 1156008-15-2024 15:45-3481CmH7% (BldA) [Mass fraction]98 %Dax MCCORD [address] [place], [place] 1156008-15-2024 15:45-0400 Systolic blood ujcuguuf060 mm[Hg]Dax MCCORD [address] [place], [place] 1156008-15-2024 15:40-0400Mean blood mm[Hg]Dax MCCORD [address] [place], [place] 1156008-15-2024 15:40-0400 Respiratory rate12 /minDax Q Interactive [facility]08-15-2024 15:33-0400Blood Pressure LocationGreggraciela COOK [facility]08-15-2024 15:33-0400Body jnsbohjrpeg30.88 [degF]Dax MCCORD [address] [place], [place] 1156008-15-2024 15:25-0400 Respiratory rate10 /minDax COOK [facility]08-15-2024 15:20-0400 Respiratory rate16 /minDax Q Interactive [address] [place], [place] 4125508-15-2024 11:58-0400Blood Pressure LocationDax Q Interactive [facility]08-15-2024 11:58-0400 BP/Pulse Patient PositionDax Q Interactive [facility]08-15-2024 11:58-0400Mean blood ytwexwdy612 mm[Hg]Dax MCCORD [facility]08-15-2024 11:57-0400Blood Pressure LocationDax Q Interactive [facility]08-15-2024 11:57-0400 BP/Pulse Patient PositionGreggraciela Q Interactive [address] [place], [place] 1156008-15-2024 11:57-0400Mean blood mm[Hg]Dax MCCORD [address] [place], [place] 4125508-15-2024 11:56-0400Body zzkcmlbyntp18.7 [degF]Dax Q Interactive [facility]08-07-2024 09:45-0400 Diastolic blood oqyoecin596 mm[Hg]Dax Q Interactive [facility]08-07-2024 09:45-0400Heart rate63 /minDax MCCORD [facility]08-07-2024 09:45-0400Mean blood pyauhhur677 mm[Hg]Dax MCCORD [facility]08-07-2024 09:45-0400 Systolic blood bbxqroeh062 mm[Hg]Dax MCCORD [facility]08-07-2024 09:44-0400Heart rate62 /minDax MCCORD [facility]08-07-2024 09:44-5260BlG9% (BldA) [Mass fraction]96 %Dax MCCORD [facility]08-07-2024 09:43-0400 Diastolic blood uuqebgdw874 mm[Hg]Dax MCCORD [facility]08-07-2024 09:43-0400Mean blood xkpfuefe671 mm[Hg]Dax MCCORD [facility]08-07-2024 09:43-0400 Systolic blood mm[Hg]Dax MCCORD [facility]08-07-2024 09:42-0400 Respiratory rate16 /minDax MCCORD [facility]07-12-2024 07:55-0400Blood Pressure LocationDax MCCORD [facility]07-12-2024 07:55-0400Diastolic blood vvejqsol21 mm[Hg]Dax MCCORD [facility]07-12-2024 07:55-0400Heart rate70 /minDax Q Interactive [facility]07-12-2024 07:55-0400Respiratory rate16 /minDax Q Interactive [facility]07-12-2024 07:55-0400Systolic blood qkiexrvf894 mm[Hg]Dax MCCORD [facility]07-03-2024 09:32-0400Body zbjyvr553.8 [facility]20[facility] 09:32-0400Body mass index (BMI) [Ratio]34 kg/f5QmejqfxhiAvita Health System [facility]07-03-2024 09:32-0400Body cewbbw896.72 kgAv[facility]07-03-2024 09:32-0400Diastolic blood zipnihht18 mm[Hg] [facility]07-03-2024 09:32-0400Heart rate76 /[facility]07-03-2024 09:32-0400Respiratory rate12 /[facility]07-03-2024 09:32-0400Systolic blood uqweltpp368 mm[Hg] [facility]05-29-2024 14:55-0400Blood Pressure Location Dax MCCORD [facility]05-29-2024 14:55-0400Diastolic blood xsyujzuy225 mm[Hg]Dax MCCORD [facility]05-29-2024 14:55-0400Heart rate71 /minDax Q Interactive [facility]05-29-2024 14:55-0400Respiratory rate19 /minDax Q Interactive [facility]05-29-2024 14:55-0400Systolic blood gutdgixz910 mm[Hg]Dax MCCORD [facility]05-03-2024 15:19-0400Body nymlnb199.8 cmAv[facility] 03-02-2024 15:19-0400Body mass index (BMI) [Ratio]34.6 kg/e0TtzobirdeAvita Health System [facility]05-03-2024 15:19-0400Body irapre693.54 kgAv[facility]05-03-2024 15:19-0400Diastolic blood bbzhoogf15 mm[Hg][facility]05-03-2024 15:19-0400Heart rate74 /[facility]05-03-2024 15:19-0400Respiratory rate12 /[facility]05-03-2024 15:19-0400Systolic blood ulsecgyj810 mm[Hg][facility]02-26-2024 14:53-0500Body wxergh807.8 cmAv[facility]02-26-2024 14:53-0500Body mass index (BMI) [Ratio]34.7 kg/e0BlfsqbqsxAv[facility]02-26-2024 14:53-0500Body unjura132.93 kg [facility]02-26-2024 14:53-0500Diastolic blood jqsigwry77 mm[Hg][facility]02-26-2024 14:53-0500Heart rate78 /min [facility]02-26-2024 14:53-0500Respiratory rate12 /min [facility]02-26-2024 14:53-0500Systolic blood ztiywxfm589 mm[Hg][facility]01-17-2024 15:00-0500Body dcunkf279.8 cm Albaro Ball Other [employer] Other 01-17-2024 15:00-0500Body mass index (BMI) [Ratio] 34.63 kg/c8Hajexfjs Ball Other [employer] Other 01-17-2024 15:00-0500Body uqighc771.5 kgBenjamin Ball Other [employer] Other 01-17-2024 15:00-0500Diastolic blood lcqatvzb940 mm[Hg]Albaro Ball Other [employer] Other 01-17-2024 15:00-0500Respiratory rate12 /minBenjamin Ball Other [employer] Other 01-17-2024 15:00-0500Systolic blood mm[Hg] Albaro Ball Other [employer] Other 08-21-2023 15:30-0400Body eclwbt305.8 cmBenjamin Ball Other [employer] Other 08-21-2023 15:30-0400Body mass index (BMI) [Ratio] 34.89 kg/u6Rxwnynbb Ball Other [employer] Other 08-21-2023 15:30-0400Body odlbfy932.32 kgBenjamin Ball Other [employer] Other 08-21-2023 15:30-0400Diastolic blood evubphto905 mm[Hg]Albaro Ball Other [employer] Other 08-21-2023 15:30-0400Respiratory rate12 /minBenjamin Ball Other [employer] Other 08-21-2023 15:30-0400Systolic blood dubzghzg274 mm[Hg] Albaro Ball Other [employer] Other 05-15-2023 16:00-0400Body mawwbk899.8 cmBenjamin Ball Other [employer] Other 05-15-2023 16:00-0400Body mass index (BMI) [Ratio] 34.49 kg/o8Mfivozqb Ball Other [employer] Other 05-15-2023 16:00-0400Body rowryv812.05 kgBenjamin Ball Other [employer] Other 05-15-2023 16:00-0400Diastolic blood oysluyar400 mm[Hg]Albaro Ball Other [employer] Other 05-15-2023 16:00-0400Respiratory rate12 /minBenjamin Ball Other [employer] Other 05-15-2023 16:00-0400Systolic blood bnsgrzqe857 mm[Hg] Albaro Ball Other [employer] Other 04-03-2023 16:00-0400Body fmgiuf827.8 cmBenjamin Ball Other [employer] Other 04-03-2023 16:00-0400Body mass index (BMI) [Ratio] 34.29 kg/l8Pgtfruip Ball Other [employer] Other 04-03-2023 16:00-0400Body wtsyld155.41 kgBenjamin Ball Other [employer] Other 04-03-2023 16:00-0400Diastolic blood qzsnwaux45 mm[Hg] Albaro Ball Other [employer] Other 04-03-2023 16:00-0400Respiratory rate12 /minBeanthony Grimaldo Other [employer] Other 04-03-2023 16:00-0400Systolic blood dbcivpwj602 mm[Hg] Albaro Grimaldo Other [facility] [employer] Other Encounters Encounter DateEncounter TypeCare ProviderFacilityStart: 07-03-2025 End: 17-15-7155ihbyquewwiDpyzzvge Ball DO Work Phone: [facility] Work Phone: Start: 07-03-2025 End: 55-16-5250Glovifo encounter procedureBekwameaniket Grimaldo DO-[facility] Work Phone: Start: 04-16-2025 End: 44-47-6696hoozczdsziHtckxhu P COOKFacility:EU [place]kyStart: 04-16-2025 End: 19-24-0594Kwczgfy encounter procedureDax MCCORD [facility] Start: 03-06-2025 End: 03-07-1919gyfzwnkomrXcadeoqamKettering Health [facility]al [facility] Center Work Phone: Start: 03-06-2025 End: 44-27-6770Inhmwzdff for general adult medical examination without abnormal findingsTriHealth Bethesda North Hospitaltart: 03-06-2025 End: 72-29-8988Twrforl encounter [facility] Work Phone: Start: 01-24-2025 End: 71-70-3753mwlbevezijLtqdwxozqKettering Health Behavioral Medical Center Work Phone: Start: 01-24-2025 End: 06-13-6865Vvqknom encounter procedureC[facility] Work Phone: Start: 61-75-9430cixohwpxszOpskmou P COOKFacility:EU [place]walkStart: 08-09-2024 End: 66-01-9163cxnrkwhfhgBpzdwbgelMorrow County Hospital Work Phone: Start: 08-09-2024 End: 31-92-6130Fpuoltm encounter procedureC[facility] Work Phone: Start: 07-17-2024 End: 37-92-7191fqjavvaystQdulgak P COOKFacility:FTMCStart: 07-17-2024 End: 38-58-4923Mefpmbx encounter procedureGregory P RYAN [facility] Start: 07-09-2024 End: 23-45-5881kmtyzbllwzMqwxemzjuMorrow County Hospital Work Phone: Start: 07-09-2024 End: 20-04-7125Xoynblg encounter procedureC[facility] Work Phone: Start: 06-14-2024 End: 78-84-8964Kmmkhaawd to same day surgery centerGregory P RYAN [facility] Start: 06-14-2024 End: 69-87-6735ciypgbetlbDubegqd P COOKFacility:FTMCStart: 06-06-2024 End: 03-30-3260qpzmdkpwjpRdfiwyo P COOKFacility:FTMCStart: 06-06-2024 End: 47-51-0024Zlwjroz encounter procedureGregory P COOK [facility] Start: 05-11-2024 End: 54-60-8180onfexdmdtaRdzwhxb P COOKFacility:EU [place]Start: 05-11-2024 End: 85-77-6521Lqlptvj encounter procedureGregory P COOK [facility] Start: 05-02-2024 End: 25-98-9627wipjczmhzcZhexxfxuwKettering Health [facility]al Medical Center Work Phone: Start: 05-02-2024 End: 66-48-4676Srflhsh encounter procedureFirelands [facility] Work Phone: Start: 03-28-2024 End: 56-16-0205qgfptyktkqBNIMKUAO BALLFacility:EU Ailynseaview hospitalkStart: 03-28-2024 End: 67-29-7729Cjtypud encounter procedureGregory María RYAN [facility] Start: 87-64-1675Pqe-patient / Non-visitFirelands Physician Group-[place] [employer] Work Phone: Start: 07-43-0040zthjkufpsoCfvzvpw COOKFacility:EU JanisyStart: 03-02-2024 End: 83-69-8010piaefryqghByiktaucjKettering Health Behavioral Medical Center Work Phone: Start: 03-02-2024 End: 95-62-8137Qkkumlyjc for general adult medical examination without abnormal findingsTriHealth Bethesda North Hospitaltart: 03-02-2024 End: 03-62-2991Ailbppa encounter procedureFirchildren's [facility] Work Phone: Start: 42-62-7061Qpu-patient / Non-visitFirelands Physician Group-[place] [employer] Work Phone: Start: 12-26-2023 End: 07-11-6687Chbybam encounter procedureFirstilwells [facility]ician [facility] Work Phone: Start: 12-09-2023 End: 31-62-7488hmpyhzpubmHuxzsaph Alvaro Other [facility] [employer] Other Start: 95-04-1722Udphjgipd encounterBenjamin BallFPG [facility] ClinicStart: 11-30-2023 End: 09-75-8358zxxoihrlidQjcsbglz Ball Other [employer] Other Start: 01-49-9834Aobptmuna encounterBenjamin BallFPG [facility] ClinicStart: 11-29-2023 End: 88-57-7158pebczjdswmRnfiyhiw Ball Other [facility] [employer] Other Start: 59-89-1796Ufclbqbfi encounterBenjamin BallFPG [facility] ClinicStart: 11-28-2023 End: 58-50-8052dyqgwgdqpmFwtixxgq Ball Other [employer] Other Start: 76-68-5565Mgefphdij encounterBenjamin BallFPG [facility] ClinicStart: 11-22-2023 End: 03-83-1033hbyvgoicuhVnztxtgl Ball Other [facility] [employer] Other Start: 23-53-2163Ranwaavkd encounterBenjamin BallFPG [facility] ClinicStart: 11-16-2023 End: 71-75-9658gdwlqhzsbmFlyzonjb Ball Other [facility] [employer] Other Start: 93-05-5177Qcvtvu outpatient visit 25 minutes Albaro BallFPG [facility] ClinicStart: 28-78-8963Qcznhtdcv encounterBenjamin BallFPG [facility] ClinicStart: 11-03-2023 End: 13-70-7710muxottwsbsKPRVG T OLSENNot AvailableStart: 07-13-2023 End: 27-09-9652cpmqgeellzOfchhzka Ball Other [employer] Other Start: 80-84-0965Yluyjzgbc encounterBenjamin BallFPG [facility] ClinicStart: 06-20-2023 End: 27-82-8314cdixnbwhdzBxcqoogt Ball Other [employer] Other Start: 71-64-7345Ngtlhp outpatient visit 25 minutes Albaro BallFPG [facility] ClinicStart: 04-22-2023 End: 72-45-8697hcvewclcqbLcnzjrbt Ball Other [facility] [employer] Other Start: 83-03-8763Ositosord encounterBenjamin BallFPG [facility] ClinicStart: 04-08-2023 End: 55-81-3161qumssqhqwkOubxaize Ball Other [facility] [employer] Other Start: 27-99-6492Bnzmbwedo encounterBenjamin BallFPG [facility] ClinicStart: 04-04-2023 End: 75-79-9580firrufzxkjTeltbtvw Ball Other [facility] [employer] Other Start: 08-66-4957Mxizddtla encounterBenjamin BallFPG [facility] ClinicStart: 03-14-2023 End: 57-40-6855kgwdzatmctApnizpeo Ball Other [facility] [employer] Other Start: 99-93-0662Wtjytv outpatient visit 15 minutes Albaro BallFPG [facility] ClinicStart: 02-09-2023 End: 37-84-5568teispyocjbLT ALBARO BALLFacility:J3Vottg: 02-01-2023 End: 70-20-8044baylbjuizgJlxoijbs Ball Other [employer] Other Start: 40-39-1519Rwzjytglm encounterBenjamin BallFPG [facility] ClinicStart: 01-31-2023 End: 09-94-8899flkyacsbfhDmppzdyo Ball Other [facility] [employer] Other Start: 08-28-3906Cdkxwohbt for general adult medical examination without abnormal findingsAlbaro Grimaldo Medical ClinicStart: 84-72-1305Zrnqzqot preventive med est patient 40-64yrsBenaniket Grimaldo Medical ClinicStart: 10-12-2022 End: 52-75-4851qizkvxcqbwUP ALBARO BALLFacility:O4Hpkiy: 05-14-2022 End: 10-76-1281mxdvcgpvjcGV ECHO MARKER .Facility: Procedures DateProcedureProcedure DetailPerforming ClinicianStart: 38-72-2955Amqfsrutetabyf shockwave lithotripsy of calculus of kidneyDax MCCROD Start: 48-35-8853Zsudqrjresjnua shockwave lithotripsy of calculus of kidneyDax Q Interactive Start: 69-11-5320Paccomsl cystoscopyDax Q Interactive Start: 69-36-4030QKL screeningDR ECHO MARKER . Comment on above:Performed By: #### PSASC #### [facility] [address] [place] [address] Dr. Ziyad LandryArthroscopyDax Q Interactive CholecystectomyDax Q Interactive Colonoscope, device (physical object)Dax Q Interactive Extracorporeal shockwave lithotripsy of ureterDax Q Interactive VasectomyDax Q Interactive Plan of Treatment DateCare ActivityDetailAuthorComprehensive metabolic 1999 panel - Serum or PlasmaAvita Health System Bucyrus HospitalComprehensive metabolic 2000 panel - Serum or [facility] RehabilitationUS Kidney - bilateralWoodland [facility] Immunizations Immunization DateImmunizationNotesCare XvjidnyiLevfddjq70-60-0112IVZFI-88 Vaccine Pfizer - Documentation Purposes OnlyBenaniket Alvaro Other [facility]12-21-2015diphtheria, tetanus toxoids and acellular pertussis vaccine, unspecified formulation Albaro Alvaro Other [facility] Payers DatePayer CategoryPayerPolicy [id number] Insurance [id number] 2.16840.1.903413.3.57[id number] 2.840.1.226383.3.57[id number] 2.0.1.648057.3.57[id number] 2.840.1.940829.3.57[id number] 2.840.1.253892.3.57[id number] 2.840.1.820331.3.57[id number] 2..1.347522.3.57[id number] 2.16840.1.381886.3.57[id number] 2.0.1.751982.3.57[id number] 2.16840.1.216478.3.57[id number] 2.840.1.409719.3.57[id number] 2.16.840.1.217025.3.579.2.03796-93-6949Jdojkof9[id number] [id number] 2.16.840.1.876955.19 Social History DateTypeDetailFacilityUnknown if ever smokedNort [employer] Other Sex Assigned At [facility] Start: 74-50-3042Wmusnsy smoking status NHISUnknown if ever smokedTriHealth Bethesda North Hospitaltart: 81-20-2704Csx Assigned At [facility] HospitalTobacco smoking statusExec[facility] Start: 05-11-2024 End: 50-30-0838Ruxkvrl smoking statusNever smoked tobacco (finding)[facility] SandassonetyTobacco smoking statusNever [facility] SanduskyStart: 08-25-2017 End: 45-04-7839LbtVpcz (finding)[facility] Medical Equipment Procedure CodeEquipment CodeEquipment Original TextEquipment IdentifierDates CYSTOSCOPY STENT INSERTION Dax MCCORD MD 06/14/24 Unknown Ureter RFDAStart: 58-72-5440IOPJNQSMHW STENT INSERTION Dax MCCORD MD 06/14/24 Unknown Ureter R FDAStart: 98-54-0921Mhyhc Sugar Diagnostic (Onetouch Ultra Test) stripStart: 75-10-9415Wxupljb (Onetouch Ultrasoft 2 Lancet) 30 gauge miscStart: 01-24-2025 Pen Needle, Diabetic (Comfort Ez Pen Falcon) 31 gauge x 1/4 needleStart: 42-06-5884Ukzlm Sugar Diagnostic (Onetouch Ultra Test) stripStart: 01-24-2025 End: 67-64-4502Izfokzr (Onetouch Ultrasoft 2 Lancet) 30 gauge miscStart: 01-24-2025 End: 03-29-1541Pkh Needle, Diabetic (Comfort Ez Pen Falcon) 31 gauge x 1/4 needleStart: 01-24-2025 End: 60-63-9099Ydywm Sugar Diagnostic (Onetouch Ultra Test) stripStart: 31-22-0131Lzabnnv (Onetouch Ultrasoft 2 Lancet) 30 gauge miscStart: 01-24-2025 Pen Needle, Diabetic (Comfort Ez Pen Falcon) 31 gauge x 1/4 needleStart: 19-34-2908Heoyg Sugar Diagnostic (Onetouch Ultra Test) stripStart: 01-24-2025 End: 68-46-3622Mximurn (Onetouch Ultrasoft 2 Lancet) 30 gauge miscStart: 01-24-2025 End: 89-01-7951Fhc Needle, Diabetic (Comfort Ez Pen Falcon) 31 gauge x 1/4 needleStart: 01-29-2025 End: 18-58-0764Gnb Needle, Diabetic (Comfort Ez Pen Falcon) 31 gauge x 1/4 needleStart: 01-24-2025 End: 28-99-6239Qoy Needle, Diabetic (Comfort Ez Pen Falcon) 31 gauge x 1/4 needleStart: 01-24-2025 End: 33-40-8393NHBRLVEKZM STENT INSERTION Dax MCCORD MD 06/14/24 Unknown Ureter RFDAStart: 35-71-7810Uwaih Sugar Diagnostic (Onetouch Ultra Test) strip Start: 11-49-6930Iroawmk (Onetouch Ultrasoft 2 Lancet) 30 gauge miscStart: 48-44-4864Cxv Needle, Diabetic (Comfort Ez Pen Falcon) 31 gauge x 1/4 needle Start: 84-36-5089Tvamm Sugar Diagnostic (Onetouch Ultra Test) stripStart: 01-24-2025 End: 79-72-9405Gamaqoq (Onetouch Ultrasoft 2 Lancet) 30 gauge miscStart: 01-24-2025 End: 03-39-5340Ljw Needle, Diabetic (Comfort Ez Pen Falcon) 31 gauge x 1/4 needleStart: 01-29-2025 End: 06-82-5999Zxa Needle, Diabetic (Comfort Ez Pen Falcon) 31 gauge x 1/4 needleStart: 01-24-2025 End: 77-95-8449Npt Needle, Diabetic (Comfort Ez Pen Falcon) 31 gauge x 1/4 needleStart: 01-24-2025 End: 01-29-2025 Functional Status OclkGvhrvacuepUxlinhCvjtdoko08-92-7544Ovnkzkeshw StatusNoOhio[facility]07-12-2024Functional StatusN/AExec[facility]05-29-2024Functional StatusYesExec[facility] Clinical Notes 10-12-2022 to 01-24-2025 Note Date & AafqNfvuSfuqhjeo49-31-4236 Evaluation note* Diagnosis Onset Date Resolution Status [...] with hyperglycemiaacuteMay 2024 3:24pmWellness examinationnoneactiveMay 2024 3:24pm [facility] Work Phone: 1(466) 805-272108-15-2024 Hospital Discharge instructions Patient Education 06/14/2024 16:36:36 [...] Follow these instructions at home: Medicines Take uawx-mfh-asddyyq and prescription medicines only as told by [...] provider. Document Revised: 09/13/2022 Document Reviewed: 06/21/2022 [employer] Patient Education 2022 Sequence Design. Follow Up Care 05/17/2024 13:04:04 With:Dax RYAN Address: [address] [facility] [address] [place] [phone] (1) When: Unknown Comments:Please call my office to make arrangements for a CT scan without contrast. Once the order is sent, the hospital contacts you for the CT appointment time. Depending on the results, this will determinethe next step.I did provide some discharge instructions and I did send some pain medication and antibiotics to your pharmacy. [facility] 08-15-2024 NoteProgress Note-Physician Patient: YANNI MAR Age: 59 years Sex: Male : 1965 Associated Diagnoses: None Author: Ike Vasques Jr., DO Postoperative Information Postoperative disposition: Postoperative disposition: Home. Optimetrix number: Optimetrix number [id number]. Anesthetic utilized: General. Physical Examination Vital Signs [...] to Ambulatory Surgery Unit, and To home ).[facility] HospitalComment on above:Result Comment: Electronically Signed By: Ike Vasques Jr., DO\.br\Date and Time Signed: 06/14/24 17:05 [id number] NotePatient Education - Text Nephrology Lithotripsy, Care [...] these instructions at home: Medicines ? Take bkdk-pbn-vacdrsg and prescription medicines only as told by [...] can help prevent ne (more content not included)...[facility]08-15-2024 Evaluation + Plan note Extracted from:Title:ANES Post-operative Note - GeneralAuthor:Ike Vasques Jr., DO GDate:06/14/24 Plan Transfer/Discharge: Transfer/Discharge Discharge when meets criteria ( From PACU to Ambulatory Surgery Unit, and To home ). Extracted from:Title:ANES Pre-operative Note - AdultAuthor:Ike Vasques Jr., DOate:06/14/24 Plan [place] [employer]esthesiologists (ASA) physical status classification: Class III. Anesthetic Preoperative Plan: Anesthesia General.[facility] [id number] NoteProgress Note-Physician Patient: YANNI MAR Age: 59 [...] All Problems Abnormal ultrasound / SNOMED CT 612663001 / Confirmed BPH with urinary obstruction / SNOMED CT 8271059475 / Confirmed Chronic kidney disease / SNOMED CT 7196930705 / Confirmed Erectile dysfunction / SNOMED CT 2624237604 / Confirmed Erectile dysfunction due to arterial insufficiency / SNOMED CT 5243233454 / Confirmed History of kidney stones / SNOMED CT 7336340661 / Confirmed Hyperlipemia / SNOMED CT 18880513 / Confirmed Kidney stones / SNOMED CT 546259268 / Confirmed Major depressive disorder, recurrent, in remission / SNOMED CT 955807344 / Confirmed Obstructive sleep apnea / SNOMED CT 983188651 / Confirmed Other obesity due to excess calories / SNOMED CT 3604460692 / Confirmed Primary hypertension / SNOMED CT 71003121 / Confirmed Proteinuria / SNOMED CT 14841051 / Confirmed Renal cyst / SNOMED CT 0688848530 / Confirmed Spondylolysis of lumbar region / SNOMED CT 579883618 / Confirmed Stress headache / SNOMED CT 891258376 / Confirmed Urge incontinence / SNOMED CT 389819365 / Confirmed Canceled: Abnormal renal ultrasound / SNOMED CT 7664654637 Histories Past Medical History: No active or resolved past medical history items have been selected or recorded. Procedure history: Flexible cystoscopy (254672789) on 05/11/2024 at 59 Years. Arthroscopy (33151955). Cholecystectomy (23680323). Colonoscope (803167969). Vasectomy (71863105). ESWL (extracorporeal shockwave lithotripsy) of ureteric calculus (0079545356). Social History Social & Psychosocial Habits Alcohol [...] 70 bpm Systolic Blood (more content not included)...[facility] HospitalComment on above:Result Comment: Electronically Signed By: Ike Vasques Jr., DO.chun\Date and Time Signed: 06/14/24 12:41 [id number] Hospital Discharge instructions Patient Education 05/11/2024 08:38:21 [...] Follow these instructions at home: Medicines Take ewid-bls-iwajloh and prescription medicines only as told by [...] provider. Document Revised: 09/13/2022 Document Reviewed: 06/21/2022 [employer] Patient Education 2022 Sequence Design. 05/11/2024 08:38:21 Lithotripsy Lithotripsy Lithotripsy is a [...] including vitamins, herbs, eye drops, creams, and fblu-qha-nqgzkln medicines. Any problems you or family members [...] provider tells you to take them. Taking lgrl-dkc-yhqqatm medicines, vitamins, herbs, and supplements. Tests You [...] provider. Document Revised: 09/13/2022 Document Reviewed: 06/21/2022 [employer] Patient Education 2022 Sequence Design. Follow Up Care 03/28/2024 15:43:47 With:RYAN HORNER, Dax Daniel, URL Address: [facility] [address] [place], [place] [id number]- When: Unknown [facility] [id number] NotePatient Education Nephrology Lithotripsy, Care After This [...] these instructions at home: Medicines ? Take orka-kpr-jdovcwh and prescription medicines only as told by [...] keep all fragments fo (more content not included)...[facility]05-29-2024 Hospital Discharge instructions Patient Education 03/28/2024 [...] including vitamins, herbs, eye drops, creams, and wrwm-eac-pktleur medicines. Any problems you or family members [...] provider tells you to take them. Taking vlnl-jjs-onfnjde medicines, vitamins, herbs, and supplements. Tests You [...] Follow these instructions at home: Medicines Take znhv-cjj-goqicfq and prescription medicines only as told by [...] provider. Document Revised: 06/30/2022 Document Reviewed: 05/29/2021 [employer] Patient Education 2022 Sequence Design. Follow Up Care 03/16/2024 15:26:34 With:RYAN HORNER, Dax Danile, URL Address: [facility] [employer] [address] [place], [place] [id number]- When: Unknown [facility] 05-29-[address] Grimaldo referral HPI [...] with voice recognition artificial intelligence software, specifically Medium, Scalado and or Mo[employer]ered. Substitutions may have occurred due to the [...] MD, URL [address] (more content not included)...[facility] HospitalComment on above:Result Comment: Electronically Signed By: Dax MCCORD MD\.br\Date and Time Signed: 03/28/24 15:36 EDT\.br\Electronically Co-Signed By: Soco Ruano\.br\Date and Time Co-Signed: 03/28/24 15:25 [id number] NoteUrology Cystoscopy Cystoscopy is a procedure that [...] including vitamins, herbs, eye drops, creams, and vryj-qde-mdjsqti medicines. ? Any problems you or family [...] tells you to take them. ? Taking gqsq-uny-doullug medicines, vitamins, herbs, and supplements. Tests You [...] these instructions at home: Medicines ? Take gsjv-brn-xurnuyv and prescription medicines only as told by [...] or the department th (more content not included)...[facility] 12-09-2023 Evaluation note* Encounter Date Diagnosis Assessment Notes Treatment Notes Treatment Clinical Notes Dec, Primary hypertension (ICD-10 - I 10) [facility] Other 01-31-2024 Evaluation note* Encounter Date Diagnosis Assessment Notes Treatment Notes Treatment Clinical Notes Oct, Primary hypertension (ICD-10 - I 10) [facility] Other 01-30-2024 Evaluation note* Encounter Date Diagnosis Assessment Notes Treatment Notes Treatment Clinical Notes Oct, Primary hypertension (ICD-10 - I 10) [facility] Other 01-17-2024 Evaluation note* Encounter Date Diagnosis [...] healthy diet and exercise w/ weight loss. [facility] Other 08-21-2023 Evaluation note* Encounter Date Diagnosis [...] use, the patient reduces the risk for IA, CVA, HTN, cardiac dysrhythmias and sudden cardiac [...] Quad exercises, ice and rest. f/u Orthopedics [facility] Other 05-15-2023 Evaluation note* Encounter Date Diagnosis [...] index [BMI] 34.0-34.9, adult (ICD-10 - Z68.34) [facility] Other 04-04-2023 Evaluation note* Encounter Date Diagnosis Assessment Notes Treatment Notes Treatment Clinical Notes Jan, Erectile dysfunction due to arterial insufficiency (ICD-10 - N52.01) [facility] Other 04-03-2023 Evaluation note* Encounter Date Diagnosis [...] use, the patient reduces the risk for IA, CVA, HTN, cardiac dysrhythmias and sudden cardiac [...] K58.0) Jan,Other chronic pain (ICD-10 - G89.29) [facility] Other [id number] NotePROCEDURE: XR KNEE RT 4V or > [...] authenticated by: MEGAN MCCOY Date: 2022-10-12 15:38[facility] Future Appointments Appointment Date:05/11/2024 07:45:00 AM Scheduled Provider:Dax MCCORD MD Location:[facility] [place] Appointment Type:URO Procedure 15 min [facility] Evaluation + Plan note Future Appointments Appointment Date:06/14/2024 01:45:00 PM Scheduled Provider: Location:[facility] Appointment Type:Surgery FT [facility] Evaluation noteNo [facility] [employer] Other Evaluation note* Diagnosis Onset Date Resolution Status Chronic kidney disease acuteChronic venous insufficiencyacuteElevated cholesterolacutePrimary hypertensionacuteProteinuriaacuteChronic kidney diseaseacuteChronic venous insufficiencyacuteElevated cholesterolacutePrimary hypertensionacuteProteinuria acuteScreening PSA (prostate specific antigen)noneactiveWellness examination noneactive [facility] Work Phone: Evaluation note* Diagnosis Onset Date Resolution Status Chronic kidney disease acuteChronic venous insufficiencyacuteElevated cholesterolacutePrimary hypertensionacuteProteinuriaacuteScreening PSA (prostate specific antigen) noneactiveWellness examinationnoneactive [facility] Work Phone: Evaluation note* Diagnosis Onset Date Resolution Status Primary hypertension acuteSpider bite allergy, current reactionnoneactiveTinea crurisnoneactive Chronic kidney diseaseacuteChronic venous insufficiencyacuteElevated cholesterol acutePrimary hypertensionacuteProteinuriaacute [facility] Work Phone: Evaluation note* Diagnosis Onset Date Resolution Status Bladder mass acuteChronic kidney diseaseacuteChronic venous insufficiencyacuteElevated cholesterolacutePrimary hypertensionacuteProteinuriaacuteUreteral stoneacute [facility] Work Phone: Evaluation note* Diagnosis Onset Date Resolution Status Admit Date Chronic kidney disease acuteMarch 2024 9:33amChronic venous insufficiencyacuteMarch 2024 9:33amElevated cholesterolacuteMar 2024 9:33amHyperglycemiaacuteMarch 2024 9:33amObesityacuteDec 2024 9:33amObstructive sleep apneaacute January 24, 2025 9:33amPrimary hypertensionacuteMarch 2024 9:33am ProteinuriaacuteMar 2024 9:33am [facility] Work Phone: Evaluation note* Diagnosis Onset Date Resolution Status Admit Date Chronic kidney disease acuteSeptember 2024 3:16pmChronic venous insufficiencyacuteSept2024 3:16pmElevated cholesterolacuteSept2024 3:16pmObesityacute Cammie 2024 3:16pmObstructive sleep apneaacuteSept2024 3:16pm Primary hypertensionacuteSept2024 3:16pmProteinuriaacuteSept2024 3:16pmType 2 diabetes mellitus with hyperglycemiaacuteSept2024 3:16pm [facility] Work Phone: History general Narrative - Reported* Type Description Date Medical History HTN (hypertension) Medical HistoryDepressionMedical HistoryAcute pain of right kneeMedical History Spondylolysis of lumbar regionMedical HistoryStress headacheMedical HistoryMajor depressive disorder, recurrent, in partial remissionMedical HistoryChronic venous insufficiencyMedical HistoryHyperlipidemia type IIMedical History Obstructive sleep apneaMedical HistoryErectile dysfunction due to arterial insufficiencyMedical HistoryLow back painMedical HistoryPlaque psoriasisSurgical Voezuflysxvkhzhagazaxs5475Vpitedzd Historykidney stoneSurgical History [id number], 2020Hospitalization HistorySEE SURGICAL [facility] Other History general Narrative - Reported* Type Description Date Medical History HTN (hypertension) Medical HistoryDepressionMedical HistoryAcute pain of right kneeMedical History Spondylolysis of lumbar regionMedical HistoryStress headacheMedical HistoryMajor depressive disorder, recurrent, in partial remissionMedical HistoryChronic venous insufficiencyMedical HistoryHyperlipidemia type IIMedical History Obstructive sleep apneaMedical HistoryErectile dysfunction due to arterial insufficiencyMedical HistoryLow back painMedical HistoryPlaque psoriasisSurgical Eqwhhlwztldhulkqeqvhra0832Vuqdeeei Historykidney stoneSurgical History [id number], urgical HistoryRight knee arthroscopy03/2023Hospitalization HistorySEE [facility] Other Hospital course Narrative No data available for this section [facility] Hospital Discharge instructions No data available for this section [facility] Progress note No data available for this section [facility] Reason for referral (narrative)* Reason *FU 02/08 Referral for persistent right knee pain w/o swelling, locking or giving out., Right knee strain, medial meniscus injury Chondromalacia Diagnosis 1 Pain in right knee ( M25.561) Referral Organization [facility] Alvaro owen Referring Provider First Name Albaro Referring Provider Last Name Alvaro Referring Provider Specialty Internal Me dicine Referred Organization [facility] Referred Provider Iris Mandujano Jr Referred Address ,[place], [place],[address] Referred Provider Specialty Orthopedic S urgery Referral Priority Routine General Notes Sudha Hercules 02:06:53 PM >received today Sudha Hercules 02/01/2023 02:07:54 PM >attachments made, notes locked, faxed P [facility] Other Reason for referral (narrative)No reason for referral information availableMedina Hospital Work Phone: Summary Purpose Family History [...] section and content) DATE CREATED AUTHOR 02/10/[address] [facility] DATE CREATED AUTHOR AUTHOR'S ORGANIZ ATION 03/02/2023 [facility] [employer] DATE CREATED AUTHOR AUTHOR'S ORGANIZ ATION 11/05/2023 [facility] EPIC DATE CREATED AUTHOR AUTHOR'S ORGANIZ ATION 06/08/2024 [facility] DATE CREATED AUTHOR AUTHOR'S ORGANIZ ATION 04/18/2025 [facility] Care Teams (unrecognized sec tion and content) [...] BE BASED ON THE PRIMARY CLINICAL RECORDS. [employer] provides no warranty or guarantee of the accuracy or completeness of information in this document.
--- NOTE | 2025-09-17 12:59 | MR_ITS ---
The [address] [address] Patient Name: YANNI MAR MRN: [id number] date: 1965 Sex: M Assigned Patient Location: [place] Current Patient Location: [place] Accession/Order Number: [id number] Exam Date: 09/17/2025 16:15 Report Date: 09/17/2025 19:05 At the request of: LAUREN CHOI MD Procedure: MR head/brain wo con MRI the Brain without contrast TECHNIQUE: Multiplanar T1 and T2-weighted imaging of the brain. HISTORY: Left facial numbness COMPARISON: none VENTRICLES: Unremarkable BRAIN VOLUME: Adequate volume of brain parenchyma identified. BRAIN PARENCHYMAL SIGNAL INTENSITY: Normal signal intensity of the brain parenchyma identified. BLEED: None MASS EFFECT: No mass effect DIFFUSION RESTRICTION: None GRADIENT ECHO PARENCHYMAL SIGNAL LOSS: None MIDBRAIN: The midbrain structures are unremarkable. CALI: Unremarkable MEDULLA: Unremarkable INTERNAL AUDITORY CANALS: Unremarkable SINUSES: Unremarkable ORBITS: Grossly unremarkable MASTOIDS: Unremarkable ENHANCEMENT: No contrast enhancement given MR/MR head/brain wo con IMPRESSION: No acute intracranial process. Impression dictated by: Lux Joseph M.D. 09/17/2025 7:05 PM Dictation [facility] Electron[facility] authenticated by: [id number] Y Date: 09/17/2025 19:05
--- NOTE | 2025-09-17 12:59 | CA_ITS ---
Patient Name: YANNI MAR MR#: [id number] : 1965 Exam Date: 09/17/2025 Ordering Doctor: LAUREN CHOI ECHOCARDIOGRAM REPORT PROCEDURE: CA ECHO DOPPLER COMPLETE INDICATIONS: CVA COMPARISON: None. DESCRIPTION: COMPLETE ECHOCARDIOGRAM Real-time transthoracic echocardiography with 2D, M-mode, spectral and color flow Doppler performed. QUALITY: Technical quality was good. LEFT VENTRICLE: Normal chamber size. Mild left ventricular hypertrophy. LV EF: Global left ventricular systolic function is normal. Calculated left ventricular ejection fraction is 66%. Visually estimated ejection fraction is 55%. DIASTOLIC: Grade I diastolic dysfunction. Abnormal septal motion; this may be related to a bundle branch block. ATRIAL SEPTUM: Agitated saline contrast does not reveal an intra-cardiac shunt. LEFT ATRIUM: Normal chamber size. RIGHT ATRIUM: Mild dilatation. RIGHT VENTRICLE: Normal chamber size. Normal right ventricular systolic function. TRICUSPID VALVE: Normal mobility and thickness. No stenosis with trivial regurgitation. No evidence of pulmonary hypertension. Unable to assess right ventricular systolic pressure due to a lack of measurable tricuspid regurgitation. MITRAL VALVE: Normal mobility and thickness. No evidence of mitral valve stenosis. There is no mitral annular calcification. Trivial mitral regurgitation. AORTIC VALVE: Normal trileaflet appearance. No visible sclerosis. Normal leaflet mobility. No evidence of aortic valve stenosis. Trivial aortic regurgitation. AORTIC ROOT: Normal diameter and appearance. The aortic root measures 3.5cm. PULMONIC VALVE: Normal thickness and mobility. No stenosis. No regurgitation. PERICARDIUM: Anterior free space; trivial effusion versus fat pad. IVC: Collapses with inspiration. The IVC is mildly dilated at 2.2cm. CONCLUSION: 1. Global left ventricular systolic function is normal; visually estimated ejection fraction is 55% 2. Normal right ventricular size and systolic function 3. Mild left ventricular hypertrophy 4. The right atrium is mildly dilated 5. No significant valvular abnormalities 6. Anterior free space; trivial effusion versus fat pad 7. Agitated saline contrast does not reveal an intracardiac shunt Adult Echocardiography Procedure Report Left Ventricle LVEDD (3.7 - 5.6 cm): 5.60 cm LVESD (2.2 - 4.0 cm): 3.68 cm LVIVS thickness (0.6 - 1.2 cm): 0.96 cm LVPW thickness (0.5 - 1.0 cm): 1.11 cm e': 0.07 m/s E - e': 8.34 LVOT Max Gradient: 3.91 mm[Hg] LVOT Area (cm2): 0.99 m/s Peak Velocity (LVOT): 0.99 m/s Mean Velocity (LVOT): 0.62 m/s LVOT Diameter 2.42 cm Left Ventricular Ejection Fraction: 65.92 % Left Atrium LA Volume Index (2D A2C): 25.49 ml/m2 Left Atrium Systolic Dimension: 3.93 cm Mitral Valve MV E to A Ratio: 0.86 Mitral Valve A-Wave Peak Velocity: 0.69 m/s Mitral Valve E-Wave Peak Velocity: 0.59 m/s Right Ventricle RV Internal Diastolic Dimension: 3.07 cm Aorta AO Root Diam: 3.50 cm Ascending Ao Diam: 3.33 cm Aortic Valve AoV Area (Peak Gregory): 3.54 cm2, 3.54 cm2 AoV Area (VTI): 3.54 cm2, 3.54 cm2 Peak Velocity(Antegrade Flow): 1.28 m/s Peak Gradient(Antegrade Flow): 6.55 mm[Hg] Mean Velocity(Antegrade Flow): 0.82 m/s Mean Gradient(Antegrade Flow): 3.21 mm[Hg] Velocity Time Integral: 23.52 cm Tricuspid Valve Pulmonic Valve Mean Gradient: 1.71 mm[Hg] Mean Velocity: 0.60 m/s Peak Velocity: 0.84 m/s, 0.92 m/s Peak Gradient: 2.81 mm[Hg], 3.42 mm[Hg] Right Atrium Right Atrium Systolic Pressure: 35.75 ml, 35.75 ml Dictated by: Joleen Waggoner M.D. on 09/17/2025 at 15:00 Approved by: Joleen Waggoner M.D. on 09/17/2025 at 15:05
--- NOTE | 2025-09-17 13:08 | PM.HP ---
HPI H&P: HPI History of Present Illness Chief complaint: LEFT SIDE FACIAL NUMBNESS L FACIAL WEAKNESS Narrative: Mr. Lira is a 60-year-old gentleman with a known history of diabetes and hypertension. He woke up this morning feeling that his left side of the face is numb and weak. He came to the emergency room. Patient denies any slurred speech, confusion or disorientation. He reported having some headache. Patient denies any upper or lower extremities weakness or numbness. Patient denies any discoordination. His blood pressure was 215/130. Emergency room physician had initiated the evaluation and communicated with the stroke team. The recommendation was made not to proceed with any thrombolysis or thrombolytics. His NIH was 1. Stroke team recommended aspirin, Plavix and admission for stroke workup. Opioid HPI Opioid Management Most Recent Pain and Opioid Data: Last ORT Total Score 1 Today, 12:01 Last ORT Risk Category Low Risk Today, 12:01 Review of Systems ROS Status of ROS 10 or more systems reviewed and unremarkable except as noted in history and below [facility] Medical History (Updated 09/17/25 @ 13:10 by Fito Lambert MD) Depression ?F32.A - Depression, unspecified (ICD-10) Diabetes ?E11.9 - Type 2 diabetes mellitus without complications (ICD-10) Hypertension ?I10 - Essential (primary) hypertension (ICD-10) Social History Highest level of school completed/degree received: Associate degree: occupational, technical, vocational program Little interest or pleasure in doing things: not at all Feeling down, depressed, or hopeless: several days Meds Home Medications and Allergies Home Medications ?Medication ?Instructions ?Recorded ?Confirmed ?Type amlodipine 10 mg tablet 10 mg PO DAILY 06/25/24 09/17/25 History benazepril 40 mg tablet 40 mg PO DAILY 06/25/24 09/17/25 History citalopram 20 mg tablet 20 mg PO BEDTIME 06/25/24 09/17/25 History clonidine HCl 0.1 mg tablet 0.1 mg PO BID 06/25/24 09/17/25 History atenolol 50 mg-chlorthalidone 25 See Rx Instructions PO DAILY 09/17/25 09/17/25 History mg tablet glyburide 2.5 mg-metformin 500 mg 1 tab PO DAILY 09/17/25 09/17/25 History tablet insulin glargine 100 unit/mL (3 10 unit subcut DAILY 09/17/25 09/17/25 History mL) subcutaneous pen (Lantus Solostar U-100 Insulin) Allergies Allergy/AdvReac Type Severity Reaction Status Date / Time No Known Drug Allergies Allergy Verified 09/17/25 07:18 Exam Narrative Exam Narrative: [pt is awake and alert. oriented to place, time and person HEENT: [place] conjunctiva and NL buccal mucosa Neck: Supple, no tenderness Endocrine: No Thyromegaly. Vascular: No JVD or carotid bruit. Lymphatic: No cervical lymphadenopathy. Chest: CTA no DTP. Heart RRR, no extra sound or murmur. Abd: Soft, no tenderness, no rebound and no rigidity. Increase abd girth therefore clinically I could not exclude the possibility of intra abd mass or organomegaly. LE: No cyanosis or clubbing, no varices or edema. Neuro: A A O. Nl speech, comprehension and attention. Nl and symetrical motor and tone examination through out. Left facial weakness and numbness. Preservation of left forehead function. []] Constitutional Vital Signs, click to edit/add: Last Vital Signs Temp 97.9 F 09/17/25 12:01 Pulse 62 09/17/25 12:01 Resp 18 09/17/25 12:01 BP 215/130 H 09/17/25 12:01 Pulse Ox 96 09/17/25 12:01 O2 Del Method Room Air 09/17/25 12:01 Results Labs Labs: Short CBC 09/17/25 Range/Units 06:29 WBC 7.6 (4.0-11.0) 10^3/uL Hgb 15.6 (14.0-18.0) g/dL Hct 43.8 (42.0-54.0) % Plt Count 227 (150-450) 10^3/uL BMP 09/17/25 06:29 Sodium 142 Potassium 3.6 Chloride 104 Carbon Dioxide 28.6 BUN 21.0 H Creatinine 1.69 H Glucose 153 H Calcium 9.0 Assessment and Plan Assessment and Plan (1) CVA (cerebral vascular accident): Plan Left facial numbness and weakness. Suspect injury to central left 7th and 5th facial nerve. Preservation of is forehead function Stroke neuroteam recommended aspirin and Plavix that were given in the emergency room department. They did not recommend thrombolysis or thrombolytics NIH is 2 I requested PT OT eval and treatment. I ordered continuation of aspirin Requested echocardiogram and MRI Requested and neuro IR consultation Start the patient on high-dose statin Control blood pressure. Keep systolic above 165. Further needed diagnostic and therapeutic intervention will be determined based on the clinical progression, follow-up test result and neurology recommendation. Uncontrolled hypertension which could be related to acute cerebral injury. Control blood pressure. Keep systolic above 165. Diabetes Check A1c Hold metformin due to CTA being completed Accu-Chek with sliding scale coverage MAGNO/CKD Patient had a fluctuation of his kidney function over the last year and a half. He is on lisinopril and diuretics Reduce the amount of the lisinopril. Patient had CTA of the head and neck in the emergency room department Monitor kidney function over the next 24 to 48 hours Avoid nephrotoxic drugs. Requested UA rule out RBC or protein that may suggest active glomerulonephritis Chronic, subacute medical conditions not listed above, abnormal labs and imaging, incidental findings seen on labs and or imaging. These would need to be addressed. Could be addressed later on or in the outpatient setting by PCP collaboration with other needed outpatient providers when time and condition are appropriate.
[2025-09-17] MEDS: ATENOLOL 25 MG TABLET PO (13:58)
[2025-09-17] MEDS: AMLODIPINE BESYLATE 5 MG TABLET PO ×2 (13:58→22:55)
[2025-09-17] MEDS: ENOXAPARIN SODIUM 40 MG/0.4 ML SYRINGE SUBQ (14:00)
[2025-09-17] MEDS: ACETAMINOPHEN 325 MG TABLET 650 MG PO ×2 (14:03→22:57)
[2025-09-17] MEDS: GLYBURIDE 2.5 MG TABLET PO (17:08)
[2025-09-17] MEDS: HYDRALAZINE HCL 20 MG/ML VIAL 10 MG IVP (20:22)
[2025-09-17] MEDS: ATORVASTATIN CALCIUM 40 MG TABLET 80 MG PO (22:07)
[2025-09-17] MEDS: CITALOPRAM HYDROBROMIDE 20 MG TABLET PO (22:07)
[2025-09-17] MEDS: LABETALOL HCL 100 MG/20 ML MDV IVP (22:55)
[2025-09-17] MEDS: TEMAZEPAM 15 MG CAPSULE PO (23:50)
[2025-09-18] VITALS (20 sets, daily range): BP systolic 157–185; BP diastolic 83–105; PULSE 63–94; TEMP 36.4–36.9; O2SAT 93–95
[2025-09-18] MEDS: HYDRALAZINE HCL 20 MG/ML VIAL 10 MG IVP ×2 (04:21→06:34)
[2025-09-18 05:35] LABS: Hematocrit 44.0 % (42.0-54.0); Hemoglobin 15.8 g/dL (14.0-18.0); Immature Granulocytes Abs Auto 0.03 10^3/uL (0.00-0.03); Immature Granulocytes Pct Auto 0.4 % (0.0-0.5); Lymphocytes Absolute Auto 1.6 10^3/uL (1.2-3.8); Mean Corpuscular HGB Conc 35.9 g/dL (29.9-35.2); Mean Corpuscular Hemoglobin 30.4 pg (25.9-34.0); Mean Corpuscular Volume 84.8 fL (80.0-94.0); Platelet Count 232 10^3/uL (150-450); Red Blood Count 5.19 10^6/uL (4.70-6.10); White Blood Count 8.3 10^3/uL (4.0-11.0)
[2025-09-18 06:06] LABS: Alanine Aminotransferase 36 U/L (16-63); Albumin Globulin Ratio 1.1; Albumin Level 3.7 g/dL (3.4-5.0); Alkaline Phosphatase 79 U/L (46-116); Anion Gap 11.6; Aspartate Amino Transferase 20 U/L (15-37); Blood Urea Nitrogen 17.0 mg/dL (7.0-18.0); Calcium 8.7 mg/dL (8.5-10.1); Carbon Dioxide 26.5 mmol/L (21.0-32.0); Chloride 107 mmol/L (98-107); Cholesterol 200 mg/dL (<=200); Estimated GFR (African America >60 (>=60 mL/min/1.73m^2); Estimated GFR (Non-African Ame 50 (>=60 mL/min/1.73m^2); Globulin 3.3 g/dL; Glucose 129 mg/dL (74-106); HDL Cholesterol 28 mg/dL (40-60); Magnesium 2.0 mg/dL (1.8-2.4); Potassium 3.1 mmol/L (3.5-5.1); Sodium 142 mmol/L (136-145); Total Protein 7.0 g/dL (6.4-8.2); Triglycerides 356 mg/dL (<=150); VLDL CHOLESTEROL 71.2 mg/dL
[2025-09-18] MEDS: ACETAMINOPHEN 325 MG TABLET 650 MG PO ×3 (06:33→17:16)
--- NOTE | 2025-09-18 07:00 | ECG_ITS ---
[facility] Test Date: 2025-09-18 Pat Name: YANNI MAR Department: Room: 2141 Gender: Male Operations Controller: : [id number] Requested By: [id number] Order Number: [id number] Reading MD: MADYSON CHAVEZ Measurements Intervals [place] Rate: 70 P: 52 WV: 158 QRS: -9 QRSD: 96 T: 34 QT: 314 QTc: 341 Interpretive Statements SINUS RHYTHM Poor R wave progression cannot rule out anterolateral infarct age undetermined NONSPECIFIC T-WAVE ABNORMALITY Compared to ECG 09/17/2025 07:43:42 T-wave abnormality now present Left-axis deviation no longer present Electronically Signed On 09-18-2025 16:15:34 EST by MADYSON CHAVEZ
[2025-09-18] MEDS: GLYBURIDE 2.5 MG TABLET PO ×2 (07:42→17:08)
[2025-09-18] MEDS: HYDRALAZINE HCL 50 MG TABLET PO ×2 (07:56→20:33)
--- NOTE | 2025-09-18 08:10 | CM.NOTE ---
Rounds made with Dr. Lambert, discussed plan of care with pt. Clarified status, pt will change to inpatient status. CM will enter order. Teleneuro will consult with pt today for further recommendations. PT and OT will evaluate for discharge planning.
[2025-09-18] MEDS: ATENOLOL 25 MG TABLET PO (08:17)
[2025-09-18] MEDS: ASPIRIN 325 MG TABLET.DR PO (08:17)
[2025-09-18] MEDS: INSULIN GLARGINE 300 UNIT/3 ML INSULN.PEN 10 UNIT SQ (08:17)
[2025-09-18] MEDS: AMLODIPINE BESYLATE 5 MG TABLET 10 MG PO (08:17)
[2025-09-18] MEDS: LISINOPRIL 20 MG TABLET PO (08:17)
--- NOTE | 2025-09-18 10:17 | P.PN_ITS ---
Progress Note: Subjective Subjective Interval history: Patient continues to have left facial weakness and numbness. No other symptoms. Persistent mild headache. No upper or lower extremities dysfunction. No confusion or disorientation Exam Narrative Exam Narrative: [pt is awake and alert. oriented to place, time and person HEENT: [place] conjunctiva and NL buccal mucosa Neck: Supple, no tenderness Endocrine: No Thyromegaly. Vascular: No JVD or carotid bruit. Lymphatic: No cervical lymphadenopathy. Chest: CTA no DTP. Heart RRR, no extra sound or murmur. Abd: Soft, no tenderness, no rebound and no rigidity. Increase abd girth therefore clinically I could not exclude the possibility of intra abd mass or organomegaly. LE: No cyanosis or clubbing, no varices or edema. Neuro: A A O. Nl speech, comprehension and attention. Nl and symetrical motor and tone examination through out. Left facial weakness and numbness. This morning, the patient is able to lift up his eyebrow and forehead but not as strong as the right one. []] Constitutional Vital Signs, click to edit/add: Last Vital Signs Temp 98.0 F 09/18/25 09:18 Pulse 78 09/18/25 09:52 Resp 16 09/18/25 09:18 BP 168/83 H 09/18/25 09:18 Pulse Ox 93 L 09/18/25 09:18 O2 Del Method Room Air 09/18/25 09:18 Progress Note: Objective Labs Labs: Short CBC 09/18/25 Range/Units 04:41 WBC 8.3 (4.0-11.0) 10^3/uL Hgb 15.8 (14.0-18.0) g/dL Hct 44.0 (42.0-54.0) % Plt Count 232 (150-450) 10^3/uL BMP 09/18/25 04:41 Sodium 142 Potassium 3.1 L Chloride 107 Carbon Dioxide 26.5 BUN 17.0 Creatinine 1.44 H Glucose 129 H Calcium 8.7 Liver Function 09/18/25 Range/Units 04:41 Total Bilirubin 0.5 (0.2-1.0) mg/dL AST 20 (15-37) U/L ALT 36 (16-63) U/L Alkaline Phosphatase 79 (46-116) U/L Albumin 3.7 (3.4-5.0) g/dL Progress Note: A&P Assessment and Plan (1) CVA (cerebral vascular accident): Plan Left facial numbness and weakness. Suspect injury to left 7th and 5th facial nerve. Preservation of is forehead function. Elevation of left eyebrow and forehead is somewhat weaker compared to the right side. Stroke neuroteam recommended aspirin and Plavix that were given in the emergency room department. They did not recommend thrombolysis or thrombolytics NIH is 2 I requested PT OT eval and treatment. I ordered continuation of aspirin CTA of the head and neck does not show any vascular occlusion or thrombus. Requested echocardiogram and MRI. MRI does not show any acute intracranial process. Echocardiogram does not show valvular disease or cardiomyopathy or thrombus Requested and neuro consultation Started the patient on high-dose statin Continue patient on aspirin. Control blood pressure. Keep systolic above 165. Further needed diagnostic and therapeutic intervention will be determined based on the clinical progression, follow-up test result and neurology recommendation. Hypertensive urgency, uncontrolled hypertension which could be related to acute cerebral injury. Control blood pressure. Keep systolic above 165. Apparently patient was not taking amlodipine as prescribed. He is on atenolol, hydrochlorothiazide and lisinopril 40 mg daily. I reduced his lisinopril down to 20 mg daily due to MAGNO. I added hydralazine 50 mg twice a day. I initiated workup for secondary hypertension including pheochromocytoma, hyperaldosterenemia. I requested serum metanephrine, aldosterone and renin level. Patient may need renal artery ultrasound to rule out renal artery stenosis. His potassium is on the low level despite having CKD raising my suspicion that patient may have hyperaldosterenemia. I started the patient on spironolactone. Monitor his blood pressure over the next 24 hours after medication change and determine if additional adjustment will be needed. Diabetes Check A1c. A1c 6.5 Hold metformin due to CTA being completed Accu-Chek with sliding scale coverage Resume glyburide. Resume insulin. MAGNO/CKD Patient had a fluctuation of his kidney function over the last year and a half. He is on lisinopril and diuretics Reduced the amount of the lisinopril. Patient had CTA of the head and neck in the emergency room department Monitor kidney function over the next 24 to 48 hours Avoid nephrotoxic drugs. Requested renal artery ultrasound to rule out renal artery stenosis. Requested UA rule out RBC or protein that may suggest active glomerulonephritis Obesity Diet, exercise and lifestyle modification. Patient may qualify for GLP-1 for diabetes and weight loss and/or SGLT 1 for diabetes and preservation of kidney function I would start SGLT at this time Chronic, subacute medical conditions not listed above, abnormal labs and imaging, incidental findings seen on labs and or imaging. These would need to be addressed. Could be addressed later on or in the outpatient setting by PCP collaboration with other needed outpatient providers when time and condition are appropriate. Chronic, subacute medical conditions not listed above, abnormal labs and imaging, incidental findings seen on labs and or imaging. These would need to be addressed. Could be addressed later on or in the outpatient setting by PCP collaboration with other needed outpatient providers when time and condition are appropriate.
[2025-09-18] MEDS: SPIRONOLACTONE 25 MG TABLET PO (10:24)
[2025-09-18] MEDS: POTASSIUM CHLORIDE 10 MEQ ER TABLET 20 MEQ PO (10:24)
[2025-09-18] MEDS: ARTIFICIAL TEARS 300 DROP/15 ML BOTTLE EYE-LEFT ×3 (11:09→21:45)
[2025-09-18] MEDS: DAPAGLIFLOZIN 5 MG TABLET 10 MG PO (11:09)
[2025-09-18] MEDS: VALACYCLOVIR HCL 500 MG TABLET 1000 MG PO ×2 (12:24→20:33)
[2025-09-18] MEDS: PREDNISONE 20 MG TABLET 50 MG PO (12:24)
[2025-09-18] MEDS: ENOXAPARIN SODIUM 40 MG/0.4 ML SYRINGE SUBQ (14:10)
[2025-09-18] MEDS: OXYCODONE HCL 5 MG TABLET 10 MG PO ×2 (14:10→20:34)
[2025-09-18] MEDS: TEMAZEPAM 15 MG CAPSULE PO (21:45)
[2025-09-18] MEDS: CITALOPRAM HYDROBROMIDE 20 MG TABLET PO (21:46)
[2025-09-18] MEDS: ATORVASTATIN CALCIUM 40 MG TABLET 80 MG PO (21:46)
[2025-09-18] MEDS: INSULIN ASPART 300 UNIT/3 ML PEN SUBQ (21:46)
[2025-09-19] VITALS (14 sets, daily range): BP systolic 145–164; BP diastolic 81–89; PULSE 70–90; TEMP 36.5–36.6; O2SAT 95
[2025-09-19] MEDS: ARTIFICIAL TEARS 300 DROP/15 ML BOTTLE EYE-LEFT (05:07)
[2025-09-19 05:29] LABS: Anion Gap 14.7; Blood Urea Nitrogen 31.0 mg/dL (7.0-18.0); Calcium 8.7 mg/dL (8.5-10.1); Carbon Dioxide 20.3 mmol/L (21.0-32.0); Chloride 107 mmol/L (98-107); Estimated GFR (African America 45 (>=60 mL/min/1.73m^2); Estimated GFR (Non-African Ame 37 (>=60 mL/min/1.73m^2); Glucose 118 mg/dL (74-106); Potassium 4.0 mmol/L (3.5-5.1); Sodium 138 mmol/L (136-145)
[2025-09-19] MEDS: OXYCODONE HCL 5 MG TABLET 10 MG PO (07:41)
[2025-09-19] MEDS: GLYBURIDE 2.5 MG TABLET PO (07:41)
--- NOTE | 2025-09-19 08:05 | CM.NOTE ---
Rounds made with Dr. Lambert, pt will discharge to home today. Pt will have f/u scheduled with nephrology and PCP. Dr. Lambert discussed with pt discharge medications and reason for f/u appts. Pt verbalizes understanding.
--- NOTE | 2025-09-19 10:00 | CM.NOTE ---
ISAEL spoke with Dr. Lambert regarding outpatient speech therapy, no order received at this time. ISAEL discussed with pt recommendation from neurologist for f/u with business development agent. Pt would just like an appointment for his eye doctor at this time (Alfie).
[2025-09-19] MEDS: AMLODIPINE BESYLATE 5 MG TABLET 10 MG PO (10:14)
[2025-09-19] MEDS: DAPAGLIFLOZIN 5 MG TABLET 10 MG PO (10:15)
[2025-09-19] MEDS: ATENOLOL 25 MG TABLET PO (10:15)
[2025-09-19] MEDS: ASPIRIN 325 MG TABLET.DR PO (10:15)
[2025-09-19] MEDS: HYDRALAZINE HCL 50 MG TABLET PO (10:15)
[2025-09-19] MEDS: PREDNISONE 20 MG TABLET 50 MG PO (10:16)
[2025-09-19] MEDS: LISINOPRIL 20 MG TABLET PO (10:16)
[2025-09-19] MEDS: VALACYCLOVIR HCL 500 MG TABLET 1000 MG PO (10:17)
[2025-09-19] MEDS: SPIRONOLACTONE 25 MG TABLET PO (10:17)
[2025-09-19] MEDS: INSULIN GLARGINE 300 UNIT/3 ML INSULN.PEN 10 UNIT SQ (10:19)
--- NOTE | 2025-09-19 11:31 | PM.DS1 ---
DS: Providers Provider Date of admission: 09/18/25 10:03 Primary care physician: Albaro John DO Consults: 09/17/25 12:59 Occupational Therapy Eval and Treat Routine Reason for consultation: CVA Physical Therapy Eval and Treat Routine Reason for consultation: CVA 09/17/25 18:21 Consult to TeleNeurology Routine Reason for consultation: Lt facial weakness DS: Diagnosis Discharge Diagnosis (1) Weakness on left side of face: (2) Oropeza palsy: Plan As listed above, below and others other that are not listed DS: Summary Hospital Course Hospital Course: Mr. Lira is a 60-year-old gentleman who came in with left facial weakness and numbness. Left facial numbness and weakness. Oropeza's palsy as per neurology team Suspect injury to left 7th and 5th facial nerve. Mild preservation of is forehead function. Elevation of left eyebrow and forehead is somewhat weaker compared to the right side. Stroke neuroteam recommended aspirin and Plavix that were given in the emergency room department. They did not recommend thrombolysis or thrombolytics NIH is 2 I requested PT OT eval and treatment. I ordered continuation of aspirin CTA of the head and neck does not show any vascular occlusion or thrombus. Requested echocardiogram and MRI. MRI does not show any acute intracranial process. Echocardiogram does not show valvular disease or cardiomyopathy or thrombus Requested and neuro consultation Started the patient on high-dose statin Continue patient on aspirin. Control blood pressure. Keep systolic above 165. Patient was seen by telemetry neurology team. 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 He recommended prednisone tapering dose and acyclovir. I started the patient on Valtrex 1 g twice a day, dose adjusted for GFR in the 30s. Prednisone tapering dose as recommended by neurology team. Patient also will be discharged on artificial tears to reduce risk of dryness. Increased risk having stroke. Multiple risk factors for cardiovascular disease and stroke. Patient will be discharged on aspirin daily, statin Lipitor 40 mg daily As well as strict control of his diabetes and hypertension. I also started patient on Farxiga to reduce his risk having cardiovascular event. Hypertensive urgency, uncontrolled hypertension which could be related to acute cerebral injury. Control blood pressure. Keep systolic above 165. Apparently patient was not taking amlodipine as prescribed. He is on atenolol, hydrochlorothiazide and lisinopril 40 mg daily. I reduced his lisinopril down to 20 mg daily due to MAGNO. I added hydralazine 50 mg twice a day. I initiated workup for secondary hypertension including pheochromocytoma, hyperaldosterenemia. I requested serum metanephrine, aldosterone and renin level. These are still pending. I instructed patient to ask his PCP and/or embossing tool setter to review pending result. Patient may need renal artery ultrasound to rule out renal artery stenosis. Renal ultrasound does not show any obstructive uropathy. Probable left renal artery stenosis. This may need to be investigated further by nephrology and/or vascular. May need to have stent. His potassium is on the low level despite having CKD raising my suspicion that patient may have hyperaldosterenemia. I started the patient on spironolactone. Patient will be discharged home on a combination of BP meds to control his blood pressure. Metanephrine, aldosterone and renin are still pending. May have a left renal artery stenosis that would need to be addressed further by nephrology team. We will ask patient to follow-up with Dr. Elam to get his opinion and see if patient would qualify for renal artery stenting. BP meds will need to be adjusted by PCP and embossing tool setter to achieve optimal blood pressure control over the next several weeks. The goal is to keep a blood pressure systolically between 140 and 155 Diabetes Check A1c. A1c 6.5 Hold metformin due to CTA being completed Accu-Chek with sliding scale coverage Resume glyburide. Resume insulin. I started the patient on Farxiga for diabetes management and also due to his CKD hoping to halt the progression of kidney failure and reduce risk having cardiovascular disease. MAGNO/CKD Patient had a fluctuation of his kidney function over the last year and a half. He is on lisinopril and diuretics Reduced the amount of the lisinopril. Patient had CTA of the head and neck in the emergency room department Monitor kidney function over the next 24 to 48 hours Avoid nephrotoxic drugs. Requested renal artery ultrasound to rule out renal artery stenosis. Renal ultrasound is negative for obstructive uropathy. Probable left renal artery stenosis that would need to be followed up by nephrology pending metanephrine, aldosterone and renin level. Requested UA rule out RBC or protein that may suggest active glomerulonephritis I started patient on Farxiga for diabetes management and also to halt the progression of his kidney failure and reduce risk of cardiovascular disease Previous history of suspected bladder lesion Ultrasound completed in February 2024 showed questionable bladder lesion. Patient stated that Dr. Jarvis performed scopes on him and could not find any urological lesion. Patient was told no need to follow-up with urology. Repeat ultrasound showed no evidence of a bladder lesion that was previously seen in February 2024 Patient may have prostate enlargement seen on current ultrasound for which he may require further prostate evaluation to be handled by PCP and/or with collaboration with urology. Obesity Diet, exercise and lifestyle modification. Patient may qualify for GLP-1 for diabetes and weight loss and/or SGLT 1 for diabetes and preservation of kidney function I would start SGLT at this time. I already started patient on Farxiga. Chronic, subacute medical conditions not listed above, abnormal labs and imaging, incidental findings seen on labs and or imaging. These would need to be addressed. Could be addressed later on or in the outpatient setting by PCP collaboration with other needed outpatient providers when time and condition are appropriate. Chronic, subacute medical conditions not listed above, abnormal labs and imaging, incidental findings seen on labs and or imaging. These would need to be addressed. Could be addressed later on or in the outpatient setting by PCP collaboration with other needed outpatient providers when time and condition are appropriate. Patient has multiple complex medical issues as listed above and others that are not listed. All appear to be stable. I do not have any clear or strong clinical justification to extend inpatient hospitalization. Patient however will require close and frequent monitoring as well as additional work-up, investigation and therapeutic intervention that could take place from this point on post discharge. That is to prevent relapse, decompensation, rehospitalization and other medical implications. Discharge medications as listed are not final or set in stone. Primary care doctor and other out patient providers will need to titrate and adjust medications as soon as the first post discharge visit based on clinical progression, vitals signs, volume status and other related organs function. I instructed patient to ask her primary care doctor to obtain [facility] record entirely to address abnormalities seen on labs and imaging that I have and have not addressed during this hospitalization, follow-up on pending blood work, imaging and pathology is if available and to follow-up on needed medical care in the outpatient setting. Time Spent with Patient Time attestation: Total time spent providing and/or coordinating discharge services: Time spent: greater than 30 minutes Quality: Stroke Onset of Symptoms Date: 09/17/25 Onset of Symptoms Time: 03:00 Exam Narrative Exam Narrative: [pt is awake and alert. oriented to place, time and person HEENT: [place] conjunctiva and NL buccal mucosa Neck: Supple, no tenderness Endocrine: No Thyromegaly. Vascular: No JVD or carotid bruit. Lymphatic: No cervical lymphadenopathy. Chest: CTA no DTP. Heart RRR, no extra sound or murmur. Abd: Soft, no tenderness, no rebound and no rigidity. Increase abd girth therefore clinically I could not exclude the possibility of intra abd mass or organomegaly. LE: No cyanosis or clubbing, no varices or edema. Neuro: A A O. Nl speech, comprehension and attention. Nl and symetrical motor and tone examination through out. Left facial weakness and numbness. This morning, the patient is able to lift up his eyebrow and forehead but not as strong as the right one. []] Constitutional Vital Signs, click to edit/add: Last Vital Signs Temp 97.8 F 09/19/25 07:52 Pulse 76 09/19/25 08:31 Resp 14 09/19/25 07:52 BP 162/84 H 09/19/25 10:17 Pulse Ox 95 09/19/25 07:52 O2 Del Method Room Air 09/19/25 07:52 DS: Data Data Completed and Pending Labs on day of discharge: Labs from last 24 hours 09/19/25 09/19/25 09/18/25 11: 04:50 21:17 Sodium 138 Potassium 4.0 Chloride 107 Carbon Dioxide 20.3 L Anion Gap 14.7 BUN 31.0 H Creatinine 1.89 H Est GFR ( Amer) 45 L Est GFR (Non-Af Amer) 37 L BUN/Creatinine Ratio 16.4 Glucose 118 H Calcium 8.7 POC Glucose 117 H 244 H 09/18/25 16:20 Sodium Potassium Chloride Carbon Dioxide Anion Gap BUN Creatinine Est GFR ( Amer) Est GFR (Non-Af Amer) BUN/Creatinine Ratio Glucose Calcium POC Glucose 133 H Discharge Plan Discharge Disposition: Home, Self-Care Condition: Good Discharge Medications: New Artificial Tears([id number]) 1-0.2-0.2 % Drops 1 drp left eye QID PRN (Reason: dry eye(s)) Qty: 15 2RF aspirin 81 mg tablet,delayed release (DR/EC) 81 mg PO DAILY Qty: 60 2RF atenolol 25 mg Tablet 25 mg PO QD Qty: 60 2RF atorvastatin 40 mg Tablet 40 mg PO QHS Qty: 60 2RF glyburide 2.5 mg Tablet 2.5 mg PO BIDWM Qty: 60 2RF lisinopril 20 mg Tablet 20 mg PO DAILY Qty: 60 1RF spironolactone 25 mg Tablet 25 mg PO QD Qty: 60 2RF valacyclovir [Valtrex] 1 gram tablet 1,000 mg PO BID 7 Days Qty: 14 0RF amlodipine 10 mg tablet 10 mg PO DAILY Qty: 60 2RF prednisone 10 mg tablet 10 mg PO .as directed Qty: 30 0RF Rx Instructions: Take 4 tablets daily for 3 days then 3 tablets daily for for 3 days then 2 tablets daily for 3 days then 1 tablet daily for 3 days dapagliflozin propanediol [Farxiga] 10 mg tablet 10 mg PO DAILY Qty: 30 2RF oxycodone 5 mg tablet 5 mg PO Q6H PRN (Reason: pain) Qty: 25 0RF hydralazine 50 mg Tablet 50 mg PO BID Qty: 60 2RF Continued citalopram 20 mg tablet 20 mg PO BEDTIME insulin glargine [Lantus Solostar U-100 Insulin] 100 unit/mL (3 mL) insulin pen 10 unit SUBCUT QPM Qty: 15 2RF Rx Instructions: IN THE EVENING Discontinued benazepril 40 mg tablet 40 mg PO DAILY atenolol-chlorthalidone 50-25 mg tablet 1 tab PO DAILY glyburide-metformin 2.5-500 mg tablet 1 tab PO DAILY Rx Instructions: 2.5 / 500 MG, DAILY, BEFORE BREAKFAST Print Language: Thai Activity Restrictions/Additional Instructions: I may not have addressed or treated all of your medical illnesses or the abnormal blood work or imaging studies during this hospitalization. Please ask your primary care provider to obtain [facility] records entirely to follow up on all of the abnormal physical, laboratory, and imaging findings that I have not addressed. Please return back to the emergency room or seek medical attention if your symptoms worsen or return. Discharging you from [facility] does not mean that your medical care ends here and now. You may still need additional monitoring, work up, investigation, and treatment plan to be handled from this point on by out patient providers including your primary care provider and specialists. I changed some of your blood pressure medication. Your primary care doctor will need to continue to adjust your medication to keep your blood pressure under control. Discharge medications as listed are not final or set in stone. Primary care doctor and other out patient providers will need to titrate and adjust medications as soon as the first post discharge visit based on clinical progression, vitals signs, volume status and other related organs function. Your blood sugar might fluctuate while you are taking the prednisone. Check your blood sugar 3 times a day before meals. Document these numbers on a blood glucose log and bring them with you to your follow-up appointment with your primary care doctor. Communicate with your primary care doctor or financial assistance specialist if your blood sugar is under 100 or above 300 on 2 consecutive checks. Communicate with your primary care doctor or financial assistance specialist if you have any questions about your diabetes medications. Signs of a low blood sugar include sweating, racing heart, dizziness and/or weakness. Check your blood sugar if you have any of the symptoms. You may have some narrowing of the left kidney artery that would need to be investigated further by kidney specialist. You may need to have a stent there. I requested blood tests to make sure that you do not have any other illnesses that could cause your blood pressure to be very high. Results of these tests are not back yet. Your primary care doctor and kidney doctor will need to check on the final report. These tests are: Metanephrine, aldosterone and renin Please follow up with urologist Dr. Jarvis as previously recommended by him. You may need to follow up with him regarding prostate enlargement seen on the ultrasound. Your primary care doctor can take care of that as well. For any medication question, please contact your retail pharmacist or your primary care provider. Thank you. Forms: Portal Instructions Follow Up Appointments: Dr John [phone] Sep @1:30 Dr Judge can call for appointment. [phone] Dr Elam will call hospital and pt when appointment is made.
--- NOTE | 2025-09-20 14:24 | CM.DCFOLLOWU ---
Person spoke with: Hung How are you feeling? Better How is your pain? Good Did you understand your discharge instructions? Yes Do you have any questions about your discharge instructions? No Were you given any prescriptions at discharge? Yes Were you able to get your prescriptions filled? Yes Do you understand how to take your medications as ordered? Yes Do you have any questions about your follow up appointment and do you plan to keep your follow up appointment? No questions. He plans on keeping all of his appts. Is there anything else that you would like to discuss? No Questions/Comments/Concerns/Other:
[2025-09-23 14:08] LABS: Renin Activity, Plasma 0.243 ng/mL/hr (0.167-5.380)
[2025-09-24 14:09] LABS: Aldosterone LCMS, Serum 9.8 ng/dL (0.0-30.0)
== END 2025-09-19 12:59 | disposition home or self-care (01) | DRG 74 ==
LOC: ER 09:54 → MS 11:51
PROVIDERS: Admitting Provider Internal Medicine; Emergency Provider Emergency Medicine; PCP Internal Medicine; Visit Provider Internal Medicine
DX: G51.0 Bell's palsy (principal); N17.9 Acute kidney failure, unspecified; I16.0 Hypertensive urgency; I12.9 Hypertensive chronic kidney disease with stage 1 through stage 4 chronic kidney disease, or unspecified chronic kidney disease; T46.1X6A Underdosing of calcium-channel blockers, initial encounter; Z91.148 Patient's other noncompliance with medication regimen for other reason; E11.22 Type 2 diabetes mellitus with diabetic chronic kidney disease; Z79.4 Long term (current) use of insulin; Z79.84 Long term (current) use of oral hypoglycemic drugs; Z79.899 Other long term (current) drug therapy; E66.9 Obesity, unspecified; Z68.34 Body mass index [BMI] 34.0-34.9, adult; N32.9 Bladder disorder, unspecified; N18.30 Chronic kidney disease, stage 3 unspecified
CPT/HCPCS: 36415; 70450; 70496; 70498; 70551; 71045; 76775; 80048; 80053; 80061; 82088; 82948; 83036; 83735; 83835; 84100; 84244; 85025; 85610; 85730; 93005; 93306; 93975; 96372; 96374; 96375; 96376; 97161; 97165; 99285; G0378; J0360; J1290; J1650; J1920; J2405; J7512; Q9967

== ENCOUNTER 2025-09-29 18:15 | Emergency (ER) | payer OTHER, SELFPAY ==
--- OUTSIDE RECORDS SUMMARY | 2025-09-17 07:35 | XMS_ITS | Encounter Summary ---
Author Organization [employer] Address [id number] [address] [place] [address] Care Team Providers Care Sheriff'S Detective Name Role Phone No Pcp, No Pcp Primary Care Provider Unavailabl e Reason for Visit * Diagnostic Imaging (Routine) - Pending ReviewSpecialtyDiagnoses / Procedures Referred By ContactReferred To ContactRadiology Diagnoses Pain Procedures CT brain without contrast stroke alert [facility] [address] [place] [phone] Phone: tel: fax: Referral IDStatusReasonStart DateExpiration DateVisits RequestedVisits [id number] Encounter Details DateTypeDepartmentCare Team (Latest Contact Info)Sssqmdoegzo26/18/2025 7:35 AM ESTAncillary Procedure [facility] [address] [place] [phone] Pain Social History Tobacco UseTypesPacks/DayYears UsedDateSmoking Tobacco: NeverSmokeless Tobacco: NeverAlcohol UseStandard Drinks/WeekCommentsYes0 (1 standard drink = 0.6 oz pure alcohol)ChildcareAnswerDate QsaxuooaJpriutpyePlgpgjw94/12/2019EmploymentAnswer Date WqacdiboBqkbijmxydUgzadzq55/12/2019Sex and Gender InformationValueDate RecordedSex Assigned at BirthNot on fileLegal QuvXhcg0106/05/2015 11:27 AM EDT Gender IdentityNot on fileSexual OrientationNot on filedocumented as of this encounter Plan of Treatment Not on file documented as of this encounter Procedures Procedure NamePriorityDate/TimeAssociated DiagnosisCommentsCT BRAIN WO CONT STROKE ALERTSTAT Lbtdalf2609/17/2025 7:35 AM EST Pain documented in this encounter Results * CT brain without contrast stroke alert (09/17/2025 7:35 AM EST)Specimen (Source)Anatomical Location / LateralityCollection Method / VolumeCollection TimeReceived Time Narrative Authorizing ProviderResult TypeResult StatusScanning Provider ExternalIMG CT ORDERABLESFinal Result documented in this encounter Visit Diagnoses Diagnosis Pain Generalized pain documented in this encounter Care Teams Team MemberRelationshipSpecialtyStart DateEnd Date No Pcp, [place] [address] PCP - GeneralFamily Cqnesujk74/13/21documented as of this encounter
--- OUTSIDE RECORDS SUMMARY | 2025-09-17 08:25 | XMS_ITS | Encounter Summary ---
Author Organization [facility] Address [facility] [id number] [address] [place] [address] Care Team Providers Care Battery Container Inspector Name Role Phone No Pcp, No Pcp Primary Care Provider Unavailabl e Reason for Visit * Diagnostic Imaging (Routine) - Pending ReviewSpecialtyDiagnoses / Procedures Referred By ContactReferred To ContactRadiology Diagnoses Pain Procedures CT angiogram carotid [facility] [address] [place] [phone] Phone: tel: fax: Referral IDStatusReasonStart DateExpiration DateVisits RequestedVisits [id number] [id number]/ Encounter Details DateTypeDepartmentCare Team (Latest Contact Info)Xfxhgmwqnzu89/18/2025 8:25 AM ESTAncillary Procedure [facility] [place] [address] Pain Social History Tobacco UseTypesPacks/DayYears UsedDateSmoking Tobacco: NeverSmokeless Tobacco: NeverAlcohol UseStandard Drinks/WeekCommentsYes0 (1 standard drink = 0.6 oz pure alcohol)ChildcareAnswerDate QixpznlmAcgkejumrGezeubi48/12/2019EmploymentAnswer Date VbmzwrrcCcpmabuinsLhwvcpc65/12/2019Sex and Gender InformationValueDate RecordedSex Assigned at BirthNot on fileLegal NsyPzsa1106/05/2015 11:27 AM EDT Gender IdentityNot on fileSexual OrientationNot on filedocumented as of this encounter Plan of Treatment Not on file documented as of this encounter Procedures Procedure NamePriorityDate/TimeAssociated DiagnosisCommentsCT CTA CAROTIDRoutine 09/17/2025 8:25 AM EST Pain documented in this encounter Results * CT angiogram carotid (09/17/2025 8:25 AM EST)Specimen (Source)Anatomical Location / LateralityCollection Method / VolumeCollection TimeReceived Time Narrative Authorizing ProviderResult TypeResult StatusScanning Provider ExternalIMG CT ORDERABLESFinal Result documented in this encounter Visit Diagnoses Diagnosis Pain Generalized pain documented in this encounter Care Teams Team MemberRelationshipSpecialtyStart DateEnd Date No Pcp, [place] [address] PCP - GeneralFamily Pkxssyrq14/13/21documented as of this encounter
--- OUTSIDE RECORDS SUMMARY | 2025-09-17 08:30 | XMS_ITS | Encounter Summary ---
Author Organization [facility] tem Address [facility] [id number] [address] [place] [address] Care Team Providers Care Hearings Reporter Name Role Phone No Pcp, No Pcp Primary Care Provider Unavailabl e Reason for Visit * Diagnostic Imaging (Routine) - Pending ReviewSpecialtyDiagnoses / Procedures Referred By ContactReferred To ContactRadiology Diagnoses Pain Procedures CT angiogram head [facility] [address] [place] [phone] Phone: tel: fax: Referral IDStatusReasonStart DateExpiration DateVisits RequestedVisits [id number]/ Encounter Details DateTypeDepartmentCare Team (Latest Contact Info)Bawbzlgznhh41/18/2025 8:30 AM ESTAncillary Procedure [facility] [address] [place] [phone] Pain Social History Tobacco UseTypesPacks/DayYears UsedDateSmoking Tobacco: NeverSmokeless Tobacco: NeverAlcohol UseStandard Drinks/WeekCommentsYes0 (1 standard drink = 0.6 oz pure alcohol)ChildcareAnswerDate AurdvxhjYrzxxddkcGafpnuo39/12/2019EmploymentAnswer Date TcssdsvoUjffnxcmwcFrwivux09/12/2019Sex and Gender InformationValueDate RecordedSex Assigned at BirthNot on fileLegal TwwJazu7806/05/2015 11:27 AM EDT Gender IdentityNot on fileSexual OrientationNot on filedocumented as of this encounter Plan of Treatment Not on file documented as of this encounter Procedures Procedure NamePriorityDate/TimeAssociated DiagnosisCommentsCT CTA HEADRoutine 09/17/2025 8:30 AM EST Pain documented in this encounter Results * CT angiogram head (09/17/2025 8:30 AM EST)Specimen (Source)Anatomical Location / LateralityCollection Method / VolumeCollection TimeReceived Time Narrative Authorizing ProviderResult TypeResult StatusScanning Provider ExternalIMG CT ORDERABLESFinal Result documented in this encounter Visit Diagnoses Diagnosis Pain Generalized pain documented in this encounter Care Teams Team MemberRelationshipSpecialtyStart DateEnd Date No Pcp, [place] [address] PCP - GeneralFamily Sivekpbe69/13/21documented as of this encounter
--- OUTSIDE RECORDS SUMMARY | 2025-09-17 16:30 | XMS_ITS | Encounter Summary ---
Author Organization [employer] Address [id number] [address] [place] [address] Care Team Providers Care Crystal Attacher Name Role Phone No Pcp, No Pcp Primary Care Provider Unavailabl e Reason for Visit * Diagnostic Imaging (Routine) - Pending ReviewSpecialtyDiagnoses / Procedures Referred By ContactReferred To ContactRadiology Diagnoses Pain Procedures MR brain without contrast [facility] [address] [place] [phone] Phone: tel: fax: Referral IDStatusReasonStart DateExpiration DateVisits RequestedVisits [id number] [id number]/ Encounter Details DateTypeDepartmentCare Team (Latest Contact Info)Ksxjtdvgbtj79/18/2025 4:30 PM ESTAncillary Procedure [facility] [address] [place] [phone] Pain Social History Tobacco UseTypesPacks/DayYears UsedDateSmoking Tobacco: NeverSmokeless Tobacco: NeverAlcohol UseStandard Drinks/WeekCommentsYes0 (1 standard drink = 0.6 oz pure alcohol)ChildcareAnswerDate ZnvkpvsrJyopxpchiGdvavfs14/12/2019EmploymentAnswer Date FevgfgjnCokzrdykbsAarwtou89/12/2019Sex and Gender InformationValueDate RecordedSex Assigned at BirthNot on fileLegal HyhJzfq2106/05/2015 11:27 AM EDT Gender IdentityNot on fileSexual OrientationNot on filedocumented as of this encounter Plan of Treatment Not on file documented as of this encounter Procedures Procedure NamePriorityDate/TimeAssociated DiagnosisCommentsMR BRAIN WO CONT Xkndrak6209/17/2025 4:30 PM EST Pain documented in this encounter Results * MR brain without contrast (09/17/2025 4:30 PM EST)Specimen (Source)Anatomical Location / LateralityCollection Method / VolumeCollection TimeReceived Time Narrative Authorizing ProviderResult TypeResult StatusScanning Provider ExternalIMG MRI ORDERABLESFinal Result documented in this encounter Visit Diagnoses Diagnosis Pain Generalized pain documented in this encounter Care Teams Team MemberRelationshipSpecialtyStart DateEnd Date No Pcp, [place] [address] PCP - GeneralFamily Rudmolyw52/13/21documented as of this encounter
--- OUTSIDE RECORDS SUMMARY | 2025-09-17 18:55 | XMS_ITS | Encounter Summary ---
Author Organization [facility] tem Address [id number] [address] [place] [address] Care Team Providers Care Atmospheric Drier Tender Name Role Phone No Pcp, No Pcp Primary Care Provider Unavailabl e Encounter Details DateTypeDepartmentCare Team (Latest Contact Info)Tvjcccezwxh53/18/2025 6:55 PM EST - 09/22/2025 8:02 AM ESTEHigh[facility] [address] [place] [address] Discharge Disposition: Telemedicine Discharge Social History Tobacco UseTypesPacks/DayYears UsedDateSmoking Tobacco: NeverSmokeless Tobacco: NeverAlcohol UseStandard Drinks/WeekCommentsYes0 (1 standard drink = 0.6 oz pure alcohol)ChildcareAnswerDate TgoqmkmbStslxbdywDyhnire33/12/2019EmploymentAnswer Date TzbhhgeiJesyfznthgLnvzzdz55/12/2019Sex and Gender InformationValueDate RecordedSex Assigned at BirthNot on fileLegal AylVwkq9306/05/2015 11:27 AM EDT Gender IdentityNot on fileSexual OrientationNot on filedocumented as of this encounter Miscellaneous Notes * Telehealth Consult - Wilfrido Hogue MD - 09/18/2025 10:49 AM EST Images from the original note were not included. Consults Tele-Neurology Telemedicine Consult Note Consent Statement: I discussed risks, benefits, and alternatives of a real-time synchronous audiovisual consultation with the patient (and any accompanying persons) including the risks that the patient's personal health details and medical records will be discussed over real-time, synchronous, interactive video/audio/telecommunication technology, the visitwill not be recorded without the express consent of both the provider and the patient, and that there are some limitations compared to egxy-ed-zkav evaluations. We elected to proceed. TELESTROKE CONSULTATION NOTE Facility:[facility] Stroke Alert notification: 09/17/25 Stroke Cart Used?Yes Patient Evaluated: Floor Chief Complaint of: left sided facial weakness, left sided facial numbness, severe headache History of Present Illness: Hung Lira is a pleasant 60-year-old gentleman with a past medical history of hypertension who presented to [facility] with acute onset of headache and left sided facial droop and numbness as well as hypertension upon awakening 09/27/25. Patient states his blood pressure has never been so high. He is on multiple antihypertensive medications. He had a Ct brain which was negative foracute process. CTA of the head and carotids were negative for lvo or hemodynamic significant stenosis. His mri brain without contrast was also completed which noted no acute ischemic stroke. Telestroke was consulted for recommendations. Patient is sitting up in bed. He remains with left sided facial droop. He states his headache was improved but it is now back up to a 4/10. He denies previous events. Denies recent illness. Denies change of medications. Last known well: 09/16/25 prior to going to bed, awoke 330 am on 09/17 with symptoms Current use of anticoagulants: No, no AC EC Arrival: 09/17/25 ACCESS Call:[id number]/17/2025 Time of Camera Evaluation: 09/18/2025 1045 Thrombolytics: No, outside time window and low nihss Past Medical History: Diagnosis Date HTN (hypertension) No past surgical history on file. Medication List You have not been prescribed any medications. Prior to Admission medications Not on File No current facility-administered medications on file prior to encounter. No current outpatient medications on file prior to encounter. Not on File TOBACCO:.denies ETOH:denies RECREATIONAL DRUG USE: denies No family history on file. No family history on file. Physical Exam: There were no vitals filed for this visit. Please note that parts of the physical exam were performed with assistance from bedside nursing staff. NIH Stroke Scale 1a Level of consciousness: 0=alert; keenly responsive 1b. LOC questions: 0=Performs both tasks correctly 1c. LOC commands: 0=Performs both tasks correctly 2. Best Gaze: 0=normal 3. Visual: 0=No visual loss 4. Facial Palsy: 2=Partial paralysis (total or near total paralysis of the lower face) 5a. Motor left arm: 0=No drift, limb holds 90 (or 45) degrees for full 10 seconds 5b. Motor right arm: 0=No drift, limb holds 90 (or 45) degrees for full 10 seconds 6a. motor left le=No drift, limb holds 90 (or 45) degrees for full 10 seconds 6b Motor right le=No drift, limb holds 90 (or 45) degrees for full 10 seconds 7. Limb Ataxia: 0=Absent 8. Sensory: 1=Mild to moderate sensory loss; patient feels pinprick is less sharp or is dull on theaffected side; there is a loss of superficial pain with pinprick but patient is aware He is being touched 9. Best Language: 0=No aphasia, normal 10. Dysarthria: 0=Normal 11. Extinction and Inattention: 0=No abnormality NIHSS3 General Appearance: alert, active, cooperative Head: Normocephalic, without obvious abnormality, atraumatic Eyes: EOMIs. Vision seems intact, although exam is limited. Lungs: non-labored. Heart: on monitor Abdomen: no overt distention Extremities: extremities normal, atraumatic, no cyanosis or edema Skin: Skin color, texture, turgor normal. No rashes or lesions Neurologic: see niHSS Data Reviewed: Labs: Creatinine 1.44 Radiology: CT head: no acute process CTA: no lvo MRI brain: no acute process ASSESSMENT & PLAN Left Sided Carroll Palsy - recommend Valcyclovir 1G TID for 7 days or pharmacy to dose based on kidney function - Prednisone taper 50-60mg daily for 5 days, then taper by 10 mg for 5 additional days. - aggressive eye care: artificial tears q2h while awake. Recommend a thick lubricant at night with an eye patch - recommend outpatient ophthalmology evaluation to prevent corneal abrasion - recommend outpatient speech therapy Hypertensive urgency - hard to control blood pressures - we agree with primary to do work up for secondary causes of hypertension Bladder mass, cystic lesion on kidneys - consider referral to urology outpatient. Additional Recommendations: Recommend if patient is not improved with facial weakness in the next 4 weeks that he follow up with neurology outpatient. Patient denies exposure recently to lyme or exposures out of the ordinary. In preparation of caring for this patient, Erica Orta APRN-CNP, assisted with documentation during the assessment of this patient. If you have any further questions please feel free to contact the Telestroke/ Stroke Team. Thank you for asking us to be part of this patient's care. [id number] Telestroke Consult from 50-70 minutes Attending attestation: IWilfrido MD, personally performed the face to face diagnostic evaluation on this patient. I have reviewed the JONAS's History, Exam, and MDM and agree with the assessment and plan as written. The encounter comprised of: Preparing to see the patient (e.g., review of tests) Obtaining and/or reviewing separately obtained history Performing a medically appropriate examination and/or evaluation Counseling and educating the patient/family/caregiver Documenting clinical information in the electronic or other health record Independently interpreting results (not separately reported) and communicating results to the patient/family/caregiver Care coordination (not separately reported) Wilfrido Hogue MD Vascular Neurologist [facility] Neurology # [phone]([facility]) Important Notice: This note was created with the assistance of a speech recognition program. While intending to generate a timely document that accurately reflects the content of the encounter, no guarantee can be provided that every grammatical or spelling mistake has been or will be identified or corrected. Thank you for understanding. DELMY Jarvis 09/18/25 1636 documented in this encounter Plan of Treatment Not on file documented as of this encounter Visit Diagnoses Not on filedocumented in this encounter Care Teams Team MemberRelationshipSpecialtyStart DateEnd Date No Pcp, [place] [address] PCP - GeneralFamily Qtaaeyhq49/13/21documented as of this encounter
--- OUTSIDE RECORDS SUMMARY | 2025-09-25 05:57 | XMS_ITS | Continuity of Care Document ---
Author Organization [facility] Address [address] [place] [address] Phone Care Team Providers Care Clinical Appeals Reviewer Name Role Phone Alvaro Albaro PRICE Primary Care Provider [phone] Albaro John DO Attending Provider [phone] Lux Maza DO Attending Provider [phone] Fito Lambert MD Attending Provider Sunita Desai CMA Attending Provider Unavail Katherine Eagle MD Attending Provider Care Teams Patient Care Team Team Status: Active Member Role/Relationship Status Dates Albaro John DO Primary Care Provider Active Visit Care Team Team Status: Inactive Member Role/Relationship Status Dates Albaro John DO Primary Care Provider Active Start: July 03, 2025 End: July 03Sonny Deutsch ProviderActiveStart: July 03, 2025 End: July 03, 2025 Visit Care Team Team Status: Active Member Role/Relationship Status Dates Albrao John DO Primary Care Provider Active Start: September 17, 2025 Sonny Rondon ProviderActiveStart: September 17, 2025 Patient Care Team Team Status: Active Member Role/Relationship Status Dates Albaro John DO Primary Care Provider Active Start: September 18, 2025 Gustavo Chino ProviderActiveStart: September 18, 2025 Patient Care Team Team Status: Active Member Role/Relationship Status Dates Albaro John DO Primary Care Provider Active Start: September 19, 2025 Gustavo Chino ProviderActiveStart: September 19, 2025 Patient Care Team Team Status: Active Member Role/Relationship Status Dates Albaro John DO Primary Care Provider Active Start: September 19, 2025 Sunita Desai CMAAttending ProviderActiveStart: September 19, 2025 Patient Care Team Team Status: Inactive Member Role/Relationship Status Dates Albaro John DO Primary Care Provider Active Start: September 25, 2025 End: September 25tariq Delacruz MDAttnatividad ProviderActiveStart: September 25, 2025 End: September 25, 2025 Chief Complaint and Reason for Visit Chief Complaint Admit Date 3 mo f/u July 03, 2025 3:16pm Amb Documentation September 19, 2025 9:42am stenosis of the left renal artery Novemb er 2024 10:02am Reason for Visit Admit Date Chronic kidney disease July 03 3:16pm Chronic venous insufficiency July 032024 3:16pm Elevated cholesterol July 03, 2025 3:16pm Low back pain July 03, 2025 3:16pm Lumbar spondylosis July 03, 2025 3:16pm Obesity July 03, 2025 3:16pm Obstructive sleep apnea July 03, 2 025 3:16pm Primary hypertension July 03, 2025 3:16pm Proteinuria July 03, 2025 3:16pm Type 2 diabetes mellitus with hyperglyce kimo July 03, 2025 3:16pm Chronic kidney disease, stage 3b Novembe r 2024 10:02am Diabetic nephropathy September 25, 2025 10:02am Hypertensive nephropathy September 25, 2025 10:02am Morbid obesity September 25, 2025 10:02am Proteinuria September 25, 2025 10:02am Resistant hypertension September 25 10:02am Reason for Referral Type Reason(s) Provider Provider Contact Information María mena Address Start Date Morbid obesity E66.01 - Morbid (severe) obesity due to excess qvhnxlwyG98.01 - Morbid (severe) obesity due to excess caloriesCenter for Coord[id number] [facility] [id number] 2024 Allergies, Adverse Reactions, Alerts Allergen Type Severity Reaction Last Updated Verified Status No Known Allergies Allergy Unknown September 25, 2025 10:07amYesActive Social History Smoking Status Status Start Date End Date Date of Observa tion Never smoked tobacco (finding) September 25, 2025 10:07am Observation Status Observation Response Date of Response Legal Sex Male (finding) Sex Assigned At [facility] 1964 Family History Relationship Condition Age at Onset Recorded Date/T enrique father Diabetes mellitus Unknown HypertensionUnknownmotherDeceasedUnknown Problems Active Problems Problem Diagnosis/Recorded Date Onset Date Status C óscar Chronic kidney disease, kira richter 3b September 25, 2025 10:44am Unknown Active Obstructive sleep apneaFebruary 2023 1:53pmUnknownActiveScreening PSA (prostate specific antigen)March 04, 2025 6:21amUnknownActivePSA: 1.81 - 02/2024, 2.12 - 02/2025Type 2 diabetes mellitus with hyperglycemiaMarch 2024 9:38am UnknownActiveBell's palsyNovember 2024 2:10fc1867TglszrHsjscxqfmqmy hypertensionNovember 2024 10:44amUnknownActiveLow back painFebruary 2023 1:53pmUnknownActiveMorbid obesityNovember 2024 10:50amUnknownActive Elevated cholesterolFebruary 2023 1:53pmUnknownActiveHyperglycemiaMarch 2024 9:32amUnknownActiveChronic kidney diseaseFebruary 2023 12:36pm UnknownActiveResistant hypertensionFebruary 2023 1:52pmUnknownActive ProteinuriaFebruary 2023 8:40pmUnknownActivePrimary hypertensionFebruary 2023 1:53pmUnknownActiveEcho: LVEF 66%, CHARLI, normal RV size/function - 08/2025MRI: no acute intracranial process - T head: no acute intracranial process - TA head/neck: no vascular abnormalities - 08/2025 Recurrent major depressive disorder, in full remissionFebruary 2023 1:53pm UnknownActiveBody mass index [BMI] 34.0-34.9, adultFebruary 2023 1:53pm UnknownActiveChronic venous insufficiencyFebruary 2023 1:53pmUnknownActive Diabetic nephropathyNovember 2024 10:44amUnknownActiveHypertensive nephropathyNovember 2024 10:45amUnknownActiveLumbar spondylosisOctober 2023 7:56amUnknownActiveObesityDecember 2023 9:31pmUnknownActive Inactive/Resolved Problems Problem Diagnosis/Recorded Date Onset Date Status C joannements H/O cystoscopy July 09, 2024 8:57pm 2023 Resol teena ureteroscopy, ESWL Medications Medication Status Dose Units Route Directions Qty Days Refills S tart Date Stop Date End Date Reason(s) Instructions Adherence Hydralazine 10 mg tablet Discontinued 10 MG PO Th ree times daily 90 0February 2023 12:00amFebruary 2023 1:24pmHydralazine 10 mg tablet Rsakgnszerxm40JHQIDrgas times pclxe407Caisxahi 2023 1:24pmFebruary 2023 2:46pmCitalopram 20 mg tabletDiscontinued0.ROUTE.ERMBBFY301Jas 2023 12:04pmNovember 2023 9:07pmTAKE 1 TABLET BY MOUTH AT BEDTIMEBenazepril 40 mg tabletDiscontinued0.ROUTE.IQCSCFA276Ounc 2023 3:06pmJuly 2024 7:38amTAKE 1 TABLET BY MOUTH EVERY DAYSpironolactone 25 mg tabletActive0.ROUTE .OZNBBCQ4258Trvf 2023 6:23amTAKE 1 TABLET BY MOUTH EVERY DAYComplies with drug therapyClonidine Hcl 0.1 mg tabletDiscontinued0.ROUTE.FNXLERE5566Utpnjb 2023 8:26pmNovbanner baywood [facility] 2024 10:22amTAKE 1 TABLET BY MOUTH TWICE DAILY Prednisone 20 mg ugzhqbMujrozaszxzn40IAAUHr Wmkabnpa384Wpemqxg 7th, 2024 11:00pm August 16, 2024 7:22pm1 tab tid w/ food x 3 days, then bid w/ food x 3 days, then qd w/ food x 3 daysTizanidine 4 mg itujjylZwvequrhfcit1ETTKSmgjb at bedtime as needed for muscle mgcgbzsgba03795Ywxrwgl 2023 11:00pmOctober 2023 7:22pmPrednisone 20 mg ehkbdoJdmyeuzhgagf03MFQDUvddz sjjbh7744Dkedqyh 2023 7:22pmMay 2024 2:29pmTizanidine 4 mg wycuipjOemshqokuomc6OURKFtvdf at bedtime as needed for muscle xxvwgjxqak26335Fqhwjof 2023 7:22pmApril 2024 12:12pmCitalopram 20 mg tabletDiscontinued0.ROUTE.ESGZVVZ941Qboskbzs 2023 9:06pmMay 2024 6:23amTAKE 1 TABLET BY MOUTH AT BEDTIMEGlyburide- Metformin 2.5-500 mg ahogocDtmjyhriquaz3TYFTBMgyuk26197Dyoyr 2024 11:00pm January 25, 2025 3:37pmTake 30 minutes prior to bkfstGlyburide-Metformin 2.5-500 mg tabletDiscontinued0.ROUTE.HKBAXXV682Gigoi 2024 3:37pmJune 2024 5:54amTAKE 1 TABLET BY MOUTH DAILY 30 MINUTES BEFORE BREAKFASTPen Needle, Diabetic (Comfort Ez Pen Willard) 31 gauge x 1/4 needleDiscontinued0.ROUTE .MPQMHBDCH2911Bsznz 2024 12:58pmApril 2024 8:22pmType 2 diabetes mellitus with hyperglycemia Type 2 diabetes mellitus with hyperglycemiause three times dailyPen Needle, Diabetic (Comfort Ez Pen Willard) 31 gauge x 1/4 needleActive0.ROUTE.MEDSUPPLY 61164Tzzpo 2024 8:21pmType 2 diabetes mellitus with hyperglycemia Type 2 diabetes mellitus with hyperglycemiaUse as directedAmlodipine 5 mg tablet Oztsstosadpe9BYNRPrykg92080Dhqgx 2024 3:01pmNovember 2024 10:22am Tizanidine 4 mg onvtcghAgumutfxdiei2VQJVXlzyd at bedtime as needed for muscle sheixzgfgc99773Lrcjp 2024 12:12pmMay 2024 3:20pmCitalopram 20 mg tabletActive0.ROUTE.MXPUWHE442AyyMarch 28, 2025 6:23amTAKE 1 TABLET BY MOUTH AT BEDTIMEComplies with drug therapyGlyburide-Metformin 2.5-500 mg tablet Discontinued0.ROUTE.ZSJDKKM0396Apwd 2024 5:54amNovember 2024 10:22am TAKE 1 TABLET BY MOUTH DAILY 30 MINUTES BEFORE BREAKFASTBenazepril 40 mg tablet Discontinued0.ROUTE.WJZMLMR889Hltj 2024 7:38amNovember 2024 10:22am TAKE 1 TABLET BY MOUTH EVERY DAYTizanidine 4 mg tabletDiscontinued0.ROUTE .PGVPUPK708Hhbhhg 2024 6:43amNovember 2024 10:23amTAKE 1/2 TO 1 TABLET BY MOUTH TWICE DAILY FOR 14 DAYS NEEDED FOR MUSCLE SPASMSPrednisone 20 mg kvoytqSavcadiclvcf20UYUZYe Ztonnqwf3903Ijsmbg 2024 11:00pmNovember 2024 2:31pm1 tab tid w/ food x 1 days, then bid w/ food x 3 days, then qd w/ food x 3 daysAmlodipine 5 mg gmvicuYfgwbnaomzit7IAYFBhawiTybzlkzd 2023 12:00amFebruary 2023 4:00pmBenazepril 40 mg tbvlqtKqfjelnvapwg75DIBILfcqu December 23, 2023 12:00amJune 2023 3:06pmCitalopram 20 mg tablet Nwmtzwzeazzk07MLLUBfprn at bedtimeFebruary 2023 12:00amMay 2023 12:04pmClonidine Hcl 0.1 mg tabletDiscontinued0.1MGPOTwice dailyFebruary 2023 12:00amFebruary 2023 8:08pmHyoscyamine Sulfate 0.125 mg tablet, sublingualDiscontinued0.125MGSUBLINGUALThree times dailyFebruary 2023 12:00amMay 2024 2:35pmTadalafil 10 mg qyymneNzofrduwgybs04DTGTIiguj as neededFebruary 2023 12:00amDecember 2023 4:02pmHydrochlorothiazide 25 mg xjnwdyAulkvkmvvlyt15XDLKQsneeJiknjrrk 2023 12:00amFebruary 2023 8:09pmMiconazole Nitrate (Lotrimin Af) 2 % lglxavFdoxghxozrkr8NXJMSSAPWKVNW Twice mttrh62540Qmmh 2023 11:00pmNovember 2024 10:23amClotrimazole- Betamethasone 1-0.05 % yhnjfSehpybykkvds5BXISADZPPGPPMVtymvdc20752Zvja 2023 11:00pmMay 2024 2:29pmInsulin Glargine (Lantus Solostar U-100 Insulin) 100 unit/mL (3 mL) insulin crsKbdqsvpugcwi79SMHRMNCKFGUjcpe gzijvub90403Hwkcvtonz 2024 2:56pmNovember 2024 10:23amSpironolactone 25 mg tablet Rkshagjdoldn21TOUAMefccYsgvlrog 2023 12:00amJuly 2023 6:23am Amlodipine 10 mg tvkzpwSkpvcwfgsppw79VCYLJbqasQbpxgjxm 2023 12:00am December 28, 2023 8:09pmClonidine Hcl 0.1 mg tabletDiscontinued0.1MGPOTwice cwhjc20986Hlsradun 2023 8:07pmAugust 2023 8:26pmAmlodipine 10 mg lprilpEgqnvbskvclv1KEHDAgsnvDpdvhhyn 2023 8:08pmApril 2024 3:01pm Atenolol-Chlorthalidone 50-25 mg uogkanDhqoaobliglh9ZAVmres22034Hrlmrajq 2023 12:00amNovember 2024 10:22am1/2 orally daily;Sildenafil 100 mg tablet Bywvdcyomowv888ZPTDGmxdi as needed for sexual lhtgqguu99397Kchlhahe 2023 12:00amDecember 2023 4:06pmadminister 30 minutes to 4 hours before activitySildenafil 100 mg rylgysGqzkkc911BINODhlrp as needed for sexual activity 90452Fdbltnon 2023 4:04pmadminister 30 minutes to 4 hours before activity Complies with drug therapyInsulin Glargine (Lantus Solostar U-100 Insulin) 100 unit/mL (3 mL) insulin gccScedssfvqjwa99VHAJMYCPXEJximw kpztymw6713Boeee 2024 11:00pmMarch 2024 10:03amPen Needle, Diabetic (Comfort Ez Pen Willard) 31 gauge x 1/4 needleDiscontinued0.ROUTE.PQSMNZZYP3942Ktocu 2024 11:00[facility] 2024 10:03amAs directedBlood Sugar Diagnostic (Onetouch Ultra Test) stripDiscontinued0.ROUTE.VQNPOWTYR648Etwwt 2024 11:00[facility] 2024 10:03amType 2 diabetes mellitus with hyperglycemia Type 2 diabetes mellitus with hyperglycemiaUse to test home BS bidBlood-Glucose Meter (Onetouch Ultra2 Meter) miscDiscontinued0.ROUTE.CEMKXHKFO33Heumu 2024 11:00[facility] 2024 10:03amType 2 diabetes mellitus with hyperglycemia Type 2 diabetes mellitus with hyperglycemiaUse to test home BSLinagliptin- Metformin (Jentadueto) 2.5-500 mg chiibgCtonlisjaoca5WWXQMUhspm xikui08107Fhfvn 2024 11:00[facility] 2024 10:03amLancets (Onetouch Ultrasoft 2 Lancet) 30 gauge miscDiscontinued0.ROUTE.ASFGCUITF3852Mrczd 2024 11:00[facility] 2024 10:03amType 2 diabetes mellitus with hyperglycemia Type 2 diabetes mellitus with hyperglycemiaUse to test home BS qdBlood Sugar Diagnostic (Onetouch Ultra Test) stripActive0.ROUTE.BVZVNZCTS759Cqgnn 2024 10:02amType 2 diabetes mellitus with hyperglycemia Type 2 diabetes mellitus with hyperglycemiaUse to test home BS bidBlood-Glucose Meter (Onetouch Ultra2 Meter) miscActive0.ROUTE.LEJLFSJFX30Vksvj 2024 10:02amType 2 diabetes mellitus with hyperglycemia Type 2 diabetes mellitus with hyperglycemiaUse to test home BSInsulin Glargine (Lantus Solostar U-100 Insulin) 100 unit/mL (3 mL) insulin fouTyhsrsiytgyj78FBTR SUBCUTEvery dbrybdh7028Uffqv 27th, 2025 10:02amSept2024 2:57pmLancets (Onetouch Ultrasoft 2 Lancet) 30 gauge miscActive0.ROUTE.SMYBYVAWZ4142Okcoc 2024 10:02amType 2 diabetes mellitus with hyperglycemia Type 2 diabetes mellitus with hyperglycemiaUse to test home BS qdLinagliptin- Metformin (Jentadueto) 2.5-500 mg jpaqfcOflsyalmnqxb3FGGKWUavxm amepg35415Ocqxx 2024 10:03amMarch 2024 2:52pmPen Needle, Diabetic (Comfort Ez Pen Willard) 31 gauge x 1/4 needleDiscontinued0.ROUTE.PDDEIJBNN0963Gcbph 2024 10:03amApril 2024 12:59pmAs directedTizanidine 4 mg bjfokdXvlgdudsmvol6KA Twice daily as needed for muscle nrwgruqcuc81554Hkh 6th, 2025 11:00pmAugust 2024 6:44am1/2 to 1 tablet orally twice daily PRN;Atorvastatin 40 mg tablet Olglgx71LXTSLfkgs at bedtimeBetsy [facility]2024 12:00amComplies with drug therapyGlyburide 2.5 mg tabletActive2.5MGPOTwice dailyBetsy Johnson Regional Hospital2024 12:00amComplies with drug therapyValacyclovir 1 gram nxpfihWxgdek9116RVNRTviuy dailyBetsy Johnson Regional Hospital2024 12:00amComplies with drug therapyLisinopril 20 mg efpzmoSefstx02ROAKLbgnyAwgcchst 2024 12:00amComplies with drug therapy Atenolol 25 mg kbtcmeSafptc40XHRTBuwgpPumvnziq 2024 12:00amComplies with drug therapyAmlodipine 10 mg sjqaqrNxnjam54AVZBEndxjBtfxllon 2024 12:00am Complies with drug therapyHydralazine 50 mg oocyqeAlodetmpbctl33LIXLBirmh daily September 25, 2025 12:00amNovember 2024 10:43amAspirin 81 mg tabletActive 81MGPODailyHazard Arh [facility] 2024 12:00amComplies with drug therapyInsulin Glargine (Lantus Solostar U-100 Insulin) 100 unit/mL (3 mL) insulin fmuNxkqfq80WQVG SUBCUTEvery eveningSeptember 25, 2025 12:00amComplies with drug therapy Hydralazine 50 mg yfgrrtRvwaeeuswtsc396BMSNYthkx 8 hoursSeptember 25, 2025 10:43amNovember 2024 10:43amHydralazine 50 mg ylvkcwKghzqy666FODSCdxwv 8 qjdgj702EewevhbmSeptember 25, 2025 10:43amComplies with drug therapy Immunizations Immunization Event Date Not Given Reason Dose Number Insurance Sales Professional Lot Number Reason(s) Given Vaccine Information Statement (VIS) Detail Administration Location COVID-19 [facility], Comirnaty (Pfizer) October 21, 2021 DTap, unspecifiedDece2014 Relevant Diagnostic Tests and/or Laboratory Data Laboratory Results Test Collection Date/Time Result Date/Time Result Interpretation Reference Range Result Comment Performing Site Bedside Hemoglobin A1c July 03, 2025 3:12pm Sept 2024 3:12pm 6.4 % Estimated Average GlucoseSeptember 17, 2025 6:29amN2024 6:86kp340 mg/dLActivated Partial Thromboplast TimeSeptember 17, 2025 6:29amNove2024 6:29am27.6 sec22.3-36.2Prothromb Time International RatioN2024 6:29amNove2024 6:29am1.00DESIRED INR:2.0-3.0 CONDITIONS NOT LISTED BELOW2.5-3.5 FOR PROSTHETIC HEART VALVE REPLACEMENT2.5-3.5 RECURRENT THROMBOSISAnion GapSeptember 17, 2025 6:29amNove2024 6:29am13.0 Basophils # (Auto)September 17, 2025 6:29amNove2024 6:29am0.1 10 3/uL0.0-0.1AldosteroneSeptember 18, 2025 4:41amNove2024 4:41am9.8 ng/dL0.0-30.0This test was developed and its performance characteristicsdetermined by [employer]. It has not been cleared orapproved by the Food and Drug Administration.Performed at: [address] [id number] Director: Noni Yarbrough MD, Phone: [phone]/HDL RatioN2024 4:41amN2024 4:41am7.13.3 - 4.4 LOW RISK4.4 - 7.1 AVERAGE RISK7.1 - 11.0 MODERATE RISK>11.0 HIGH RISKMagnesium LevelSeptember 18, 2025 4:41amN2024 4:41am2.0 mg/dL1.8-2.4Phosphorus LevelSeptember 18, 2025 4:41amNove2024 4:41am 3.0 mg/dL2.6-4.7Anion GapSeptember 18, 2025 4:41amN2024 4:41am 11.6Basophils # (Auto)September 18, 2025 4:41amN2024 4:41am0.1 10 3/uL0.0-0.1Renin ActivitySeptember 18, 2025 8:28amNove2024 8:28am 0.243 ng/mL/hr0.167-5.380This test was developed and its performance characteristicsdetermined by [employer]. It has not been cleared orapproved by the Food and Drug Administration.Performed at: [address] [id number] Director: Noni Yarbrough MD, Phone: [phone] NormetanephrineSeptember 18, 2025 8:28amN2024 8:28am<25.0 pg/mL0.0-244.0This test was developed and its performance characteristicsdetermined by [employer]. It has not been cleared orapproved by the Food and Drug Administration.Anion GapSeptember 19, 2025 4:50amNove2024 4:50am14.7Hemoglobin U4cBvquvkdvSeptember 17, 2025 6:29amN2024 6:29am6.3 %Above high normal4.5-6.2ADA RECOMMENDED LIMIT 4.0 - 6.0ADA THERAPEUTIC TARGET < 7.0ACTION SUGGESTED> 7.0Prothrombin TimeSeptember 17, 2025 6:29amNovember 2024 6:29am10.6 sec9.0-11.6BUN/Creatinine RatioNove2024 6:29amNovember 2024 6:29am12.4Basophils (%) (Auto)September 17, 2025 6:29amNovember 2024 6:29am0.7 %0.2-2.0Cholesterol LevelNov2024 4:41amNovember 2024 4:21lp233 mg/dL<=200Albumin/Globulin Ratio September 18, 2025 4:41amNovember 2024 4:41am1.1Basophils (%) (Auto) September 18, 2025 4:41amNove2024 4:41am0.6 %0.2-2.0Plasma Total MetanephrinesSeptember 18, 2025 8:28amNove2024 8:28am<25.0 pg/mL 0.0-88.0This test was developed and its performance characteristicsdetermined by [employer]. It has not been cleared orapproved by the Food and Drug Administration.Performed at: [address] [id number] Director: Noni Yarbrough MD, Phone: [phone]/Creatinine RatioNove2024 4:50amNovember 2024 4:50am16.4Blood Urea Nitrogen September 17, 2025 6:29amNove2024 6:29am21.0 mg/dLAbove high normal 7.0-18.0Eosinophils # (Auto)September 17, 2025 6:29amNovemb2024 6:29am 0.3 10 3/uL0.0-0.7HDL CholesterolNov2024 4:41amNovember 2024 4:41am28 mg/dLBelow low dewunt63-73> or =60 mg/dl - LOW CARDIOVASCULAR RISK<40 mg/dl - HIGH CARDIOVASCULAR RISKAlbuminNov2024 4:41amNove2024 4:41am3.7 g/dL3.4-5.0Eosinophils # (Auto)September 18, 2025 4:41amNovemb2024 4:41am0.2 10 3/uL0.0-0.7Blood Urea NitrogenSeptember 19, 2025 4:50amNovemb2024 4:50am31.0 mg/dLAbove high normal7.0-18.0Calcium Level September 17, 2025 6:29amNove2024 6:29am9.0 mg/dL8.5-10.1Eosinophils (%) (Auto)September 17, 2025 6:amNove2024 6:29am3.3 %0.9-7.0LDL Cholesterol, CalculatedSeptember 18, 2025 4:41amNove2024 4:31aj956.0 mg/dL<100 mg/dl KZOLZWW087-502 mg/dl NEAR OR ABOVE INROCWR886-953 mg/dl BORDERLINE HZMW672-158 mg/dl HIGH>190 mg/dl VERY HIGHAlkaline Phosphatase September 18, 2025 4:41amNove2024 4:41am79 U/T90-300Dkqqixoiekm (%) (Auto)September 18, 2025 4:41amNove2024 4:41am2.8 %0.9-7.0Calcium LevelNov2024 4:50amNovemb2024 4:50am8.7 mg/dL8.5-10.1 Chloride LevelHazard Arh Regional Medical Center 2024 6:29ove2024 6:22dg348 mmol/L 98-107HematocritHazard Arh Regional Medical Center 2024 6:29amNove2024 6:29am43.8 % 42.0-54.0Triglycerides LevelNov2024 4:41amNove2024 4:41am 356 mg/dLAbove high normal<=150Alanine Aminotransferase (ALT/SGPT)September 18, 2025 4:41amNove2024 4:41am36 U/X03-58UjozchdikaSyrtgzaw 2024 4:41amNove2024 4:41am44.0 %42.0-54.0Chloride LevelHazard Arh Regional Medical Center 2024 4:50amNove2024 4:44dl111 mmol/Z05-448Xqrnll Dioxide LevelHazard Arh Regional Medical Center 2024 6:29amNove2024 6:29am28.6 mmol/L21.0-32.0Hemoglobin September 17, 2025 6:29ove2024 6:29am15.6 g/dL14.0-18.0VLDL CholesterolHazard Arh Regional Medical Center 2024 4:412024 4:41am71.2 mg/dL Aspartate Amino Transf (AST/SGOT)September 18, 2025 4:41amNove2024 4:41am20 U/J03-08NdrwpiglcfQtcvradk 2024 4:41amNove2024 4:41am 15.8 g/dL14.0-18.0Carbon Dioxide LevelHazard Arh Regional Medical Center 2024 4:50amNove2024 4:50am20.3 mmol/LBelow low nsauvp17.0-32.0CreatinineHazard Arh Regional Medical Center 2024 6:29amNove2024 6:29am1.69 mg/dLAbove high normal0.70-1.30Immature Granulocyte # (Auto)September 17, 2025 6:292024 6:29am0.03 10 3/uL0.00-0.03BUN/Creatinine RatioNfrye [facility]20[facility] 4:41amNove2024 4:41am11.8Immature Granulocyte # (Auto)September 18, 2025 4:412024 4:41am0.03 10 3/uL0.00-0.03CreatinineNov2024 4:50amNovember 2024 4:50am1.89 mg/dLAbove high normal0.70-1.30Estimated GFR ()September 17, 2025 6:29amNovember 2024 6:81vs85Xewih low normal >=60 mL/min/1.73m 2Immature Granulocyte % (Auto)September 17, 2025 6:29am September 17, 2025 6:29am0.4 %0.0-0.5Blood Urea NitrogenNov2024 4:41amNovemb2024 4:41am17.0 mg/dL7.0-18.0Immature Granulocyte % (Auto) September 18, 2025 4:41amNovemb2024 4:41am0.4 %0.0-0.5Estimated GFR ()September 19, 2025 4:50amNovemb2024 4:49zo22Cxury low normal>=60 mL/min/1.73m 2Estimated GFR (Non- AmericanNov2024 6:29amNovember 2024 6:84te79Ekoct low normal>=60 mL/min/1.73m 2 Lymphocytes # (Auto)September 17, 2025 6:29amNovemb2024 6:29am1.6 10 3/uL1.2-3.8Calcium LevelSeptember 18, 2025 4:41amNovemb2024 4:41am8.7 mg/dL8.5-10.1Lymphocytes # (Auto)September 18, 2025 4:41amNovember 2024 4:41am1.6 10 3/uL1.2-3.8Estimated GFR (Non- AmericanSeptember 19, 2025 4:50amNovember 2024 4:34ko60Qjjob low normal>=60 mL/min/1.73m 2Glucose LevelBetsy [facility]2024 6:29amNovember 2024 6:73gv205 mg/dLAbove high kawxjq12-217Pkotrhngaai (%) (Auto)September 17, 2025 6:29amNovember 2024 6:29am20.3 %Below low mokpnm59.5-60.0Chloride LevelNovbanner baywood medical center 2024 4:41am September 18, 2025 4:83rh623 mmol/F20-173Ddfcfwrdlyv (%) (Auto)September 18, 2025 4:41amNovemb2024 4:41am19.1 %Below low fkegjp52.5-60.0Glucose LevelNovbanner baywood medical center 2024 4:50amNovember 2024 4:30fh350 mg/dLAbove high pusiwj16-411Wllhwbido LevelNovbanner baywood medical center 2024 6:29amNovember 2024 6:29am 3.6 mmol/L3.5-5.1Mean Corpuscular HemoglobinNovbanner [facility] 2024 6:29amNoveer 2024 6:29am30.2 pg25.9-34.0Carbon Dioxide LevelNovbanner baywood medical center 2024 4:41am September 18, 2025 4:41am26.5 mmol/L21.0-32.0Mean Corpuscular Hemoglobin September 18, 2025 4:41amNovember 2024 4:41am30.4 pg25.9-34.0Potassium LevelNovbanner baywood medical center 2024 4:50amNovember 2024 4:50am4.0 mmol/L3.5-5.1Sodium LevelNovbanner [facility] medical center 2024 6:29amNovember 2024 6:86vw925 mmol/S598-331Urfu Corpuscular Hemoglobin ConcentNovbanner [facility] center 2024 6:29amNovember 2024 6:29am35.6 g/dLAbove high tvotuj65.9-35.2CreatinineNovbanner [facility] 2024 4:41am September 18, 2025 4:41am1.44 mg/dLAbove high normal0.70-1.30Mean Corpuscular Hemoglobin ConcentNovbanner [facility] medical center 2024 4:41amNove2024 4:41am35.9 g/dL Above high .9-35.2Sodium LevelNov2024 4:50amNovember 2024 4:72yf885 mmol/R848-315Plzx Corpuscular VolumeNovember 2024 6:29am September 17, 2025 6:29am84.9 fL80.0-94.0Estimated GFR () September 18, 2025 4:41amNovemb2024 4:41am>60>=60 mL/min/1.73m 2Mean Corpuscular VolumeNovember 2024 4:41amNove2024 4:41am84.8 fL 80.0-94.0Monocytes # (Auto)September 17, 2025 6:29amNove2024 6:29am 0.6 10 3/uL0.3-0.8Estimated GFR (Non- AmericanNov2024 4:41am September 18, 2025 4:01ij00Pzogn low normal>=60 mL/min/1.73m 2Monocytes # (Auto)September 18, 2025 4:41amNove2024 4:41am0.8 10 3/uL0.3-0.8 Monocytes (%) (Auto)September 17, 2025 6:29amNove2024 6:29am8.3 % 1.7-12.0GlobulinNov2024 4:41amNovemb2024 4:41am3.3 g/dL Monocytes (%) (Auto)September 18, 2025 4:41amNovemb2024 4:41am9.2 % 1.7-12.0Mean Platelet VolumeNovember 2024 6:29amNovemb2024 6:29am 8.9 fLBelow low normal9.5-13.5Glucose LevelNovember 2024 4:41amNovemb2024 4:01lq049 mg/dLAbove high -166Ubdr Platelet VolumeNovember 2024 4:41amNovember 2024 4:41am9.2 fLBelow low normal9.5-13.5 Neutrophils # (Auto)September 17, 2025 6:29amNovember 2024 6:29am5.1 10 3/uL1.4-6.5[facility] 4:41am[facility] 2024 4:41am 3.1 mmol/LBelow low normal3.5-5.1Neutrophils # (Auto)September 18, 2025 4:41am September 18, 2025 4:41am5.6 10 3/uL1.4-6.5Neutrophils (%) (Auto)September 17, 2025 6:29amNovemb2024 6:29am67.0 %43.0-75.0Sodium LevelNov2024 4:41amNovember 2024 4:68ml609 mmol/X332-708Ggbczsjptnh (%) (Auto) September 18, 2025 4:41amNovember 2024 4:41am67.9 %43.0-75.0Platelet [facility]2024 6:29amNovember 2024 6:43so357 10 3/sX118-188Owmee BilirubinB[facility]2024 4:41amNovember 2024 4:41am0.5 mg/dL0.2-1.0 Plate[facility]2024 4:41amNovember 2024 4:62ip243 10 3/uL 150-450Red [facility] 2024 6:29amNovember 2024 6:29am5.16 10 6/uL4.70-6.10Total ProteinNov2024 4:41amNovember 2024 4:41am7.0 g/dL6.4-8.2Red [facility] 2024 4:41amNovember 2024 4:41am5.19 10 6/uL4.70-6.10Red Cell Distribution WidthSeptember 17, 2025 6:29amNovember 2024 6:29am12.4 %11.0-15.0Red Cell Distribution Width September 18, 2025 4:41amNovember 2024 4:41am12.4 %11.0-15.0Corrected White Blood CountSeptember 17, 2025 6:29amNovember 2024 6:29am7.6 10 3/uL 4.0-11.0Corrected White Blood CountSeptember 18, 2025 4:41amNovember 2024 4:41am8.3 10 3/uL4.0-11.0 Vital Signs Vital Reading Result Reference Range Collection Date/Time Height 70 [in_i] July 03, 2025 2:87ujIdxoxx786.71 kgSept2024 2:32pmHeart Rate76 /noe44-261Dahpjxgui 3rd, 2025 2:32pmRespiratory rate12 /ypp56-41Ogzjcpayg 3rd, 2025 2:32pmBP Gtbvzsmz118 mm[Hg]100-140Sept2024 2:32pmBP Otgiywzhj15 mm[Hg]60-100Sept2024 2:32pmBMI (Body Mass Index)35.6 kg/l7Eabclnhoj2024 2:59wnUvevxr44 [in_i]September 25, 2025 10:89eaQbqfvw291.39 kg September 25, 2025 10:04amHeart Rate71 /fdx71-854EvhojbfkSeptember 25, 2025 10:04am Respiratory rate16 /uzn98-68Lhbstfxc 26th, 2025 10:04amOxygen saturation by Pulse sqpueruf31 %95-100September 25, 2025 10:04amBP Qbikhkjl990 mm[Hg]100-140 September 25, 2025 10:09amBP Ivxlupqzi31 mm[Hg]60-100Nov2024 10:09amBMI (Body Mass Index)35.9 kg/r9Zwkxlyro2024 10:04am Advance Directives Advance Directive Response Recorded Date/ Time Advance Directives No November 23, 2023 11:54am Insurance Providers Guarantor María Nice Address [address] [place] [id number] Info.Home Phone: Payer Group Member ID Coverage Type Subscriber Relationship to Subscriber Effective Date Expiration Date [employer] Id: [id number] Harrington , P Id: [id number] [address] [place] [id number] Home Phone: Self Encounters Encounter Location(s) Arrival/Admit Date Discharge/Departure Date Discharge/Departure Disposition Provider(s) Departed Physician/ Provider Office Visit -[facility] July 03, 2025 3:16pm July 03, 2025 4:12pm Discharged to home care or self care (routine discharge) Albaro John DO Non-patient / Non-visit -[facility] N 2024 6:29am Jesus Alberto Adhikari-patient / Mim-lqidy-[facility] 2024 4:41amLinnea Chino-patient / Dzd-yyhdr-Dhrli [facility] 2024 4:50amLinnea Chino-patient / Miy[facility]iazww[facility], 2025 9:42amSunita Desai CMA Departed Physician/Provider [facility] 20[facility] 10:02amNovember 2024 10:56amDischarged to home care or self care (routine discharge)Katherine Delacruz MD Recent Diagnosis Onset Date Admit Date Chronic kidney disease Unknown July 03, 2025 3:16pm Chronic venous insufficiency Unknown Jul 3:16pm Elevated cholesterol Unknown July 032024 3:16pm Low back pain Unknown July 03, 2 025 3:16pm Lumbar spondylosis Unknown July 3:16pm Obesity Unknown July 03, 2 025 3:16pm Obstructive sleep apnea Unknown 2024 3:16pm Primary hypertension Unknown July 032024 3:16pm Proteinuria Unknown July 03, 2 025 3:16pm Type 2 diabetes mellitus with hyperglycemia Unkn own July 03, 2025 3:16pm Chronic kidney disease, stage 3b Unknown September 25, 2025 10:02am Diabetic nephropathy Unknown September 252024 10:02am Hypertensive nephropathy Unknown Novembe r 2024 10:02am Morbid obesity Unknown September 25, 2 025 10:02am Proteinuria Unknown September 25, 025 10:02am Resistant hypertension Unknown September 25, 2025 10:02am Assessments Diagnosis Onset Date Resolution Status Admit Date Chronic kidney disease acuteSept2024 3:16pmChronic venous insufficiencyacuteSept2024 3:16pmElevated cholesterolacuteSept2024 3:16pmLow back painacute July 03, 2025 3:16pmLumbar spondylosisacuteSept2024 3:16pm ObesityacuteSept2024 3:16pmObstructive sleep apneaacuteSept2024 3:16pmPrimary hypertensionacuteSept2024 3:16pmProteinuriaacute July 03, 2025 3:16pmType 2 diabetes mellitus with hyperglycemiaacute July 03, 2025 3:16pmChronic kidney disease, stage 3bacuteNovember 2024 10:02amDiabetic nephropathyacuteNovember 2024 10:02amHypertensive nephropathyacuteNovember 2024 10:02amMorbid obesityacuteNovember 2024 10:02amProteinuriaacuteNovember 2024 10:02amResistant hypertension acuteNovember 2024 10:02am Plan of Treatment Author Albaro John [facility] HospitalAuthoredSept2024 3:25pmI have instructed this patient to follow a comprehensive diabetic treatment plan. I have also instructed them to check their feet daily for calluses and nonhealing ulcers. I have instructed them to have a yearly dilated eye examination. I have reviewed their treatment goals: SBP less than 130, LDL less than 100, FBS less than 140, A1C less than 7%. I have instructed them to maintain a home BS log and bring the results to each of their office visits for review. I have explained the importance of routine monitoring of their A1C, Microalbumin and Lipids. I have explained the benefits of well controlled diabetes in preventing micro and macrovascular complications. Initiated Basal insulin at 10u q HS along w/ Glipizide/Metformin 2.5mg/500 qd - DPP4, GLP1, SGLT2 cost prohibitive Check FBS daily and occasionally before supper Diabetic education once BS under better control POC A1C 6.4% - much improved from 14% I have instructed this patient to consume a healthy, low-fat, low-salt diet. I have also encouraged them to continue exercise with weight loss to achieve/maintain a BMI < 30. I have instructed this patient on the correct procedure for obtaining home BP measurements:? - rest for 5 minutes w/o talking. - positioned w/ feet on floor and arms supported. - average best 2/3 readings w/ goal < 135/85. - update office w/ home readings in 2 weeks. Continue Amlodipine, Benazepril, Carvedilol and Clonidine Initiate Aldactone qd I instructed this patient on the benefits of adequate control of hypertension and diabetes, if appropriate. I have also instructed them to avoid use of NSAIDs due to the adverse effects on renal function. I instructed them on adequate fluid balance and to consume at least 48 oz of fluids daily. I also instructed them to monitor for an unexplained increase in weight and lower extremity edema. They have been instructed to notify the office for any changes or concerns. Renal US: renal cysts, nephrolithiasis w/o obstruction, no mass or atrophy noted - 07/2024 Proteinuria estimated at 1.3 grams/24 hour. GLP1 and SGLT2 would be beneficial in reducing risk of CKD progression but cost prohibitive CKD stage 3a Strict control of BP and BS Continue LALO inhibitor Discussed SGLT2 but cost prohibitive I have instructed this patient on a low fat, high fiber diet and exercise. I have discussed the primary and secondary prevention benefits attributed to lowering LDL cholesterol. I have also discussed the medical treatment of elevated cholesterol, which is based on the 10 year ASCVD risk. I have instructed this patient to avoid salt and elevate their lower extremities. I have also recommended use of support stockings. I instructed them to inspect their legs and feet daily for blisters and ulcerations. I have instructed this patient on a low-fat, high-fiber diet.?? I have also instructed them to reduce calories, portions sizes, sweet drinks and snacks.?? I have also recommended they exercise for 30 minutes, 3-5 times weekly. They are aware of the comorbid conditions associated with excessive weight: Diabetes, HTN, Hyperlipidemia, CAD and arthritis. This patient is aware of the benefits associated with treatment of CHERYL: With continued use, the patient reduces the risk for LA, CVA, HTN, cardiac dysrhythmias and sudden cardiac deaths. The patient is also aware of the association between CHERYL and morning headaches, daytime somnolence, fatigue and obesity, which also has been improved with continued use. The patient is compliant with treatment, wearing the equipment every night for greater than 4 hours. The patient is instructed to continue use of the CPAP for CHERYL treatment. Instructed on ROM/stretching exercises. Ice/heat and Tyelnol Prescribed Prednisone and Tizanidine for symptomatic relief I have instructed this patient to avoid bending, twisting or lifting. I have also instructed on use of intermittent heat and ice as needed. They may schedule a massage or gentle manipulation. I instructed them on the safe use of Tylenol, Lidocaine and stretching exercises. I informed them of alternative modes of treatment for severe pain, which may include referral to physical therapy or pain management. Future Tests Future scheduled test information is unavailable Pending Tests Test Name Ordered Date Scheduled Date Renal Function Panel September 25, 2025 10:47am 3 Months US renal doppler September 25, 2025 10:43am 1 M [facility] Future Visits Future appointment information is unavailable Future Procedures Procedure Name Ordered Date Scheduled Date Hemogram CBC Without Diff September 25, 2025 10 :47am 3 Months Fr Goodell/Lambda LTC Urine September 25, 2025 10 :47am 3 Months Magnesium September 25, 2025 10:47am 3 Mo nths MicroAlb Creat Ratio,U September 25, 2025 10:47 am 3 Months Protein Creat Ratio Ur Random September 25 10:47am 3 Months Parathyroid Hormone Intact September 25, 2025 1 0:47am 3 Months Urinalysis September 25, 2025 10:47am 3 Mo nths Protein Electro, 24Hr Urine September 25, 2025 10:47am 3 Months Uric Acid September 25, 2025 10:47am 3 Mo nths Vitamin D 25 Hydroxy Total September 25, 2025 1 0:47am 3 Months Future Medications Future medication information is unavailable Patient Instructions Instruction Admit Date Low back pain in adults July 03 025 3:16pm Hospital Discharge Instructions Ambulatory Orders* Referral to Weight Management Time Frame: 09/25/25, Location: None Selected
[2025-09-29 18:28] VITALS: BP 176/110; PULSE 76; TEMP 36.6; O2SAT 98; BMI 34.4
--- NOTE | 2025-09-29 19:17 | XR_ITS ---
[facility] [place] [id number] Patient Name: YANNI MAR MRN: [id number] date: 1965 Sex: M Assigned Patient Location: ER Current Patient Location: Accession/Order Number: [id number] Exam Date: 09/29/2025 19:56 Report Date: 09/30/2025 07:35 At the request of: HERMANN TAN DO Procedure: XR knee LT 3V LEFT KNEE - 3 views COMPARISON: None CLINICAL DATA: Patient felt a pop and has left knee pain. AP, lateral and internal oblique views were obtained. There is no acute fracture or dislocation. There is no disproportionate joint space narrowing. There is minor marginal spurring including at the tibial spines. There is no significant knee effusion or soft tissue swelling. XR/XR knee LT 3V IMPRESSION: NO ACUTE BONY FINDINGS. Impression dictated by: Eliana Malagon M.D. 09/30/2025 7:35 AM Dictation Location: [place] [address] Electronically authenticated by: [id number] Date: 09/30/2025 07:35
--- OUTSIDE RECORDS SUMMARY | 2025-09-29 19:21 | XMS_ITS | CCD ---
Author Organization [facility] CliniSyin Care Team Providers Care Php Mysql Web Developer Name Role Phone Albaro Grimaldo Unavailable [...] Allergen(s)Allergy TypeDate of OnsetReaction(s) Facility (15 sources)PenicillinDrug AllergyUnknowChallengePost Other (16 sources)Penicillin VDrug Xsfvhap39-51-6285Ynycljd, Unknown ReactionCleveland Clinic Mentor Hospital (7 sources)PenicillinsAllergy to wiojxqdtc97-96-9923Eskbkek ReactionCleveland Clinic Mentor Hospital (2 sources)No Known Medication Allergies; Translations: [No Known Medication Allergies]Propensity to adverse reactions (disorder)[facility] Repository Medications Current Medications MedicationDrug Class(es)DatesSig (Normalized)Sig (Original)acetaminophen 325 mg / oxyCODONE hydrochloride 5 mg oral tablet (1 source)Opioid AgonistStart: 06-14-2024 End: 11-16-9166Agwylxse 5 mg-325 mg oral tablet 1 tab(s), Oral, q6hr for 2 day(s), 7 tab(s), Refill(s) 0, [id number], 177, cm, 06/14/24 11:35:00 EDT, Height/Length Dosing, 112, kg, 06/14/24 11:35:00 EDT, Weight Dosing Start Date: 06/14/24 Stop Date: 06/16/24 Status: OrderedamLODIPine 5 mg oral tablet (20 sources)Dihydropyridine Calcium Channel BlockerStart: 91-28-1346tour 1 tablet by mouth once dailyAmlodipine 5 mg tablet Active 5 MG PO Daily 90 90 February 04, 2025 4:01pm Complies with drug therapyStart: 54-11-2448wclg 1 tablet by mouth once dailyamLODIPine 10 mg Tab 10 mg = 1 tab(s), Oral, Daily, High blood pressure Start Date: 03/28/24 Status:Ordered Repeat number: 1Start: 12-28-2023 End: 77-70-0747tzqz 5 mg by mouth once dailyAmlodipine 10 mg tablet Discontinued 5 MG PO Daily December 28, 2023 9:08pm February 04, 2025 4:01pmStart: 12-28-2023 take 5 mg by mouth once dailyAmlodipine Active 5 MG PO Daily December 28, 2023 9:08pmStart: 12-28-2023 End: 03-16-6451iogl 1 tablet by mouth once dailyAmlodipine 10 mg tablet Discontinued 10 MG PO Daily December 28, 2023 1:00am December 28, 2023 9 :09pmStart: 12-23-2023 End: 22-55-6656guvd 1 tablet by mouth once dailyAmlodipine 5 [...] oral tablet (3 sources)Thiazide-like Diuretic, beta-Adrenergic BlockerStart: 45-88-8305kivj 0.5 tablet by mouth once dailyAtenolol-Chlorthalidone 50-25 mg tablet Active 0 PO Daily 45 90 October 17, 2024 1:00am 1/2 orally daily; Complies with drug therapybenazepril hydrochloride 40 mg oral tablet (20 sources)Angiotensin Converting Enzyme InhibitorStart: 04-01-2024 End: 68-53-3935ozac 1 tablet by mouth once dailyBenazepril 40 mg tablet Active 0 .ROUTE .COMPLEX 90 May 13, 2025 8:38am TAKE 1 TABLET BY MOUTH EVERY DAY Complies with drug therapyStart: 12-23-2023 End: 94-65-3807lqgf 1 tablet by mouth once dailyBenazepril 40 mg tablet Discontinued 40 MG PO Daily December 23, 2023 1:00am April 01, 2024 4:06pmtake 1 tablet by mouth every twenty-four hoursBenazepril HCl 40 MG 1 tablet Orally Once a day ActiveBlood-Glucose Meter (Onetouch Ultra2 Meter[place] [facility] sources)Start: 12-14-8666Uqzbh-Glucose Meter (Onetouch Ultra2 Meter[place] [facility] 0 .ROUTE .MEDSUPPLY January 24, 2025 11:02am Use to test home BSStart: 01-24-2025 End: 58-84-4766Lrmtr-Glucose Meter (Onetouch Ultra2 Meter) [facility] Discontinued 0 .ROUTE .MEDSUPPLY January 24, 2025 12:00am January 24, 2025 11:03am Use to test home BScarvedilol 12.5 mg oral tablet (15 sources)alpha-Adrenergic Alejandro, beta-Adrenergic BlockerStart: 03-28-2024 take 1 tablet by mouth twice dailyCoreg 12.5 mg Tab 12.5 mg = 1 tab(s), Oral, BID, High blood pressure Start Date: 03/28/24 Status: Ordered Repeat number: 1 Start: 65-47-2678jcuh 1 tablet by mouth every twelve hoursCarvedilol 12.5 MG 1 tablet with food Orally Twice a day for 90 days Oct, ActiveStart: 85-57-9646lhrn 1 tablet by mouth every twelve hoursCarvedilol 6.25 MG 1 tablet with food Orally Twice a day for 30 days Oct, Activetake 1 tablet by mouth twice daily at mealtimeCarvedilol 6.25 TAKE 1 TABLET BY MOUTH TWICE DAILY WITH FOOD for 90 Activeciprofloxacin 500 mg oral tablet (1 source)Quinolone AntimicrobialStart: 06-14-2024 End: 03-75-5946zsds 1 tablet by mouth twice dailyCipro 500 mg Tab 500 mg = 1 tab(s), Oral, BID, X 3 day(s), # 6 tab(s), Refills(s) 0, Pharmacy: [id number], 177, cm, 06/14/24 11:35:00 EDT, Height/Length Dosing, 112, kg, 06/14/24 11:35:00 EDT, Weight Dosing Start Date: 06/14/24 Stop Date: 06/17/24 Status: Orderedcitalopram 20 mg oral tablet (20 sources)Serotonin Reuptake InhibitorStart: 97-52-3800iwcf 1 tablet by mouth once dailycitalopram 20 mg Tab 20 mg = 1 tab(s), Oral, Daily, Depression Start Date: 03/28/24 Status: Ordered Repeat number: 1Start: 03-19-2024 End: 11-58-8272ndef 1 tablet by mouth at bedtimeCitalopram 20 mg tablet Active 0 .ROUTE .COMPLEX March 28, 2025 7:23am TAKE 1 TABLET BY MOUTH ATBEDTIME Complies with drug therapyStart: 11-10-1399eted 1 tablet by mouth at bedtime Citalopram Active 0 .ROUTE .COMPLEX March 19, 2024 1:04pm TAKE 1 TABLET BY MOUTH AT BEDTIMEStart: 12-23-2023 End: 90-51-7989iivo 1 tablet by mouth once daily at bedtimeCitalopram 20 mg tablet Discontinued 20 MG PO Daily at bedtime December 23, 2023 1:00am February 1:04pmtake 1 tablet by mouth at bedtimeCitalopram Hydrobromide 20 MG TAKE 1 TABLET BY MOUTH AT BEDTIME ActivecloNIDine hydrochloride 0.1 mg oral tablet (20 sources)Central alpha-2 Adrenergic AgonistStart: 76-51-6442pckc 1 tablet by mouth twice dailyClonidine Hcl 0.1 mg tablet Active 0 .ROUTE .COMPLEX 60 June 25, 2024 9:26pm TAKE 1 TABLET BY MOUTH TWICE DAILY Complies with drug therapy Start: 89-19-3115hwqh 1 tablet by mouth twice dailyClonidine Hcl Active 0 .ROUTE .COMPLEX 60 June 25, 2024 9:26pm TAKE 1 TABLET BY MOUTH TWICE DAILYStart: 12-23-2023 End: 87-49-2214ipzv 1 tablet by mouth twice dailyClonidine Hcl [...] oral tablet (5 sources)Biguanide, SulfonylureaStart: 01-25-2025 End: 39-07-2661euml 1 tablet by mouth once daily 30 minutes before breakfast Glyburide-Metformin 2.5-500 mg tablet Active 0 .ROUTE .COMPLEX April 24, 2025 6:54am TAKE 1 TABLET BY MOUTH DAILY 30 MINUTES BEFORE BREAKFAST Complies with drug therapyStart: 01-25-2025 End: 01-03-1478Pyvklvbrs-Metformin 2.5-500 mg tablet Discontinued 1 TAB PO Daily January 25, 2025 12:00am January 25, 2025 4:37pm Take 30 minutes prior to bkfsthalobetasol propionate 0.0005 mg/mg topical ointment (7 sources)CorticosteroidHalobetasol Propionate 0.05 % APPLY TO AFFECTED RASH AREA(S) TWO TIMES A DAY NEEDED for 30 ActivehydroCHLOROthiazide 25 mg oral tablet (20 sources)Thiazide DiureticStart: 58-63-3074vjddjrxbautxjdanwma 25 mg Tab 25 mg = 1 tab(s) Start Date: 03/28/24 Status: OrderedStart: 12-23-2023 End: 29-91-9027xwyl 1 tablet by mouth once dailyHydrochlorothiazide 25 mg tablet Discontinued 25 MG PO Daily December 23, 2023 1:00am December 28, 2023 9:09pmtake 1 tablet by mouth once dailyhydroCHLOROthiazide 25 MG TAKE 1 TABLET BY MOUTH DAILY Active3 ml insulin glargine 100 unt/ml pen injector (7 sources)Insulin AnalogStart: 96-65-4303Sicmtec Glargine (Lantus Solostar U- 100 Insulin) 100 unit/mL (3 mL) insulin pen Active 12 UNIT SUBCUT Every evening July 03, 2025 3:56pm Complies with drug therapyStart: 01-24-2025 End: 28-43-8270nsdbxs 10 [IU] by subcutaneous injection once daily in the eveningInsulin Glargine (Lantus Solostar U-100 Insulin) 100 unit/mL (3 mL) insulin pen Discontinued 10 UNIT SUBCUT Every evening 01 27January 24, 2025 11:02am July 03, 2025 3:57pmmeloxicam 15 mg oral tablet (2 sources)Nonsteroidal Anti-inflammatory DrugStart: 04-30-1070lezz 1 tablet by mouth every twenty-four hoursMeloxicam 15 MG 1 tablet Orally Once a day for 15 days Jan, Activemiconazole nitrate 0.02 mg/mg topical powder (5 sources)Azole AntifungalStart: 96-90-9981Vnabkrjcdf Nitrate (Lotrimin Af) 2 % powder Active 1 APPLIC TOPICAL Twice daily 85 May 02, 2024 12:00am Complies with drug therapypredniSONE 20 mg oral tablet (8 sources)Start: 43-32-8194Osvttrbzxd 20 mg tablet Active 20 MG PO As Directed 10 06June 28, 2025 12:00am 1 tab tid w/ food x 1 days, then bid w/ food x 3 days, then qd w/ food x 3 days Complies with drug therapyStart: 08-16-2024 End: 41-63-7386qple 1 tablet by mouth twice dailyPrednisone 20 mg tablet Discontinued 20 MG PO Twice daily 08 04August 16, 2024 8:22pm March 06, 2025 3:29pmStart: 08-07-2024 End: 70-84-8493Lodmnplfdi 20 mg tablet Discontinued 20 MG PO As Directed 03 04August 07, 2024 12:00am August 16, 2024 8:22pm 1 tab tid w/ food x 3 days, then bid w/ food x 3 days, then qd w/ food x 3 dayssildenafil 100 mg oral tablet (6 sources)Phosphodiesterase 5 InhibitorStart: 10-17-2024 End: 41-54-2348Aitfppebuf 100 mg tablet Active 100 MG PO Daily as needed for sexual activity October 17, 2024 5:04pm administer 30 minutes to 4 hours before activity Complies with drug therapyspironolactone 25 mg oral tablet (20 sources)Aldosterone AntagonistStart: 88-12-7551nakl 1 tablet by mouth once dailySpironolactone 25 mg tablet Active 0 .ROUTE .COMPLEX May 21, 2024 7:23am TAKE 1 TABLET BY MOUTH EVERY DAY Complies with drug therapyStart: 29-75-3145jzzf 1 tablet by mouth once dailySpironolactone Active 0 .ROUTE .COMPLEX May 21, 2024 7:23am TAKE 1 TABLET BY MOUTH EVERY DAYStart: 12-28-2023 End: 43-33-4230pula 1 tablet by mouth once dailySpironolactone 25 mg tablet Discontinued 25 MG PO Daily December 28, 2023 1:00am May 21, 2024 7:23am Start: 00-51-7166ntxp 1 tablet by mouth every twenty-four hoursSpironolactone 25 MG 1 tablet Orally Once a day for 30 days Oct, ActivetiZANidine 4 mg oral tablet (12 sources)Central alpha-2 Adrenergic AgonistStart: 52-92-5010axks 0.5-1 tablets by mouth twice daily as needed for muscle spasmsTizanidine 4 mg tablet Active 0 .ROUTE .COMPLEX June 07, 2025 7:43am TAKE 1/2 TO 1 TABLET BY M OUTH TWICE DAILY FOR 14 DAYS NEEDED FOR MUSCLE SPASMS Complies with drug therapyStart: 03-06-2025 End: 82-40-5693bbor 0.5-1 tablets by mouth twice daily as neededTizanidine 4 mg tablet Discontinued 0 PO Twice daily as needed for muscle spasticity February 12:00am June 07, 2025 7:44am 1/2 to 1 tablet orally twice daily PRN; Start: 08-07-2024 End: 03-59-5378mbxf 1 capsule by mouth once daily at bedtime as neededTizanidine 4 mg capsule Discontinued 4 MG PO Daily at bedtime as needed for muscle spasticity 10 10Apr2024 1:12pm March 06, 2025 4:20pm Completed/Discontinued Medications MedicationDrug Class(es)DatesSig (Normalized)Sig (Original)betamethasone 0.5 mg/ml / clotrimazole 10 mg/ml topical cream (5 sources)Azole Antifungal, CorticosteroidStart: 05-02-2024 End: 97-65-9051Zedgywivxxgx-Betamethasone 1-0.05 % cream Discontinued 1 APPLIC TOPICAL Bedtime 45 May 02, 2024 12:00am March 06, 2025 3:29pmcephalexin 500 mg oral capsule (2 sources)Cephalosporin AntibacterialStart: 14-98-3090Hoocca 500 mg Cap 500 mg = 1 cap(s), Oral, As Directed, Pt to take 1 tab the day before procedure and the 2nd tab the day of procedure once completed., # 2 cap(s), Refills(s) 0, Pharmacy: [facility] #[id number], 179, cm, 03/28/24 15:13:00 EDT, Height/Length Dosing, 110, kg, 03/28/24 15:13:00 EDT, Weight Dosing Start Date: 03/28/24 Status: Orderedcitric acid 75 mg/ml / magnesium oxide 21.9 mg/ml / picosulfate sodium 0.0625 mg/ml oral solution (15 sources)Calculi Dissolution Agent, Anti-coagulantStart: 20-44-9164ppvx 160 mL by mouth in the evening, then take 160 mL by mouth twice daily in the evening Clenpiq 10-3.5-12 MG-GM -GM/160ML 160 ML AT 3:00 PM AND 160 ML AT 9:00 PM Orally TWICE A DAY for 1 days PLEASE CHECK ALLERGIES Dec, Not-Taking/PRN hydrALAZINE hydrochloride 10 mg oral tablet (14 sources)Arteriolar VasodilatorStart: 12-13-2023 End: 50-97-4981jgxk 1 tablet by mouth three times dailyHydralazine 10 mg tablet Discontinued 10 MG PO Three times daily 90 December 14, 2023 2:24pm December 23, 2023 3:46pmhyoscyamine sulfate 0.125 mg sublingual tablet (20 sources)Start: 12-23-2023 End: 92-75-1589csoy 1 tablet under the tongue three times dailyHyoscyamine Sulfate 0.125 mg tablet, sublingual Discontinued 0.125 MG SUBLINGUAL Three times daily December 23, 2023 1:00am March 06, 2025 3:35pmHyoscyamine Sulfate 0.125 MG DISSOLVE 1 TABLET UNDER THE TONGUE THREE TIMES DAILY NEEDED for 90 Active linagliptin 2.5 mg / metFORMIN hydrochloride 500 mg oral tablet (6 sources)Biguanide, Dipeptidyl Peptidase 4 InhibitorStart: 01-24-2025 End: 12-99-7072mdmb 1 tablet by mouth twice dailyLinagliptin-Metformin ([facility]) 2.5-500 mg tablet Discontinued 1 TAB PO Twice daily 60 December 302024 11:03am January 25, 2025 3:52pmtadalafil 10 mg oral tablet (20 sources)Phosphodiesterase 5 InhibitorStart: 12-23-2023 End: 50-32-3051uzog 1 tablet by mouth once daily as [...] sources)Chronic kidney disease; Translations: [Chronic kidney disease, unspecified]75-03-8596JbbcmybLxbonshg mellitus with complications (6 sources)Hyperglycemia due to type 2 diabetes mellitus; Translations: [Type 2 diabetes mellitus with hyperglycemia]59-35-2320ZzopivuJipdfpbr mellitus without complication (4 sources)Hyperglycemia; Translations: [Hyperglycemia, unspecified]01-24-2025 EpisodicDisorders of lipid metabolism (20 sources)Hypercholesterolemia; Translations: [Pure hypercholesterolemia, unspecified]ChronicEssential hypertension (20 sources)Hypertensive disorder; Translations: [Essential (primary) hypertension]Onset: 80-06-1560OhxyvlxYmeijpqnmiiqw symptoms and ill-defined conditions (6 sources)Urge incontinence; Translations: [Urge incontinence of urine]Onset: 08-57-8281AkdyiqtPejcjmtixvisf symptoms and ill-defined conditions (20 sources)Proteinuria; Translations: [Proteinuria, unspecified]12-28-2023 EpisodicHyperplasia of prostate (8 sources)Benign prostatic hypertrophy with outflow obstruction; Translations: [Benign prostatic hyperplasia with lower urinary tract symptoms]Onset: 57-69-5998MrafvcoSaovq disorders and dislocations; trauma-related (10 sources)Derangement of right knee; Translations: [Unspecified internal derangement of right knee]ChronicMiscellaneous mental health disorders (8 sources)Psychogenic headache; 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]17-76-5831YyepbefCnyk disorders (20 sources)Recurrent major depression in full remission; Translations: [Major depressive disorder, recurrent, in full remission]ChronicMycoses (1 source)Tinea cruris; Translations: [Dermatophytosis of groin and perianal area]58-18-6532AxaxsxbaCdrsf acquired deformities (15 sources)Acquired spondylolisthesis; Translations: [Spondylolysis, lumbar region]EpisodicOther acquired deformities (1 source)Spondylolysis, lumbar regionEpisodicOther acquired deformities (6 sources)Vcvhvjherdbej02-72-5322GrrcquqaGhpzc bone disease and musculoskeletal deformities (1 source)Chondromalacia, unspecified siteEpisodicOther diseases of bladder and urethra (3 sources)Mass of urinary bladder; Translations: [Other specified disorders of bladder]15-13-9419HfynlnkTzufq diseases of bladder and urethra (1 source)Other specified disorders of bladder; Translations: [Other specified disorders of bladder]46-63-3757HwxcfqaQmqjf diseases of kidney and ureters (1 source)Acquired renal cyst without neoplastic change; Translations: [Cyst of kidney, acquired]Onset: 93-26-8474UutxxjwpXmsus diseases of kidney and ureters (6 sources)Cyst of ieirvb64-10-6404PylurgfyZdpdk diseases of veins and lymphatics (20 sources)Peripheral venous insufficiency; Translations: [Venous insufficiency (chronic) (peripheral)]47-64-2756RbxymqahRovxh diseases of veins and lymphatics (11 sources)Venous [...] sources)Male erectile dysfunction, unspecified; Translations: [Erectile dysfunction]Onset: 51-09-5199YueqndcFbhqg male genital disorders (6 sources)Erectile dysfunction co-occurrent and due to arterial insufficiency 53-82-5958BfvxtqpQouio nervous system disorders (2 sources)Chronic pain; Translations: [Other chronic pain]ChronicOther nervous system disorders (1 source)Other chronic painChronicOther non-traumatic joint disorders (15 sources)Arthralgia of the lower leg; Translations: [Pain in right knee] EpisodicOther nutritional; endocrine; and metabolic disorders (17 sources)Obesity; Translations: [Other obesity due to excess calories] 40-82-5750EkxtqjfDlhem nutritional; endocrine; and metabolic disorders (20 sources)Body mass index 30+ - obesity; Translations: [Body mass index (BMI) 34.0-34.9, adult]93-80-8758PyttshxVmvwr nutritional; endocrine; and metabolic disorders (3 sources)Other obesity due to excess caloriesChronicOther nutritional; endocrine; and metabolic disorders (3 sources)Body mass index (BMI) 34.0-34.9, adultChronicOther nutritional; endocrine; and metabolic disorders (10 sources)Obesity caused by energy imbalance; Translations: [Other obesity due to excess calories]47-31-9889BhwlfgiFmlnp nutritional; endocrine; and metabolic disorders (3 sources)Obesity, unspecified; Translations: [Obesity, unspecified]01-24-2025 ChronicOther screening for suspected conditions (not mental disorders or infectious disease) (6 sources)Imaging result abnormal; Translations: [Abnormal findings on diagnostic imaging of other specified body structures]Onset: 20-68-1663Mygdnzf Other screening for suspected conditions (not mental disorders or infectious disease) (7 sources)Encounter for screening for malignant neoplasm of prostate; Translations: [Screening for malignant neoplasms of prostate]Onset: 03-28-2024 60-09-9728WoxwayfbSpjxciw on above:PSA: 1.81 - SA: 1.81 - 02/2024, 2.12 - 02/2025Poisoning by nonmedicinal substances (1 source)Toxic effect of unspecified spider venom, accidental (unintentional), initial encounter; Translations: [Toxic effect of venom]10-63-7806Epzjedct Residual codes; unclassified (20 sources)Obstructive sleep apnea syndrome; Translations: [Obstructive sleep apnea (adult) (pediatric)]10-13-6392LknfvplKjetuuli codes; unclassified (6 sources)Obstructive sleep apnea (adult) (pediatric); Translations: [Obstructive sleep apnea (adult)(pediatric)]ChronicSpondylosis; intervertebral disc disorders; other back problems (3 sources)Lumbar spondylosis; Translations: [Spondylosis without myelopathy or radiculopathy, lumbar region]02-45-6269QjkoazxFsifmzarneu; intervertebral disc disorders; other back problems (9 sources)Low back pain; Translations: [Low back pain]Onset: 78-50-0500Ywawnmld Past or Other Problems Problem ClassificationProblemDateDocumented DateEpisodic/ChronicOther aftercare (1 source)Other halfway (current) drug therapy; Translations: [OTH HSE SPECIALIST CURRENT DRUG THERAPY]Onset: 30-40-6454NxtzwrkzUdytm non-traumatic joint disorders (5 sources)Pain in right knee; Translations: [PAIN IN RIGHT KNEE]Onset: 10-01-6758TniueugqGyenacia codes; unclassified (4 sources)Past history of procedure; Translations: [Other specified postprocedural states]Onset: 306333-72-7593JllygfkeIzwybhz on above: ureteroscopy, ESWLUnclassified (1 source)Resistant hypertension I1A.0 Results Test NameValueInterpretationReference RangeFacilityPatient Letter FTMCon 73-39-4519Siivdqs Letter FTMCPatient Letter FT April 16, 2025 YANNI MAR [address] [place] [address] : 1965 Dear Yanni , You missed [...] [facility] [address] [place] [address] TefoewEngheiCleveland Clinic Hillcrest HospitalHbA1c HPLC (Bld) [Mass fraction]on 29-53-9641YpH1j (Bld) [Mass fraction]Hemoglobin A1c/Hemoglobin.total in Blood by HPLCCleveland Clinic Mentor HospitalCT Abdomen/Pelvis w/o Contrast on 68-62-5474QT Abdomen/Pelvis w/o ContrastExam Date/Time: 07/17/2024 07:14 EDT [...] No Oral contrast amount in ml's: 0NormalFisher [facility] Orthopaedic InstituteXR Abdomen 1 Viewon 77-35-0421RD Abdomen 1 ViewExam Date/Time: 06/14/2024 11:48 EDT [...] in mGy = na DAP = naNormalFisher [facility] CenterMain OR Intraoperative Recordon 55-80-5016Dhku OR Intraoperative RecordMain OR Intraoperative Record IntraOp Document Type FT Summary Primary Physician: Dax MCCORD MD Finalized Date/Time: 06/15/24 13:14:31 Pt. Name: YANNI MAR/Sex: 1965 Male Med Rec #: [id number] Physician: Dax MCCORD MD Financial #: [id number] Pt. Type: A Room/Bed: [place] [address] Admit/Disch: 06/14/24 11:29:08 - 06/14/24 17:05:00 Institution: [...] Rody Daniel Role Performed Surgeon - Primary Therapeutic Assistant - Primary STOCK PATCHER Time In 06/14/24 14:57:00 06/14/24 14:57:00 06/14/24 14:57:00 Time Out 06/14/24 15:31:00 06/14/24 15:31:00 06/14/24 15:11:00 Procedure EXTRACORPOREAL SHOCK EXTRACORPOREAL SHOCK EXTRACORPOREAL SHOCK WAVE WAVE WAVE LITHOTRIPSY(Right), LITHOTRIPSY(Right), LITHOTRIPSY(Right), CYSTOSCOPY STENT CYSTOSCOPY STENT CYSTOSCOPY STENT INSERTION(Right) INSERTION(Right) INSERTION(Right) Comments Last Modified By: Brock LETTER OF CREDIT CLERK, Liane E Brock LETTER OF CREDIT CLERK, Liane E Brock LETTER OF CREDIT CLERK, Liane E 06/15/24 13:12:17 06/15/24 13:12:17 06/15/24 13:12:17 Entry 4 Entry 5 Entry 6 Case Attendee Lisa GARNETT, Leland Miller LETTER OF CREDIT CLERK, Jaki Serna RN, CNOR, Pam Carranza Role Performed Anesthesiologist Scrub - Primary Therapeutic Assistant - Primary Tow Picker Time In 06/14/24 15:09:00 06/14/24 14:57:00 06/14/24 14:57:00 Time Out 06/14/24 15:31:00 06/14/24 15:31:00 06/14/24 15:05:00 Procedure EXTRACORPOREAL SHOCK EXTRACORPOREAL SHOCK EXTRACORPOREAL SHOCK WAVE LITHOTRIPSY(Right) WAVE WAVE LITHOTRIPSY(Right), LITHOTRIPSY(Right), CYSTOSCOPY STENT CYSTOSCOPY STENT INSERTION(Right) INSERTION(Right) Comments Last Modified By: Brock LETTER OF CREDIT CLERK, Liane E Brock LETTER OF CREDIT CLERK, Liane E Brock LETTER OF CREDIT CLERK, Liane E 06/15/24 13:12:17 06/15/24 13:12:17 06/15/24 13:12:17 General Comments: Elda SILVA SCRUBBED IN FOR CASE; CELE ANTONIO PRESENT FOR CASE -Ian FONTANA RNhelmet coverer Protocols FT Pre-Care Text: Implements protective measures [...] Post-Care Text: The tam (more content not included)...[facility] Discharge Instructionson 11-41-4207Iwmvomach InstructionsDischarge Instructions YANNI MAR :1965 Visit Date:06/14/2024 [...] medication and antibiotics to your pharmacy. Where: [facility] Fis[address]Note[address] [address]- Business (1) Medications What How Much When Instructions Next Dose New acetaminophen-oxycodone (Percocet 5 mg-325 mg oral tablet) 1 Tablets By Mouth Every 6 hours Duration: 2 Days Pickup at [facility] #[id number] New ciprofloxacin (Cipro 500 mg Tab) 1 Tablets By Mouth 2 times a day Duration: 3 Days Pickup at [facility] #[id number] Unchanged amlodipine (amLODIPine 10 mg Tab) 1 [...] Tablets By Mouth Every day Pharmacy Information [id number]: [address] [place], [place] [id number] [phone] Allergies No Known Medication Allergies Problems Ongoing [...] base of the penis. (more content not included)...[facility] HospitalComment on above: Result Comment: Electronically Signed By: Yony MCCLURE, Cynthia Dawkins\.br\Date and Time Signed: 06/14/24 16:37 EDTInpatient Patient Summaryon 70-18-5819Bvqsoymuz Patient SummaryInpatient Patient Summary [address] [address] [facility] Clinical Discharge Instructions PERSON INFORMATION Name: YANNI MAR PHYSICIANS Admitting Physician: Dax MCCORD MD Attending Physician: Dax MCCORD MD PCP: ALBARO GRIMALDO DO Discharge Diagnosis: Comment: PATIENT EDUCATION INFORMATION Instructions: Lithotripsy, Care After Medication Leaflets: Follow up: With: Address: When: Dax MCCORD [address] [place] [address], [address], [place] [phone] Business (1) Comments: Please call my office to make arrangements for a CT scan without contrast. Once the order is sent, the hospital contacts you for the CT appointment time. Depending on the results, this will determine the next step. I did provide some discharge instructions and I did send some pain medication and antibiotics to your pharmacy. MEDICATION LIST New [id number], [address] [place], [place] [id number], [phone] acetaminophen-oxycodone (Percocet 5 mg-325 mg oral tablet) [...] Tab) 1 Tablets By Mouth every day. Comment:[facility] PACU I Recordon 29-26-5798Sxig OR PACU I RecordMain OR PACU I Record PACU Phase I Document Type FT Summary Primary Physician: Dax MCCORD MD Finalized Date/Time: 06/14/24 16:07:29 Pt. Name: YANNI MAR/Sex: 1965 Male Med Rec #: [id number] Physician: Dax MCCORD MD Financial #: [id number] Pt. Type: A Room/Bed: [place] [address] Admit/Disch: 06/14/24 11:29:08 - Institution: Case Times [...] Signatures Signed By: Lachelle Canada RN 06/14/24 16:07[facility] PACU II Recordon [id number] OR PACU II RecordMain OR PACU II Record PACU Phase II Document Type FT Summary Primary Physician: Dax MCCORD MD Finalized Date/Time: 06/14/24 17:41:52 Pt. Name: YANNI MAR/Sex: 1965 Male Med Rec #: [id number] Physician: Dax MCCORD MD Financial #: [id number] Pt. Type: A Room/Bed: [facility] Admit/Disch: 06/14/24 11:29:08 - Institution: [...] II Outcomes Met? Yes Last Modified By: Cynhtia Bhakta RN 06/14/24 17:41:50 Post-Care Text: The [...] Signatures Signed By: Cynthia Bhakta RN 06/14/24 17:41[facility] Preoperative Recordon 77-76-7986Lqbb OR Preoperative RecordMain OR Preoperative Record PreOp Document Type FT Summary Primary Physician: Dax MCCORD MD Finalized Date/Time: 06/14/24 15:25:35 Pt. Name: YANNI MAR/Sex: 1965 Male Med Rec #: [id number] Physician: Dax MCCORD MD Financial #: [id number] Pt. Type: A Room/Bed: Admit/Disch: 06/14/24 11:29:08 [...] Signatures Signed By: Mayra Carmona RN 06/14/24 15:25[facility] Operative Reporton [id number] ReportOperative Report Patient: YANNI MAR Age: 59 [...] placed per urethra and a well-lubricated 22 [place] is urethroscope with 30 degree lens then [...] previous findings on the renal ultrasound. 6 [place] open-ended ureteral catheter was passed up over [...] He tolerates it well. Transferred to the rgardiner and then back to PACU in satisfactory [...] Loss: 2 ml. Complications: None. Anesthesia type: General.[facility] HospitalComment on above: Result Comment: Electronically Signed By: Dax MCCORD MD\Date and Time Signed: 06/14/24 16:00 EDTOutpatient Surgery Discharge Instructionon 06-14-2024 Outpatient Surgery Discharge InstructionOutpatient Surgery Discharge Instruction [place] [id number] Patient Discharge Instructions PERSON INFORMATION Name: YANNI [...] Follow up: With: Address: When: Dax MCCORD [address] [place] [address], [address] [id number] [facility] (1) Comments: Please call my office to [...] Information: You may receive a survey from [employer] asking you to rate your care experience. Your feedback is important and will help us understand what we do well and how we can improve the quality of care we provide to you, your loved ones and our community. It?s an honor to serve you. Thank you for choosing [facility] HERE ARE THE MEDICATION CHANGES THAT OCCURRED DURING YOUR HOSPITAL STAY New Medications [id number], [address], [place] [id number], [phone] acetaminophen-oxycodone (Percocet 5 mg-325 mg oral tablet) [...] these instructions at home: Medicines ? Take ukza-jvd-zoovvsh and prescription medicines only as told by [...] machinery. Eating and drinking (more content not included)...[facility] HospitalXR Chest 2 Viewson 12-72-7175CR Chest 2 ViewsExam Date/Time: 06/06/2024 10:15 EDT [...] Ka,r in mGy = na DAP = naNorRegency Hospital Cleveland WestBMPon 81-26-9292Yurxk gap [Moles/Vol]11 mmol/LNormal6-16[facility] ClinicComment on above:Performed By: #### [id number] #### [facility]g [facility] [address], [place] [address]Vmtrcvp [Mass/Vol]9.3 mg/dLNormal8.9-11.1FPremier Health Atrium Medical CenterComment on above:Performed By: #### [id number] #### [facility] [address], [place] [address]Bwbdsnyd [Moles/Vol]105 mmol/EKiwobp844-636LzuxuzMarietta Osteopathic ClinicComment on above:Performed By: #### [id number] #### [facility] [address], [place] [address]TK0 [Moles/Vol]24 mmol/AXnbcgl45-51QskkyaMarietta Osteopathic Clinic Comment on above:Performed By: #### [id number] #### [facility] [address], [place] [address]Upuxxqganz [Mass/Vol]1.2 mg/dLNormal0.5-1.3FPremier Health Atrium Medical CenterComment on above:Performed By: #### [id number] #### [facility] [address], [place] [address]Hrpajzf [Mass/Vol]130 mg/dBRnbjpb78-150AkenhcMarietta Osteopathic ClinicComment on above:Performed By: #### [id number] #### [facility] [address], [place] [address]Hgznreydz [Moles/Vol]4.1 mmol/LNormal3.5-5.3FPremier Health Atrium Medical CenterComment on above:Performed By: #### [id number] #### [facility] [address], [place] [address]Ynfssf [Moles/Vol]136 mmol/YUuiyjh700-523AnosakMarietta Osteopathic ClinicComment on above:Performed By: #### [id number] #### [facility] [address], [place] [address]Zgcf nitrogen [Mass/Vol]23 mg/dLHigh5-21[facility]opathic ClinicComment on above:Performed By: #### [id number] #### [facility] [address], [place] [address]Ywla nitrogen/Creatinine [Mass ratio]19 No QonhcGarzuk39-97 [facility] ClinicComment on above:Performed By: #### [id number] #### [facility] [address] [place] [address]XMS w/ Auto Diffon 79-28-2213Rwcafkfwe/100 WBC (Bld)0.6 %Normal 0.0-2.0[facility]opathic ClinicComment on above:Performed By: #### [id number] #### [facility] [address] [place] [address]Uwaqcuplk/Leukocytes Auto (Bld) [Pure # fraction]0.0 E9/LNormal 0.0-0.2FPremier Health Atrium Medical CenterComment on above:Performed By: #### [id number] #### [facility] [address] [place] [address]Kqxbsortinp (Bld) [#/Vol]0.2 E9/LNormal0.0-0.5FPremier Health Atrium Medical CenterComment on above:Performed By: #### [id number] #### [facility] [address] [place] [address]Ybzfdveewdg/100 WBC (Bld)2.6 %Normal0.0-8.0[facility]opathic ClinicComment on above:Performed By: #### [id number] #### [facility] [address] [place] [address]Jrkepwpsqai distribution width (RBC) [Ratio]13.3 %Normal 10.9-14.2FPremier Health Atrium Medical CenterComment on above:Performed By: #### [id number] #### [facility] [address] [place] [address]Ynhhvkbqnj (Bld) [Volume fraction]40.2 %Mghcgu20.7-49.0[facility] ClinicComment on above:Performed By: #### [id number] #### [facility] [address] [place] [address]Vncwxyymoc (Bld) [Mass/Vol]13.9 g/lLHvvhen93.5-17.5FPremier Health Atrium Medical CenterComment on above:Performed By: #### [id number] #### Saul [facility] [address] [place] [address]Cnrmzuvcbsh (Bld) [#/Vol]1.1 E9/LNormal1.0-4.0[facility] ClinicComment on above:Performed By: #### [id number] #### [facility] [address] [place] [address]Kpzdxraqwjd/100 WBC (Bld)15.9 %Nmeshw53.0-50.0[facility] ClinicComment on above:Performed By: #### [id number] #### [facility] [address] [place] [address]EQK (RBC) [Entitic mass]30.1 qtGyiwns36.0-34.0[facility] ClinicComment on above:Performed By: #### [id number] #### [facility] [address] [place] [address]RMEW (RBC) [Mass/Vol]34.5 g/qLSixhkg95.4-36.0[facility] ClinicComment on above:Performed By: #### [id number] #### [facility] [address] [place] [address]TCG (RBC) [Entitic vol]87.0 oCZptiep36.0-100.0[facility] ClinicComment on above:Performed By: #### [id number] #### [facility] [address] [place] [address]Ljagokzmf (Bld) [#/Vol]0.6 E9/LNormal0.2-1.0[facility] ClinicComment on above:Performed By: #### [id number] #### [facility] [address] [place] [address]Dkcjvghjvwe (Bld) [#/Vol]5.2 E9/LNormal2.0-7.5FPremier Health Atrium Medical CenterComment on above:Performed By: #### [id number] #### [facility] [address] [place] [address]Vbvoznbyzoz/100 WBC (Bld)72.5 %Dnrcve06.0-75.0[facility] ClinicComment on above:Performed By: #### [id number] #### [facility] [address] [place] [address]Vealbiim mean volume (Bld) [Entitic vol]7.7 fLNormal6.4-10.8 [facility] ClinicComment on above:Performed By: #### [id number] #### [facility] [address] [place] [address]Punnxypkw (Bld) [#/Vol]195.0 E9/TFqdwxm062.0-500.0[facility] ClinicComment on above:Performed By: #### [id number] #### [facility] [address] [place] [address]IID (Bld) [#/Vol]4.6 E12/LNormal4.3-5.9[facility] ClinicComment on above:Performed By: #### [id number] #### [facility] [address] [place] [address]EBN corrected for nucl RBC Auto (Bld) [#/Vol]7.1 E9/LNormal 4.0-11.0[facility] ClinicComment on above:Performed By: #### [id number] #### [facility] [address] [place] [address]XVSXZTWDIPnhvdxd By: SYSTEM SYSTEM on 36-45-0443Sbwbo gap [Moles/Vol]11 mmol/LNormal6 - 16 mEq/LRemisol ChemCalcium [Mass/Vol]9.3 mg/dL Normal8.9 - 11.1 mg/dLRemisol ChemChloride [Moles/Vol]105 mmol/SEippex540 - 111 mmol/LRemisol ChemCO2 [Moles/Vol]24 mmol/YAnogue76 - 31 mmol/LRemisol Chem Creatinine [Mass/Vol]1.2 mg/dLNormal0.5 - 1.3 mg/dLRemisol DdpftJJV78 mL/min/1.73 d1Tqdklb>=59mL/min/1.73 s2Gixlles ChemGlucose [Mass/Vol]130 mg/dL Hnqlrn14 - 199 mg/dLRemisol ChemPotassium [Moles/Vol]4.1 mmol/LNormal3.5 - 5.3 mmol/LRemisol ChemSodium [Moles/Vol]136 mmol/GTmejav455 - 145 mmol/LRemisol Chem Urea nitrogen [Mass/Vol]23 mg/dLHigh5 - 21 mg/dLRemisol ChemUrea nitrogen/Creatinine [Mass ratio]19 mg/bvTfbwqq18 - 20Remisol ChemCOAGULATION Ordered By: Kaelyn Wilburn on 74-26-5400vNPN Coag (PPP) [Time]34.3 iViunzm77.1 - 36.5 second(s)[facility] Auto CoagComment on above:Interpretive Data: Parameter 15 [...] the same coagulation reagent and instrumentation as [facility]. Currently there are no coagulation studies available worldwide for children to 14 days, andno normal ranges. Heparin therapeutic range (represented by Anti-Factor Xa activity of 0.2 - 0.4 U/mL) corresponds to PTT of 56.6 - 109.0 sec.INR Coag (PPP) [Relative time]0.96 {INR}Invalid Interpretation CodeCHOCTAW MEMORIAL HOSPITAL – [facility] Auto CoagComment on above:Interpretive Data: INR results are specifically intended to assess patients stabilized on long-term Anticoagulation therapy suggested INR s Less Intensive Anticoagulation 2.0 3.0 Conventional Range 3.0 4.5PT Coag (PPP) [Time]10.8 sNormal9.4 - 12.5 second(s) [facility] Auto CoagComment on above:Interpretive Data: 15 days [...] the same coagulation reagent and instrumentation as [facility]. Currently there are no coagulation studies available worldwide for children to 14 days, andno normal ranges.HEMATOLOGYOrdered By: SYSTEM SYSTEM on 81-06-9479Qgwlrxymb/100 WBC (Bld)0.6 %Normal0.0 - 2.0 %Remisol HemeBasophils/Leukocytes Auto (Bld) [Pure # fraction]0.0 E9/LNormal0.0 - 0.2 E9/LRemisol HemeEosinophils (Bld) [#/Vol]0.2 E9/LNormal0.0 - 0.5 E9/LRemisol HemeEosinophils/100 WBC (Bld)2.6 %Normal0.0 - 8.0 %Remisol HemeErythrocyte distribution width (RBC) [Ratio]13.3 %Iidqws86.9 - 14.2 %Remisol HemeHematocrit (Bld) [Volume fraction]40.2 %Pphabx71.7 - 49.0 % Remisol HemeHemoglobin (Bld) [Mass/Vol]13.9 g/cMLzahhx21.5 - 17.5 gm/dLRemisol HemeLymphocytes (Bld) [#/Vol]1.1 E9/LNormal1.0 - 4.0 E9/LRemisol Heme Lymphocytes/100 WBC (Bld)15.9 %Tspbzo71.0 - 50.0 %Remisol HemeMCH (RBC) [Entitic mass]30.1 ydIlvrqb39.0 - 34.0 pgRemisol HemeMCHC (RBC) [Mass/Vol]34.5 g/dL Iyyhpj35.4 - 36.0 gm/dLRemisol HemeMCV (RBC) [Entitic vol]87.0 zOWfkpnj84.0 - 100.0 fLRemisol HemeMonocytes (Bld) [#/Vol]0.6 E9/LNormal0.2 - 1.0 E9/LRemisol HemeMonocytes/100 WBC (Bld)8.4 %Normal4.0 - 14.0 %Remisol HemeNeutrophils (Bld) [#/Vol]5.2 E9/LNormal2.0 - 7.5 E9/LRemisol HemeNeutrophils/100 WBC (Bld)72.5 % Btsiok23.0 - 75.0 %Remisol HemePlatelet mean volume (Bld) [Entitic vol]7.7 fL Normal6.4 - 10.8 fLRemisol HemePlatelets (Bld) [#/Vol]195.0 E9/SFhfphg145.0 - 500.0 E9/LRemisol HemeRBC (Bld) [#/Vol]4.6 E12/LNormal4.3 - 5.9 E12/LRemisol HemeWBC corrected for nucl RBC Auto (Bld) [#/Vol]7.1 E9/LNormal4.0 - 11.0 E9/L Remisol HemePT & PTTon 40-31-7756zSJP Coag (PPP) [Time]34.3 second(s)Normal 25.1-36.5Fisher [facility] Orthopaedic InstituteComment on above:Result Comment: Parameter 15 days - [...] the same coagulation reagent and instrumentation as [facility]. Currently there are no coagulation studies available worldwide for children to 14 days, andno normal ranges. Heparin therapeutic range (represented by Anti-Factor Xa activity of 0.2 - 0.4 U/mL) corresponds to PTT of 56.6 - 109.0 sec.Performed By: #### [id number] #### Kg [facility] [address], [place] [address]VGX Coag (PPP) [Relative time]0.96 {INR}Invalid Interpretation CodeMarietta Osteopathic ClinicComment on above:Result Comment: INR results are specifically intended to assess patients stabilized on long-term Anticoagulation therapy suggested INR?s ?Less Intensive Anticoagulation? 2.0 ? 3.0 Conventional Range 3.0 ? 4.5Performed By: #### [id number] #### Kg [facility] [address], [place] [address]UA Coag (PPP) [Time]10.8 second(s)Normal9.4-12.5Fisher [facility] Orthopaedic InstituteComment on above:Result Comment: 15 days - 4 [...] the same coagulation reagent and instrumentation as [facility]. Currently there are no coagulation studies available worldwide for children to 14 days, andno normal ranges.Performed By: #### [id number] #### [facility] [address], [place] [address]OR with Cult Rflxon 63-33-4354Mxtyupkha Ql (U)NegativeNormal NegativeMarietta Osteopathic ClinicComment on above:Performed By: #### [id number] #### [facility] [address], [place] [address]Ardvlit (U)ClearNormalClearMarietta Osteopathic ClinicComment on above:Performed By: #### [id number] #### [facility] [address], [place] [address]Mlygt (U)Light-YellowNormalYellowMarietta Osteopathic Clinic Comment on above:Result Comment: Microscopic readings are only performed on those samples that meet specific criteria set forth by [facility].Performed By: #### [id number] #### [facility] [address], [place] [address]Qlzsahp Ql (U)NegativeNormalNegOhioHealth Grady Memorial Hospital Comment on above:Performed By: #### [id number] #### [facility] [address], [place] [address]Pydzubhvit Auto test strip (U) [Mass/Vol]NegativeNormalNegative [facility] ClinicComment on above:Performed By: #### [id number] #### [facility] [address], [place] [address]Qxydrkv Auto test strip Ql (U)NegativeNormalNegativeMarietta Osteopathic ClinicComment on above:Performed By: #### [id number] #### [facility] [address], [place] [address]Wehidznua esterase Auto test strip Ql (U)NegativeNormalNegative [facility] ClinicComment on above:Performed By: #### [id number] #### [facility] [address], [place] [address]Gwjlx Auto Ql (U)TraceNormalNegativeM[facility]etta Osteopathic Clinic Comment on above:Performed By: #### [id number] #### [facility] [address], [place] [address]Gvrslow Auto test strip Ql (U)NegativeNormalNegativeMarietta Osteopathic ClinicComment on above:Performed By: #### [id number] #### Kg [facility] [address] [place] [address]mQ (U)5.5 [pH]Invalid Interpretation Code5.0-9.0[facility] ClinicComment on above:Performed By: #### [id number] #### Saul [facility] [address] [place] [address]Kwbimwm Ql (U)1+ mg/dLAbnormalNegativeMarietta Osteopathic ClinicComment on above:Performed By: #### [id number] #### Salu [facility] [address] [place] [address]GSA Ql (U)1-8Fiwadb1-5TbrxvtPremier Health Atrium Medical CenterComment on above:Performed By: #### [id number] #### Saul [facility] [address] [place] [address]Byxdgylk gravity (U) [Rel density]1.020Invalid Interpretation Code1.005-1.030[facility] ClinicComment on above:Performed By: #### [id number] #### [facility] [address] [place] [address]Fyecabawouqr (U) [Mass/Vol]NegativeNormalNegativeMarietta Osteopathic ClinicComment on above:Performed By: #### [id number] #### Saul [facility] [address] [place] [address]RFY Auto (Urine sed) [#/Area]6-9Qllrrj0-8NjrawkPremier Health Atrium Medical CenterComment on above:Performed By: #### [id number] #### [facility] [address] [place] [address]Panf of Urine collection methodClean CatchNormalMarietta Osteopathic ClinicComment on above:Performed By: #### [id number] #### Saul [facility] [address] [place] [address]ZPNRJSUUOLDnjnwtd By: SYSTEM SYSTEM on 91-60-0460Ufufbvpgy Ql (U)NegativeNormalNegativemg/dLFTMC UA Auto SSClarity (U)Clear (06/06/24 9:50 AM)NormalClearFTM UA Auto SSColor (U)Light-Yellow 1 (06/06/24 9:50 AM)NormalYellowCHOCTAW MEMORIAL HOSPITAL [facility] UA Auto SSComment on above:Interpretive Data: Microscopic readings are only performed on those samples that meet specific criteria set forth by [facility].Glucose Ql (U) NegativeNormalNegativemg/dLFT UA Auto SSHemoglobin Auto test strip (U) [Mass/Vol]NegativeNormalNegativemg/dLFT UA Auto SSKetones Auto test strip Ql (U)NegativeNormalNegativemg/dLFT UA Auto SSLeukocyte esterase Auto test strip Ql (U)NegativeNormalNegativeLeu/uLFT UA Auto SSMucus Auto Ql (U)Trace graded/LPFNormalNegativegraded/LPFFTMC UA Auto SSNitrite Auto test strip Ql (U) NegativeNormalNegativemg/dLFT UA Auto SSpH (U)5.5 *NA* (06/06/24 9:50 AM)Invalid Interpretation Code5.0 - 9.0[facility] UA Auto SSProtein Ql (U)1+ mg/dLInvalid Interpretation CodeNegativemg/dLFT UA Auto SSRBC Ql (U)0-3 graded/HPFNormal0-3graded/HPFCHOCTAW MEMORIAL HOSPITAL – [facility]GO UA Auto SSSpecific gravity (U) [Rel density] 1.020 *NA* (06/06/24 9:50 AM)Invalid Interpretation Code1.005 - 1.030[facility] UA Auto SS Urobilinogen (U) [Mass/Vol]NegativeNormalNegativemg/dLFT UA Auto SSWBC Auto (Urine sed) [#/Area]0-5 graded/HPFNormal0-5graded/HPFFT UA Auto SSURINALYSIS Ordered By: Isaura Anderson on 68-62-1300BI Spec DescClean Catch (06/06/24 9:50 AM)NormalCHOCTAW MEMORIAL HOSPITAL – HUGO UA Auto SSeGFRon 86-26-0824gKOZ76 mL/min/1.73 m2 Normal>=59Fisher [facility] Orthopaedic InstituteComment on above:Order Comment: Order added by Discern Expert.Performed By: #### [id number] #### Saul [facility] [address] [place], [place] [address]Aebtbcoxiu Visit Summaryon 10-76-0841Vwvqzrtoha Visit Summary Ambulatory Visit Summary YANNI MAR [...] HORNER, Dax Daniel, URL When: Where: [address] [facility] [address] [place] [address]- Medications What How Much When Instructions Unchanged [...] these instructions at home: Medicines ? Take gunv-iau-ooniuqp and prescription medicines only as told by your health care provider. ? If you were prescribed an antibiotic medicine, take it as told by your health care provider. Do notstop taking the antibiotic even if you start to feel sarahi (more content not included)...DominicMarietta Osteopathic ClinicUrology Office/Clinic Noteon 75-98-0054Uxcyqho Office/Clinic NoteUrology Office/Clinic Note Chief Complaint Cysto [...] diagnostic imaging of other specified body structures) RUST 03/08/24 [facility] - Lobular soft tissue structure within base of bladder 2.0 x 1.6 x 2.4 cm. Pt had IO cysto today due to abnormal US wo complications. Abnormal lobular structure seen on CT was pt's middle lobe of his prostate. 2. Kidney stones (N20.0: Calculus of kidney) Hx of lithotripsy [address] Jarvis. [1] RUST 03/08/24 [facility] - right: several nonobstructing calcifications/stones, largest is [...] heart and lung problem (more content not included)...[facility] HospitalComment on above:Result Comment: Electronically Signed By: Dax MCCORD MD\.br\Date and Time Signed: 05/11/24 08:42 EDT\.br\Electronically Co-Signed By: Shari Hartman\.br\Date and Time Co-Signed: 05/11/24 08:39 EDTLab Reportson 34-91-4208Xxm Reports [id number]#1.00TIFRegency Hospital ToledoRAD - Ultrasound Reporton 27-56-8740IHB - Ultrasound Report [id number]#1.00TIFFCleveland Clinic Hillcrest HospitalFormson [id number]#1.00TIFF [facility] HospitalPhysician Referralon 98-06-9773Jytsbwszd [id number]#1.00TIFSt. Mary's Medical Centercreenson 85-79-3232Qbuhwwr [id number]#1.00TIFSt. Mary's Medical [id number]#1.00TIFRegency Hospital ToledoAmbulatory Visit Summaryon 25-15-8330Swkqjhuqnb Visit Summary YANNI MAR :1965 Visit Date:03/28/2024 [...] Dax MCCORD MD [facility]Amb[facility] Summary YANNI MAR :1965 Visit [...] HORNER, Dax Daniel [facility]: [facility] HospitalAlbumin [Mass/volume] in Serum or Plasmaon 72-75-9430Zcwgoki [Mass/Vol]4.0 g/dL2.9-4.4FMercer County Community HospitalBasophils Auto (Bld) [#/Vol]on 20-42-8122Zlyzjnrop (Bld) [#/Vol]0.0 10 3/uL0.0-0.1FMercer County Community HospitalBasophils/100 WBC Auto (Bld)on 42-86-2940Hixpmyxsz/100 WBC (Bld) 0.5 %0.2-2.0[facility]or HospitalCholesterol in LDL Calc [Mass/Vol] on 30-24-9126Bztbppqdddm in LDL [Mass/Vol]103.0 mg/dLCleveland Clinic Mentor HospitalComment on above:<100 mg/dl IUIZJQU888-090 mg/dl NEAR OR ABOVE FVITPDM666- 159 mg/dl BORDERLINE CXEO791-667 mg/dl HIGH>190 mg/dl VERY HIGHCholesterol in VLDL Calc [Mass/Vol]on 69-85-5374Zryrsqasfnf in VLDL [Mass/Vol]31.8 mg/dL [facility] HospitalEosinophils/100 WBC Auto (Bld)on 03-16-2024 Eosinophils/100 WBC (Bld)1.5 %0.9-7.0[facility] Erythrocyte distribution width Auto (RBC) [Ratio]on 76-96-1983Nciaflzxcac distribution width (RBC) [Ratio]12.3 %11.0-15.0[facility] Estimated glomerular filtration rate (GFR) non- Americanon 03-16-2024 GFR/1.73 sq M.predicted among non-blacks MDRD (S/P/Bld) [Vol rate/Area]58 mL/min/{1.73_m2}Low>=60[facility] Mentor HospitalGlobulin Calc (S) [Mass/Vol]on 12-13-5400Joexmcfa (S) [Mass/Vol]3.3 g/dLCleveland Clinic Mentor HospitalHematocrit Auto (Bld) [Volume fraction]on 08-76-8659Tqvgudpkpj (Bld) [Volume fraction]41.3 %Low42.0-54.0[facility] HospitalHemoglobin [Mass/volume] in Bloodon 12-89-6979Nghuuodorx (Bld) [Mass/Vol]14.4 g/dL14.0-18.0 [facility] HospitalIgA [Mass/volume] in Serum or Plasmaon 69-45-0917MsY [Mass/Vol]201 mg/oM88-437KbrybtloeCleveland Clinic Mentor HospitalIgG [Mass/volume] in Serum or Plasmaon 28-68-9033OrM [Mass/Vol]1036 mg/wU021-6115 [facility] HospitalIgM [Mass/volume] in Serum or Plasmaon 01-49-7742IdZ [Mass/Vol]62 mg/iJ23-005RlbsoupedCleveland Clinic [facility] Hospital Immunoglobulin light chains.kappa.free [Mass/volume] in Serumon 03-16-2024 Immunoglobulin light chains.kappa.free (S) [Mass/Vol]21.2 mg/LAbnormal3.3-19.4 [facility] HospitalImmunoglobulin light chains.kappa.free/Immunoglobulin light chains.lambda.free [Teodoro 03-16-2024 Immunoglobulin light chains.kappa.free/Immunoglobulin light chains.lambda.free (S) [Mass ratio]1.070.26-1.65[facility] HospitalComment on above: Performed at: [facility] [id number] Director: Joselo Maya PhD, Phone: [phone] light chains.lambda.free [Mass/volume] in Serum or Plasmaon 04-01-7937Ktjpowcmbhspvb light chains.lambda.free [Mass/Vol]19.8 mg/L5.7-26.3FMercer County Community HospitalLaboratory - Chemistry and Chemistry - challengeon 19-12-3070Oxfkfpr [Mass/Vol]3.9 g/dL3.4-5.0[facility] HospitalALP [Catalytic activity/Vol]91 U/A01-200NxnqdxqmeCleveland Clinic Mentor HospitalALT [Catalytic activity/Vol]38 U/T34-55OlxiuipwwCleveland Clinic Mentor HospitalAST [Catalytic activity/Vol]20 U/D05-37IxslnhnvtCleveland Clinic Mentor HospitalBilirubin [Mass/Vol]0.6 mg/dL0.2-1.0[facility] HospitalCalcium [Mass/Vol]8.4 mg/dLLow 8.5-10.1FMercer County Community HospitalChloride [Moles/Vol]101 mmol/L98-107 [facility] HospitalCholesterol [Mass/Vol]174 mg/dL<=200[facility] HospitalCholesterol in HDL [Mass/Vol]40 mg/tJ28-86BsftdlfcgCleveland Clinic Mentor HospitalComment on above:> or =60 mg/dl - LOW CARDIOVASCULAR RISK<40 mg/dl - HIGH CARDIOVASCULAR RISKCO2 [Moles/Vol]25.9 mmol/L21.0-32.0 [facility] HospitalCreatinine [Mass/Vol]1.29 mg/dL0.70-1.30 [facility] HospitalGFR/1.73 sq M.predicted MDRD (S/P/Bld) [Vol rate/Area]mL/min/{1.73_m2}>=60[facility] HospitalGlucose [Mass/Vol]115 mg/bKDial93-801XlqeaunywCleveland Clinic Mentor HospitalPotassium [Moles/Vol]3.6 mmol/L3.5-5.1FMercer County Community HospitalProtein [Mass/Vol] 7.2 g/dL6.4-8.2FUK Healthcareodium [Moles/Vol]135 mmol/LLow 136-145[facility] HospitalTriglyceride [Mass/Vol]159 mg/dLHigh <=150[facility] HospitalUrea nitrogen [Mass/Vol]18.0 mg/dL7.0-18.0 [facility] CenterUrea nitrogen/Creatinine [Mass ratio]14.0 mg/mg [facility] HospitalLaboratory - Hematology and Cell countson 07-41-1812Qcrwxjjo granulocytes/100 WBC (Bld)0.4 %0.0-0.5FMercer County Community HospitalLeukocytes [#/volume] corrected for nucleated erythrocytes in Blood by Automated counon 91-14-3527ZHN corrected for nucl RBC Auto (Bld) [#/Vol]7.8 10 3/uL4.0-11.0[facility] HospitalLymphocytes Auto (Bld) [#/Vol]on 41-70-9380Yklepdhooqv (Bld) [#/Vol]1.2 10 3/uL1.2-3.8[facility] HospitalLymphocytes/100 WBC Auto (Bld)on 03-16-2024 Lymphocytes/100 WBC (Bld)15.5 %Low20.5-60.0[facility]H Auto (RBC) [Entitic mass]on 07-97-1259AAH (RBC) [Entitic mass]30.3 pg25.9-34.0 [facility] HospitalMCHC Auto (RBC) [Mass/Vol]on 63-41-4058NGAW (RBC) [Mass/Vol]34.9 g/dL29.9-35.2FMercer County Community HospitalMCV Auto (RBC) [Entitic vol]on 21-07-3198UIS (RBC) [Entitic vol]86.9 fL80.0-94.0[facility] HospitalMonocytes Auto (Bld) [#/Vol]on 33-20-8387Urhmpmmml (Bld) [#/Vol]0.6 10 3/uL0.3-0.8[facility] HospitalMonocytes/100 WBC Auto (Bld)on 19-18-3993Ulzvsifjt/100 WBC (Bld)7.2 %1.7-12.0[facility] HospitalNeutrophils Auto (Bld) [#/Vol]on 97-17-2385Ohdsdnepafh (Bld) [#/Vol]5.8 10 3/uL1.4-6.5FMercer County Community HospitalNeutrophils/100 WBC Auto (Bld)on 54-05-2237Gpgyckpgmkn/100 WBC (Bld)74.9 %43.0-75.0[facility] HospitalNo Panel Informationon 91-27-2389Fhzrnngpiif # (Auto)0.1 10 3/uL0.0-0.7FMercer County Community HospitalImmature Granulocyte # (Auto)0.03 10 3/uL0.00-0.03[facility] HospitalProstate Specific Antigen Screen1.81 ng/mL<=4.00[facility] HospitalProtein Electrophoresis M-SpikeNot Observed g/dLNot ObservedCleveland Clinic Mentor HospitalProtein Electrophoresis NoteComment.[facility] HospitalComment on above: Protein electrophoresis scan will follow via computer,mail, or armor reconnaissance specialist delivery. Platelet mean volume Auto (Bld) [Entitic vol]on 25-59-4896Dtfgfixa mean volume (Bld) [Entitic vol]9.3 fLLow9.5-13.5FMercer County Community HospitalPlatelets Auto (Bld) [#/Vol]on 75-02-5887Itdaeizjr (Bld) [#/Vol]240 10 3/lD140-712 [facility] HospitalProtein [Mass/volume] in Serum or Plasmaon 51-27-3230Bcfijzd [Mass/Vol]6.7 g/dL6.0-8.5FMercer County Community HospitalRBC Auto (Bld) [#/Vol]on 34-32-4878VPX (Bld) [#/Vol]4.75 10 6/uL4.70-6.10[facility] Hospitalerum globulin measurement (mass/volume)on 03-16-2024 Globulin (S) [Mass/Vol]2.7 g/dL2.2-3.9[facility] Hospitalerum or plasma albumin/globulin mass ratioon 22-27-8368Sssrivi/Globulin [Mass ratio]1.2 {ratio}[facility] HospitalAlbumin/Globulin [Mass ratio]1.5 {ratio} 0.7-1.7FUK Healthcareerum or plasma alpha 1 globulin measurement by electrophoresis (mass/volume)on 90-83-4326Oeiyh 1 globulin Elph [Mass/Vol]0.2 g/dL0.0-0.4FUK Healthcareerum or plasma alpha 2 globulin measurement by electrophoresis (mass/volume)on 37-53-2479Njfqw 2 globulin Elph [Mass/Vol]0.6 g/dL0.4-1.0[facility] Hospitalerum or plasma anion gap determinationon 55-64-1334Hynam gap [Moles/Vol]11.7 mmol/L [facility] Hospitalerum or plasma beta globulin measurement by electrophoresis (mass/volume)on 51-63-8879Lvjq globulin Elph [Mass/Vol]0.9 g/dL 0.7-1.3FUK Healthcareerum or plasma gamma globulin measurement by electrophoresis (mass/volume)on 46-11-0663Spokj globulin Elph [Mass/Vol]1.0 g/dL0.4-1.8[facility] Hospitalerum or plasma immunoelectrophoresis interpretationon 56-08-6779Jhoixmqpggyglw IEP [Interp] Comment.[facility] HospitalComment on above:No monoclonality detected.Serum or plasma total cholesterol/high density lipoprotein (HDL) cholesterol mass sabina 65-42-9603Avwhacccpcp.total/Cholesterol in HDL [Mass ratio]4.3 {ratio}[facility] HospitalComment on above:3.3 - 4.4 LOW RISK4.4 - 7.1 AVERAGE RISK7.1 - 11.0 MODERATE RISK>11.0 HIGH RISKMRI Knee w/o Righton 79-63-9732OOE Knee w/o RightHistory: Medial knee pain. Decreased [...] signed by Angelo Landeros on 03/01/2023 1125NormalNorthern [facility]/John [facility]psey HospitalCBC AUTO DIFFon 21-83-8318AUVN #0.1 103/ulNormal0.0-0.1 [facility] HospitalComment on above:Performed By: #### CBC #### [facility] [address] [address] [address] Ziyad LandryBasophils/100 WBC (Bld)0.7 %Normal0.2-2.0[facility] Comment on above:Performed By: #### CBC #### [facility] [address] [address] [address] Ziyad Lindo #0.2 103/ulNormal0.0-0.7The [facility] HospitalComment on above: Performed By: #### CBC #### [facility] [address] [address] [address] Ziyad Valenzuelaosinophils/100 WBC (Bld)2.7 %Normal0.9-7.0[facility] Comment on above:Performed By: #### CBC #### [facility] [address] [address] [address] Ziyad Valenzuelarythrocyte distribution width (RBC) [Ratio]12.7 %Wicbzk19.0-15.0 [facility] HospitalComment on above:Performed By: #### CBC #### [facility] [address] [address] [address] Ziyad LandryHematocrit (Bld) [Volume fraction]39.7 %Critically low42.0-54.0 [facility] HospitalComment on above:Performed By: #### CBC #### [facility] [address] [address] [address] Ziyad LandryHemoglobin (Bld) [Mass/Vol]14.6 g/uLDhxmfu61.0-18.0The [facility] HospitalComment on above:Performed By: #### CBC #### [facility] [address] [address] [address] Ziyad Hernandez #0.04 10e3/ulCritically high0.00-0.03The [facility] Comment on above:Performed By: #### CBC #### [facility] [address] [address] [address] Ziyad Hernandez %0.5 %Normal0.0-0.5The [facility] HospitalComment on above: Performed By: #### CBC #### [facility] [address] [address] [address] Ziyad Gonzales #1.7 103/ulNormal1.2-3.8The [facility] HospitalComment on above:Performed By: #### CBC #### [facility] [address] [address] [address] Ziyad Linderhocytes/100 WBC (Bld)22.4 %Vmhaur01.5-60.0The [facility] Hospitalment on above:Performed By: #### CBC #### [facility] [address] [address] [address] Ziyad UmanzorUAL DIFF REQNONormalThe [facility] HospitalComment on above: Performed By: #### CBC #### [facility] [address] [address] [address] Ziyad Bonilla (RBC) [Entitic mass]30.7 qyVcdmcq27.9-34.0The [facility] HospitalComment on above:Performed By: #### CBC #### [facility] [address] [address] [address] Ziyad Bonilla (RBC) [Mass/Vol]36.8 g/dLCritically high29.9-35.2The [facility] HospitalComment on above:Performed By: #### CBC #### [facility] [address] [address] [address] Ziyad Malone (RBC) [Entitic vol]83.6 qOIzmxwu95.0-94.0The [facility] HospitalComment on above:Performed By: #### CBC #### [facility] [address] [address] [address] Ziyad Byers #0.6 103/ulNormal0.3-0.8The [facility] HospitalComment on above:Performed By: #### CBC #### [facility] [address] [place] [address] Dr. Ziyad Tomasocytes/100 WBC (Bld)8.2 %Normal1.7-12.0The [facility] on above:Performed By: #### CBC #### [facility] [address] [place] [address] Dr. Ziyad Rogers #5.0 103/ulNormal1.4-6.5The [facility] HospitalComment on above:Performed By: #### CBC #### [facility] [address] [place] [address] Dr. Ziyad Aguilarutrophils/100 WBC (Bld)65.5 %Tnfbwm67.0-75.0The [facility] HospitalComment on above:Performed By: #### CBC #### [facility] [address] [place] [address] Dr. Ziyad Koromalet mean volume (Bld) [Entitic vol]8.6 fLCritically low 9.5-13.5The [facility] HospitalComment on above:Performed By: #### CBC #### [facility] [address] [place] [address] Dr. Ziyad LandryPLT224 103/tsXxyupw609-330Dkd [facility] HospitalComment on above: Performed By: #### CBC #### [facility] [address] [place] [address] Dr. Ziyad LandryRBC4.75 106/ulNormal4.70-6.10The [facility] HospitalComment on above:Performed By: #### CBC #### [facility] [address] [address] [address] Ziyad LandryWBC7.7 103/ulNormal4.0-11.0The [facility] HospitalComment on above: Performed By: #### CBC #### [facility] [address] [address] [address] Ziyad YoungRECT LDLon 53-41-3611Dxowmtvtmpv in LDL [Mass/Vol]87 mg/dL NormalFostoria City HospitalComtrinity health [facility] hospital on above:Performed By: #### CMP, LIPID, DLDL #### [facility] [address] [place] [address] Dr. Ziyad LandryDLDL NORMALSEE [facility] Health MiamisburgComment on above: Result Comment: <100 mg/dl OPTIMAL 100 - 129 mg/dl NEAR OR ABOVE OPTIMAL 130 - 159 mg/dl BORDERLINE HIGH 160 - 189 mg/dl HIGH >190 mg/dl VERY HIGHPerformed By: #### CMP, LIPID, DLDL #### [facility] [address] [place] [address] Dr. Ziyad KelleyID PROFILEon 52-94-7495DWFP-HDL RATIO NORMSEE [facility] Mi[facility]burgComtr[facility] on above:Result Comment: 3.3 - 4.4 LOW RISK 4.4 - 7.1 AVERAGE RISK 7.1 - 11.0 MODERATE RISK >11.0 HIGH RISKPerformed By: #### CMP, LIPID, DLDL #### [facility] [address] [place] [address] Dr. Ziyad LandryCholesterol [Mass/Vol]198 mg/dLNormal<=200The [facility] Comment on above:Performed By: #### CMP, LIPID, DLDL #### [facility] [address] [place] [address] Dr. Ziyad LandryCholesterol in HDL [Mass/Vol]36 mg/dLCritically ovr70-52Tyo [facility] Hospitalment on above:Performed By: #### CMP, LIPID, DLDL #### [facility] [address] [address] [address] Ziyad LandryCholesterol.total/Cholesterol in HDL [Mass ratio]5.5 {ratio} NormalThe [facility] on above:Performed By: #### CMP, LIPID, DLDL #### [facility] [address] [address] [address] Ziyad Young NORMAL> or = 60 mg/dl - LOW CARDIOVASCULAR RISK <40 mg/dl - HIGH CARDIOVASCULAR RISKKindred HealthcareComtrinity health [facility] hospital on above:Performed By: #### CMP, LIPID, DLDL #### [facility] [address] [place] [address] Dr. Ziyad LandryLDL CALC NORMALSEE BELOWKindred HealthcareComtrinity health shelby hospital on above:Result Comment: <100 mg/dl OPTIMAL 100 - 129 mg/dl NEAR OR ABOVE OPTIMAL 130 - 159 mg/dl BORDERLINE HIGH 160 - 189 mg/dl HIGH >190 mg/dl VERY HIGH Performed By: #### CMP, LIPID, DLDL #### [facility] [address] [place] [address] Dr. Ziyad LandryTriglyceride [Mass/Vol]401 mg/dLCritically high<=150The [facility] on above:Performed By: #### CMP, LIPID, DLDL #### [facility] [address] [place] [address] Dr. Ziyad LandryVLDL CALC80.2 mg/dLNoBellevue Hospital on above: Performed By: #### CMP, LIPID, DLDL #### [facility] [address] [place] [address] Dr. Ziyad LandryPROF 14(COMP METB)on 97-23-5858Ynoeinb [Mass/Vol]4.1 g/dLNormal 3.4-5.0The [facility] on above:Performed By: #### CMP, LIPID, DLDL #### [facility] [address] [place] [address] Dr. Ziyad LandryAlbumin/Globulin [Mass ratio]1.1 {ratio}NormalThe [facility] on above:Performed By: #### CMP, LIPID, DLDL #### [facility] [address] [address] [address] Ziyad Jerez [Catalytic activity/Vol]77 U/RKwsghj98-074Tck [facility] Hospitalment on above:Performed By: #### CMP, LIPID, DLDL #### [facility] [address] [address] [address] Ziyad Lewis [Catalytic activity/Vol]52 U/UNgemhu74-49Zoa [facility] HospitalComment on above:Performed By: #### CMP, LIPID, DLDL #### [facility] [address] [address] [address] Ziyad Velazquez gap [Moles/Vol]11.4 mmol/LNormalThe [facility] Comment on above:Performed By: #### CMP, LIPID, DLDL #### [facility] [address] [address] [address] Ziyad LandryAST [Catalytic activity/Vol]25 U/UWkbayr45-62Yyu [facility] HospitalComment on above:Performed By: #### CMP, LIPID, DLDL #### [facility] [address] [address] [address] Ziyad LandryBilirubin [Mass/Vol]0.6 mg/dLNormal0.2-1.0The [facility] Comment on above:Performed By: #### CMP, LIPID, DLDL #### [facility] [address] [address] [address] Ziyad LandryCalcium [Mass/Vol]9.4 mg/dLNormal8.5-10.1The [facility] Comment on above:Performed By: #### CMP, LIPID, DLDL #### [facility] [address] [address] [address] Ziyad LandryChloride [Moles/Vol]104 mmol/JPlomuu68-005Tkf [facility] Comment on above:Performed By: #### CMP, LIPID, DLDL #### [facility] [address] [address] [address] Ziyad LandryCO2 [Moles/Vol]27.9 mmol/XEddzyl49.0-32.0The [facility] Comment on above:Performed By: #### CMP, LIPID, DLDL #### [facility] [address] [place] [address] Dr. Ziyad LandryCreatinine [Mass/Vol]1.58 mg/dLCritically high0.70-1.30The [facility] HospitalComment on above:Performed By: #### CMP, LIPID, DLDL #### [facility] [address] [place] [address] Dr. Ziyad ValenzuelaGFR-AF LPVHMCJY16 mL/min/1.67y6Puvdrcxsed low>=60The [facility] HospitalComment on above:Performed By: #### CMP, LIPID, DLDL #### [facility] [address] [place] [address] Dr. Ziyad ValenzuelaGFR-NON AF NVXSBHDR46 mL/min/1.12n4Hqzlgfyxjz low>=60The [facility] HospitalComment on above:Performed By: #### CMP, LIPID, DLDL #### [facility] [address] [place] [address] Dr. Ziyad LandryGlobulin (S) [Mass/Vol]3.8 g/dLNormalThe [facility] HospitalComment on above:Performed By: #### CMP, LIPID, DLDL #### [facility] [address] [place] [address] Dr. Ziyad LandryGlucose [Mass/Vol]116 mg/dLCritically mrbz70-377Mpo [facility] HospitalComment on above:Performed By: #### CMP, LIPID, DLDL #### [facility] [address] [place] [address] Dr. Ziyad LandryPotassium [Moles/Vol]3.3 mmol/LCritically low3.5-5.1The [facility] HospitalComment on above:Performed By: #### CMP, LIPID, DLDL #### [facility] [address] [place] [address] Dr. Ziyad LandryProtein [Mass/Vol]7.9 g/dLNormal6.4-8.2The [facility] Comment on above:Performed By: #### CMP, LIPID, DLDL #### [facility] [address], [place] [address] Dr. Ziyad LandrySodium [Moles/Vol]140 mmol/GFuimhs841-821Lut [facility] Comment on above:Performed By: #### CMP, LIPID, DLDL #### [facility] [address], [place] [address] Dr. Ziyad LandryUrea nitrogen [Mass/Vol]28.0 mg/dLCritically high7.0-18.0The [facility] HospitalComment on above:Performed By: #### CMP, LIPID, DLDL #### [facility] [address], [place] [address] Dr. Ziyad Waters nitrogen/Creatinine [Mass ratio]17.7 mg/mgNormalThe [facility] HospitalComment on above:Performed By: #### CMP, LIPID, DLDL #### [facility] [address] [address] [address] Ziyad LandryCT LSPINE WO CONon 28-70-8909LF LSPINE WO CONEXAM: CT LSPINE WO CON [...] Electronically authenticated by: MARCELINA SIMMONS Date: 2022-05-14 03:38[facility] Vital Signs Date TimeVital SignValuePerforming NbkpvysenErmrycqn38-61-2078 15:32-0400Body qitxry310.8 cmBenjamin Ball DO Work Phone: [phone]09-03-2025 15:32-0400 Body mass index (BMI) [Ratio]35.6 kg/s7Yfyeuqmg Ball DO Work Phone: [phone] [place], [place] 7524909-03-2025 15:32-0400 Body ofundu348.71 kgBenjamin Ball DO Work Phone: [phone]09-03-2025 15:32-0400 Diastolic blood awborwqz55 mm[Hg]Albaro Ball DO Work Phone: [phone]09-03-2025 15:32-0400 Heart rate76 /minBenjamin Ball DO Work Phone: [phone]09-03-2025 15:32-0400 Respiratory rate12 /minBenjamin Ball DO Work Phone: [phone]09-03-2025 15:32-0400 Systolic blood fmiaxuzp359 mm[Hg]Albaro Ball DO Work Phone: [phone]05-07-2025 15:36-0400 Body zazpoh186.8 cmCleveland Clinic [facility] Hospital05-07-2025 15:36-0400Body mass index (BMI) [Ratio]33.5 kg/d4MupsopfqsC[facility] Clinic [facility] Hospital05-07-2025 15:36-0400Body sgneka021.14 kgCleveland Clinic [facility] Hospital05-07-2025 15:36-0400Diastolic blood gktotmgm10 mm[Hg][facility] 03-06-2025 15:36-0400Heart rate83 /[place] 03-06-2025 15:36-0400Respiratory rate12 /[place] 03-06-2025 15:36-0400Systolic blood xfkxumlz417 mm[Hg][facility]03-27-2025 10:00-0400Body pfjint655.8 cmC[facility] Hospital 01-24-2025 10:00-0400Body mass index (BMI) [Ratio]33.5 kg/n2YnyuhxyetCleveland Clinic [facility] Hospital03-27-2025 10:00-0400Body cjxyvu500.85 kgC[facility] Clinic [facility] Hospital03-27-2025 10:00-0400Diastolic blood mm[Hg][facility]03-27-2025 10:00-0400Heart rate71 /[place]03-27-2025 10:00-0400Respiratory rate12 /[place]03-27-2025 10:00-0400Systolic blood eywhuoit683 mm[Hg][facility]10-10-2024 08:29-0400Body kvdcii306.8 cmC[facility] Clinic [facility] Hospital10-10-2024 08:29-0400Body mass index (BMI) [Ratio]35.3 kg/v5MiptplxniC[facility] Clinic [facility] Hospital10-10-2024 08:29-0400Body obcyxi378.64 kg [facility]10-10-2024 08:29-0400Diastolic blood pressure 120 mm[Hg][facility]10-10-2024 08:29-0400Heart rate80 /[place]10-10-2024 08:29-0400Respiratory rate12 /[place]10-10-2024 08:29-0400Systolic blood jbwwdyee410 mm[Hg][facility]09-09-2024 15:34-0400Body soreak140.8 cmC[facility] Clinic [facility] Hospital09-09-2024 15:34-0400Body mass index (BMI) [Ratio]35.2 kg/z4RjgkmlfchC[facility] Clinic [facility] Hospital09-09-2024 15:34-0400Body kdszja932.3 kgC[facility] Clinic [facility] Hospital09-09-2024 15:34-0400Diastolic blood mm[Hg][facility] 07-09-2024 15:34-0400Heart rate89 /[place] 07-09-2024 15:34-0400Respiratory rate12 /[place] 07-09-2024 15:34-0400Systolic blood wjhcphus350 mm[Hg][facility]08-15-2024 16:08-0400Diastolic blood fekirjlv099 mm[Hg]Dax MCCORD [facility]08-15-2024 16:08-0400Heart rate68 /minDax [employer] [facility]08-15-2024 16:08-6279XcS9% (BldA) [Mass fraction]97 %Dax MCCORD [facility]08-15-2024 16:08-0400 Systolic blood mm[Hg]Dax MCCORD [facility]08-15-2024 16:03-0400Heart rate61 /minDax [employer] [facility]08-15-2024 16:03-4986SeG8% (BldA) [Mass fraction]97 %Dax [employer] [facility]08-15-2024 16:03-0400 Respiratory rate15 /minDax [employer] [facility]08-15-2024 16:03-0400 Diastolic blood vlckfroi036 mm[Hg][employer] [address] [place], [place] 5616908-15-2024 16:03-0400Mean blood szbawfph966 mm[Hg]Dax MCCORD [address] [place], [place] 5616908-15-2024 16:03-0400 Systolic blood anbyiish051 mm[Hg]Dax MCCORD [address] [place], [place] 5616908-15-2024 16:03-0400Body zomgayuklan99.52 [degF]Dax MCCORD [address] [place], [place] 5616908-15-2024 16:03-0400Mean blood eaadislp103 mm[Hg]Dax MCCORD [address] [place], [place] 5616908-15-2024 16:03-0400 Respiratory rate10 /minDax MCCORD [address] [place], [place] 5616908-15-2024 15:45-0400 Diastolic blood pzmjeikz479 mm[Hg]Dax MCCORD [address] [place], [place] 5616908-15-2024 15:45-0400Heart rate65 /minDax MCCORD [facility]08-15-2024 15:45-0400Mean blood mm[Hg]Dax MCCORD [facility]08-15-2024 15:45-0400 Respiratory rate16 /minDax MCCORD [address] [place], [place] 5616908-15-2024 15:45-4143CgV5% (BldA) [Mass fraction]98 %Dax MCCORD [address] [place], [place] 5616908-15-2024 15:45-0400 Systolic blood ipepfwaq636 mm[Hg]Dax MCCORD [address] [place], [place] 5616908-15-2024 15:40-0400Mean blood ilhgyyaf492 mm[Hg]Dax MCCORD [address] [place], [place] 5616908-15-2024 15:40-0400 Respiratory rate12 /minDax [employer] [facility]08-15-2024 15:33-0400Blood Pressure LocationGreggraciela COOK [facility]08-15-2024 15:33-0400Body ndqsuxjglyj44.88 [degF]Dax MCCORD [address] [place], [place] [id number] 15:25-0400 Respiratory rate10 /minDax COOK [facility]08-15-2024 15:20-0400 Respiratory rate16 /minDax [employer] [address] [place], [place] 4322308-15-2024 11:58-0400Blood Pressure LocationDax [employer] [facility]08-15-2024 11:58-0400 BP/Pulse Patient PositionDax [employer] [facility]08-15-2024 11:58-0400Mean blood odnyfqnj980 mm[Hg]Dax MCCORD [facility]08-15-2024 11:57-0400Blood Pressure LocationDax [employer] [facility]08-15-2024 11:57-0400 BP/Pulse Patient PositionGreggraciela [employer] [address] [place], [place] [id number] 11:57-0400Mean blood dpdafmke635 mm[Hg]Dax MCCORD [address] [place], [place] 4322308-15-2024 11:56-0400Body uyiqqzqoaem32.7 [degF]Dax [employer] [facility]08-07-2024 09:45-0400 Diastolic blood kcanjhqh261 mm[Hg]Dax [employer] [facility]08-07-2024 09:45-0400Heart rate63 /minDax MCCORD [facility]08-07-2024 09:45-0400Mean blood mm[Hg]Dax MCCORD [facility]08-07-2024 09:45-0400 Systolic blood giyusack254 mm[Hg]Dax MCCORD [facility]08-07-2024 09:44-0400Heart rate62 /minDax MCCORD [facility]08-07-2024 09:44-8013XcE8% (BldA) [Mass fraction]96 %Dax MCCORD [facility]08-07-2024 09:43-0400 Diastolic blood ijnksojr176 mm[Hg]Dax MCCORD [facility]08-07-2024 09:43-0400Mean blood mm[Hg]Dax MCCORD [facility]08-07-2024 09:43-0400 Systolic blood rumqewug773 mm[Hg]aDx MCCORD [facility]08-07-2024 09:42-0400 Respiratory rate16 /minDax MCCORD [facility]07-12-2024 07:55-0400Blood Pressure LocationDax MCCORD [facility]07-12-2024 07:55-0400Diastolic blood mm[Hg]Dax MCCODR [facility]07-12-2024 07:55-0400Heart rate70 /minDax [employer] [facility]07-12-2024 07:55-0400Respiratory rate16 /minDax [employer] [facility]07-12-2024 07:55-0400Systolic blood msrfbkie686 mm[Hg]Dax MCCORD [facility]07-03-2024 09:32-0400Body ycjdle331.8 [facility] 09:32-0400Body mass index (BMI) [Ratio]34 kg/s8RljsdvaiyC[facility]07-03-2024 09:32-0400Body bokgte167.72 kgC[facility]07-03-2024 09:32-0400Diastolic blood xihstdnq47 mm[Hg] [facility]07-03-2024 09:32-0400Heart rate76 /[place]07-03-2024 09:32-0400Respiratory rate12 /[place]07-03-2024 09:32-0400Systolic blood hfalbobh917 mm[Hg] [facility]05-29-2024 14:55-0400Blood Pressure Location Dax MCCORD [facility]05-29-2024 14:55-0400Diastolic blood xcaixpvf486 mm[Hg]Dax MCCORD [facility]05-29-2024 14:55-0400Heart rate71 /minDax [employer] [facility]05-29-2024 14:55-0400Respiratory rate19 /minDax [employer] [facility]05-29-2024 14:55-0400Systolic blood asurckmf153 mm[Hg]Dax MCCORD [facility]05-03-2024 15:19-0400Body ysxdhx076.8 [facility] 03-02-2024 15:19-0400Body mass index (BMI) [Ratio]34.6 kg/v2ZfhpzbmmzC[facility]05-03-2024 15:19-0400Body fkehzs037.54 kgC[facility]05-03-2024 15:19-0400Diastolic blood nslwqjki15 mm[Hg][facility]05-03-2024 15:19-0400Heart rate74 /[place]05-03-2024 15:19-0400Respiratory rate12 /[place]05-03-2024 15:19-0400Systolic blood ufiulwui246 mm[Hg][facility]02-26-2024 14:53-0500Body xycdtw804.8 cmC[facility]02-26-2024 14:53-0500Body mass index (BMI) [Ratio]34.7 kg/h3YmgitggjaC[facility] Clinic [facility]02-26-2024 14:53-0500Body qfriwm909.93 kg [facility]02-26-2024 14:53-0500Diastolic blood mm[Hg][facility]02-26-2024 14:53-0500Heart rate78 /min [facility]02-26-2024 14:53-0500Respiratory rate12 /min [facility]02-26-2024 14:53-0500Systolic blood avdzpvxb643 mm[Hg][facility]01-17-2024 15:00-0500Body bitxfq198.8 cm Albaro Ball Other [employer]@ Other 01-17-2024 15:00-0500Body mass index (BMI) [Ratio] 34.63 kg/a4Odhgapzo Ball Other [employer] Other 01-17-2024 15:00-0500Body etvwrz037.5 kgBenjamin Ball Other [employer] Other 01-17-2024 15:00-0500Diastolic blood fqlgefrn877 mm[Hg]Albaro Ball Other [employer] Other 01-17-2024 15:00-0500Respiratory rate12 /minBenjamin Ball Other [employer] Other 01-17-2024 15:00-0500Systolic blood iizertkr275 mm[Hg] Albaro Ball Other [employer] Other 08-21-2023 15:30-0400Body bvmabk922.8 cmBenjamin Ball Other [employer] Other 08-21-2023 15:30-0400Body mass index (BMI) [Ratio] 34.89 kg/p9Fbpwyzoj Ball Other [employer] Other 08-21-2023 15:30-0400Body uryzcx658.32 kgBenjamin Ball Other [employer] Other 08-21-2023 15:30-0400Diastolic blood iftliczl700 mm[Hg]Albaro Ball Other [employer] Other 08-21-2023 15:30-0400Respiratory rate12 /minBenjamin Ball Other [employer] Other 08-21-2023 15:30-0400Systolic blood mjsogywh441 mm[Hg] Albaro Ball Other [employer] Other 05-15-2023 16:00-0400Body imqvid469.8 cmBenjamin Ball Other [employer]@ Other 05-15-2023 16:00-0400Body mass index (BMI) [Ratio] 34.49 kg/l1Ldfenirn Ball Other [employer] Other 05-15-2023 16:00-0400Body ccmyxa263.05 kgBenjamin Ball Other [employer] Other 05-15-2023 16:00-0400Diastolic blood fiazfjrw634 mm[Hg]Albaro Ball Other [employer] Other 05-15-2023 16:00-0400Respiratory rate12 /minBenjamin Ball Other [employer] Other 05-15-2023 16:00-0400Systolic blood nrsglcdi909 mm[Hg] Albaro Ball Other [employer] Other 04-03-2023 16:00-0400Body rgjpaz265.8 cmBenjamin Ball Other [employer] Other 04-03-2023 16:00-0400Body mass index (BMI) [Ratio] 34.29 kg/o9Qyunurdd Ball Other [employer] Other 04-03-2023 16:00-0400Body coeyxl485.41 kgBenjamin Ball Other [employer] Other 04-03-2023 16:00-0400Diastolic blood hqenfxzz68 mm[Hg] Albaro Ball Other [employer] Other 04-03-2023 16:00-0400Respiratory rate12 /minBeanthony Grimaldo Other [employer] Other 04-03-2023 16:00-0400Systolic blood mm[Hg] Albaro Grimaldo Other [employer] [facility] [employer] Other Encounters Encounter DateEncounter TypeCare ProviderFacilityStart: 07-03-2025 End: 32-49-5879irkrtsespjIrzsgdnl Ball DO Work Phone: [facility] Work Phone: Start: 07-03-2025 End: 64-40-3455Qoiiqpk encounter procedureBekwameaniket Grimaldo DO-FPG [facility] Work Phone: Start: 04-16-2025 End: 86-00-7189ygkctjqyvgBhmhxlo P COOKFacility:EU [place]kyStart: 04-16-2025 End: 69-18-5418Ldxngmo encounter procedureDax MCCORD [facility] Start: 03-06-2025 End: 33-26-6750dpsssxllejSsuokmjrhCommunity Memorial Hospital Work Phone: Start: 03-06-2025 End: 24-74-4187Xnjludfif for general adult medical examination without abnormal findingsAdams County Hospitaltart: 03-06-2025 End: 72-15-2595Orwymej encounter procedureBlue [facility] Work Phone: Start: 01-24-2025 End: 31-84-2349cirivcezmcGunkfefsjCommunity Memorial Hospital Work Phone: Start: 01-24-2025 End: 51-88-3945Jgupnrx encounter procedureBlue [facility] Work Phone: Start: 62-07-5822kwchhqncvkGzoydyp P COOKFacility:EU [place]walkStart: 08-09-2024 End: 55-74-2514twhzeyfldfZcnyclwrpSouthview Medical Center Work Phone: Start: 08-09-2024 End: 09-78-1906Fqchrel encounter procedureBlue Ridge Regional Hospital Phys[facility] GroupC[facility] Work Phone: Start: 07-17-2024 End: 93-30-6777aizniuwoenIdueyzw P COOKFacility:FTMCStart: 07-17-2024 End: 42-38-9950Isxgoxq encounter procedureGregory P RYAN [facility] Start: 07-09-2024 End: 12-34-7080dwxjyafebhAchhmnxziSouthview Medical Center Work Phone: Start: 07-09-2024 End: 22-96-6886Yuoxsvc encounter procedureBlue [facility] Physician [facility] Work Phone: Start: 06-14-2024 End: 33-90-3331Bbtnwixog to same day surgery centerGregory P RYAN [facility] Start: 06-14-2024 End: 39-12-1136wlmltixbxgGhenfgm P COOKFacility:FTMCStart: 06-06-2024 End: 50-25-3097pdfyschzngWwqswte P COOKFacility:FTMCStart: 06-06-2024 End: 12-49-3247Jaclagj encounter procedureGregory P COOK [facility] Start: 05-11-2024 End: 62-24-9579gxgcjohzhtPdbprbe P COOKFacility:EU [place]Start: 05-11-2024 End: 62-56-8717Vlfdjur encounter procedureGregory P COOK [facility] Start: 05-02-2024 End: 42-24-5860klusbscvxaGcftoinbyCommunity Memorial Hospital Work Phone: Start: 05-02-2024 End: 46-40-1206Btxvxsh encounter procedureFirelands [facility] Work Phone: Start: 03-28-2024 End: 39-99-2865kfiwnwzngdQCUJFKJU BALLFacility:EU [facility]nm[facility] hospitalkStart: 03-28-2024 End: 64-86-6909Tiqovoh encounter procedureGregory María RYAN [facility] [place] Start: 75-69-2040Nkc-patient / Non-visitFirelands Physician Group-[place] [employer] Work Phone: Start: 27-39-7407hfznyovppvUrmklvp COOKFacility:EU JanisyStart: 03-02-2024 End: 66-89-7485yoihrhyzeeRyyntknboCommunity Memorial Hospital Work Phone: Start: 03-02-2024 End: 67-69-1934Aziyexfyh for general adult medical examination without abnormal findingsAdams County Hospitaltart: 03-02-2024 End: 76-58-3829Mrvroch encounter procedureF[facility] Work Phone: Start: 64-15-1819Fmb-patient / Non-visitFirelands Physician Group-[place] [employer] Work Phone: Start: 12-26-2023 End: 23-90-0111Uekymul encounter procedureFirelgins [facility] Work Phone: Start: 12-09-2023 End: 51-72-4417zcxhpchqvmOnpvccvr Alvaro Other [facility] [employer] Other Start: 02-06-6840Urlhjdfsj encounterBenjamin BallFPG [facility] ClinicStart: 11-30-2023 End: 06-99-6431ddhvkoukliBwiucvda Ball Other [employer] Other Start: 06-79-1375Wmvmldles encounterBenjamin BallFPG [facility] ClinicStart: 11-29-2023 End: 83-57-7981apfrcmyxqiHzhlnjmm Ball Other [facility] [employer] Other Start: 35-16-9590Sijjkjabf encounterBenjamin BallFPG [facility] ClinicStart: 11-28-2023 End: 98-25-4063qtxoaaiafaOaanlfaj Ball Other [employer] Other Start: 90-33-1601Wnbzryixj encounterBenjamin BallFPG [facility] ClinicStart: 11-22-2023 End: 78-92-8259ixdtbuzeoyMabxuxyt Ball Other [facility] [employer] Other Start: 46-74-1461Sminztjmw encounterBenjamin BallFPG [facility] ClinicStart: 11-16-2023 End: 56-88-4856cbujekmzbqQxdeeowz Ball Other [facility] [employer] Other Start: 90-35-3005Kvfvna outpatient visit 25 minutes Albaro BallFPG [facility] ClinicStart: 62-89-6525Ndsqyelxm encounterBenjamin BallFPG [facility] ClinicStart: 11-03-2023 End: 12-67-5175kzxrmutxrjYZGYZ T OLSENNot AvailableStart: 07-13-2023 End: 80-20-8341knbpkjlczuFekevzwb Ball Other [employer]@ Other Start: 60-04-9607Wyhlyjwup encounterBenjamin BallFPG [facility] ClinicStart: 06-20-2023 End: 13-66-1886uxzxgvwmktKzobcsre Ball Other [employer] Other Start: 96-85-3709Soinrc outpatient visit 25 minutes Albaro BallFPG [facility] ClinicStart: 04-22-2023 End: 62-62-3411mfvkifpvbjFwowjyfi Ball Other [facility] [employer] Other Start: 68-58-3826Qldhpjfto encounterBenjamin BallFPG [facility] ClinicStart: 04-08-2023 End: 47-47-1120nzeozmlrnrBhegnpgw Ball Other [facility] [employer] Other Start: 88-69-1457Xroshxjin encounterBenjamin BallFPG [facility] ClinicStart: 04-04-2023 End: 04-01-0276gdxbshzswmRklgfqsx Ball Other [facility] [employer] Other Start: 75-58-3736Vxlhoxfzr encounterBenjamin BallFPG [facility] ClinicStart: 03-14-2023 End: 00-37-4338zfeeacctzyUezkdkir Ball Other [facility] [employer] Other Start: 38-52-3801Nusxbk outpatient visit 15 minutes Albaro BallFPG [facility] ClinicStart: 02-09-2023 End: 83-07-0542xmhyakjkvnJJ ALBARO BALLFacility:Y4Vbtzy: 02-01-2023 End: 64-95-9946cflvpijvhlIpzzxomg Ball Other [employer] Other Start: 38-02-9837Uwexaxupu encounterBenjamin BallFPG [facility] ClinicStart: 01-31-2023 End: 14-67-5417cyudbgydcuAsyitcgy Ball Other [facility] [employer] Other Start: 97-26-1095Dwtjkadav for general adult medical examination without abnormal findingsAlbaro Grimaldo Medical ClinicStart: 76-80-4268Fkumipcy preventive med est patient 40-64yrsBenaniket Grimaldo Medical ClinicStart: 10-12-2022 End: 28-28-2116kghlyebbnpCC ALBARO BALLFacility:B4Jkrlk: 05-14-2022 End: 94-94-9954ucddytioiiTN ECHO MARKER .Facility: Procedures DateProcedureProcedure DetailPerforming ClinicianStart: 60-26-8853Ufdktzkvuzfblp shockwave lithotripsy of calculus of kidneyDax MCCORD Start: 77-92-1362Adxaakjrmslbjc shockwave lithotripsy of calculus of kidneyDax [employer] Start: 68-26-5486Wuzlqwuk cystoscopyDax [employer] Start: 35-63-7216ASX screeningDR ECHO MARKER . Comment on above:Performed By: #### PSASC #### [facility] [address] [place] [address] Dr. Ziyad LandryArthroscopyDax [employer] CholecystectomyDax [employer] Colonoscope, device (physical object)Dax [employer] Extracorporeal shockwave lithotripsy of ureteraDx [employer] VasectomyDax [employer] Plan of Treatment DateCare ActivityDetailAuthorComprehensive metabolic 1999 panel - Serum or PlasmaC[facility] Clinic [facility] HospitalComprehensive metabolic 2000 panel - Serum or [facility]US Kidney - bilateralGarden [facility] Immunizations Immunization DateImmunizationNotesCare YiacuirkSzpawetm01-24-0214LTUFX-23 Vaccine Pfizer - Documentation Purposes OnlyBenaniket Alvaro Other [facility]12-21-2015diphtheria, tetanus toxoids and acellular pertussis vaccine, unspecified formulation Albaro Alvaro Other [facility] Payers DatePayer CategoryPayerPolicy [id number] Health Insurance [id number] 2.16840.1.312742.3.57[id number] 2.840.1.034599.3.57[id number] 2.0.1.670526.3.57[id number] 2.840.1.536077.3.57[id number] 2.840.1.325286.3.57[id number] 2.840.1.224654.3.57[id number] 2..1.328982.3.57[id number] 2.16840.1.606436.3.57[id number] 2.0.1.907704.3.57[id number] 2.16840.1.348014.3.57[id number] 2.840.1.105663.3.57[id number] 2.16.840.1.138037.3.579.2.73663-34-9476Fyljkjz7[id number] [id number] 2.16.840.1.087731.19 Social History DateTypeDetailFacilityUnknown if ever smokedNort [employer] Other Sex Assigned At [facility] Start: 67-17-2967Szdqxcn smoking status NHISUnknown if ever smokedAdams County Hospitaltart: 92-06-6438Htd Assigned At [facility] HospitalTobacco smoking statusExec[facility] Start: 05-11-2024 End: 85-25-8552Iesxsdn smoking statusNever smoked tobacco (finding)[facility] [place] rougeyTobacco smoking statusNever [facility] [place]uskyStart: 08-25-2017 End: 37-09-0863VmkVora (finding)[facility] Medical Equipment Procedure CodeEquipment CodeEquipment Original TextEquipment IdentifierDates CYSTOSCOPY STENT INSERTION Dax MCCORD MD 06/14/24 Unknown Ureter RFDAStart: 15-27-0662KSRBYIHVDV STENT INSERTION Dax MCCORD MD 06/14/24 Unknown Ureter R FDAStart: 49-41-8624Ktrsh Sugar Diagnostic (Onetouch Ultra Test) stripStart: 74-26-3903Wfsnmcy (Onetouch Ultrasoft 2 Lancet) 30 gauge miscStart: 01-24-2025 Pen Needle, Diabetic (Comfort Ez Pen Paige) 31 gauge x 1/4 needleStart: 77-70-6675Uurka Sugar Diagnostic (Onetouch Ultra Test) stripStart: 01-24-2025 End: 76-05-2349Uvhcfnu (Onetouch Ultrasoft 2 Lancet) 30 gauge miscStart: 01-24-2025 End: 93-97-6883Bxh Needle, Diabetic (Comfort Ez Pen Paige) 31 gauge x 1/4 needleStart: 01-24-2025 End: 88-48-3634Dcefv Sugar Diagnostic (Onetouch Ultra Test) stripStart: 74-91-4332Kpzifgy (Onetouch Ultrasoft 2 Lancet) 30 gauge miscStart: 01-24-2025 Pen Needle, Diabetic (Comfort Ez Pen Paige) 31 gauge x 1/4 needleStart: 11-73-7195Pzqqu Sugar Diagnostic (Onetouch Ultra Test) stripStart: 01-24-2025 End: 61-20-7715Qzjpncp (Onetouch Ultrasoft 2 Lancet) 30 gauge miscStart: 01-24-2025 End: 73-80-3604Jwx Needle, Diabetic (Comfort Ez Pen Paige) 31 gauge x 1/4 needleStart: 01-29-2025 End: 29-02-6731Ihk Needle, Diabetic (Comfort Ez Pen Paige) 31 gauge x 1/4 needleStart: 01-24-2025 End: 56-08-3295Gkd Needle, Diabetic (Comfort Ez Pen Paige) 31 gauge x 1/4 needleStart: 01-24-2025 End: 10-91-3319XVCVTSZVOL STENT INSERTION Dax MCCORD MD 06/14/24 Unknown Ureter RFDAStart: 27-67-6775Elscb Sugar Diagnostic (Onetouch Ultra Test) strip Start: 53-39-0690Chwlppv (Onetouch Ultrasoft 2 Lancet) 30 gauge miscStart: 09-39-5012Fhr Needle, Diabetic (Comfort Ez Pen Paige) 31 gauge x 1/4 needle Start: 47-99-0123Ttpit Sugar Diagnostic (Onetouch Ultra Test) stripStart: 01-24-2025 End: 15-46-5890Zhfkfqt (Onetouch Ultrasoft 2 Lancet) 30 gauge miscStart: 01-24-2025 End: 52-58-3949Bnc Needle, Diabetic (Comfort Ez Pen Paige) 31 gauge x 1/4 needleStart: 01-29-2025 End: 94-02-6072Hmg Needle, Diabetic (Comfort Ez Pen Paige) 31 gauge x 1/4 needleStart: 01-24-2025 End: 80-33-5194Sen Needle, Diabetic (Comfort Ez Pen Paige) 31 gauge x 1/4 needleStart: 01-24-2025 End: 01-29-2025 Functional Status DgiyZubmizfpgdFjpjtgHobtkkzs54-35-5053Qfiktwvfiu StatusNo[facility]07-12-2024Functional StatusN/AExec[facility]05-29-2024Functional StatusYesExec[facility] Clinical Notes 10-12-2022 to 01-24-2025 Note Date & KkexTnvxIacdqpbv01-06-7018 Evaluation note* Diagnosis Onset Date Resolution Status [...] with hyperglycemiaacuteMay 2024 3:24pmWellness examinationnoneactiveMay 2024 3:24pm [facility] Work Phone: 1(404) 528-439808-15-2024 Hospital Discharge instructions Patient Education 06/14/2024 16:36:36 [...] Follow these instructions at home: Medicines Take zipi-llu-bvzmbls and prescription medicines only as told by [...] provider. Document Revised: 09/13/2022 Document Reviewed: 06/21/2022 [employer] Patient Education 2022 [employer]. Follow Up Care 05/17/2024 13:04:04 With:Dax RYAN Address: [address] [facility] [address] [place] [phone] Business (1) When: Unknown Comments:Please call my office to make arrangements for a CT scan without contrast. Once the order is sent, the hospital contacts you for the CT appointment time. Depending on the results, this will determinethe next step.I did provide some discharge instructions and I did send some pain medication and antibiotics to your pharmacy. [facility] 08-15-2024 NoteProgress Note-Physician Patient: YANNI MAR Age: 59 years Sex: Male : 1965 Associated Diagnoses: None Author: Ike Vasques Jr., DO Postoperative Information Postoperative disposition: Postoperative disposition: Home. Optimetrix number: Optimetrix number [id number]. Anesthetic utilized: General. Physical Examination Vital Signs [...] to Ambulatory Surgery Unit, and To home ).[facility] ClinicComment on above:Result Comment: Electronically Signed By: Ike Vasques Jr., DO\.br\Date and Time Signed: 06/14/24 17:05 [id number] NotePatient Education - Text Nephrology Lithotripsy, Care [...] these instructions at home: Medicines ? Take dpwk-haz-wlynxcw and prescription medicines only as told by [...] can help prevent ne (more content not included)...[facility]08-15-2024 Evaluation + Plan note Extracted from:Title:ANES Post-operative Note - GeneralAuthor:Ike Vasques Jr., DO GDate:06/14/24 Plan Transfer/Discharge: Transfer/Discharge Discharge when meets criteria ( From PACU to Ambulatory Surgery Unit, and To home ). Extracted from:Title:ANES Pre-operative Note - AdultAuthor:Ike Vasques Jr., DOate:06/14/24 Plan [place] [employer] Anesthesiologists (ASA) physical status classification: Class III. Anesthetic Preoperative Plan: Anesthesia General.[facility] [id number] NoteProgress Note-Physician Patient: YANNI MAR Age: 59 [...] All Problems Abnormal ultrasound / SNOMED CT 095057604 / Confirmed BPH with urinary obstruction / SNOMED CT 5402904085 / Confirmed Chronic kidney disease / SNOMED CT 3245457559 / Confirmed Erectile dysfunction / SNOMED CT 0822404307 / Confirmed Erectile dysfunction due to arterial insufficiency / SNOMED CT 4391314672 / Confirmed History of kidney stones / SNOMED CT 9563934551 / Confirmed Hyperlipemia / SNOMED CT 38622677 / Confirmed Kidney stones / SNOMED CT 299312301 / Confirmed Major depressive disorder, recurrent, in remission / SNOMED CT 841050168 / Confirmed Obstructive sleep apnea / SNOMED CT 258257055 / Confirmed Other obesity due to excess calories / SNOMED CT 5017830463 / Confirmed Primary hypertension / SNOMED CT 03720036 / Confirmed Proteinuria / SNOMED CT 43611774 / Confirmed Renal cyst / SNOMED CT 3801711801 / Confirmed Spondylolysis of lumbar region / SNOMED CT 453649817 / Confirmed Stress headache / SNOMED CT 905699701 / Confirmed Urge incontinence / SNOMED CT 516601715 / Confirmed Canceled: Abnormal renal ultrasound / SNOMED CT 4572895951 Histories Past Medical History: No active or resolved past medical history items have been selected or recorded. Procedure history: Flexible cystoscopy (290372798) on 05/11/2024 at 59 Years. Arthroscopy (40093329). Cholecystectomy (87985678). Colonoscope (674695456). Vasectomy (80844447). ESWL (extracorporeal shockwave lithotripsy) of ureteric calculus (3946806928). Social History Social & Psychosocial Habits Alcohol [...] 70 bpm Systolic Blood (more content not included)...[facility] ClinicComment on above:Result Comment: Electronically Signed By: Ike Vasques Jr., DO.chun\Date and Time Signed: 06/14/24 12:41 [id number] Hospital Discharge instructions Patient Education 05/11/2024 08:38:21 [...] Follow these instructions at home: Medicines Take zamw-vsw-jbnteqa and prescription medicines only as told by [...] provider. Document Revised: 09/13/2022 Document Reviewed: 06/21/2022 [employer] Patient Education 2022 [employer]. 05/11/2024 08:38:21 Lithotripsy Lithotripsy Lithotripsy is a [...] including vitamins, herbs, eye drops, creams, and sqxj-wfn-gyxoqef medicines. Any problems you or family members [...] provider tells you to take them. Taking nqmu-xvd-akgqnxa medicines, vitamins, herbs, and supplements. Tests You [...] provider. Document Revised: 09/13/2022 Document Reviewed: 06/21/2022 [employer] Patient Education 2022 [employer]. Follow Up Care 03/28/2024 15:43:47 With:RYAN HORNER, Dax Daniel, URL Address: [facility] [address] [place], [place] [address]- When: Unknown [facility] [facility] [id number] NotePatient Education Nephrology Lithotripsy, Care After This [...] these instructions at home: Medicines ? Take isqe-ylk-budubmx and prescription medicines only as told by [...] keep all fragments fo (more content not included)...[facility]05-29-2024 Hospital Discharge instructions Patient Education 03/28/2024 15:24:30 [...] including vitamins, herbs, eye drops, creams, and cnhk-rks-kczwlps medicines. Any problems you or family members [...] provider tells you to take them. Taking gbzj-lad-kjkvasl medicines, vitamins, herbs, and supplements. Tests You [...] Follow these instructions at home: Medicines Take hefe-nkh-jvnoklk and prescription medicines only as told by [...] provider. Document Revised: 06/30/2022 Document Reviewed: 05/29/2021 [employer] Patient Education 2022 [employer]. Follow Up Care 03/16/2024 15:26:34 With:RYAN HORNER, Dax Daniel, URL Address: [facility] [employer] [address] [place], [place] [address]- When: Unknown [facility] 05-29-[address] Grimaldo referral [...] with voice recognition artificial intelligence software, specifically Voice123, Dang Le and or GeneAssess. Substitutions may have occurred due to the [...] MD, URL [address] (more content not included)...[facility]:Result Comment: Electronically Signed By: Dax MCCORD MD\.br\Date and Time Signed: 03/28/24 15:36 EDT\.br\Electronically Co-Signed By: Soco Ruano\.br\Date and Time Co-Signed: 03/28/24 15:25 [id number] NoteUrology Cystoscopy Cystoscopy is a procedure that [...] including vitamins, herbs, eye drops, creams, and wucc-mgn-otrrfeb medicines. ? Any problems you or family [...] tells you to take them. ? Taking iggn-xna-lmwjaij medicines, vitamins, herbs, and supplements. Tests You [...] these instructions at home: Medicines ? Take hhkq-twx-fxbnnzr and prescription medicines only as told by [...] or the department th (more content not included)...[facility] 12-09-2023 Evaluation note* Encounter Date Diagnosis Assessment Notes Treatment Notes Treatment Clinical Notes Dec, Primary hypertension (ICD-10 - I 10) [employer] Other 01-31-2024 Evaluation note* Encounter Date Diagnosis Assessment Notes Treatment Notes Treatment Clinical Notes Oct, Primary hypertension (ICD-10 - I 10) [employer] Other 01-30-2024 Evaluation note* Encounter Date Diagnosis Assessment Notes Treatment Notes Treatment Clinical Notes Oct, Primary hypertension (ICD-10 - I 10) [employer] Other 01-17-2024 Evaluation note* Encounter Date Diagnosis [...] healthy diet and exercise w/ weight loss. [facility] [facility] Other 08-21-2023 Evaluation note* Encounter Date Diagnosis [...] use, the patient reduces the risk for WA, CVA, HTN, cardiac dysrhythmias and sudden cardiac [...] Quad exercises, ice and rest. f/u Orthopedics [employer] Other 05-15-2023 Evaluation note* Encounter Date Diagnosis [...] index [BMI] 34.0-34.9, adult (ICD-10 - Z68.34) [facility] Other 04-04-2023 Evaluation note* Encounter Date Diagnosis Assessment Notes Treatment Notes Treatment Clinical Notes Jan, Erectile dysfunction due to arterial insufficiency (ICD-10 - N52.01) [facility] Other 04-03-2023 Evaluation note* Encounter Date Diagnosis [...] use, the patient reduces the risk for WA, CVA, HTN, cardiac dysrhythmias and sudden cardiac [...] K58.0) Jan,Other chronic pain (ICD-10 - G89.29) [employer] [facility] Other [id number] NotePROCEDURE: XR KNEE RT 4V or > [...] authenticated by: MEGAN MCCOY Date: 2022-10-12 15:38[facility] Future Appointments Appointment Date:05/11/2024 07:45:00 AM Scheduled Provider:Dax MCCORD MD Location:[facility] Appointment Type:URO Procedure 15 min [facility] Evaluation + Plan note Future Appointments Appointment Date:06/14/2024 01:45:00 PM Scheduled Provider: Location:[facility] Appointment Type:Surgery FT [facility] Evaluation noteNo [facility] [employer] Other Evaluation note* Diagnosis Onset Date Resolution Status Chronic kidney disease acuteChronic venous insufficiencyacuteElevated cholesterolacutePrimary hypertensionacuteProteinuriaacuteChronic kidney diseaseacuteChronic venous insufficiencyacuteElevated cholesterolacutePrimary hypertensionacuteProteinuria acuteScreening PSA (prostate specific antigen)noneactiveWellness examination noneactive [facility] Work Phone: Evaluation note* Diagnosis Onset Date Resolution Status Chronic kidney disease acuteChronic venous insufficiencyacuteElevated cholesterolacutePrimary hypertensionacuteProteinuriaacuteScreening PSA (prostate specific antigen) noneactiveWellness examinationnoneactive [facility] Work Phone: Evaluation note* Diagnosis Onset Date Resolution Status Primary hypertension acuteSpider bite allergy, current reactionnoneactiveTinea crurisnoneactive Chronic kidney diseaseacuteChronic venous insufficiencyacuteElevated cholesterol acutePrimary hypertensionacuteProteinuriaacute [facility] Work Phone: Evaluation note* Diagnosis Onset Date Resolution Status Bladder mass acuteChronic kidney diseaseacuteChronic venous insufficiencyacuteElevated cholesterolacutePrimary hypertensionacuteProteinuriaacuteUreteral stoneacute [facility] Work Phone: Evaluation note* Diagnosis Onset Date Resolution Status Admit Date Chronic kidney disease acuteMarch 2024 9:33amChronic venous insufficiencyacuteMarch 2024 9:33amElevated cholesterolacuteMar 2024 9:33amHyperglycemiaacuteMarch 2024 9:33amObesityacuteDec 2024 9:33amObstructive sleep apneaacute January 24, 2025 9:33amPrimary hypertensionacuteMarch 2024 9:33am ProteinuriaacuteMar 2024 9:33am [facility] Work Phone: Evaluation note* Diagnosis Onset Date Resolution Status Admit Date Chronic kidney disease acuteSeptember 2024 3:16pmChronic venous insufficiencyacuteSept2024 3:16pmElevated cholesterolacuteSept2024 3:16pmObesityacute Cammie 2024 3:16pmObstructive sleep apneaacuteSept2024 3:16pm Primary hypertensionacuteSept2024 3:16pmProteinuriaacuteSept2024 3:16pmType 2 diabetes mellitus with hyperglycemiaacuteSept2024 3:16pm [facility] Work Phone: History general Narrative - Reported* Type Description Date Medical History HTN (hypertension) Medical HistoryDepressionMedical HistoryAcute pain of right kneeMedical History Spondylolysis of lumbar regionMedical HistoryStress headacheMedical HistoryMajor depressive disorder, recurrent, in partial remissionMedical HistoryChronic venous insufficiencyMedical HistoryHyperlipidemia type IIMedical History Obstructive sleep apneaMedical HistoryErectile dysfunction due to arterial insufficiencyMedical HistoryLow back painMedical HistoryPlaque psoriasisSurgical Zqjfoxafwhzxexukrejtrm0003Nhjlbtjj Historykidney stoneSurgical History YZPYQRJWMVA1669, 2020Hospitalization HistorySEE [facility] [employer] Other History general Narrative - Reported* Type Description Date Medical History HTN (hypertension) Medical HistoryDepressionMedical HistoryAcute pain of right kneeMedical History Spondylolysis of lumbar regionMedical HistoryStress headacheMedical HistoryMajor depressive disorder, recurrent, in partial remissionMedical HistoryChronic venous insufficiencyMedical HistoryHyperlipidemia type IIMedical History Obstructive sleep apneaMedical HistoryErectile dysfunction due to arterial insufficiencyMedical HistoryLow back painMedical HistoryPlaque psoriasisSurgical Wmxmkurpfsobetdnsolitq3618Najahdib Historykidney stoneSurgical History WJWRNBTPHFT8750, urgical HistoryRight knee arthroscopy03/2023Hospitalization HistorySEE [facility] [employer] Other Hospital course Narrative No data available for this section [facility] Hospital Discharge instructions No data available for this section [facility] Progress note No data available for this section [facility] Reason for referral (narrative)* Reason *FU 02/08 Referral for persistent right knee pain w/o swelling, locking or giving out., Right knee strain, medial meniscus injury Chondromalacia Diagnosis 1 Pain in right knee ( M25.561) Referral Organization [facility] Alvaro owen Referring Provider First Name Albaro Referring Provider Last Name Alvaro Referring Provider Specialty Internal Me dicine Referred Organization [facility] Referred Provider Iris Mandujano Jr Referred Address ,[place], [place],[address] Referred Provider Specialty Orthopedic S urgery Referral Priority Routine General Notes Sudha Hercules 02:06:53 PM >received today Sudha Hercules 02/01/2023 02:07:54 PM >attachments made, notes locked, faxed P [facility] Other Reason for referral (narrative)No reason for referral information availablePremier Health [facility] Work Phone: Summary Purpose Family History Relationship [...] section and content) DATE CREATED AUTHOR 02/10/2023 [facility] DATE CREATED AUTHOR AUTHOR'S ORGANIZ ATION 03/02/2023 [facility] DATE CREATED AUTHOR AUTHOR'S ORGANIZ ATION 11/05/2023 [facility] EPIC DATE CREATED AUTHOR AUTHOR'S ORGANIZ ATION 06/08/2024 [facility] DATE CREATED AUTHOR AUTHOR'S ORGANIZ ATION 04/18/2025 [facility] Care Teams (unrecognized sec tion and content) [...] BE BASED ON THE PRIMARY CLINICAL RECORDS. [employer] provides no warranty or guarantee of the accuracy or completeness of information in this document.
--- OUTSIDE RECORDS SUMMARY | 2025-09-29 19:23 | XMS_ITS | Clinical Summary ---
Author Organization [facility] Healthcare Address [address] [place] [address] Care Team Providers Care Business Operations Specialist Name Role Phone Albaro John DO Primary Care Provider [phone] Allergies No known active allergies Medications MedicationSigDispense [...] right knee05/05/2023Other acquired deformities of right foot05/05/2023rimary defviikpmfcnsw50/06/2023 Immunizations ImmunizationAdministration DatesNext DueInfluenza, injectable, quadrivalent 10/27/2014Influenza, seasonal, ctnorzotxh50/06/2021Pfizer Purple Cap SARS-CoV-2 Tqwjmhedcss52/22/2021,03/15/2021,02/22/2021Tdap111/12/2020Zoster, Recombinant 11/29/2019,09/20/2019 Family History Medical HistoryRelationNameCommentsDiabetesFatherHypertensionFatherBrain cancer MotherCancerMotherRelationNameStatusCommentsFatherMotherDeceased Social History Tobacco UseTypesPacks/DayYears UsedDateSmoking Tobacco: FormerCigarettes Tobacco Cessation:Counseling Given: Not Answered Comments:Quit smoking 5-10 years ago. Alcohol UseStandard Drinks/WeekCommentsYes0 (1 standard drink = 0.6 oz pure alcohol)3-4 drinks, 4 or more times a week. Caffeine intake: 3-4 cups per day. Sex and Gender InformationValueDate RecordedSex Assigned at BirthNot on file Legal IlmBbqj7301/12/2023 9:45 PM EDTGender IdentityNot on fileSexual Orientation Not on file Last Filed Vital Signs Vital SignReadingTime TakenCommentsBlood Pressure--Pulse--Temperature-- Respiratory Rate--Oxygen Saturation--Inhaled Oxygen Concentration--Snclgv906 kg (240 lb)03/23/2023 3:49 PM RFRUbqwzs018.8 cm (5' 10 )03/23/2023 3:49 PM EDTBody Mass Index34.44003/23/2023 3:49 PM EDT Plan of Treatment Not on file Insurance Care Teams Team MemberRelationshipSpecialtyStart DateEnd Date Albaro John DO PCP - GeneralInternal Medicine03/10/23
--- OUTSIDE RECORDS SUMMARY | 2025-09-29 19:23 | XMS_ITS | Clinical Summary ---
Author Organization [facility] [employer] Address [id number] [address] [place] [address] Care Team Providers Care Clerical Manager Name Role Phone No Pcp, No Pcp Primary Care Provider Unavailabl e Medications No known medications Encounters DateTypeDepartmentCare GsjqNibmajkuzyc44/20/2025Orders Only [facility] [address] [place] [phone] Transcribe, Orders Support User Pain (Primary Dx)09/18/2025Orders Only [facility] [address] [place] [address] [phone] Transcribe, Orders Support User Pain (Primary Dx)09/17/2025 6:55 PM EST - 09/22/2025 8:02 AM ESTEmergency [facility] [address] [place] [phone] Discharge Disposition: Telemedicine Xjzbbqrpw75/18/2025 4:30 PM ESTAncillary Procedure [facility] [address] [place] [phone] Pain09/17/2025 8:30 AM ESTAncillary Procedure [facility] [address] [place] [address] [phone] Pain09/17/2025 8:25 AM ESTAncillary Procedure [facility] [address] [place] [address] [phone] Pain09/17/2025 7:35 AM ESTAncillary Procedure [facility] [address] [place] [address] [phone] Painfrom Last 3 Months Immunizations ImmunizationAdministration DatesNext HsuWfff48/13/2021 Social History Tobacco UseTypesPacks/DayYears UsedDateSmoking Tobacco: NeverSmokeless Tobacco: NeverAlcohol UseStandard Drinks/WeekCommentsYes0 (1 standard drink = 0.6 oz pure alcohol)ChildcareAnswerDate AvcfktghNiymtmienCpvtiun89/12/2019EmploymentAnswer Date KuwywqbiIrnerhejrrMjtwywo73/12/2019Sex and Gender InformationValueDate RecordedSex Assigned at BirthNot on fileLegal JfmTkzc3806/05/2015 11:27 AM EDT Gender IdentityNot on fileSexual OrientationNot on file Last Filed Vital Signs Vital SignReadingTime TakenCommentsBlood Qwliaktq390/9409/12/2021 1:23 PM EST Yvnzv606509/12/2021 1:23 PM JIJPquzxnqxobe96.7 ??C (98.1 ??F)09/12/2021 1:23 PM ESTRespiratory Htjv605011/12/2020 1:23 PM ESTOxygen Wybctczuzg87%09/12/2021 1:23 PM ESTInhaled Oxygen Concentration--Zgzqij970.3 kg (230 lb)09/12/2021 1:23 PM ELDTkoytb301.8 cm (5' 10 )09/12/2021 1:23 PM ESTBody Mass Nodtb074209/12/2021 1:23 PM EST Plan of Treatment Health MaintenanceDue DateLast DoneCommentsDepression Isvhvdugb27/30/1979Tobacco Ltlrfpyml79/30/1979Adult BMI Ozigluddm44/30/1985COVID-19 Vaccine ( season)5112/22/2020, 03/15/2021, 02/22/2021Influenza Acrghmu3307/01/2025 08/05/2021, 10/27/2014DTaP,Tdap and Td Vaccines (3 - Td or Tdap)09/12/2031 09/12/2021, 10/20/2015Zoster (Shingles) HkygupbYwyinilfr02/30/2020, 09/20/2019 Medical Devices Not on file Procedures Procedure NamePriorityDate/TimeAssociated DiagnosisCommentsMR BRAIN WO CONT Ykpakln2509/17/2025 4:[address] CTA URPGRwzwlay72/18/2025 8:[address] CTA ERRSLIKMaxzvdz53/18/2025 8:[address] BRAIN WO CONT STROKE ALERTSTAT Tbajhgq2509/17/2025 7:35 AM EST Pain from Last 3 Months Results * MR brain without contrast (09/17/2025 4:30 PM EST)Specimen (Source)Anatomical Location / LateralityCollection Method / VolumeCollection TimeReceived Time Narrative Authorizing ProviderResult TypeResult StatusScanning Provider ExternalIMG MRI ORDERABLESFinal Result * CT angiogram head (09/17/2025 8:30 AM EST)Specimen (Source)Anatomical Location / LateralityCollection Method / VolumeCollection TimeReceived Time Narrative Authorizing ProviderResult TypeResult StatusScanning Provider ExternalIMG CT ORDERABLESFinal Result * CT angiogram carotid (09/17/2025 8:25 AM EST)Specimen (Source)Anatomical Location / LateralityCollection Method / VolumeCollection TimeReceived Time Narrative Authorizing ProviderResult TypeResult StatusScanning Provider ExternalIMG CT ORDERABLESFinal Result * CT brain without contrast stroke alert (09/17/2025 7:35 AM EST)Specimen (Source)Anatomical Location / LateralityCollection Method / VolumeCollection TimeReceived Time Narrative Authorizing ProviderResult TypeResult StatusScanning Provider ExternalIMG CT ORDERABLESFinal Result from Last 3 Months Insurance Care Teams Team MemberRelationshipSpecialtyStart DateEnd Date [place], [place] [address] [facility] Sqtlfeoy91/13/21
--- OUTSIDE RECORDS SUMMARY | 2025-09-29 19:23 | XMS_ITS | Encounter Summary ---
Author Organization [employer] Address [id number] [address] [place] [address] Care Team Providers Care Steel Box Toe Inserter Name Role Phone No Pcp, No Pcp Primary Care Provider Unavailabl e Reason for Referral * Diagnostic Imaging (Routine) - Pending ReviewSpecialtyDiagnoses / Procedures Referred By ContactReferred To ContactRadiology Diagnoses Pain Procedures MR brain without contrast [facility] [facility] [address] [place] [phone] Phone: tel: fax: Referral IDStatusReasonStart DateExpiration DateVisits RequestedVisits [id number] Uokcug60/ Encounter Details DateTypeDepartmentCare Team (Latest Contact Info)Vrfrpizmwcf95/20/2025Orders Only [facility] [facility] [address] [place] [phone] Transcribe, Orders Support User Pain (Primary Dx) Social History Tobacco UseTypesPacks/DayYears UsedDateSmoking Tobacco: NeverSmokeless Tobacco: NeverAlcohol UseStandard Drinks/WeekCommentsYes0 (1 standard drink = 0.6 oz pure alcohol)ChildcareAnswerDate DcschoddWlrrujsieVeaodqh16/12/2019EmploymentAnswer Date PgkhhayvMpgswuyknmMxvwqif77/12/2019Sex and Gender InformationValueDate RecordedSex Assigned at BirthNot on fileLegal JhaCmnj3706/05/2015 11:27 AM EDT Gender IdentityNot on fileSexual OrientationNot on filedocumented as of this encounter Plan of Treatment Not on file documented as of this encounter Results * MR brain without contrast (09/17/2025 4:30 PM EST)Specimen (Source)Anatomical Location / LateralityCollection Method / VolumeCollection TimeReceived Time Narrative Authorizing ProviderResult TypeResult StatusScanning Provider ExternalIMG MRI ORDERABLESFinal Result documented in this encounter Visit Diagnoses Diagnosis Pain- Primary Generalized pain documented in this encounter Care Teams Team MemberRelationshipSpecialtyStart DateEnd Date No Pcp, [place] [address] PCP - GeneralFamily Zzhztdjz18/13/21documented as of this encounter
--- OUTSIDE RECORDS SUMMARY | 2025-09-29 19:23 | XMS_ITS | Encounter Summary ---
Author Organization [employer] Address [id number] [address] [place] [address] Care Team Providers Care Zoo Keeper Name Role Phone No Pcp, No Pcp Primary Care Provider Unavailabl e Reason for Referral * Diagnostic Imaging (Routine) - Pending ReviewSpecialtyDiagnoses / Procedures Referred By ContactReferred To ContactRadiology Diagnoses Pain Procedures CT brain without contrast stroke alert [facility] [facility] [address] [place] [phone] Phone: tel: fax: Referral IDStatusReasonStart DateExpiration DateVisits RequestedVisits [id number] * Diagnostic Imaging (Routine) - Pending ReviewSpecialtyDiagnoses / Procedures Referred By ContactReferred To ContactRadiology Diagnoses Pain Procedures CT angiogram head [facility] [address] [place] [phone] Phone: tel: fax: Referral IDStatusReasonStart DateExpiration DateVisits RequestedVisits [id number] [id number] * Diagnostic Imaging (Routine) - Pending ReviewSpecialtyDiagnoses / Procedures Referred By ContactReferred To ContactRadiology Diagnoses Pain Procedures CT angiogram carotid [facility] [address] [place] [phone] Phone: tel: fax: Referral IDStatusReasonStart DateExpiration DateVisits RequestedVisits [id number] [id number] Encounter Details DateTypeDepartmentCare Team (Latest Contact Info)Bzqmvbcqihl59/19/2025Orders Only [facility] [address] [place] [phone] Transcribe, Orders Support User Pain (Primary Dx) Social History Tobacco UseTypesPacks/DayYears UsedDateSmoking Tobacco: NeverSmokeless Tobacco: NeverAlcohol UseStandard Drinks/WeekCommentsYes0 (1 standard drink = 0.6 oz pure alcohol)ChildcareAnswerDate CjxvplklRxqztbjroYssnqmn22/12/2019EmploymentAnswer Date JlzcjqtkRwcrgtwhlfSurlkdn85/12/2019Sex and Gender InformationValueDate RecordedSex Assigned at BirthNot on fileLegal HwgRlwn4606/05/2015 11:27 AM EDT Gender IdentityNot on fileSexual OrientationNot on filedocumented as of this encounter Plan of Treatment Not on file documented as of this encounter Results * CT angiogram head [...] MemberRelationshipSpecialtyStart DateEnd Date No Pcp, [place] [address] [facility] Jhkaagit44/13/21documented as of this encounter
[2025-09-29] MEDS: HYDROCODONE/ACET 5-325 MG TABLET 2 TAB PO (20:09)
[2025-09-29 20:12] VITALS: BP 201/112; PULSE 72; O2SAT 98
--- NOTE | 2025-09-29 20:39 | PC.NURSE ---
i gave this patient verbal and written discharge orders along with 1 work note, this patient voices yes to understanding these. at time of discharge this patient voices no concerns and shows no signs of distress
--- NOTE | 2025-09-30 01:21 | ED.GENADUL1 ---
HPI HPI - General Adult General Chief complaint: Extremity Injury, Lower Stated complaint: LE PAIN Time Seen by Provider: 09/29/25 19:07 Source: patient Mode of arrival: Wheelchair History of Present Illness HPI narrative: Patient is a 60-year-old male presenting to the emergency department for evaluation of left knee pain. Patient states that approximately 4 hours ago he was getting into his truck when he felt a pop and pain in the left knee. Since then, the pain has gotten progressively worse to the point where he is having a hard time bearing any weight on it. He states he is a history of a meniscus tear in the right knee, this is similar to the pain he experienced with that. He denies any blunt injury to the knee. He denies any other injuries. He has had no prior surgeries to the left knee. No numbness/tingling/weakness in the left lower extremity. Related Data Home Medications ?Medication ?Instructions ?Recorded ?Confirmed citalopram 20 mg tablet 20 mg PO BEDTIME 06/25/24 09/17/25 Previous Rx's ?Medication ?Instructions ?Recorded amlodipine 10 mg tablet 10 mg PO DAILY #60 tabs 09/19/25 aspirin 81 mg tablet,delayed 81 mg PO DAILY #60 tabs 09/19/25 release atenolol 25 mg tablet 25 mg PO QD #60 tabs 09/19/25 atorvastatin 40 mg tablet 40 mg PO QHS #60 tabs 09/19/25 dapagliflozin propanediol 10 mg 10 mg PO DAILY #30 tabs 09/19/25 tablet (Farxiga) glyburide 2.5 mg tablet 2.5 mg PO BIDWM #60 tabs 09/19/25 hydralazine 50 mg tablet 50 mg PO BID #60 tabs 09/19/25 insulin glargine 100 unit/mL (3 10 unit (0.1 mL) subcut QPM #15 mL 09/19/25 mL) subcutaneous pen (Lantus Solostar U-100 Insulin) lisinopril 20 mg tablet 20 mg PO DAILY #60 tabs 09/19/25 oxycodone 5 mg tablet 5 mg PO Q6H PRN pain #25 tabs 09/19/25 peg [id number] 1 1 drp left eye QID PRN dry eye(s) 11/20/25 %-0.2 %-0.2 % eye drops #15 mL (Artificial Tears ([id number])) prednisone 10 mg tablet 10 mg PO .as directed #30 tabs 09/19/25 spironolactone 25 mg tablet 25 mg PO QD #60 tabs 09/19/25 valacyclovir 1 gram tablet 1,000 mg PO BID 7 days #14 tabs 09/19/25 (Valtrex) Allergies Allergy/AdvReac Type Severity Reaction Status Date / Time No Known Drug Allergies Allergy Verified 09/17/25 07:18 Opioid HPI Opioid Management Most Recent Opioid Data: Last Pain Scale 7 09/29/25, 20:09 Last MAR Pain Assessment 09/29/25, 20:09 Last ORT Total Score 1 09/17/25, 12:01 Last ORT Risk Category Low Risk 09/17/25, 12:01 Review of Systems ROS Status of ROS 10 or more systems reviewed and unremarkable except as noted in history and below [facility] Medical History (Updated 09/29/25 @ 20:29 by Hi Monet DO) Depression ?F32.A - Depression, unspecified (ICD-10) Diabetes ?E11.9 - Type 2 diabetes mellitus without complications (ICD-10) Hypertension ?I10 - Essential (primary) hypertension (ICD-10) Social History Highest level of school completed/degree received: Associate degree: occupational, technical, vocational program Little interest or pleasure in doing things: not at all Feeling down, depressed, or hopeless: not at all Exam Narrative Exam Narrative: CONSTITUTIONAL: Well-appearing, answering questions and following commands appropriately SKIN: Was warm and dry. EYES: Sclerae white. EARS, NOSE, THROAT: Moist oral mucosa. RESPIRATORY: Nonlabored respiration CARDIOVASCULAR: Normal rate and regular rhythm. 2+ DP pulse on the right. GASTROINTESTINAL: Abdomen is nondistended. MUSCULOSKELETAL: There is tenderness to palpation throughout the left knee, mainly on the lateral aspect. There is full range of motion throughout the left knee. The knee joint is stable through ligamentous testing including anterior/posterior drawer and varus/valgus stress test. Able to ambulate with an antalgic gait. There is no joint effusion or overlying erythema/induration/drainage/or other infectious changes. NEUROLOGIC: Patient is awake and alert. Equal strength and sensation to light touch in the bilateral lower extremities. Constitutional Vital Signs, click to edit/add: Last Vital Signs Temp 97.9 F 09/29/25 18:28 Pulse 72 09/29/25 20:12 Resp 18 09/29/25 20:12 BP 201/112 H 09/29/25 20:12 Pulse Ox 98 09/29/25 20:12 O2 Del Method Room Air 09/29/25 18:28 Course Vital Signs Vital signs: Vital Signs Temperature 97.9 F 09/29/25 18:28 Pulse Rate 76 09/29/25 18:28 Respiratory Rate 18 09/29/25 18:28 Blood Pressure 176/110 H 09/29/25 18:28 Pulse Oximetry 98 09/29/25 18:28 Oxygen Delivery Method Room Air 09/29/25 18:28 Temperature 97.9 F 09/29/25 18:28 Pulse Rate 72 09/29/25 20:12 Respiratory Rate 18 09/29/25 20:12 Blood Pressure 201/112 H 09/29/25 20:12 Pulse Oximetry 98 09/29/25 20:12 Oxygen Delivery Method Room Air 09/29/25 18:28 Medical Decision Making MDM Narrative Medical decision making narrative: Patient is a 60-year-old male presenting to the emergency department for evaluation of left knee injury sustained earlier today while getting into his truck. His vital signs are significant for hypertension, though he does have a history of chronic hypertension. He is otherwise afebrile and hemodynamically stable. Focused left knee exam as outlined above. The extremity is neurovascularly intact distal to the injury. Differential diagnosis includes meniscal tear, ligamentous injury, sprain, and less likely acute fracture. X-rays were obtained. He was given oral Clio for pain. X-rays independently reviewed by myself demonstrated no evidence of acute osseous abnormalities. I do believe the patient is stable for discharge. They were instructed to follow up with the orthopedic surgery clinic for further care. He was placed in an Mario bandage prior to discharge. He does have crutches at home and a knee immobilizer from previous meniscus surgery. Return precautions were given including any new or worsening symptoms. Patient understands and agrees to the plan. FINAL IMPRESSION: #Acute left knee injury DISPOSITION: Discharged home CONDITION: Good Imaging Data Left knee xray: Attestation: I personally reviewed and interpreted this imaging study as follows: Discharge Plan Discharge Chief Complaint: Extremity Injury, Lower Clinical Impression: Injury of knee, left Patient Disposition: Home, Self-Care Time of Disposition Decision: 20:29 Condition: Good Mode of Transportation: Private Vehicle Prescriptions / Home Meds: No Action citalopram 20 mg tablet 20 mg PO BEDTIME Artificial Tears([id number]) 1-0.2-0.2 % Drops 1 drp left eye QID PRN (Reason: dry eye(s)) Qty: 15 2RF aspirin 81 mg tablet,delayed release (DR/EC) 81 mg PO DAILY Qty: 60 2RF atenolol 25 mg Tablet 25 mg PO QD Qty: 60 2RF atorvastatin 40 mg Tablet 40 mg PO QHS Qty: 60 2RF glyburide 2.5 mg Tablet 2.5 mg PO BIDWM Qty: 60 2RF lisinopril 20 mg Tablet 20 mg PO DAILY Qty: 60 1RF spironolactone 25 mg Tablet 25 mg PO QD Qty: 60 2RF valacyclovir [Valtrex] 1 gram tablet 1,000 mg PO BID 7 Days Qty: 14 0RF amlodipine 10 mg tablet 10 mg PO DAILY Qty: 60 2RF prednisone 10 mg tablet 10 mg PO .as directed Qty: 30 0RF Rx Instructions: Take 4 tablets daily for 3 days then 3 tablets daily for for 3 days then 2 tablets daily for 3 days then 1 tablet daily for 3 days insulin glargine [Lantus Solostar U-100 Insulin] 100 unit/mL (3 mL) insulin pen 10 unit SUBCUT QPM Qty: 15 2RF Rx Instructions: IN THE EVENING dapagliflozin propanediol [Farxiga] 10 mg tablet 10 mg PO DAILY Qty: 30 2RF oxycodone 5 mg tablet 5 mg PO Q6H PRN (Reason: pain) Qty: 25 0RF hydralazine 50 mg Tablet 50 mg PO BID Qty: 60 2RF Print Language: Mauritian Instructions: Knee Sprain (ED) Referrals: Albaro John DO [Primary Care Provider, Internal Medicine] - 1 week Miguel Liang DO [Physician, Orthopedics] - 1 week Discharge Date/Time: 09/29/25 20:38
== END 2025-09-29 20:38 | disposition home or self-care (01) ==
PROVIDERS: Emergency Provider Student in an Organized Health Care Education/Training Program; PCP Internal Medicine
DX: S89.92XA Unspecified injury of left lower leg, initial encounter (principal); X58.XXXA Exposure to other specified factors, initial encounter; I10 Essential (primary) hypertension
CPT/HCPCS: 73562; 99283

== ENCOUNTER 2025-10-08 10:57 | Outpatient (RCR) | payer OTHER, SELFPAY | END 2025-10-22 07:44 | disposition home or self-care (01) | LOC: PT 10:57 | PROVIDERS: PCP Internal Medicine; Visit Provider Internal Medicine | DX: G51.0 Bell's palsy (principal) | CPT/HCPCS: 97112; 97161; 97535 ==